=== PATIENT | female | born 1945 | race Caucasian/White ===

== ENCOUNTER 2021-04-18 13:49 | Outpatient (REF) | payer MEDICARE, SELFPAY ==
--- NOTE | ~2021-04-18 | MM_ITS ---
EXAMINATION: MM SCREENING DIGITAL BREAST TOMOSYNTHESIS, BILATERAL CLINICAL INFORMATION: Left breast cancer 2004. Due for yearly. COMPARISON: Mammography: 02/29/2020, 12/28/2018, 11/22/2017 TECHNIQUE: Digital breast tomosynthesis is performed in both the craniocaudal and mediolateral oblique views along with computer-aided detection (CAD). Synthesized 2D images are generated from the tomosynthesis. Additional views are provided: Exaggerated right CC, left CC, left MLO x2. FINDINGS: There are scattered areas of fibroglandular density (ACR BI-RADS breast composition Category b). Parenchymal pattern is similar to previous exams. The left breast again shows chronic post therapy changes with reduced breast size and stable scarring posterior upper breast. There are scattered benign relatively coarse calcifications left breast. Pacemaker generator overlies the left axilla on MLO views. The right breast has biopsy clip marker mid 12:00 position. There is no interval mass or architectural abnormality. There are scattered benign calcifications again seen including benign grouped coarse calcifications mid 6:30 o'clock position. No significant changes. MM/MM tomosynthesis screening BI IMPRESSION: No mammographic evidence of malignancy. Post therapy changes left breast. ASSESSMENT: BI-RADS 2: Benign RECOMMENDATION: Routine annual mammography screening. This patient's information was entered into a reminder system with a target due date for their next mammogram.
--- NOTE | ~2021-04-18 | MM_ITS ---
EXAMINATION: BONE DENSITOMETRY CLINICAL INDICATION: Postmenopausal. COMPARISON: None (current study represents initial baseline exam). TECHNIQUE: Using a [employer] DXA System (software version: 13.1) manufactured by [employer], dual-energy x-ray absorptiometry was performed of the lumbar spine and left hip. The images are of good technical quality. Summary results are attached. FINDINGS: AP SPINE L1-L4: BMD 1.084 g/cm2, Z-score 0.9, T-score -0.8, normal. LEFT FEMUR, NECK: BMD 0.767 g/cm2, Z-score 0.1, T-score -2.0, osteopenia. LEFT FEMUR, TOTAL: BMD 0.888 g/cm2, Z-score 0.9, T-score -1.0, normal. IDENTIFIED RISK FACTORS: Early menopause, secondary osteoporosis, anticonvulsants, hysterectomy, bilateral oophorectomy. HISTORY OF FRACTURE: None listed. MEDICATIONS: Vitamin D. MM/XR DEXA axial skeleton IMPRESSION: 1. DIAGNOSIS: Osteopenia based on the lowest T-score value of -2.0 in the femoral neck applying World Health Organization criteria. 2. 10-YEAR FRACTURE RISK PREDICTION, FRAX: Major osteoporotic fracture (clinical spine, forearm, hip or shoulder) 14.9%. Hip fracture 4.1%. 3. Treatment Recommendations: NOF guidelines recommend consideration for treatment in postmenopausal women and men age 50 and older presenting with the following: -A hip or vertebral (clinical or morphometric) fracture. -T-score less than or equal to -2.5 at the femoral neck or spine after appropriate evaluation to exclude secondary causes. -Low bone mass at the hip or spine and a 10-year fracture probability by FRAX of greater than or equal to 3% for hip fracture or greater than or equal to 20% for major osteoporotic fracture based on the [place] adapted WHO algorithm. 4. Other Recommendations: All treatment decisions require clinical judgment and consideration of individual patient factors, including patient preferences, comorbidities, previous drug use, risk factors not captured in the FRAX model (e.g. frailty, falls, vitamin D deficiency, increased bone turnover, interval significant decline in bone density) and possible under or overestimation of fracture risk by FRAX. Additional medical evaluation for secondary cause of low bone mineral density may be appropriate. FUTURE SCAN RECOMMENDATION: People with diagnosed cases of osteoporosis or at high risk for fracture should have regular bone mineral density tests. For patients eligible for Medicare, routine testing is allowed once every 2 years. The testing frequency can be increased to one year for patients who have rapidly progressing disease, those who are receiving or discontinuing medical therapy to restore bone mass, or have additional risk factors.
== END 2021-04-18 13:50 | disposition home or self-care (01) ==
LOC: HO.MAMMO 13:49
PROVIDERS: Visit Provider Internal Medicine
DX: Z12.31 Encounter for screening mammogram for malignant neoplasm of breast (principal); Z13.820 Encounter for screening for osteoporosis; M85.80 Other specified disorders of bone density and structure, unspecified site; N95.9 Unspecified menopausal and perimenopausal disorder; Z78.0 Asymptomatic menopausal state; Z79.899 Other long term (current) drug therapy; Z90.722 Acquired absence of ovaries, bilateral; Z98.890 Other specified postprocedural states
CPT/HCPCS: 77063; 77067; 77080

== ENCOUNTER → 2021-07-07 09:37 | Outpatient (BNVA) | payer MEDICARE, SELFPAY | PROVIDERS: PCP Internal Medicine; Visit Provider Anesthesiology | DX: G62.9 Polyneuropathy, unspecified (principal); G89.4 Chronic pain syndrome | CPT/HCPCS: 99202 ==

== ENCOUNTER → 2021-07-18 08:25 | Outpatient (BNVA) | payer MEDICARE, SELFPAY | PROVIDERS: PCP Internal Medicine; Visit Provider Internal Medicine | DX: G89.4 Chronic pain syndrome (principal) | CPT/HCPCS: 99212 ==

== ENCOUNTER → 2021-08-19 10:17 | Outpatient (BNVA) | payer MEDICARE, SELFPAY | PROVIDERS: PCP Internal Medicine; Visit Provider Nurse Practitioner Family | DX: Z51.81 Encounter for therapeutic drug level monitoring (principal); F11.20 Opioid dependence, uncomplicated; G62.9 Polyneuropathy, unspecified; G89.4 Chronic pain syndrome | CPT/HCPCS: 99212 ==

== ENCOUNTER → 2021-09-12 09:59 | Outpatient (BNVA) | payer MEDICARE, SELFPAY | PROVIDERS: PCP Internal Medicine; Visit Provider Nurse Practitioner Family | DX: G89.4 Chronic pain syndrome (principal); G62.9 Polyneuropathy, unspecified; Z79.891 Long term (current) use of opiate analgesic | CPT/HCPCS: 99212 ==

== ENCOUNTER → 2021-10-14 09:41 | Outpatient (BNVA) | payer MEDICARE, SELFPAY | PROVIDERS: PCP Internal Medicine; Visit Provider Nurse Practitioner Family | DX: G89.4 Chronic pain syndrome (principal); G62.9 Polyneuropathy, unspecified; Z79.891 Long term (current) use of opiate analgesic | CPT/HCPCS: 99212 ==

== ENCOUNTER → 2021-11-14 09:52 | Outpatient (BNVA) | payer MEDICARE, SELFPAY | PROVIDERS: PCP Internal Medicine; Visit Provider Internal Medicine | DX: Z51.81 Encounter for therapeutic drug level monitoring (principal); Z79.899 Other long term (current) drug therapy | CPT/HCPCS: 99211 ==

== ENCOUNTER → 2021-12-12 10:49 | Outpatient (BNVA) | payer MEDICARE, SELFPAY | PROVIDERS: PCP Internal Medicine; Visit Provider Nurse Practitioner Family | DX: G89.4 Chronic pain syndrome (principal); G62.9 Polyneuropathy, unspecified; Z79.891 Long term (current) use of opiate analgesic | CPT/HCPCS: 99212 ==

== ENCOUNTER → 2022-01-09 10:16 | Outpatient (BNVA) | payer MEDICARE, SELFPAY | PROVIDERS: PCP Internal Medicine; Visit Provider Nurse Practitioner Family | DX: Z51.81 Encounter for therapeutic drug level monitoring (principal); F11.20 Opioid dependence, uncomplicated | CPT/HCPCS: 99211 ==

== ENCOUNTER → 2022-02-10 10:13 | Outpatient (BNVA) | payer MEDICARE, SELFPAY | PROVIDERS: PCP Internal Medicine; Visit Provider Nurse Practitioner Family | DX: G89.4 Chronic pain syndrome (principal); G62.9 Polyneuropathy, unspecified; Z79.891 Long term (current) use of opiate analgesic | CPT/HCPCS: 99212 ==

== ENCOUNTER → 2022-03-10 10:09 | Outpatient (BNVA) | payer MEDICARE, SELFPAY | PROVIDERS: PCP Internal Medicine; Visit Provider Nurse Practitioner Family | DX: Z51.81 Encounter for therapeutic drug level monitoring (principal); F11.20 Opioid dependence, uncomplicated; G62.9 Polyneuropathy, unspecified; G89.4 Chronic pain syndrome; M25.561 Pain in right knee; M25.562 Pain in left knee | CPT/HCPCS: 99212 ==

== ENCOUNTER → 2022-04-07 10:14 | Outpatient (BNVA) | payer MEDICARE, SELFPAY | PROVIDERS: PCP Internal Medicine; Visit Provider Nurse Practitioner Family | DX: F11.90 Opioid use, unspecified, uncomplicated (principal); G62.9 Polyneuropathy, unspecified; G89.4 Chronic pain syndrome; M25.561 Pain in right knee; M25.562 Pain in left knee | CPT/HCPCS: 99212 ==

== ENCOUNTER → 2022-04-09 10:17 | Outpatient (BNVA) | payer MEDICARE, SELFPAY | PROVIDERS: PCP Internal Medicine; Visit Provider Surgery Vascular Surgery | DX: I83.12 Varicose veins of left lower extremity with inflammation (principal); Z92.21 Personal history of antineoplastic chemotherapy | CPT/HCPCS: 99202 ==

== ENCOUNTER 2022-04-21 11:05 | Outpatient (REF) | payer MEDICARE, SELFPAY ==
--- NOTE | ~2022-04-21 | MM_ITS ---
EXAMINATION: MM SCREENING DIGITAL BREAST TOMOSYNTHESIS, BILATERAL CLINICAL INFORMATION: Screening. Asymptomatic. History left breast cancer, 2004. COMPARISON: Mammography: 04/18/2021, 02/29/2020, 12/28/2018 TECHNIQUE: Digital breast tomosynthesis is performed in both the craniocaudal and mediolateral oblique views along with computer-aided detection (CAD). Synthesized 2D images are generated from the tomosynthesis. Additional left MLO view is provided. FINDINGS: There are scattered areas of fibroglandular density (ACR BI-RADS breast composition Category b). There are stable post therapy changes on the left with mild reduced breast size and scarring. There is a pacemaker generator overlying and partly obscuring upper left axilla on the MLO view. Neither breast shows interval mass or architectural abnormality or abnormal calcifications. There is biopsy clip marker again noted central 12:00 right breast. Scattered bilateral predominantly coarse calcifications again seen. No significant changes. MM/MM tomosynthesis screening BI IMPRESSION: No mammographic evidence of malignancy. No significant changes from prior exams. ASSESSMENT: BI-RADS 2: Benign RECOMMENDATION: Routine annual mammography screening. This patient's information was entered into a reminder system with a target due date for their next mammogram.
== END 2022-04-21 11:06 | disposition home or self-care (01) ==
LOC: HO.MAMMO 11:05
PROVIDERS: Visit Provider Internal Medicine
DX: Z12.31 Encounter for screening mammogram for malignant neoplasm of breast (principal)
CPT/HCPCS: 77063; 77067

== ENCOUNTER → 2022-04-30 10:38 | Outpatient (BNVA) | payer MEDICARE, SELFPAY | PROVIDERS: PCP Internal Medicine; Visit Provider Anesthesiology | DX: Z51.81 Encounter for therapeutic drug level monitoring (principal); F11.20 Opioid dependence, uncomplicated; M25.561 Pain in right knee; M25.562 Pain in left knee; G62.9 Polyneuropathy, unspecified; G89.4 Chronic pain syndrome | CPT/HCPCS: 99212 ==

== ENCOUNTER 2022-06-24 12:43 | Outpatient (REF) | payer MEDICARE, SELFPAY ==
--- NOTE | ~2022-06-24 | US_ITS ---
EXAMINATION: US VENOUS BILATERAL LOWER EXTREMITIES (REFLUX EXAM) CLINICAL INDICATION: Leg pain and varicose veins. COMPARISON: None TECHNIQUE: Color flow triplex imaging and compression Doppler was performed to evaluate both the deep and the superficial systems bilaterally. To evaluate the superficial system, the examination was performed in the upright position. Color-flow Doppler ultrasound and compression ultrasound were utilized. In addition, maneuvers were utilized to demonstrate reflux. FINDINGS: 1. DEEP VENOUS ULTRASOUND OF THE RIGHT LOWER EXTREMITY: Respiratory variation, normal compression and augmented flow are noted in the right common femoral vein as well as the right popliteal vein and there is no evidence of deep venous thrombosis at these locations. There is no evidence of reflux in the deep system in either the common femoral vein or the popliteal vein. There is a small right-sided Lopez's cyst. 2. SUPERFICIAL ULTRASOUND WITH DOPPLER OF RIGHT LOWER EXTREMITY: The right great saphenous vein at the saphenofemoral junction measures 5.5 mm, at the proximal thigh 4.6 mm, at the mid thigh 2.4 mm, above the knee 2.5 mm, at the knee 2.2 mm, [id number] 2.2 mm, midcalf 2.4 mm and at the ankle measures 2.0 mm. There is segmental reflux in the mid calf of 2.5 seconds. Duplicated Right Great Saphenous Vein: There is a medial accessory saphenous measuring 2.2 mm that does not reflux. The right small saphenous vein measures 2.7 mm and shows no reflux. Accessory Vein of Giacomini: None Incompetent Perforators: None Varices Present: Varices are present as large as 7 mm in the calf without reflux. 3. DEEP VENOUS ULTRASOUND OF THE LEFT LOWER EXTREMITY: Respiratory variation, normal compression and augmented flow are noted in the left common femoral vein as well as the left popliteal vein and there is no evidence of deep venous thrombosis at these locations. There is no evidence of reflux in the deep system in either the common femoral vein or the popliteal vein. There is no evidence of a Lopez's cyst. 4. SUPERFICIAL ULTRASOUND WITH DOPPLER OF LEFT LOWER EXTREMITY: Left great saphenous vein at the saphenofemoral junction measures 7.6 mm, at the proximal thigh 4.5 mm, at the mid thigh 4.2 mm, above the knee 3.4 mm, at the knee 4.3 mm, pqmkr-[id number] 3.8 mm, midcalf 2.5 mm and at the ankle measures 2.3 mm. Reflux is present throughout the left great saphenous vein from just below the junction down to the level of the ankle with reflux times as high as 3.4 seconds. Duplicated Left Great Saphenous Vein: There is a 5 mm medial accessory saphenous that does not reflux. The left small saphenous vein measures 2.4 mm and shows no reflux. Accessory Vein of Giacomini: None Incompetent Perforators: None Varices Present: 3.3 mm thigh varix with 0.9 seconds of reflux. US/US venous duplex LE BI IMPRESSION: 1. No evidence of reflux or thrombus in the common femoral veins or popliteal veins bilaterally. 2. Left great saphenous is grossly incompetent. Other findings as described above.
== END 2022-06-24 12:44 | disposition home or self-care (01) ==
LOC: HO.US 12:43
PROVIDERS: Visit Provider Surgery Vascular Surgery
DX: I83.12 Varicose veins of left lower extremity with inflammation (principal)
CPT/HCPCS: 93970

== ENCOUNTER → 2022-06-26 14:55 | Outpatient (BNVA) | payer MEDICARE, SELFPAY | PROVIDERS: PCP Internal Medicine; Visit Provider Nurse Practitioner Family | DX: Z51.81 Encounter for therapeutic drug level monitoring (principal); F11.20 Opioid dependence, uncomplicated; M25.561 Pain in right knee; M25.562 Pain in left knee; G62.0 Drug-induced polyneuropathy; T45.1X5A Adverse effect of antineoplastic and immunosuppressive drugs, initial encounter; G89.4 Chronic pain syndrome | CPT/HCPCS: 99212 ==

== ENCOUNTER → 2022-08-18 10:01 | Outpatient (BNVA) | payer MEDICARE, SELFPAY | PROVIDERS: PCP Internal Medicine; Visit Provider Anesthesiology | DX: Z13.89 Encounter for screening for other disorder (principal) ==

== ENCOUNTER → 2022-09-01 09:38 | Outpatient (BNVA) | payer MEDICARE, SELFPAY | PROVIDERS: PCP Internal Medicine; Visit Provider Surgery Vascular Surgery | DX: I83.12 Varicose veins of left lower extremity with inflammation (principal) | CPT/HCPCS: 99212 ==

== ENCOUNTER → 2022-09-11 12:22 | Outpatient (BNVA) | payer MEDICARE, SELFPAY | PROVIDERS: PCP Internal Medicine; Visit Provider Surgery Vascular Surgery | DX: I83.12 Varicose veins of left lower extremity with inflammation (principal) | CPT/HCPCS: 36482; 99212 ==

== ENCOUNTER 2022-09-14 12:41 | Outpatient (REF) | payer MEDICARE, SELFPAY ==
--- NOTE | ~2022-09-14 | US_ITS ---
EXAMINATION: TRIPLEX SCANNING OF LEFT LOWER EXTREMITY; SUPERFICIAL ULTRASOUND WITH DOPPLER OF LEFT LOWER EXTREMITY CLINICAL INFORMATION: Status post VenaSeal. VenaSeal ablation, the left great saphenous vein. COMPARISON: 06/24/2022 Preprocedure studies. TECHNIQUE: Color flow triplex imaging and compression Doppler were performed as well as superficial ultrasound with Doppler. FINDINGS: TRIPLEX SCANNING OF LEFT LOWER EXTREMITY: Respiratory variation, normal compression and augmented flow are noted throughout the lower extremity. The visualized common femoral vein, femoral vein, profunda femoral vein, popliteal vein and the calf veins show no evidence of deep venous thrombosis. There is no evidence of Lopez's cyst. SUPERFICIAL ULTRASOUND WITH DOPPLER OF LEFT LOWER EXTREMITY: The left great saphenous vein is occluded to 2.2 cm before the saphenofemoral junction. There is no extension of thrombus into the deep system. US/US venous duplex LE IMPRESSION: 1. Normal triplex scan of the left without evidence of deep venous thrombosis. 2. Excellent appearance status post VenaSeal ablation of the left great saphenous vein.
== END 2022-09-14 12:42 | disposition home or self-care (01) ==
LOC: HO.HMGCX 12:41
PROVIDERS: Visit Provider Surgery Vascular Surgery
DX: M79.605 Pain in left leg (principal)
CPT/HCPCS: 93971

== ENCOUNTER → 2022-09-18 09:51 | Outpatient (BNVA) | payer MEDICARE, SELFPAY | PROVIDERS: PCP Internal Medicine; Visit Provider Nurse Practitioner Family | DX: G62.0 Drug-induced polyneuropathy (principal); T45.1X5A Adverse effect of antineoplastic and immunosuppressive drugs, initial encounter; G89.4 Chronic pain syndrome; M25.561 Pain in right knee; M25.562 Pain in left knee; Z79.891 Long term (current) use of opiate analgesic | CPT/HCPCS: 99212 ==

== ENCOUNTER → 2022-09-24 13:04 | Outpatient (BNVA) | payer MEDICARE, SELFPAY | PROVIDERS: PCP Internal Medicine; Visit Provider Surgery Vascular Surgery | DX: I83.12 Varicose veins of left lower extremity with inflammation (principal) | CPT/HCPCS: 99212 ==

== ENCOUNTER → 2022-10-16 13:10 | Outpatient (BNVA) | payer MEDICARE, SELFPAY | PROVIDERS: PCP Internal Medicine; Visit Provider Nurse Practitioner Family | DX: G62.0 Drug-induced polyneuropathy (principal); T45.1X5A Adverse effect of antineoplastic and immunosuppressive drugs, initial encounter; G89.4 Chronic pain syndrome; M25.562 Pain in left knee; M25.561 Pain in right knee; Z85.3 Personal history of malignant neoplasm of breast; Z79.891 Long term (current) use of opiate analgesic | CPT/HCPCS: 99212 ==

== ENCOUNTER → 2022-11-19 10:24 | Outpatient (BNVA) | payer MEDICARE, SELFPAY | PROVIDERS: PCP Internal Medicine; Visit Provider Nurse Practitioner Family | DX: Z51.81 Encounter for therapeutic drug level monitoring (principal); F11.20 Opioid dependence, uncomplicated; M25.561 Pain in right knee; M25.562 Pain in left knee; G62.9 Polyneuropathy, unspecified; T45.1X5A Adverse effect of antineoplastic and immunosuppressive drugs, initial encounter; G89.4 Chronic pain syndrome | CPT/HCPCS: 99212 ==

== ENCOUNTER → 2022-12-21 09:47 | Outpatient (BNVA) | payer MEDICARE, SELFPAY | PROVIDERS: PCP Internal Medicine; Visit Provider Nurse Practitioner Family | DX: G89.4 Chronic pain syndrome (principal); Z79.891 Long term (current) use of opiate analgesic; Z79.899 Other long term (current) drug therapy | CPT/HCPCS: 99211 ==

== ENCOUNTER → 2023-01-07 08:04 | Outpatient (BNVA) | payer MEDICARE, SELFPAY | PROVIDERS: PCP Internal Medicine; Visit Provider Dietitian, Registered | DX: K58.9 Irritable bowel syndrome, unspecified (principal) | CPT/HCPCS: 97802 ==

== ENCOUNTER → 2023-01-18 09:56 | Outpatient (BNVA) | payer MEDICARE, SELFPAY | PROVIDERS: PCP Internal Medicine; Visit Provider Nurse Practitioner Family | DX: Z51.81 Encounter for therapeutic drug level monitoring (principal); F11.20 Opioid dependence, uncomplicated; G62.0 Drug-induced polyneuropathy; T45.1X5D Adverse effect of antineoplastic and immunosuppressive drugs, subsequent encounter; M25.561 Pain in right knee; M25.562 Pain in left knee; G89.4 Chronic pain syndrome | CPT/HCPCS: 99212 ==

== ENCOUNTER 2023-02-23 10:08 | Outpatient (AMB) | payer MEDICARE, SELFPAY ==
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
[2023-02-23 10:29] VITALS: BP 113/59; PULSE 77; O2SAT 98; BMI 26.1
== END 2023-02-23 10:49 | disposition home or self-care (01) ==
PROVIDERS: PCP Internal Medicine; Visit Provider Nurse Practitioner Family
DX: G89.4 Chronic pain syndrome (principal); G62.0 Drug-induced polyneuropathy; G62.9 Polyneuropathy, unspecified; Z79.891 Long term (current) use of opiate analgesic; M25.561 Pain in right knee; T45.1X5A Adverse effect of antineoplastic and immunosuppressive drugs, initial encounter; M25.562 Pain in left knee
CPT/HCPCS: 99214

== ENCOUNTER → 2023-02-23 10:08 | Outpatient (BNVA) | payer MEDICARE, SELFPAY | PROVIDERS: PCP Internal Medicine; Visit Provider Nurse Practitioner Family | DX: G89.4 Chronic pain syndrome (principal); G62.0 Drug-induced polyneuropathy; T45.1X5A Adverse effect of antineoplastic and immunosuppressive drugs, initial encounter; G62.9 Polyneuropathy, unspecified; M25.561 Pain in right knee; M25.562 Pain in left knee; Z79.891 Long term (current) use of opiate analgesic | CPT/HCPCS: 99212 ==

== ENCOUNTER → 2023-03-26 09:42 | Outpatient (BNVA) | payer MEDICARE, SELFPAY | PROVIDERS: PCP Internal Medicine; Visit Provider Nurse Practitioner Family | DX: Z79.891 Long term (current) use of opiate analgesic (principal) | CPT/HCPCS: 99211 ==

== ENCOUNTER 2023-03-29 09:46 | Outpatient (AMB) | payer MEDICARE, SELFPAY ==
[2023-03-29 10:08] VITALS: BMI 26.2
--- NOTE | 2023-03-29 10:08 | MHC.AMNUTRGE ---
Intake VS Expanded 03/29/23 10:08 Height 5 ft 3 in Weight 147 lb 14.883 oz BMI 26.2 Intake Visit Reasons: Irritable bowel syndrome Allergies No Known Allergies Allergy (Verified 03/26/23 09:55) HPI Nutrition Presentation Details Pt presents for MNT f/u for IBS. Pt reports continuing to live in the hotel, home is still undergoing renovations. Pt reports having breakfast options a the hotel and makes own meals for lunch or dinner. Pt reports doing better, reports taking cholestyramine with each meal Meals consists of B: oatmeal with low fat milk or almond milk adn strawberries and bananas or cheerios with low fat or almond milk and fruits added L: sandwich on rye or wheat bread with turkey or tuna ro chicken , water or low fat milk d: mashed potato, chicken baked , cabbage or broccoli or none Someties smoothies reports walking 2 miles a day Most Recent Diabetes Results: No Data to Display [facility] Medical History Chronic pain syndrome Peripheral polyneuropathy Surgical History Status post ablation of incompetent vein using laser (09/11/22) Assessment & Plan Assessment & Plan (1) IBS (irritable bowel syndrome): Code(s): K58.9 - Irritable bowel syndrome without diarrhea Plan: Est kcal needs as per 25 kcal/kg bw: 1700 (40% carb, 30% protein/fat) Est fluid needs as per 25 ml/d: 1700 Est prot per day as per 1 g/kg bw: 68 kg Recommend REDUCING fiber intake : less than 28 g /day Recommend sodium intake per day : less than 2000 mg Educated patient on: ( R = reviewed V = verbalizes understanding N/R = needs review N/A = not applicable Food sources of fiber and fiber supplements and its role in increased bowel movements: R importance of variety of foods : R, V Patient Instructions: Continue following healthy plate method at dinner Alternate high fiber/low fiber foods (cheerios, oatmeal and alternate with rice cereal, cornflakes) Continue choosing low fat food options (reduce on butter, oils, sauces, creams , pastries) Coding Level of Care Code Nutr Indiv Subseq (17218) Diagnoses IBS (irritable bowel syndrome) K58.9 Time Spent (min) 30
== END 2023-03-29 13:38 | disposition home or self-care (01) ==
PROVIDERS: PCP Internal Medicine; Visit Provider Dietitian, Registered
DX: K58.9 Irritable bowel syndrome, unspecified (principal)

== ENCOUNTER → 2023-03-29 09:46 | Outpatient (BNVA) | payer MEDICARE, SELFPAY | PROVIDERS: Visit Provider Dietitian, Registered | DX: K58.9 Irritable bowel syndrome, unspecified (principal) | CPT/HCPCS: 97803 ==

== ENCOUNTER 2023-04-20 11:07 | Outpatient (AMB) | payer MEDICARE, SELFPAY ==
--- NOTE | 2023-04-20 11:14 | MHC.OFFVIS ---
Intake Vital Signs 04/20/23 11:25 Height 5 ft 3 in Weight 147 lb BMI 26.0 BP 120/57 L Blood Pressure Location Rt brachial Position Sitting Pulse 77 Pulse Source Pulse Oximeter Pulse Oximetry (%) 98 Oxygen Delivery Method Room Air Intake Visit Reasons: Pill count Intake Note: Darlene comes in today for a pill count to morphine, patient should have 26 tablets and presents with 22 at first count when told she was short and asked if she had anymore on her, she pulled 2 tabs from her wallet for a total of 24 tablets. Pain today 0/10 Patient states that she had taken 2 tablets at one time once when her pain was really bad . I let patient know that she does need to take the medication only as prescribed and that she also needs to have all medication in the medication bottle at the time of the count. Patient is aware. 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 She is supposed to have #26 pills in her possession and has #24. This demonstrates a responsible attitude in regards to the opioid regimen. She reports she is less symptomatic and more functional on current opioid regime with no noted side effects. She continues to stay active and work at [employer] at [employer] [place]. Patient reports she recently saw her GI provider and will not undergo cholecystectomy at this time. Reports intermittent IBS symptoms which have been under better control for past month. Patient reports she also recently went to [facility] for posterior knee pain and was told she has lumbar spondylosis. Patient reports her pain has been under control today with current opioid regime. Denies any fever, chills, shortness of breaths, visual changes, abdominal pain, loss of appetite, sedation, nausea, dizziness or urinary retention or other significant changes in medical history since last office visit. She continues to take Miralax for constipation with good results. PRIOR: Darlene is a pleasant 76 year old female who has previously been evaluated in this office by Dr. Monroy for bilateral leg pain which she attributes to her chemotherapy s/p breast cancer years ago. She was previously under the care of [facility], who was managing her with medication and she reports overall improvements with morphine 15 mg BID. She was evaluated by Dr. Monroy, who agreed to continue her regimen through this office. She is accompanied by her daughter. Today she is here for a pill count, which was concordant. This demonstrates a responsible attitude in regards to the opioid regimen. She reports improved function and decrease in pain, with no noted side effects. Denies any sedation, nausea or urinary retention. She was recently discharged with a small bowel obstruction which was thought to be related to adhesions from a hysterectomy >25 years ago. She has previously been instructed to use a daily stool softener as well as miralax and she has not been adhering to this regimen. She states some weeks she will have a bowel movement every 5 days and other weeks she will have one every other day without the need for medication. She has a follow up with her PCP next week as well as cardiology this week to review her new blood pressure medications. She did note dizziness upon standing and has been taking her blood pressure at home. She was instructed to contact her PCP regarding her low bp today. She also has CHF and although she states she has good fluid intake, she was instructed to decrease by cardiology. Of note, patient recently had a Medtronic pacer placed 01/2021. PRIOR: Darlene is very pleasant 76 years old female who presents in my office with complains on pain in bilateral lower extremities below the level of the knees. She reports this pain is spreading all the way down to her toes. History of present illness she was subject of treatment of peripheral polyneuropathy of bilateral lower extremities after 18 years ago she was treated for breast cancer with physical therapy. She was under care of [facility] and spine. She reports that she can not sleep normally do activities of daily living she can take care of herself and she can not function normally. She is retired individual. In terms of tissue damage the she reports her pain as pulsing, throbbing, pounding, dull, serve, hurting, aching, heavy, hot burning, skull doing, fearful. She reports multiple evaluation of her pain with [facility] and [facility]. Her past medical history significant for atrial fibrillation and pacemaker. She denies smoking cigarettes drinking alcohol using recreational drugs. She has a pacemaker. COUNT INCLUDES THE [facility] Medical History Chronic pain syndrome Peripheral polyneuropathy Surgical History Status post ablation of incompetent vein using laser (09/11/22) Review of Systems Const All systems reviewed & are unremarkable except as noted in HPI and below Physical Exam Vital Signs: Last Vital Signs Pulse 77 04/20/23 11:25 BP 120/57 L 04/20/23 11:25 Pulse Ox 98 04/20/23 11:25 Oxygen Delivery Method Room Air 04/20/23 11:25 BMI result Body Mass Index 26.0 General: Appears afebrile. Alert and oriented. Mood and affect appropriate. Follows and participates in conversation appropriately. Respiratory effort is unlabored. No cough. Able to transition from sit to stand unassisted. Ambulates with bilaterally normal heel strike and toe off. Psych Appearance: grossly normal and well kempt Mental Status: mental status grossly normal Speech and movement: Normal speech and movement present and Clear speech present Affect: normal affect Attitude: cooperative Thought process: Normal thought process present Thought content: Normal thought content present, suicidality (none), no hallucinations and No Depressive thoughts present Insight: Good insight present (Psych) Judgement: Good judgement present (Psych) Assessment & Plan Assessment & Plan (1) Chronic pain syndrome: Code(s): G89.4 - Chronic pain syndrome (2) Chemotherapy-induced peripheral neuropathy: Code(s): G62.0 - Drug-induced polyneuropathy; T45.1X5A - Adverse effect of antineoplastic and immunosuppressive drugs, initial encounter (3) Peripheral polyneuropathy: Code(s): G62.9 - Polyneuropathy, unspecified (4) Bilateral knee pain: Code(s): M25.561 - Pain in right knee; M25.562 - Pain in left knee (5) Chronic, continuous use of opioids: Code(s): F11.90 - Opioid use, unspecified, uncomplicated Plan Patient has shown accountability for her medication regimen. There is no evidence of misuse, abuse or diversion at this time. [employer] reviewed. Script sent for Morphine 15 mg BID with an advanced date of 05/03/23. Continue topical Lidocaine and compound cream for neuropathy pain as needed. All questions were answered and patient is in agreement of plan. Follow up in one month for a pill count or sooner if needed. Medications: Refilled morphine ER Partial Fill upon patient request. 15 mg PO BID 30 days PRN 60 tabs 0RF severe pain (scale score 7-10) F11.90 - Opioid use, unspecified, uncomplicated, G62.0 - Drug-induced polyneuropathy, G89.4 - Chronic pain syndrome, T45.1X5A - Adverse effect of antineoplastic and immunosuppressive drugs, initial encounter Coding Level of Care Code Est Pt Level 4 (15675) Diagnoses Chronic pain syndrome G89.4 Chemotherapy-induced peripheral neuropathy G62.0; T45.1X5A Peripheral polyneuropathy G62.9 Bilateral knee pain M25.561; M25.562 Chronic, continuous use of opioids F11.90
[2023-04-20 11:25] VITALS: BP 120/57; PULSE 77; O2SAT 98; BMI 26.0
== END 2023-04-20 11:38 | disposition home or self-care (01) ==
PROVIDERS: PCP Internal Medicine; Visit Provider Nurse Practitioner Family
DX: G89.4 Chronic pain syndrome (principal); G62.0 Drug-induced polyneuropathy; T45.1X5A Adverse effect of antineoplastic and immunosuppressive drugs, initial encounter; G62.9 Polyneuropathy, unspecified; M25.561 Pain in right knee; M25.562 Pain in left knee; Z79.891 Long term (current) use of opiate analgesic
CPT/HCPCS: 99214

== ENCOUNTER → 2023-04-20 11:07 | Outpatient (BNVA) | payer MEDICARE, SELFPAY | PROVIDERS: PCP Internal Medicine; Visit Provider Nurse Practitioner Family | DX: G89.4 Chronic pain syndrome (principal); G62.0 Drug-induced polyneuropathy; T45.1X5A Adverse effect of antineoplastic and immunosuppressive drugs, initial encounter; G62.9 Polyneuropathy, unspecified; M25.561 Pain in right knee; M25.562 Pain in left knee; Z79.891 Long term (current) use of opiate analgesic | CPT/HCPCS: 99212 ==

== ENCOUNTER 2023-04-23 10:01 | Outpatient (REF) | payer MEDICARE, SELFPAY ==
--- NOTE | ~2023-04-23 | MM_ITS ---
EXAMINATION: MM SCREENING DIGITAL BREAST TOMOSYNTHESIS, BILATERAL CLINICAL INFORMATION: Screening. Asymptomatic. The patient was conservatively treated for left breast cancer 2003. COMPARISON: Mammography: This study is compared with prior exams dating back to 2018. TECHNIQUE: Digital breast tomosynthesis is performed in both the craniocaudal and mediolateral oblique views along with computer-aided detection (CAD). Synthesized 2D images are generated from the tomosynthesis. FINDINGS: There are scattered areas of fibroglandular density (ACR BI-RADS breast composition Category b). There are no significant masses, abnormal calcifications, or other abnormalities. There are architectural changes in the upper outer quadrant of the left breast. There is unchanged skin thickening. Both of these findings treatment related. Bilateral, benign calcifications are present. There is a tissue marker in the upper outer quadrant of the right breast from prior benign percutaneous biopsy. MM/MM tomosynthesis screening BI IMPRESSION: No mammographic evidence of malignancy. ASSESSMENT: BI-RADS BI-RADS 2 - Benign Findings RECOMMENDATION: Routine annual mammography screening. 1 year F/U This examination should not preclude the clinical evaluation of a suspicious palpable abnormality. This patient's information was entered into a reminder system with a target due date for their next mammogram.
== END 2023-04-23 10:02 | disposition home or self-care (01) ==
LOC: HO.MAMMO 10:01
PROVIDERS: PCP Internal Medicine; Visit Provider Internal Medicine
DX: Z12.31 Encounter for screening mammogram for malignant neoplasm of breast (principal)
CPT/HCPCS: 77063; 77067

== ENCOUNTER → 2023-04-23 10:30 | Outpatient (BNV) | payer MEDICARE, SELFPAY | PROVIDERS: PCP Internal Medicine; Visit Provider Radiology Diagnostic Radiology | DX: Z12.31 Encounter for screening mammogram for malignant neoplasm of breast (principal) | CPT/HCPCS: 77063; 77067 ==

== ENCOUNTER 2023-05-18 10:12 | Outpatient (AMB) | payer MEDICARE, SELFPAY ==
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
[2023-05-18 10:46] VITALS: BP 99/54; PULSE 77; O2SAT 96; BMI 26.3
== END 2023-05-18 10:55 | disposition home or self-care (01) ==
PROVIDERS: PCP Internal Medicine; Visit Provider Nurse Practitioner Family
DX: G89.4 Chronic pain syndrome (principal); G62.0 Drug-induced polyneuropathy; G62.9 Polyneuropathy, unspecified; Z79.891 Long term (current) use of opiate analgesic; M25.561 Pain in right knee; M25.562 Pain in left knee; T45.1X5A Adverse effect of antineoplastic and immunosuppressive drugs, initial encounter
CPT/HCPCS: 99214

== ENCOUNTER → 2023-05-18 10:12 | Outpatient (BNVA) | payer MEDICARE, SELFPAY | PROVIDERS: PCP Internal Medicine; Visit Provider Nurse Practitioner Family | DX: G89.4 Chronic pain syndrome (principal); G62.0 Drug-induced polyneuropathy; T45.1X5A Adverse effect of antineoplastic and immunosuppressive drugs, initial encounter; M25.561 Pain in right knee; M25.562 Pain in left knee; Z79.891 Long term (current) use of opiate analgesic | CPT/HCPCS: 99212 ==

== ENCOUNTER 2023-06-21 09:34 | Outpatient (AMB) | payer MEDICARE, SELFPAY ==
--- NOTE | 2023-06-21 09:44 | A.OFFVIS_ITS ---
Intake Vital Signs 06/21/23 09:57 Height 5 ft 3 in Weight 148 lb BMI 26.2 BP 119/57 L Blood Pressure Location Rt brachial Position Sitting Pulse 80 Pulse Source Pulse Oximeter Pulse Oximetry (%) 98 Oxygen Delivery Method Room Air Intake Visit Reasons: pill count/LMOVM Intake Note: Darlene comes in today for a pill count to morphine, patient should have 22 tablets and presents with 27 tablets which she last took today 06/21/23 at 8:30am. Pain today 09/25. Airline Pilot Required: No Accompanied by: Self / Same As Patient Allergies No Known Allergies Allergy (Verified 06/21/23 09:55) HPI HPI Comments History of Present Illness Details Patient presents today a pill count. She is supposed to have #22 pills in her possession and has #27. This demonstrates a responsible attitude in regards to the opioid regimen. Reports adequate analgesia on current regime without any side effects, except occasional constipation relieved by dulcolax. She requests a decreased dose on stool softener as at times her stools become loose and she has to take immodium. Patient also has irritable bowel syndrome. Denies any fever, chills, shortness of breaths, visual changes, abdominal pain, loss of appetite, sedation, nausea, dizziness or urinary retention or other significant changes in medical history since last office visit. Patient reports she is less symptomatic and more functional on current opioid regime with no noted side effects. PRIOR: Darlene is a pleasant 76 year old female who has previously been evaluated in this office by Dr. Monroy for bilateral leg pain which she attributes to her chemotherapy s/p breast cancer years ago. She was previously under the care of [facility], who was managing her with medication and she reports overall improvements with morphine 15 mg BID. She was evaluated by Dr. Monroy, who agreed to continue her regimen through this office. She is accompanied by her daughter. Today she is here for a pill count, which was concordant. This demonstrates a responsible attitude in regards to the opioid regimen. She reports improved function and decrease in pain, with no noted side effects. Denies any sedation, nausea or urinary retention. She was recently discharged with a small bowel obstruction which was thought to be related to adhesions from a hysterectomy >25 years ago. She has previously been instructed to use a daily stool softener as well as miralax and she has not been adhering to this regimen. She states some weeks she will have a bowel movement every 5 days and other weeks she will have one every other day without the need for medication. She has a follow up with her PCP next week as well as cardiology this week to review her new blood pressure medications. She did note dizziness upon standing and has been taking her blood pressure at home. She was instructed to contact her PCP regarding her low bp today. She also has CHF and although she states she has good fluid intake, she was instructed to decrease by cardiology. Of note, patient recently had a Medtronic pacer placed 01/2021. PRIOR: Darlene is very pleasant 76 years old female who presents in my office with complains on pain in bilateral lower extremities below the level of the knees. She reports this pain is spreading all the way down to her toes. History of present illness she was subject of treatment of peripheral polyneuropathy of bilateral lower extremities after 18 years ago she was treated for breast cancer with physical therapy. She was under care of [facility]. She reports that she can not sleep normally do activities of daily living she can take care of herself and she can not function normally. She is retired individual. In terms of tissue damage the she reports her pain as pulsing, throbbing, pounding, dull, serve, hurting, aching, heavy, hot burning, skull doing, fearful. She reports multiple evaluation of her pain with [facility] and [facility]. Her past medical history significant for atrial fibrillation and pacemaker. She denies smoking cigarettes drinking alcohol using recreational drugs. She has a pacemaker. [facility] Medical History Chronic pain syndrome Peripheral polyneuropathy Surgical History Status post ablation of incompetent vein using laser (09/11/22) Review of Systems Const All systems reviewed & are unremarkable except as noted in HPI and below Physical Exam General: Appears afebrile. Alert and oriented. Mood and affect appropriate. Follows and participates in conversation appropriately. Respiratory effort is unlabored. No cough. Able to transition from sit to stand unassisted. Ambulates with bilaterally normal heel strike and toe off. Psych Appearance: grossly normal and well kempt Mental Status: mental status grossly normal Speech and movement: Normal speech and movement present and Clear speech present Affect: normal affect Attitude: cooperative Thought process: Normal thought process present Thought content: Normal thought content present, suicidality (none), no hallucinations and No Depressive thoughts present Insight: Good insight present (Psych) Judgement: Good judgement present (Psych) Assessment & Plan Assessment & Plan (1) Chronic pain syndrome: Code(s): G89.4 - Chronic pain syndrome (2) Chemotherapy-induced peripheral neuropathy: Code(s): G62.0 - Drug-induced polyneuropathy; T45.1X5A - Adverse effect of antineoplastic and immunosuppressive drugs, initial encounter (3) Peripheral polyneuropathy: Code(s): G62.9 - Polyneuropathy, unspecified (4) Bilateral knee pain: Code(s): M25.561 - Pain in right knee; M25.562 - Pain in left knee (5) Chronic, continuous use of opioids: Code(s): F11.90 - Opioid use, unspecified, uncomplicated Plan Patient has shown accountability for her medication regimen. There is no evidence of misuse, abuse or diversion at this time. [employer] reviewed. Script sent for Morphine 15 mg BID with an advanced date of 05/31/23 which is few days earlier to allow patient to fill prescription before she lives to [place] to spend her gi holidays with her family. Continue topical Lidocaine and compound cream for neuropathy pain as needed. All questions were answered and patient is in agreement of plan. Follow up in one month for a pill count or sooner if needed. Medications: Changed From docusate sodium 100 mg PO DAILY 30 days PRN 30 caps 3RF constipation F11.90 - Opioid use, unspecified, uncomplicated To docusate sodium 50 mg PO DAILY 90 days PRN 90 caps 1RF constipation F11.90 - Opioid use, unspecified, uncomplicated Refilled morphine ER Partial Fill upon patient request. 15 mg PO BID 30 days PRN 60 tabs 0RF severe pain (scale score 7-10) F11.90 - Opioid use, unspecified, uncomplicated, G62.0 - Drug-induced polyneuropathy, G89.4 - Chronic pain syndrome, T45.1X5A - Adverse effect of antineoplastic and immunosuppressive drugs, initial encounter Coding Level of Care Code Est Pt Level 4 (40777) Diagnoses Chronic pain syndrome G89.4 Chemotherapy-induced peripheral neuropathy G62.0; T45.1X5A Peripheral polyneuropathy G62.9 Bilateral knee pain M25.561; M25.562 Chronic, continuous use of opioids F11.90
[2023-06-21 09:57] VITALS: BP 119/57; PULSE 80; O2SAT 98; BMI 26.2
== END 2023-06-21 10:03 | disposition home or self-care (01) ==
PROVIDERS: PCP Internal Medicine; Visit Provider Nurse Practitioner Family
DX: G89.4 Chronic pain syndrome (principal); G62.0 Drug-induced polyneuropathy; T45.1X5A Adverse effect of antineoplastic and immunosuppressive drugs, initial encounter; Z79.891 Long term (current) use of opiate analgesic; G62.9 Polyneuropathy, unspecified; M25.561 Pain in right knee; M25.562 Pain in left knee
CPT/HCPCS: 99214

== ENCOUNTER → 2023-06-21 09:34 | Outpatient (BNVA) | payer MEDICARE, SELFPAY | PROVIDERS: PCP Internal Medicine; Visit Provider Nurse Practitioner Family | DX: G89.4 Chronic pain syndrome (principal); G62.0 Drug-induced polyneuropathy; T45.1X5A Adverse effect of antineoplastic and immunosuppressive drugs, initial encounter; G62.9 Polyneuropathy, unspecified; M25.561 Pain in right knee; M25.562 Pain in left knee; Z79.891 Long term (current) use of opiate analgesic | CPT/HCPCS: 99212 ==

== ENCOUNTER 2023-07-20 09:36 | Outpatient (REF) | payer MEDICARE, SELFPAY | END 2023-07-20 09:37 | disposition home or self-care (01) | LOC: HO.LAB 09:36 | PROVIDERS: PCP Internal Medicine; Visit Provider Nurse Practitioner Family | DX: G89.4 Chronic pain syndrome (principal); M25.561 Pain in right knee; M25.562 Pain in left knee; T45.1X5A Adverse effect of antineoplastic and immunosuppressive drugs, initial encounter; G62.0 Drug-induced polyneuropathy; G62.9 Polyneuropathy, unspecified; F11.90 Opioid use, unspecified, uncomplicated; K58.1 Irritable bowel syndrome with constipation | CPT/HCPCS: 99212 ==

== ENCOUNTER 2023-07-20 09:36 | Outpatient (AMB) | payer MEDICARE, SELFPAY ==
[2023-07-20 09:44] VITALS: BP 119/63; PULSE 86; RESP 14; O2SAT 97; BMI 25.2
--- NOTE | 2023-07-20 09:44 | A.OFFVIS_ITS ---
Intake Vital Signs 07/20/23 09:44 Height 5 ft 3 in Weight 142 lb 6 oz BMI 25.2 BP 119/63 Blood Pressure Location Lt brachial Position Sitting Respiration 14 Pulse 86 Pulse Source Pulse Oximeter Pulse Oximetry (%) 97 Oxygen Delivery Method Room Air Intake Visit Reasons: Medication Count/Random UDS/confirmed Allergies No Known Allergies Allergy (Verified 07/20/23 09:45) HPI HPI Comments History of Present Illness Details Patient presents today a pill count. She is supposed to have #24 pills in her possession and has #32. This demonstrates a responsible attitude in regards to the opioid regimen. Reports adequate analgesia on current regime without any side effects, except occasional constipation. Patient reports she did not receive docusate sodium syrup. Patient also has irritable bowel syndrome. Denies any fever, chills, shortness of breaths, visual changes, abdominal pain, loss of appetite, sedation, nausea, dizziness or urinary retention or other significant changes in medical history since last office visit. Patient reports she is less symptomatic and more functional on current opioid regime with no noted side effects. She is leaving to [place] to spend Holidays with her family on 07/29/23 and requests if her next refill that is due on 07/31/23 can be sent for 07/29/23. Denies any recent cough, cold, infection, fever or other significant changes in medical history since last office visit. PRIOR: Darlene is a pleasant 76 year old female who has previously been evaluated in this office by Dr. Monroy for bilateral leg pain which she attributes to her chemotherapy s/p breast cancer years ago. She was previously under the care of [facility], who was managing her with medication and she reports overall improvements with morphine 15 mg BID. She was evaluated by Dr. Monroy, who agreed to continue her regimen through this office. She is accompanied by her daughter. Today she is here for a pill count, which was concordant. This demonstrates a responsible attitude in regards to the opioid regimen. She reports improved function and decrease in pain, with no noted side effects. Denies any sedation, nausea or urinary retention. She was recently discharged with a small bowel obstruction which was thought to be related to adhesions from a hysterectomy >25 years ago. She has previously been instructed to use a daily stool softener as well as miralax and she has not been adhering to this regimen. She states some weeks she will have a bowel movement every 5 days and other weeks she will have one every other day without the need for medication. She has a follow up with her PCP next week as well as cardiology this week to review her new blood pressure medications. She did note dizziness upon standing and has been taking her blood pressure at home. She was instructed to contact her PCP regarding her low bp today. She also has CHF and although she states she has good fluid intake, she was instructed to decrease by cardiology. Of note, patient recently had a Medtronic pacer placed 01/2021. PRIOR: Darlene is very pleasant 76 years old female who presents in my office with complains on pain in bilateral lower extremities below the level of the knees. She reports this pain is spreading all the way down to her toes. History of present illness she was subject of treatment of peripheral polyneuropathy of bilateral lower extremities after 18 years ago she was treated for breast cancer with physical therapy. She was under care of [facility]. She reports that she can not sleep normally do activities of daily living she can take care of herself and she can not function normally. She is retired individual. In terms of tissue damage the she reports her pain as pulsing, throbbing, pounding, dull, serve, hurting, aching, heavy, hot burning, skull doing, fearful. She reports multiple evaluation of her pain with [facility] and [facility]. Her past medical history significant for atrial fibrillation and pacemaker. She denies smoking cigarettes drinking alcohol using recreational drugs. She has a pacemaker. [facility] Medical History Chronic pain syndrome Peripheral polyneuropathy Surgical History Status post ablation of incompetent vein using laser (09/11/22) Review of Systems Const All systems reviewed & are unremarkable except as noted in HPI and below Physical Exam Vital Signs: Last Vital Signs Pulse 86 07/20/23 09:44 Resp 14 07/20/23 09:44 BP 119/63 07/20/23 09:44 Pulse Ox 97 07/20/23 09:44 Oxygen Delivery Method Room Air 07/20/23 09:44 BMI result Body Mass Index 25.2 General: Appears afebrile. Alert and oriented. Mood and affect appropriate. Follows and participates in conversation appropriately. Respiratory effort is unlabored. No cough. Able to transition from sit to stand unassisted. Ambulates with bilaterally normal heel strike and toe off. Psych Appearance: grossly normal and well kempt Mental Status: mental status grossly normal Speech and movement: Normal speech and movement present and Clear speech present Affect: normal affect Attitude: cooperative Thought process: Normal thought process present Thought content: Normal thought content present, suicidality (none), no hallucinations and No Depressive thoughts present Insight: Good insight present (Psych) Judgement: Good judgement present (Psych) Assessment & Plan Assessment & Plan (1) Chronic pain syndrome: Code(s): G89.4 - Chronic pain syndrome (2) Chemotherapy-induced peripheral neuropathy: Code(s): G62.0 - Drug-induced polyneuropathy; T45.1X5A - Adverse effect of antineoplastic and immunosuppressive drugs, initial encounter (3) Peripheral polyneuropathy: Code(s): G62.9 - Polyneuropathy, unspecified (4) Bilateral knee pain: Code(s): M25.561 - Pain in right knee; M25.562 - Pain in left knee (5) Chronic, continuous use of opioids: Code(s): F11.90 - Opioid use, unspecified, uncomplicated Plan Patient has shown accountability for her medication regimen. There is no evidence of misuse, abuse or diversion at this time. MassPAT reviewed. Script sent for Morphine 15 mg BID with an advanced date of 07/29/23 which is few days earlier to allow patient to fill prescription before she lives to [place] to spend her gi holidays with her family. She reports she will return home on 08/12/23. Continue topical Lidocaine and compound cream for neuropathy pain as needed. All questions were answered and patient is in agreement of plan. Follow up in 4-5 weeks for a pill count or sooner if needed. Medications: Refilled morphine ER Partial Fill upon patient request. 15 mg PO BID 30 days PRN 60 tabs 0RF severe pain (scale score 7-10) F11.90 - Opioid use, unspecified, uncomplicated, G62.0 - Drug-induced polyneuropathy, G89.4 - Chronic pain syndrome, T45.1X5A - Adverse effect of antineoplastic and immunosuppressive drugs, initial encounter docusate sodium 50 mg (5 mL) PO BID PRN 200 mL 3RF constipation F11.90 - Opioid use, unspecified, uncomplicated, K59.00 - Constipation, unspecified Coding Level of Care Code Est Pt Level 4 (07957) Diagnoses Chronic pain syndrome G89.4 Chemotherapy-induced peripheral neuropathy G62.0; T45.1X5A Peripheral polyneuropathy G62.9 Bilateral knee pain M25.561; M25.562 Chronic, continuous use of opioids F11.90
== END 2023-07-20 10:09 | disposition home or self-care (01) ==
PROVIDERS: PCP Internal Medicine; Visit Provider Nurse Practitioner Family
DX: G89.4 Chronic pain syndrome (principal); G62.0 Drug-induced polyneuropathy; G62.9 Polyneuropathy, unspecified; Z79.891 Long term (current) use of opiate analgesic; M25.561 Pain in right knee; M25.562 Pain in left knee; T45.1X5A Adverse effect of antineoplastic and immunosuppressive drugs, initial encounter
CPT/HCPCS: 99214

== ENCOUNTER 2023-09-02 14:35 | Outpatient (AMB) | payer MEDICARE, SELFPAY ==
--- NOTE | 2023-09-02 14:40 | MHC.OFFVIS ---
Intake Vital Signs 09/02/23 14:50 Height 5 ft 3 in Weight 140 lb 8 oz BMI 24.9 BP 131/64 Blood Pressure Location Rt brachial Position Sitting Pulse 80 Pulse Source Pulse Oximeter Pulse Oximetry (%) 97 Oxygen Delivery Method Room Air Intake Visit Reasons: Medication count/lvm Intake Note: Darlene comes in today for a pill count to morphine, patient should have 0 tablets and presents with 17 tablets which she last took today 09/02/23 at 12pm. Pain today 09/25. Patient signed updated opioid contract in office today, signed copy was provided to patient. Licensed Certified Orthotist Required: No Accompanied by: Self / Same As Patient Allergies No Known Allergies Allergy (Verified 09/02/23 14:50) HPI HPI Comments History of Present Illness Details Patient presents today a pill count. She is supposed to have #0 pills in her possession and has #17. This demonstrates a responsible attitude in regards to the opioid regimen. Reports adequate analgesia on current regime without any side effects. Patient reports she is less symptomatic and more functional on current opioid regime with no noted side effects. Patient reports recent laparoscopic cholecystectomy in [place] while visiting her family for holidays last month. Her abdominal incisions are well healing and she reports doing well. Denies any recent cough, cold, infection, fever or other significant changes in medical history since last office visit. PRIOR: Darlene is a pleasant 76 year old female who has previously been evaluated in this office by Dr. Monroy for bilateral leg pain which she attributes to her chemotherapy s/p breast cancer years ago. She was previously under the care of [facility], who was managing her with medication and she reports overall improvements with morphine 15 mg BID. She was evaluated by Dr. Monroy, who agreed to continue her regimen through this office. She is accompanied by her daughter. Today she is here for a pill count, which was concordant. This demonstrates a responsible attitude in regards to the opioid regimen. She reports improved function and decrease in pain, with no noted side effects. Denies any sedation, nausea or urinary retention. She was recently discharged with a small bowel obstruction which was thought to be related to adhesions from a hysterectomy >25 years ago. She has previously been instructed to use a daily stool softener as well as miralax and she has not been adhering to this regimen. She states some weeks she will have a bowel movement every 5 days and other weeks she will have one every other day without the need for medication. She has a follow up with her PCP next week as well as cardiology this week to review her new blood pressure medications. She did note dizziness upon standing and has been taking her blood pressure at home. She was instructed to contact her PCP regarding her low bp today. She also has CHF and although she states she has good fluid intake, she was instructed to decrease by cardiology. Of note, patient recently had a Medtronic pacer placed 01/2021. PRIOR: Darlene is very pleasant 76 years old female who presents in my office with complains on pain in bilateral lower extremities below the level of the knees. She reports this pain is spreading all the way down to her toes. History of present illness she was subject of treatment of peripheral polyneuropathy of bilateral lower extremities after 18 years ago she was treated for breast cancer with physical therapy. She was under care of [facility] and spine. She reports that she can not sleep normally do activities of daily living she can take care of herself and she can not function normally. She is retired individual. In terms of tissue damage the she reports her pain as pulsing, throbbing, pounding, dull, serve, hurting, aching, heavy, hot burning, skull doing, fearful. She reports multiple evaluation of her pain with [facility] and [facility] and spine. Her past medical history significant for atrial fibrillation and pacemaker. She denies smoking cigarettes drinking alcohol using recreational drugs. She has a pacemaker. [facility] Medical History Chronic pain syndrome Peripheral polyneuropathy Surgical History Status post ablation of incompetent vein using laser (09/11/22) Review of Systems Const All systems reviewed & are unremarkable except as noted in HPI and below Physical Exam Vital Signs: Last Vital Signs Pulse 80 09/02/23 14:50 BP 131/64 09/02/23 14:50 Pulse Ox 97 09/02/23 14:50 Oxygen Delivery Method Room Air 09/02/23 14:50 BMI result Body Mass Index 24.9 General: Appears afebrile. Alert and oriented. Mood and affect appropriate. Follows and participates in conversation appropriately. Respiratory effort is unlabored. No cough. Able to transition from sit to stand unassisted. Ambulates with bilaterally normal heel strike and toe off. GI Inspection: Yes normal to inspection, No distended and Yes scar (well healing small incisions x4) Palpation (GI): Soft to palpation and nontender Psych Appearance: grossly normal and well kempt Mental Status: mental status grossly normal Speech and movement: Normal speech and movement present and Clear speech present Affect: normal affect Attitude: cooperative Thought process: Normal thought process present Thought content: Normal thought content present, suicidality (none), no hallucinations and No Depressive thoughts present Insight: Good insight present (Psych) Judgement: Good judgement present (Psych) Assessment & Plan Assessment & Plan (1) Chronic pain syndrome: Code(s): G89.4 - Chronic pain syndrome (2) Chemotherapy-induced peripheral neuropathy: Code(s): G62.0 - Drug-induced polyneuropathy; T45.1X5A - Adverse effect of antineoplastic and immunosuppressive drugs, initial encounter (3) Peripheral polyneuropathy: Code(s): G62.9 - Polyneuropathy, unspecified (4) Bilateral knee pain: Code(s): M25.561 - Pain in right knee; M25.562 - Pain in left knee (5) Chronic, continuous use of opioids: Code(s): F11.90 - Opioid use, unspecified, uncomplicated (6) Status post laparoscopic cholecystectomy: Code(s): Z90.49 - Acquired absence of other specified parts of digestive tract Plan Patient has shown accountability for her medication regimen. There is no evidence of misuse, abuse or diversion at this time. [employer] reviewed. Script sent for Morphine 15 mg BID with an advanced date of 09/09/23. Continue topical Lidocaine and compound cream for neuropathy pain as needed. Patient is status post recent lap. cholecystectomy on 08/16/23 in [place] while she attended her family for holidays and had ER visit for significant abdominal pain. Her incisions are healing well. All questions were answered and patient is in agreement of plan. Follow up in 4 weeks for a pill count or sooner if needed. Medications: Refilled morphine ER Partial Fill upon patient request. 15 mg PO BID PRN 60 tabs 0RF severe pain (scale score 7-10) 30 days F11.90 - Opioid use, unspecified, uncomplicated, G62.0 - Drug-induced polyneuropathy, G89.4 - Chronic pain syndrome, T45.1X5A - Adverse effect of antineoplastic and immunosuppressive drugs, initial encounter Coding Level of Care Code Est Pt Level 4 (10618) Diagnoses Chronic pain syndrome G89.4 Chemotherapy-induced peripheral neuropathy G62.0; T45.1X5A Peripheral polyneuropathy G62.9 Bilateral knee pain M25.561; M25.562 Chronic, continuous use of opioids F11.90 Status post laparoscopic cholecystectomy Z90.49
[2023-09-02 14:50] VITALS: BP 131/64; PULSE 80; O2SAT 97; BMI 24.9
== END 2023-09-02 15:18 | disposition home or self-care (01) ==
PROVIDERS: PCP Internal Medicine; Visit Provider Nurse Practitioner Family
DX: G89.4 Chronic pain syndrome (principal); G62.0 Drug-induced polyneuropathy; T45.1X5A Adverse effect of antineoplastic and immunosuppressive drugs, initial encounter; Z79.891 Long term (current) use of opiate analgesic; M25.561 Pain in right knee; M25.562 Pain in left knee; Z90.49 Acquired absence of other specified parts of digestive tract
CPT/HCPCS: 99214

== ENCOUNTER → 2023-09-02 14:35 | Outpatient (BNVA) | payer MEDICARE, SELFPAY | PROVIDERS: PCP Internal Medicine; Visit Provider Nurse Practitioner Family | DX: Z51.81 Encounter for therapeutic drug level monitoring (principal); F11.20 Opioid dependence, uncomplicated; G62.0 Drug-induced polyneuropathy; T45.1X5D Adverse effect of antineoplastic and immunosuppressive drugs, subsequent encounter; M25.561 Pain in right knee; M25.562 Pain in left knee; Z90.49 Acquired absence of other specified parts of digestive tract; G89.4 Chronic pain syndrome | CPT/HCPCS: 99212 ==

== ENCOUNTER 2023-10-01 11:07 | Outpatient (REF) | payer MEDICARE, SELFPAY ==
--- NOTE | ~2023-10-01 | XR_ITS ---
EXAMINATION: XR KNEE, RIGHT XR KNEE, LEFT CLINICAL INFORMATION: Pain in right knee, pain behind the knee. COMPARISON: None available. TECHNIQUE: AP, lateral and sunrise views of each knee. FINDINGS: LEFT KNEE: Trace joint effusion. Calcifications in the posterior soft tissues are likely vascular. Bones are diffusely demineralized. Mild medial joint space narrowing. RIGHT KNEE: Spurring along the anterior superior aspect of the patella. Trace joint effusion. Calcifications in the posterior soft tissues are likely vascular. Bones are diffusely demineralized. Mild medial joint space narrowing. XR/XR knee RT 3V IMPRESSION: Mild degenerative changes in the bilateral knees.
--- NOTE | ~2023-10-01 | XR_ITS ---
EXAMINATION: XR KNEE, RIGHT XR KNEE, LEFT CLINICAL INFORMATION: Pain in right knee, pain behind the knee. COMPARISON: None available. TECHNIQUE: AP, lateral and sunrise views of each knee. FINDINGS: LEFT KNEE: Trace joint effusion. Calcifications in the posterior soft tissues are likely vascular. Bones are diffusely demineralized. Mild medial joint space narrowing. RIGHT KNEE: Spurring along the anterior superior aspect of the patella. Trace joint effusion. Calcifications in the posterior soft tissues are likely vascular. Bones are diffusely demineralized. Mild medial joint space narrowing. 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
== END 2023-10-01 11:08 | disposition home or self-care (01) ==
LOC: HO.XRAY 11:07
PROVIDERS: PCP Internal Medicine; Visit Provider Nurse Practitioner Family
DX: M25.561 Pain in right knee (principal); M25.562 Pain in left knee; K59.03 Drug induced constipation; G89.4 Chronic pain syndrome; G62.0 Drug-induced polyneuropathy; T45.1X5A Adverse effect of antineoplastic and immunosuppressive drugs, initial encounter; F11.90 Opioid use, unspecified, uncomplicated; Z51.81 Encounter for therapeutic drug level monitoring; Z79.899 Other long term (current) drug therapy
CPT/HCPCS: 73562; 99212

== ENCOUNTER 2023-10-01 11:07 | Outpatient (AMB) | payer MEDICARE, SELFPAY ==
--- NOTE | 2023-10-01 11:18 | A.OFFVIS_ITS ---
Intake Vital Signs 10/01/23 11:29 Height 5 ft 3 in Weight 139 lb BMI 24.6 BP 119/70 Blood Pressure Location Rt brachial Position Sitting Pulse 82 Pulse Source Pulse Oximeter Pulse Oximetry (%) 98 Oxygen Delivery Method Room Air Intake Visit Reasons: PILL COUNT - Confirmed Intake Note: Darlene comes in today for a pill count to morphine, patient should have 18 tabs and presents with 30 tablets which she last took today 10/01/23 at 10:30am. Pain today 11/23. [employer] Consultant Required: No Accompanied by: Self / Same As Patient Allergies No Known Allergies Allergy (Verified 10/01/23 11:30) HPI HPI Comments History of Present Illness Details Patient presents today a pill count. She is supposed to have #0 pills in her possession and has #17. This demonstrates a responsible attitude in regards to the opioid regimen. Reports adequate analgesia on current regime without any side effects except constipation for which she takes suppository with good results. Patient reports she is less symptomatic and more functional on current opioid regime with no noted side effects. Patient reports she has not been sleeping well lately due to bilateral knee pain, worse on left side and more posterior than anterior aspects of both knees. She reports pain with with walking, climbing stairs and at night which this is also exacerbated by restless leg symptoms. Patient also underwent venous treatments with Dr. Bonilla early 2022 for varicose veins and was recommended to continue use of compression stockings and leg elevation. Patient reports gabapentin has been helpful for cramping and neuropathic pain. Denies any recent cough, cold, infection, fever or other significant changes in medical history since last office visit. PRIOR: Darlene is a pleasant 76 year old female who has previously been evaluated in this office by Dr. Monroy for bilateral leg pain which she attributes to her chemotherapy s/p breast cancer years ago. She was previously under the care of [facility], who was managing her with medication and she reports overall improvements with morphine 15 mg BID. She was evaluated by Dr. Monroy, who agreed to continue her regimen through this office. She is accompanied by her daughter. Today she is here for a pill count, which was concordant. This demonstrates a responsible attitude in regards to the opioid regimen. She reports improved function and decrease in pain, with no noted side effects. Denies any sedation, nausea or urinary retention. She was recently discharged with a small bowel obstruction which was thought to be related to adhesions from a hysterectomy >25 years ago. She has previously been instructed to use a daily stool softener as well as miralax and she has not been adhering to this regimen. She states some weeks she will have a bowel movement every 5 days and other weeks she will have one every other day without the need for medication. She has a follow up with her PCP next week as well as cardiology this week to review her new blood pressure medications. She did note dizziness upon standing and has been taking her blood pressure at home. She was instructed to contact her PCP regarding her low bp today. She also has CHF and although she states she has good fluid intake, she was instructed to decrease by cardiology. Of note, patient recently had a Medtronic pacer placed 01/2021. PRIOR: Darlene is very pleasant 76 years old female who presents in my office with complains on pain in bilateral lower extremities below the level of the knees. She reports this pain is spreading all the way down to her toes. History of present illness she was subject of treatment of peripheral polyneuropathy of bilateral lower extremities after 18 years ago she was treated for breast cancer with physical therapy. She was under care of [facility] and spine. She reports that she can not sleep normally do activities of daily living she can take care of herself and she can not function normally. She is retired individual. In terms of tissue damage the she reports her pain as pulsing, throbbing, pounding, dull, serve, hurting, aching, heavy, hot burning, skull doing, fearful. She reports multiple evaluation of her pain with [facility] and [facility] and spine. Her past medical history significant for atrial fibrillation and pacemaker. She denies smoking cigarettes drinking alcohol using recreational drugs. She has a pacemaker. [facility] Medical History Chronic pain syndrome Peripheral polyneuropathy Surgical History Status post ablation of incompetent vein using laser (09/11/22) Review of Systems Const All systems reviewed & are unremarkable except as noted in HPI and below Physical Exam General: Appears afebrile. Alert and oriented. Mood and affect appropriate. Follows and participates in conversation appropriately. Respiratory effort is unlabored. No cough. Able to transition from sit to stand unassisted. Ambulates with bilaterally normal heel strike and toe off. Extrem General: Yes capillary refill normal, Yes no clubbing, cyanosis or edema and Yes no calf tenderness Right lower extremity: knee Details: normal to inspection, tenderness Location: of the popliteal fossa and of the medial joint line and crepitus; no swelling, no ecchymosis and no unusual warmth Left lower extremity: knee Details: normal to inspection, tenderness Location: of the popliteal fossa, of the medial joint line and of the lateral joint line, swelling Location: of the popliteal fossa (mild) and crepitus; no ecchymosis and no unusual warmth Psych Appearance: grossly normal and well kempt Mental Status: mental status grossly normal Speech and movement: Normal speech and movement present and Clear speech present Affect: normal affect Attitude: cooperative Thought process: Normal thought process present Thought content: Normal thought content present, suicidality (none), no hallucinations and No Depressive thoughts present Insight: Good insight present (Psych) Judgement: Good judgement present (Psych) Results Reviewed Results Reviewed: No imaging is available for review. Assessment & Plan Assessment & Plan (1) Bilateral knee pain: Code(s): M25.561 - Pain in right knee; M25.562 - Pain in left knee (2) Posterior left knee pain: Code(s): M25.562 - Pain in left knee (3) Chronic pain syndrome: Code(s): G89.4 - Chronic pain syndrome (4) Chemotherapy-induced peripheral neuropathy: Code(s): G62.0 - Drug-induced polyneuropathy; T45.1X5A - Adverse effect of antineoplastic and immunosuppressive drugs, initial encounter (5) Peripheral polyneuropathy: Code(s): G62.9 - Polyneuropathy, unspecified (6) Chronic, continuous use of opioids: Code(s): F11.90 - Opioid use, unspecified, uncomplicated Plan Patient has shown accountability for her medication regimen. There is no evidence of misuse, abuse or diversion at this time. MassPAT reviewed. Script sent for Morphine 15 mg BID with an advanced date of 10/15/23. Continue topical Lidocaine and compound cream for neuropathy pain as needed. Will proceed with bilateral knee xray to rule out Lopez cyst, left knee pain worse than right knee pain. Consider follow up with Vascular provider if normal x-rays. All questions were answered and patient is in agreement of plan. Follow up in 4 weeks for a pill count or sooner if needed. Orders: Orders XR knee LT 3V Today M25.561 - Pain in right knee, M25.562 - Pain in left knee XR knee RT 3V Today M25.561 - Pain in right knee, M25.562 - Pain in left knee Medications: Refilled morphine ER Partial Fill upon patient request. 15 mg PO BID PRN 60 tabs 0RF severe pain (scale score 7-10) 30 days F11.90 - Opioid use, unspecified, uncomplicated, G62.0 - Drug-induced polyneuropathy, G89.4 - Chronic pain syndrome, T45.1X5A - Adverse effect of antineoplastic and immunosuppressive drugs, initial encounter Coding Level of Care Code Est Pt Level 4 (17310) Diagnoses Bilateral knee pain M25.561; M25.562 Posterior left knee pain M25.562 Chronic pain syndrome G89.4 Chemotherapy-induced peripheral neuropathy G62.0; T45.1X5A Peripheral polyneuropathy G62.9 Chronic, continuous use of opioids F11.90
[2023-10-01 11:29] VITALS: BP 119/70; PULSE 82; O2SAT 98; BMI 24.6
== END 2023-10-01 11:48 | disposition home or self-care (01) ==
PROVIDERS: PCP Internal Medicine; Visit Provider Nurse Practitioner Family
DX: M25.561 Pain in right knee (principal); M25.562 Pain in left knee; G89.4 Chronic pain syndrome; Z79.891 Long term (current) use of opiate analgesic; G62.0 Drug-induced polyneuropathy
CPT/HCPCS: 99214

== ENCOUNTER 2023-10-26 10:15 | Outpatient (AMB) | payer MEDICARE, SELFPAY ==
--- NOTE | 2023-10-26 10:17 | A.OFFVIS_ITS ---
Intake Vital Signs 10/26/23 10:28 Height 5 ft 3 in Weight 142 lb BMI 25.2 BP 113/62 Blood Pressure Location Lt brachial Position Sitting Pulse 81 Pulse Source Pulse Oximeter Pulse Oximetry (%) 97 Oxygen Delivery Method Room Air Intake Visit Reasons: Medication Count/ Xray results Intake Note: Darlene comes in today for a pill count to morphine, patient should have 38 tablets and presents with 42 tablets which she last took today 10/26/23 at 9:30am. Pain today 02/22. Rehabilitation Aide Required: No Accompanied by: Self / Same As Patient Allergies No Known Allergies Allergy (Verified 10/01/23 11:30) HPI HPI Comments History of Present Illness Details Patient presents today a pill count. She is supposed to have #38 pills in her possession and has #42. Reports mild to moderate analgesia on current regime without any side effects except constipation for which she takes suppository with good results. Patient continues to endorse bilateral posterior knee pain, worse on left side. She reports pain with with walking, climbing stairs and at night which this is also exacerbated by restless leg symptoms. Patient also underwent venous treatments with Dr. Bonilla early 2022 for varicose veins and was recommended to continue use of compression stockings and leg elevation. She is considering to follow up with Dr. Bonilla again for ongoing posterior knee/leg symptoms. Patient reports gabapentin has been helpful for cramping and neuropathic pain. Bilateral knee xray reviewed with patient today and showed mild degenerative changes in the bilateral knees and calcifications in the posterior soft tissues are likely vascular. Patient also reports she was working with wood last week and injured her right arm and presents with significant bruising of right lower arm bruising and swelling with tenderness in her right upper arm. Patient reports she was evaluated by her PCP for this and pain, swelling and tenderness has been decre asing. Denies any recent cough, cold, infection, fever or other significant changes in medical history since last office visit. PRIOR: Darlene is a pleasant 76 year old female who has previously been evaluated in this office by Dr. Monroy for bilateral leg pain which she attributes to her chemotherapy s/p breast cancer years ago. She was previously under the care of [facility], who was managing her with medication and she reports overall improvements with morphine 15 mg BID. She was evaluated by Dr. Monroy, who agreed to continue her regimen through this office. She is accompanied by her daughter. Today she is here for a pill count, which was concordant. This demonstrates a responsible attitude in regards to the opioid regimen. She reports improved function and decrease in pain, with no noted side effects. Denies any sedation, nausea or urinary retention. She was recently discharged with a small bowel obstruction which was thought to be related to adhesions from a hysterectomy >25 years ago. She has previously been instructed to use a daily stool softener as well as miralax and she has not been adhering to this regimen. She states some weeks she will have a bowel movement every 5 days and other weeks she will have one every other day without the need for medication. She has a follow up with her PCP next week as well as cardiology this week to review her new blood pressure medications. She did note dizziness upon standing and has been taking her blood pressure at home. She was instructed to contact her PCP regarding her low bp today. She also has CHF and a lthough she states she has good fluid intake, she was instructed to decrease by cardiology. Of note, patient recently had a Medtronic pacer placed 01/2021. PRIOR: Darlene is very pleasant 76 years old female who presents in my office with complains on pain in bilateral lower extremities below the level of the knees. She reports this pain is spreading all the way down to her toes. History of present illness she was subject of treatment of peripheral polyneuropathy of bilateral lower extremities after 18 years ago she was treated for breast cancer with physical therapy. She was under care of [facility] and spine. She reports that she can not sleep normally do activities of daily living she can take care of herself and she can not function normally. She is retired individual. In terms of tissue damage the she reports her pain as pulsing, throbbing, pounding, dull, serve, hurting, aching, heavy, hot burning, skull doing, fearful. She reports multiple evaluation of her pain with [facility] and [facility]. Her past medical history significant for atrial fibrillation and pacemaker. She denies smoking cigarettes drinking alcohol using recreational drugs. She has a pacemaker. [facility] Medical History Chronic pain syndrome Peripheral polyneuropathy Surgical History Status post ablation of incompetent vein using laser (09/11/22) Review of Systems Const All systems reviewed & are unremarkable except as noted in HPI and below Physical Exam Vital Signs: Last Vital Signs Pulse 81 10/26/23 10:28 BP 113/62 10/26/23 10:28 Pulse Ox 97 10/26/23 10:28 Oxygen Delivery Method Room Air 10/26/23 10:28 BMI result Body Mass Index 25.2 General: Appears afebrile. Alert and oriented. Mood and affect appropriate. Follows and participates in conversation appropriately. Respiratory effort is unlabored. No cough. Able to transition from sit to stand unassisted. Ambulates with bilaterally normal heel strike and toe off. Skin General skin exam: ecchymosis (right lower arm) and spider nevi (multiple varicosities and spider veins BLE) Extrem General: Yes capillary refill normal, Yes no clubbing, cyanosis or edema and Yes no calf tenderness Right lower extremity: knee Details: normal to inspection, tenderness Location: of the popliteal fossa and of the medial joint line and crepitus; no swelling, no ecchymosis and no unusual warmth Left lower extremity: knee Details: normal to inspection, tenderness Location: of the popliteal fossa, of the medial joint line and of the lateral joint line, swelling Location: of the popliteal fossa (mild) and crepitus; no ecchymosis and no unusual warmth Psych Appearance: grossly normal and well kempt Mental Status: mental status grossly normal Speech and movement: Normal speech and movement present and Clear speech present Affect: normal affect Attitude: cooperative Thought process: Normal thought process present Thought content: Normal thought content present, suicidality (none), no hallucinations and No Depressive thoughts present Insight: Good insight present (Psych) Judgement: Good judgement present (Psych) Results Reviewed Results Reviewed: XR KNEE, RIGHT XR KNEE, LEFT 10/01/23 CLINICAL INFORMATION: Pain in right knee, pain behind the knee. FINDINGS: LEFT KNEE: Trace joint effusion. Calcifications in the posterior soft tissues are likely vascular. Bones are diffusely demineralized. Mild medial joint space narrowing. RIGHT KNEE: Spurring along the anterior superior aspect of the patella. Trace joint effusion. Calcifications in the posterior soft tissues are likely vascular. Bones are diffusely demineralized. Mild medial joint space narrowing. IMPRESSION: Mild degenerative changes in the bilateral knees. Assessment & Plan Assessment & Plan (1) Bilateral knee pain: Code(s): M25.561 - Pain in right knee; M25.562 - Pain in left knee (2) Posterior left knee pain: Code(s): M25.562 - Pain in left knee (3) Chronic pain syndrome: Code(s): G89.4 - Chronic pain syndrome (4) Chemotherapy-induced peripheral neuropathy: Code(s): G62.0 - Drug-induced polyneuropathy; T45.1X5A - Adverse effect of antineoplastic and immunosuppressive drugs, initial encounter (5) Peripheral polyneuropathy: Code(s): G62.9 - Polyneuropathy, unspecified (6) Chronic, continuous use of opioids: Code(s): F11.90 - Opioid use, unspecified, uncomplicated (7) PVD (peripheral vascular disease): Code(s): I73.9 - Peripheral vascular disease, unspecified Plan Patient has shown accountability for her medication regimen. There is no evidence of misuse, abuse or diversion at this time. [employer] reviewed. Script sent for Morphine 15 mg BID with an advanced date of 11/15/23. Continue topical Lidocaine and compound cream for neuropathy pain as needed. Bilateral knee xray results with patient today. Patient will follow up with Dr. Bonilla for continued symptoms. All questions were answered and patient is in agreement of plan. Follow up in 4 weeks for a pill count or sooner if needed. Medications: Refilled morphine ER Partial Fill upon patient request. 15 mg PO BID PRN 60 tabs 0RF severe pain (scale score 7-10) 30 days F11.90 - Opioid use, unspecified, uncomplicated, G62.0 - Drug-induced polyneuropathy, G89.4 - Chronic pain syndrome, T45.1X5A - Adverse effect of antineoplastic and immunosuppressive drugs, initial encounter Coding Level of Care Code Est Pt Level 4 (88403) Diagnoses Bilateral knee pain M25.561; M25.562 Posterior left knee pain M25.562 Chronic pain syndrome G89.4 Chemotherapy-induced peripheral neuropathy G62.0; T45.1X5A Peripheral polyneuropathy G62.9 Chronic, continuous use of opioids F11.90 PVD (peripheral vascular disease) I73.9
[2023-10-26 10:28] VITALS: BP 113/62; PULSE 81; O2SAT 97; BMI 25.2
== END 2023-10-26 11:02 | disposition home or self-care (01) ==
PROVIDERS: PCP Internal Medicine; Visit Provider Nurse Practitioner Family
DX: G89.4 Chronic pain syndrome (principal); M25.561 Pain in right knee; M25.562 Pain in left knee; Z79.891 Long term (current) use of opiate analgesic; G62.0 Drug-induced polyneuropathy; T45.1X5A Adverse effect of antineoplastic and immunosuppressive drugs, initial encounter; G62.9 Polyneuropathy, unspecified; I73.9 Peripheral vascular disease, unspecified
CPT/HCPCS: 99214

== ENCOUNTER → 2023-10-26 10:15 | Outpatient (BNVA) | payer MEDICARE, SELFPAY | PROVIDERS: PCP Internal Medicine; Visit Provider Nurse Practitioner Family | DX: Z51.81 Encounter for therapeutic drug level monitoring (principal); F11.20 Opioid dependence, uncomplicated; M25.561 Pain in right knee; M25.562 Pain in left knee; G89.4 Chronic pain syndrome; G62.0 Drug-induced polyneuropathy; T45.1X5A Adverse effect of antineoplastic and immunosuppressive drugs, initial encounter; I73.9 Peripheral vascular disease, unspecified | CPT/HCPCS: 99212 ==

== ENCOUNTER 2023-11-23 10:26 | Outpatient (AMB) | payer MEDICARE, SELFPAY ==
--- NOTE | 2023-11-23 10:30 | MHC.OFFVIS ---
Intake Vital Signs 11/23/23 10:39 Height 5 ft 3 in Weight 144 lb 2 oz BMI 25.5 BP 108/58 L Blood Pressure Location Rt brachial Position Sitting Pulse 81 Pulse Source Pulse Oximeter Pulse Oximetry (%) 97 Oxygen Delivery Method Room Air Intake Visit Reasons: PILL COUNT Intake Note: Darlene comes in today for a pill count to morphine, patient should have 48 tablets and presents with 57 tablets which she last took yesterday 11/22/23 at 12pm. Pain today 02/22. Breaster Required: No Accompanied by: Self / Same As Patient Allergies No Known Allergies Allergy (Verified 11/23/23 10:40) HPI HPI Comments History of Present Illness Details Patient presents today a pill count. She is supposed to have #48 pills in her possession and has #57. Reports adequate analgesia on current regime without any side effects except constipation for which she takes suppository with good results. She enjoys working in the garden and her backyard. She continues to experience bilateral knee pain in posterior aspects. Patient has follow up visit with Vascular Provider Dr. Bonilla today. Bilateral knee xray reviewed with patient today and showed mild degenerative changes in the bilateral knees and calcifications in the posterior soft tissues are likely vascular. Denies any recent cough, cold, infection, fever or other significant changes in medical history since last office visit. PRIOR: Darlene is a pleasant 76 year old female who has previously been evaluated in this office by Dr. Monroy for bilateral leg pain which she attributes to her chemotherapy s/p breast cancer years ago. She was previously under the care of [facility], who was managing her with medication and she reports overall improvements with morphine 15 mg BID. She was evaluated by Dr. Monroy, who agreed to continue her regimen through this office. She is accompanied by her daughter. Today she is here for a pill count, which was concordant. This demonstrates a responsible attitude in regards to the opioid regimen. She reports improved function and decrease in pain, with no noted side effects. Denies any sedation, nausea or urinary retention. She was recently discharged with a small bowel obstruction which was thought to be related to adhesions from a hysterectomy >25 years ago. She has previously been instructed to use a daily stool softener as well as miralax and she has not been adhering to this regimen. She states some weeks she will have a bowel movement every 5 days and other weeks she will have one every other day without the need for medication. She has a follow up with her PCP next week as well as cardiology this week to review her new blood pressure medications. She did note dizziness upon standing and has been taking her blood pressure at home. She was instructed to contact her PCP regarding her low bp today. She also has CHF and although she states she has good fluid intake, she was instructed to decrease by cardiology. Of note, patient recently had a Medtronic pacer placed 01/2021. PRIOR: Darlene is very pleasant 76 years old female who presents in my office with complains on pain in bilateral lower extremities below the level of the knees. She reports this pain is spreading all the way down to her toes. History of present illness she was subject of treatment of peripheral polyneuropathy of bilateral lower extremities after 18 years ago she was treated for breast cancer with physical therapy. She was under care of [facility] and spine. She reports that she can not sleep normally do activities of daily living she can take care of herself and she can not function normally. She is retired individual. In terms of tissue damage the she reports her pain as pulsing, throbbing, pounding, dull, serve, hurting, aching, heavy, hot burning, skull doing, fearful. She reports multiple evaluation of her pain with [facility] and [facility] spine. Her past medical history significant for atrial fibrillation and pacemaker. She denies smoking cigarettes drinking alcohol using recreational drugs. She has a pacemaker. [facility] Medical History Chronic pain syndrome Peripheral polyneuropathy Surgical History Status post ablation of incompetent vein using laser (09/11/22) Review of Systems Const All systems reviewed & are unremarkable except as noted in HPI and below Physical Exam General: Appears afebrile. Alert and oriented. Mood and affect appropriate. Follows and participates in conversation appropriately. Respiratory effort is unlabored. No cough. Able to transition from sit to stand unassisted. Ambulates with bilaterally normal heel strike and toe off. Skin General skin exam: ecchymosis (right lower arm) and spider nevi (multiple varicosities and spider veins BLE) Extrem General: Yes capillary refill normal, Yes no clubbing, cyanosis or edema and Yes no calf tenderness Right lower extremity: knee (small mobile lump noted along medial tibial border. Non-tender, no redness ) Details: normal to inspection, tenderness Location: of the popliteal fossa and of the medial joint line, normal ROM and crepitus; no swelling, no ecchymosis and no unusual warmth Left lower extremity: knee Details: normal to inspection, tenderness Location: of the popliteal fossa, of the medial joint line and of the lateral joint line, swelling Location: of the popliteal fossa (mild) and crepitus; no ecchymosis and no unusual warmth Psych Appearance: grossly normal and well kempt Mental Status: mental status grossly normal Speech and movement: Normal speech and movement present and Clear speech present Affect: normal affect Attitude: cooperative Thought process: Normal thought process present Thought content: Normal thought content present, suicidality (none), no hallucinations and No Depressive thoughts present Insight: Good insight present (Psych) Judgement: Good judgement present (Psych) Results Reviewed Results Reviewed: XR KNEE, RIGHT XR KNEE, LEFT 10/01/23 CLINICAL INFORMATION: Pain in right knee, pain behind the knee. FINDINGS: LEFT KNEE: Trace joint effusion. Calcifications in the posterior soft tissues are likely vascular. Bones are diffusely demineralized. Mild medial joint space narrowing. RIGHT KNEE: Spurring along the anterior superior aspect of the patella. Trace joint effusion. Calcifications in the posterior soft tissues are likely vascular. Bones are diffusely demineralized. Mild medial joint space narrowing. IMPRESSION: Mild degenerative changes in the bilateral knees. Assessment & Plan Assessment & Plan (1) Bilateral knee pain: Code(s): M25.561 - Pain in right knee; M25.562 - Pain in left knee (2) Posterior left knee pain: Code(s): M25.562 - Pain in left knee (3) Chronic pain syndrome: Code(s): G89.4 - Chronic pain syndrome (4) Chemotherapy-induced peripheral neuropathy: Code(s): G62.0 - Drug-induced polyneuropathy; T45.1X5A - Adverse effect of antineoplastic and immunosuppressive drugs, initial encounter (5) Peripheral polyneuropathy: Code(s): G62.9 - Polyneuropathy, unspecified (6) Chronic, continuous use of opioids: Code(s): F11.90 - Opioid use, unspecified, uncomplicated (7) PVD (peripheral vascular disease): Code(s): I73.9 - Peripheral vascular disease, unspecified Plan Patient has shown accountability for her medication regimen. There is no evidence of misuse, abuse or diversion at this time. [employer] reviewed. Script sent for Morphine 15 mg BID with an advanced date of 12/20/23. Continue topical Lidocaine, gabapentin and compound cream for neuropathy pain as needed. Bilateral knee xray results reviewed with patient today. Patient will follow up with Dr. Bonilla today for posterior knee symptoms. All questions were answered and patient is in agreement of plan. Follow up in one month for a pill count or sooner if needed. Medications: Refilled morphine ER Partial Fill upon patient request. 15 mg PO BID 30 days PRN 60 tabs 0RF severe pain (scale score 7-10) F1.90 - Opioid use, unspecified, uncomplicated, G62.0 - Drug-induced polyneuropathy, G89.4 - Chronic pain syndrome, T45.1X5A - Adverse effect of antineoplastic and immunosuppressive drugs, initial encounter Coding Level of Care Code Est Pt Level 4 (84797) Diagnoses Bilateral knee pain M25.561; M25.562 Posterior left knee pain M25.562 Chronic pain syndrome G89.4 Chemotherapy-induced peripheral neuropathy G62.0; T45.1X5A Peripheral polyneuropathy G62.9 Chronic, continuous use of opioids F1. PVD (peripheral vascular disease) I73.9
[2023-11-23 10:39] VITALS: BP 108/58; PULSE 81; O2SAT 97; BMI 25.5
== END 2023-11-23 10:49 | disposition home or self-care (01) ==
PROVIDERS: PCP Internal Medicine; Visit Provider Nurse Practitioner Family
DX: G89.4 Chronic pain syndrome (principal); M25.561 Pain in right knee; M25.562 Pain in left knee; Z79.891 Long term (current) use of opiate analgesic; G62.0 Drug-induced polyneuropathy; T45.1X5A Adverse effect of antineoplastic and immunosuppressive drugs, initial encounter; G62.9 Polyneuropathy, unspecified; I73.9 Peripheral vascular disease, unspecified
CPT/HCPCS: 99214

== ENCOUNTER → 2023-11-23 10:26 | Outpatient (BNVA) | payer MEDICARE, SELFPAY | PROVIDERS: PCP Internal Medicine; Visit Provider Nurse Practitioner Family | DX: I83.12 Varicose veins of left lower extremity with inflammation (principal); M25.561 Pain in right knee; M25.562 Pain in left knee; G62.0 Drug-induced polyneuropathy; T45.1X5A Adverse effect of antineoplastic and immunosuppressive drugs, initial encounter; F11.20 Opioid dependence, uncomplicated; I73.9 Peripheral vascular disease, unspecified | CPT/HCPCS: 99212 ==

== ENCOUNTER 2023-11-23 13:26 | Outpatient (AMB) | payer MEDICARE, SELFPAY ==
--- NOTE | 2023-11-23 13:44 | A.OFFVIS_ITS ---
Intake Intake Visit Reasons: follow up VV pain,Pain Steve re-refer Hx ablation Intake Note: Re-Referral for Left LE pain w/ Hx of Left GSV Venaseal 09/11/2022. Pt still has pain and restless leg syndrome. Accompanied by: Self / Same As Patient Allergies No Known Allergies Allergy (Verified 11/23/23 13:49) HPI follow up VV pain,Pain Steve re-refer Hx ablation HPI Details Very frail 78-year-old female presents for follow-up regarding lower extremity pain and discomfort. She has actually been seen by pain management and had been seen by us back in 2021. She now presents to us for re-evaluation regarding lower extremity pain. Upon discussion with her she is able to ambulate but does describe some posterior knee pain. She does have occasional swelling. She now presents to us for follow-up. Of note she has been using morphine which does appear to help with her current conditions. [facility] Medical History Chronic pain syndrome Peripheral polyneuropathy Surgical History Status post ablation of incompetent vein using laser (09/11/22) Review of Systems Const All systems reviewed & are unremarkable except as noted in HPI and below Reports no additional complaints ENT Reports Normal hearing present Card Denies chest pain, Denies chest pain at rest, Denies chest pain with activity and Denies pedal edema Resp Denies cough GI Denies abdominal pain Musc Denies abnormal gait, Denies muscle cramps and Denies radiating pain into limb Skin/Breast Denies skin ulcer and Denies wounds Neuro Reports Normal hearing present and Denies abnormal gait Psych Reports no additional complaints Physical Exam Const General: cooperative, healthy appearing and comfortable Orientation/consciousness: oriented to person, oriented to place and oriented to time HEENT Head: Yes normal to inspection Neck Neck: Yes normal visual inspection Carotids: no bruits Chest Chest palpation & inspection: normal inspection of the chest Resp Effort & Inspection: normal respiratory effort and able to speak in complete sentences Auscultation: clear to auscultation bilaterally, no crackles, no rales, no rhonchi and no wheezes Cardio Rate: regular rate Rhythm: regular rhythm Heart sounds: S1 normal heart sound present and S2 normal heart sound present Bruits: no carotid bruits Peripheral pulses: Peripheral pulses 2+ throughout GI Inspection: Yes normal to inspection Skin Wounds: no wounds Hair: normal Neuro General: oriented to person, oriented to place and oriented to time Cranial nerves: Yes CN's II-XII intact bilaterally and Yes Normal hearing present Cognition (Neuro): normal cognition Motor exam (neuro): 5/5 motor strength present throughout Extrem Other: venous exam: +1 edema General: No clubbing, No cyanosis and Yes edema Psych Appearance: grossly normal Mental Status: mental status grossly normal Speech and movement: Normal speech and movement present Assessment & Plan Assessment & Plan (1) Varicose veins of left lower extremity with inflammation: Comment: 09/11/2022 - left great saphenous vein Cyanoacralate ablation Code(s): I83.12 - Varicose veins of left lower extremity with inflammation Plan: In short patient has recurrent lower extremity discomfort. I have taken the liberty of ordering repeat venous insufficiency testing to rule that out. She is currently following pain management. Of note she does have palpable pulses bilaterally and it does not appear to be arterial in nature. We will obtain the venous insufficiency testing and she will follow up with us. Thank you for allowing us to assist in her care. If there are any questions or concerns please do not hesitate to contact us Orders: Orders US venous duplex LE BI 1 Week I83.12 - Varicose veins of left lower extremity with inflammation Coding Level of Care Code Est Pt Level 4 (84078) Diagnoses Varicose veins of left lower extremity with inflammation I83.12
== END 2023-11-23 14:17 | disposition home or self-care (01) ==
PROVIDERS: PCP Internal Medicine; Visit Provider Surgery Vascular Surgery
DX: I83.12 Varicose veins of left lower extremity with inflammation (principal)
CPT/HCPCS: 99213

== ENCOUNTER 2023-12-02 08:16 | Outpatient (REF) | payer MEDICARE, SELFPAY ==
--- NOTE | ~2023-12-02 | US_ITS ---
EXAMINATION: US LOWER EXTREMITY VENOUS (REFLUX EXAM), BILATERAL CLINICAL INFORMATION: Varicose veins of the left lower extremity. Status post venaseal 09/11/2022 COMPARISON: Venous reflux study 06/24/2022 TECHNIQUE: Color flow triplex imaging and compression Doppler was performed to evaluate both the deep and the superficial systems bilaterally. To evaluate the superficial system, the examination was performed in the upright position. Color-flow Doppler ultrasound and compression ultrasound were utilized. In addition, maneuvers were utilized to demonstrate reflux. FINDINGS: 1. DEEP VENOUS ULTRASOUND OF THE RIGHT LOWER EXTREMITY: Common Femoral Vein: Compressible, normal respiratory variation and augmented flow. Femoral Vein: Compressible, normal color flow and augmentation. Popliteal Vein: Compressible, normal augmentation. Deep Reflux: There is no evidence of reflux in the deep system in either the common femoral vein or the popliteal vein. There is no evidence of a Lopez's cyst. 2. SUPERFICIAL ULTRASOUND WITH DOPPLER OF RIGHT LOWER EXTREMITY: GREAT SAPHENOUS VEIN: Saphenofemoral Junction: 0.4 cm; Reflux: 0 ms Proximal Thigh: 0.2 cm; Reflux: 0 ms Mid Thigh: 0.2 cm; Reflux: 0 ms Above Knee: 0.2 cm; Reflux: 0 ms At Knee: 0.2 cm; Reflux: 0 ms Below Knee: 0.2 cm; Reflux: 1472 ms Mid Calf: 0.2 cm; Reflux: 528 ms Ankle: 0.1 cm; Reflux: 0 ms DUPLICATED MEDIAL GREAT SAPHENOUS VEIN: Diameter: None Imaged Reflux: NA DUPLICATED LATERAL GREAT SAPHENOUS VEIN: Diameter: None Imaged Reflux: NA SMALL SAPHENOUS VEIN: Proximal: 0.3 cm; Reflux: 0 ms Mid: 0.3 cm; Reflux: 1600 ms Distal: 0.2 cm; Reflux: 0 ms VEIN OF GIACOMINI: None Imaged. PERFORATORS: Location: SSV mid Size: 0.2 cm Reflux: 0 ms Location: Mid calf Size: 0.1 cm Reflux: 0 ms Location: Distal calf Size: 0.3 cm Reflux: 0 ms VARICOSITIES: Location: None Imaged Size: NA Reflux: NA 3. DEEP VENOUS ULTRASOUND OF THE LEFT LOWER EXTREMITY: Common Femoral Vein: Compressible, normal respiratory variation and augmented flow. Femoral Vein: Compressible, normal color flow and augmentation. Popliteal Vein: Compressible, normal augmentation. Deep Reflux: There is no evidence of reflux in the deep system in either the common femoral vein or the popliteal vein. There is no evidence of a Lopez's cyst. 4. SUPERFICIAL ULTRASOUND WITH DOPPLER OF LEFT LOWER EXTREMITY: GREAT SAPHENOUS VEIN: Saphenofemoral Junction: 0.6 cm; Reflux: 0 ms Proximal Thigh: 0.4 cm; Reflux: 0 ms Mid Thigh: 0.3 cm; Reflux: 0 ms Above Knee: 0.1 cm; Reflux: 0 ms At Knee: 0.1 cm; Reflux: 0 ms Below Knee: 0.2 cm; Reflux: 0 ms Mid Calf: 0.2 cm; Reflux: 0 ms Ankle: 0.2 cm; Reflux: 0 ms DUPLICATED MEDIAL GREAT SAPHENOUS VEIN: Diameter: None Imaged Reflux: NA DUPLICATED LATERAL GREAT SAPHENOUS VEIN: Diameter: 0.2 cm Reflux: 0 ms SMALL SAPHENOUS VEIN: Proximal: 0.1 cm; Reflux: 0 ms Mid: 0.2 cm; Reflux 0 ms Distal: 0.1 cm; Reflux: 0 ms VEIN OF GIACOMINI: None Imaged. PERFORATORS: Location: Proximal calf Size: 0.2 cm Reflux: 0 ms PERFORATORS: Location: Distal calf Size: 0.2 cm Reflux: 0 ms VARICOSITIES: Location: None Imaged Size: NA Reflux: NA US/US venous duplex LE BI IMPRESSION: Right: 1. Reflux in the below knee right great saphenous vein of 1472 ms. 2. The small saphenous vein in the mid calf measures 0.3 cm with 1600 ms of reflux. 3. Multiple nonrefluxing perforators noted in the right. Left: 1. The left great saphenous vein is occluded from the proximal thigh through the thigh. 2. Great saphenous vein appears patent in the distal thigh. 3. Multiple nonrefluxing perforators noted in the calf.
== END 2023-12-02 08:17 | disposition home or self-care (01) ==
LOC: HO.US 08:16
PROVIDERS: PCP Internal Medicine; Visit Provider Surgery Vascular Surgery
DX: I83.12 Varicose veins of left lower extremity with inflammation (principal)
CPT/HCPCS: 93970

== ENCOUNTER 2023-12-21 10:17 | Outpatient (AMB) | payer MEDICARE, SELFPAY ==
--- NOTE | 2023-12-21 10:19 | MHC.OFFVIS ---
Vital Signs 12/21/23 10:25 Height 5 ft 3 in Weight 142 lb 8 oz BMI 25.2 BP 130/62 Blood Pressure Location Lt brachial Position Sitting Respiration 14 Pulse 80 Pulse Source Pulse Oximeter Pulse Oximetry (%) 97 Oxygen Delivery Method Room Air Intake Visit Reasons: PILL COUNT Allergies No Known Allergies Allergy (Verified 12/21/23 10:25) HPI Comments Details: Patient presents today a pill count. She is supposed to have #0 pills in her possession and has #4 pills. Reports adequate analgesia on current regime without any side effects except constipation for which she takes suppository with good results. She continues to experience bilateral knee pain in anterior and posterior aspects. Patient had follow up visit with Vascular Provider Dr. Bonilla recently and has pending follow up to go over results of venous insufficiency testing. Denies any recent cough, cold, infection, fever or other significant changes in medical history since last office visit. PRIOR: Darlene is a pleasant 76 year old female who has previously been evaluated in this office by Dr. Monroy for bilateral leg pain which she attributes to her chemotherapy s/p breast cancer years ago. She was previously under the care of [facility], who was managing her with medication and she reports overall improvements with morphine 15 mg BID. She was evaluated by Dr. Monroy, who agreed to continue her regimen through this office. She is accompanied by her daughter. Today she is here for a pill count, which was concordant. This demonstrates a responsible attitude in regards to the opioid regimen. She reports improved function and decrease in pain, with no noted side effects. Denies any sedation, nausea or urinary retention. She was recently discharged with a small bowel obstruction which was thought to be related to adhesions from a hysterectomy >25 years ago. She has previously been instructed to use a daily stool softener as well as miralax and she has not been adhering to this regimen. She states some weeks she will have a bowel movement every 5 days and other weeks she will have one every other day without the need for medication. She has a follow up with her PCP next week as well as cardiology this week to review her new blood pressure medications. She did note dizziness upon standing and has been taking her blood pressure at home. She was instructed to contact her PCP regarding her low bp today. She also has CHF and although she states she has good fluid intake, she was instructed to decrease by cardiology. Of note, patient recently had a [employer] pacer placed 01/2021. PRIOR: Darlene is very pleasant 76 years old female who presents in my office with complains on pain in bilateral lower extremities below the level of the knees. She reports this pain is spreading all the way down to her toes. History of present illness she was subject of treatment of peripheral polyneuropathy of bilateral lower extremities after 18 years ago she was treated for breast cancer with physical therapy. She was under care of [facility] and spine. She reports that she can not sleep normally do activities of daily living she can take care of herself and she can not function normally. She is retired individual. In terms of tissue damage the she reports her pain as pulsing, throbbing, pounding, dull, serve, hurting, aching, heavy, hot burning, skull doing, fearful. She reports multiple evaluation of her pain with [facility] and [facility] and spine. Her past medical history significant for atrial fibrillation and pacemaker. She denies smoking cigarettes drinking alcohol using recreational drugs. She has a pacemaker. [facility] Medical History Chronic pain syndrome Peripheral polyneuropathy Surgical History Status post ablation of incompetent vein using laser (09/11/22) Review of Systems Const All systems reviewed & are unremarkable except as noted in HPI and below Physical Exam Vital Signs: Last Vital Signs Pulse 80 12/21/23 10:25 Resp 14 12/21/23 10:25 BP 130/62 12/21/23 10:25 Pulse Ox 97 12/21/23 10:25 Oxygen Delivery Method Room Air 12/21/23 10:25 BMI result Body Mass Index 25.2 General: Appears afebrile. Alert and oriented. Mood and affect appropriate. Follows and participates in conversation appropriately. Respiratory effort is unlabored. No cough. Able to transition from sit to stand unassisted. Ambulates with bilaterally normal heel strike and toe off. Cardio Peripheral pulses: Peripheral pulses 2+ throughout Extrem General: Yes capillary refill normal, Yes no clubbing, cyanosis or edema and Yes no calf tenderness Psych Appearance: grossly normal and well kempt Mental Status: mental status grossly normal Speech and movement: Normal speech and movement present and Clear speech present Affect: normal affect Attitude: cooperative Thought process: Normal thought process present Thought content: Normal thought content present, suicidality (none), no hallucinations and No Depressive thoughts present Insight: Good insight present (Psych) Judgement: Good judgement present (Psych) Results Reviewed Results Reviewed: XR KNEE, RIGHT XR KNEE, LEFT 10/01/23 CLINICAL INFORMATION: Pain in right knee, pain behind the knee. FINDINGS: LEFT KNEE: Trace joint effusion. Calcifications in the posterior soft tissues are likely vascular. Bones are diffusely demineralized. Mild medial joint space narrowing. RIGHT KNEE: Spurring along the anterior superior aspect of the patella. Trace joint effusion. Calcifications in the posterior soft tissues are likely vascular. Bones are diffusely demineralized. Mild medial joint space narrowing. IMPRESSION: Mild degenerative changes in the bilateral knees. US venous duplex LE 12/02/23 IMPRESSION: Right: 1. Reflux in the below knee right great saphenous vein of 1472 ms. 2. The small saphenous vein in the mid calf measures 0.3 cm with 1600 ms of reflux. 3. Multiple nonrefluxing perforators noted in the right. Left: 1. The left great saphenous vein is occluded from the proximal thigh through the thigh. 2. Great saphenous vein appears patent in the distal thigh. 3. Multiple nonrefluxing perforators noted in the calf. Assessment & Plan Assessment & Plan (1) Bilateral knee pain: Code(s): M25.561 - Pain in right knee; M25.562 - Pain in left knee Category: Medical (2) Chronic pain syndrome: Code(s): G89.4 - Chronic pain syndrome Category: Medical (3) Chemotherapy-induced peripheral neuropathy: Code(s): G62.0 - Drug-induced polyneuropathy; T45.1X5A - Adverse effect of antineoplastic and immunosuppressive drugs, initial encounter Category: Medical (4) Peripheral polyneuropathy: Code(s): G62.9 - Polyneuropathy, unspecified Category: Medical (5) Chronic, continuous use of opioids: Code(s): F11.90 - Opioid use, unspecified, uncomplicated Category: Medical (6) PVD (peripheral vascular disease): Code(s): I73.9 - Peripheral vascular disease, unspecified Category: Medical Plan Patient has shown accountability for her medication regimen. There is no evidence of misuse, abuse or diversion at this time. [facility] reviewed. Patient has pending script for Morphine 15 mg BID with refill date of 12/20/23. Continue topical Lidocaine, gabapentin and compound cream for neuropathy pain as needed. Follow up with Dr. Bonilla for results of venous insufficiency testing and further treatments. All questions were answered and patient is in agreement of plan. Follow up in one month for a pill count or sooner if needed. Coding Level of Care Code Est Pt Level 4 (97029) Diagnoses Bilateral knee pain M25.561; M25.562 Chronic pain syndrome G89.4 Chemotherapy-induced peripheral neuropathy G62.0; T45.1X5A Peripheral polyneuropathy G62.9 Chronic, continuous use of opioids F11.90 PVD (peripheral vascular disease) I73.9
[2023-12-21 10:25] VITALS: BP 130/62; PULSE 80; RESP 14; O2SAT 97; BMI 25.2
== END 2023-12-21 10:52 | disposition home or self-care (01) ==
PROVIDERS: PCP Internal Medicine; Visit Provider Nurse Practitioner Family
DX: G89.4 Chronic pain syndrome (principal); M25.561 Pain in right knee; M25.562 Pain in left knee; Z79.891 Long term (current) use of opiate analgesic; G62.0 Drug-induced polyneuropathy; T45.1X5A Adverse effect of antineoplastic and immunosuppressive drugs, initial encounter; G62.9 Polyneuropathy, unspecified; I73.9 Peripheral vascular disease, unspecified
CPT/HCPCS: 99214

== ENCOUNTER → 2023-12-21 10:17 | Outpatient (BNVA) | payer MEDICARE, SELFPAY | PROVIDERS: PCP Internal Medicine; Visit Provider Nurse Practitioner Family | DX: G89.4 Chronic pain syndrome (principal); M25.561 Pain in right knee; M25.562 Pain in left knee; G62.0 Drug-induced polyneuropathy; T45.1X5A Adverse effect of antineoplastic and immunosuppressive drugs, initial encounter; I73.9 Peripheral vascular disease, unspecified; Z79.891 Long term (current) use of opiate analgesic | CPT/HCPCS: 99212 ==

== ENCOUNTER 2024-01-20 10:16 | Outpatient (AMB) | payer MEDICARE, SELFPAY ==
--- NOTE | 2024-01-20 10:18 | MHC.OFFVIS ---
Intake Visit Reasons: PILL COUNT Intake Note: Darlene comes in today for a pill count to morphine, patient should have 0 tablets and presents with 12 tablets which she last took today 01/20/24 at 10am. 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 She is supposed to have #0 pills in her possession and has #12 pills. This demonstrates a responsible attitude in regards to the medication regimen. Patient reports mild to moderate analgesia on current regime without any side effects except constipation for which she takes suppository with good results. She continues to experience bilateral knee pain in anterior and posterior aspects. This affects her mobility and sleep. Gabapentin for pain and sleep provides her mild relief. Patient has follow up visit with Vascular Provider Dr. Bonilla next Wednesday to go over results of venous insufficiency testing. We will also refer her to Orthopedic providers to further evaluate bilateral knee pain. Denies any recent trauma, falls, injury or hamstring or calf strain. Denies any recent cough, cold, infection, fever or other significant changes in medical history since last office visit. PRIOR: Darlene is a pleasant 76 year old female who has previously been evaluated in this office by Dr. Monroy for bilateral leg pain which she attributes to her chemotherapy s/p breast cancer years ago. She was previously under the care of [facility], who was managing her with medication and she reports overall improvements with morphine 15 mg BID. She was evaluated by Dr. Monroy, who agreed to continue her regimen through this office. She is accompanied by her daughter. Today she is here for a pill count, which was concordant. This demonstrates a responsible attitude in regards to the opioid regimen. She reports improved function and decrease in pain, with no noted side effects. Denies any sedation, nausea or urinary retention. She was recently discharged with a small bowel obstruction which was thought to be related to adhesions from a hysterectomy >25 years ago. She has previously been instructed to use a daily stool softener as well as miralax and she has not been adhering to this regimen. She states some weeks she will have a bowel movement every 5 days and other weeks she will have one every other day without the need for medication. She has a follow up with her PCP next week as well as cardiology this week to review her new blood pressure medications. She did note dizziness upon standing and has been taking her blood pressure at home. She was instructed to contact her PCP regarding her low bp today. She also has CHF and although she states she has good fluid intake, she was instructed to decrease by cardiology. Of note, patient recently had a [employer] pacer placed 01/2021. PRIOR: Darlene is very pleasant 76 years old female who presents in my office with complains on pain in bilateral lower extremities below the level of the knees. She reports this pain is spreading all the way down to her toes. History of present illness she was subject of treatment of peripheral polyneuropathy of bilateral lower extremities after 18 years ago she was treated for breast cancer with physical therapy. She was under care of [facility] and spine. She reports that she can not sleep normally do activities of daily living she can take care of herself and she can not function normally. She is retired individual. In terms of tissue damage the she reports her pain as pulsing, throbbing, pounding, dull, serve, hurting, aching, heavy, hot burning, skull doing, fearful. She reports multiple evaluation of her pain with [facility] and [facility] and spine. Her past medical history significant for atrial fibrillation and pacemaker. She denies smoking cigarettes drinking alcohol using recreational drugs. She has a pacemaker. [facility] Medical History Chronic pain syndrome Peripheral polyneuropathy Surgical History Status post ablation of incompetent vein using laser (09/11/22) Review of Systems Const All systems reviewed & are unremarkable except as noted in HPI and below Physical Exam General: Appears afebrile. Alert and oriented. Mood and affect appropriate. Follows and participates in conversation appropriately. Respiratory effort is unlabored. No cough. Able to transition from sit to stand unassisted. Ambulates with bilaterally normal heel strike and toe off. Cardio Peripheral pulses: Peripheral pulses 2+ throughout Extrem General: Yes capillary refill normal, Yes no clubbing, cyanosis or edema and Yes no calf tenderness Psych Appearance: grossly normal and well kempt Mental Status: mental status grossly normal Speech and movement: Normal speech and movement present and Clear speech present Affect: normal affect Attitude: cooperative Thought process: Normal thought process present Thought content: Normal thought content present, suicidality (none), no hallucinations and No Depressive thoughts present Insight: Good insight present (Psych) Judgement: Good judgement present (Psych) Results Reviewed Results Reviewed: XR KNEE, RIGHT XR KNEE, LEFT 10/01/23 CLINICAL INFORMATION: Pain in right knee, pain behind the knee. FINDINGS: LEFT KNEE: Trace joint effusion. Calcifications in the posterior soft tissues are likely vascular. Bones are diffusely demineralized. Mild medial joint space narrowing. RIGHT KNEE: Spurring along the anterior superior aspect of the patella. Trace joint effusion. Calcifications in the posterior soft tissues are likely vascular. Bones are diffusely demineralized. Mild medial joint space narrowing. IMPRESSION: Mild degenerative changes in the bilateral knees. US venous duplex LE 12/02/23 IMPRESSION: Right: 1. Reflux in the below knee right great saphenous vein of 1472 ms. 2. The small saphenous vein in the mid calf measures 0.3 cm with 1600 ms of reflux. 3. Multiple nonrefluxing perforators noted in the right. Left: 1. The left great saphenous vein is occluded from the proximal thigh through the thigh. 2. Great saphenous vein appears patent in the distal thigh. 3. Multiple nonrefluxing perforators noted in the calf. Assessment & Plan Assessment & Plan (1) Bilateral knee pain: Code(s): M25.561 - Pain in right knee; M25.562 - Pain in left knee Category: Medical (2) Chronic pain syndrome: Code(s): G89.4 - Chronic pain syndrome Category: Medical (3) Chemotherapy-induced peripheral neuropathy: Code(s): G62.0 - Drug-induced polyneuropathy; T45.1X5A - Adverse effect of antineoplastic and immunosuppressive drugs, initial encounter Category: Medical (4) Peripheral polyneuropathy: Code(s): G62.9 - Polyneuropathy, unspecified Category: Medical (5) Chronic, continuous use of opioids: Code(s): F11.90 - Opioid use, unspecified, uncomplicated Category: Medical (6) Bilateral primary osteoarthritis of knee: Code(s): M17.0 - Bilateral primary osteoarthritis of knee Category: Medical Plan Patient has shown accountability for her medication regimen. There is no evidence of misuse, abuse or diversion at this time. [facility]PAT reviewed. Script for Morphine 15 mg BID prn with refill date of 01/25/24. Patient has Narcan at home. Continue to monitor for any adverse effects. Refill provided for gabapentin. Continue topical Lidocaine, gabapentin and compound cream for neuropathy pain as needed. Follow up with Vascular provider as planned on 01/25/24. Will also refer to Orthopedics for bilateral knee pain. All questions were answered and patient is in agreement of plan. Follow up in one month for a pill count or sooner if needed. Orders: Referrals Orthopedics Referral M17.0 - Bilateral primary osteoarthritis of knee, M25.561 - Pain in right knee, M25.562 - Pain in left knee Medications: Changed From gabapentin 300 mg PO BID 30 days 60 caps 1RF G62.0 - Drug-induced polyneuropathy, G62.9 - Polyneuropathy, unspecified, G89.4 - Chronic pain syndrome, T45.1X5A - Adverse effect of antineoplastic and immunosuppressive drugs, initial encounter To gabapentin 300 mg PO TID 30 days 90 caps 1RF G62.0 - Drug-induced polyneuropathy, G62.9 - Polyneuropathy, unspecified, G89.4 - Chronic pain syndrome, T45.1X5A - Adverse effect of antineoplastic and immunosuppressive drugs, initial encounter Refilled morphine ER Partial Fill upon patient request. 15 mg PO BID 30 days PRN 60 tabs 0RF severe pain (scale score 7-10) F11.90 - Opioid use, unspecified, uncomplicated, G62.0 - Drug-induced polyneuropathy, G89.4 - Chronic pain syndrome, M17.0 - Bilateral primary osteoarthritis of knee, T45.1X5A - Adverse effect of antineoplastic and immunosuppressive drugs, initial encounter Coding Level of Care Code Est Pt Level 4 (59973) Diagnoses Bilateral knee pain M25.561; M25.562 Chronic pain syndrome G89.4 Chemotherapy-induced peripheral neuropathy G62.0; T45.1X5A Peripheral polyneuropathy G62.9 Chronic, continuous use of opioids F11.90 Bilateral primary osteoarthritis of knee M17.0
== END 2024-01-20 10:41 | disposition home or self-care (01) ==
PROVIDERS: PCP Internal Medicine; Visit Provider Nurse Practitioner Family
DX: M25.561 Pain in right knee (principal); M25.562 Pain in left knee; G89.4 Chronic pain syndrome; G62.0 Drug-induced polyneuropathy; T45.1X5A Adverse effect of antineoplastic and immunosuppressive drugs, initial encounter; G62.9 Polyneuropathy, unspecified; Z79.891 Long term (current) use of opiate analgesic; M17.0 Bilateral primary osteoarthritis of knee
CPT/HCPCS: 99214

== ENCOUNTER → 2024-01-20 10:16 | Outpatient (BNVA) | payer MEDICARE, SELFPAY | PROVIDERS: PCP Internal Medicine; Visit Provider Nurse Practitioner Family | DX: Z51.81 Encounter for therapeutic drug level monitoring (principal); F11.20 Opioid dependence, uncomplicated; M25.561 Pain in right knee; M25.562 Pain in left knee; M17.0 Bilateral primary osteoarthritis of knee; G62.9 Polyneuropathy, unspecified; G62.0 Drug-induced polyneuropathy; G89.4 Chronic pain syndrome; T45.1X5A Adverse effect of antineoplastic and immunosuppressive drugs, initial encounter | CPT/HCPCS: 99212 ==

== ENCOUNTER 2024-01-25 14:44 | Outpatient (AMB) | payer MEDICARE, SELFPAY ==
--- NOTE | 2024-01-25 14:52 | MHC.OFFVIS ---
Intake Visit Reasons: follow up US Intake Note: Patient presents for US follow up. Patient has bilateral leg pain , mostly behind the knees. Patient has been to pain management. Uses a heating pad in the evening. Also uses an ice pack for bedtime on her legs. Patient has been on oxycontin and is currently on morphine. PCP has added gabapentin to help her sleep . Spends a lot of time in her garden bending over and weeding so she believes it might be from that. Accompanied by: Self / Same As Patient Allergies No Known Allergies Allergy (Verified 01/25/24 14:58) [facility] HPI follow up US: Details: Pleasant 78-year-old female presents for follow-up regarding venous insufficiency testing. Upon discussion with her she reports that she has pain behind the knees and has been using ice packs to get relief in his been able to sleep with that. In addition she has what she describes as an element of restless leg syndrome as well. She has been on a trial of what I believe to be prednisone and gabapentin. This did provide her some relief. She reports that she is doing somewhat better. She now presents for follow-up with repeat venous insufficiency testing. [facility] Medical History Chronic pain syndrome Peripheral polyneuropathy Surgical History Status post ablation of incompetent vein using laser (09/11/22) Review of Systems Const Reports as per HPI ENT Reports no additional complaints Card Denies chest pain, Denies chest pain at rest and Denies chest pain with activity Resp Denies chest congestion and Denies cough GI Reports no additional complaints Musc Details: pain over varicosities, aching of lower extremities, swelling, cramping, heaviness and tiredness, itching Denies abnormal gait Skin/Breast Reports pruritus and Denies wounds Neuro Reports no additional complaints and Denies abnormal gait Psych Denies no additional complaints Physical Exam Const General: cooperative, healthy appearing and comfortable Orientation/consciousness: oriented to person, oriented to place and oriented to time Neck Carotids: no bruits Chest Chest palpation & inspection: normal inspection of the chest and normal palpation of entire chest wall Resp Effort & Inspection: normal respiratory effort and able to speak in complete sentences Cardio Rate: regular rate Heart sounds: S1 normal heart sound present and S2 normal heart sound present Peripheral pulses: Peripheral pulses 2+ throughout GI Inspection: Yes normal to inspection Skin Other: +2 edema, spider telangiectasias CEAP Classification C4 - skin color changes Ep - Etiology Primary As - superficial veins P - reflux General skin exam: dry skin Neuro General: oriented to person, oriented to place and oriented to time Extrem Right lower extremity: full ROM, normal capillary refill and edema Left lower extremity: full ROM, normal capillary refill and edema Psych Mental Status: mental status grossly normal Assessment & Plan Assessment & Plan (1) Varicose veins of left lower extremity with inflammation: Comment: 09/11/2022 - left great saphenous vein Cyanoacralate ablation Code(s): I83.12 - Varicose veins of left lower extremity with inflammation Category: Medical Plan: In short her lower extremity issues does not appear to be vascular in nature. She does have palpable arterial pulses which we did recheck on this visit. In addition her venous insufficiency testing appears to be negative. I do believe that this may be more neurogenic in nature. She is getting some relief with the gabapentin. Should symptoms persist may benefit from a neurologic evaluation. She will follow up with us on an as-needed basis. Thank you for allowing us to assist in her care. If there are any questions or concerns please do not hesitate to contact us. Coding Level of Care Code Est Pt Level 4 (71622) Diagnoses Varicose veins of left lower extremity with inflammation I83.12
== END 2024-01-25 15:40 | disposition home or self-care (01) ==
PROVIDERS: PCP Internal Medicine; Visit Provider Surgery Vascular Surgery
DX: I83.12 Varicose veins of left lower extremity with inflammation (principal)
CPT/HCPCS: 99213

== ENCOUNTER → 2024-01-25 14:44 | Outpatient (BNVA) | payer MEDICARE, SELFPAY | PROVIDERS: PCP Internal Medicine; Visit Provider Surgery Vascular Surgery | DX: I83.12 Varicose veins of left lower extremity with inflammation (principal) | CPT/HCPCS: 99212 ==

== ENCOUNTER 2024-02-21 10:08 | Outpatient (AMB) | payer MEDICARE, SELFPAY ==
--- NOTE | 2024-02-21 10:11 | A.OFFVIS_ITS ---
Vital Signs 02/21/24 10:17 Height 5 ft 3 in Weight 145 lb 2 oz BMI 25.7 BP 111/62 Blood Pressure Location Lt brachial Position Sitting Pulse 78 Pulse Source Pulse Oximeter Pulse Oximetry (%) 97 Oxygen Delivery Method Room Air Intake Visit Reasons: PILL COUNT Intake Note: Darlene comes in today for a pill count to morphine, patient should have 8 tablets and presents with 12 tablets which she last took today 02/21/24 at 3:30am. Pain today 10/23 Improvement Advisor Required: No Accompanied by: Self / Same As Patient Allergies No Known Allergies Allergy (Verified 02/21/24 10:21) HPI Comments Details: Patient presents today a pill count. She is supposed to have #8 pills in her possession and has #12 pills. This demonstrates a responsible attitude in regards to the medication regimen. Patient reports adequate analgesia on current regime without any side effects except occasional constipation for which she takes docusate sodium with good results. She continues to experience bilateral knee pain in anterior and posterior aspects. Patient has upcoming Orthopedic evaluation on 03/16/24. She continues to take Gabapentin for pain and sleep provides her mild relief. Patient reports trial of cannabis edible from dispensary store bought by her family. She reports it helps her partially with pain and sleep. Denies any recent cough, cold, infection, fever or other significant changes in medical history since last office visit. PRIOR: Darlene is a pleasant 76 year old female who has previously been evaluated in this office by Dr. Monroy for bilateral leg pain which she attributes to her chemotherapy s/p breast cancer years ago. She was previously under the care of [facility], who was managing her with medication and she reports overall improvements with morphine 15 mg BID. She was evaluated by Dr. Monroy, who agreed to continue her regimen through this office. She is accompanied by her daughter. Today she is here for a pill count, which was concordant. This demonstrates a responsible attitude in regards to the opioid regimen. She reports improved function and decrease in pain, with no noted side effects. Denies any sedation, nausea or urinary retention. She was recently discharged with a small bowel obstruction which was thought to be related to adhesions from a hysterectomy >25 years ago. She has previously been instructed to use a daily stool softener as well as miralax and she has not been adhering to this regimen. She states some weeks she will have a bowel movement every 5 days and other weeks she will have one every other day without the need for medication. She has a follow up with her PCP next week as well as cardiology this week to review her new blood pressure medications. She did note dizziness upon standing and has been taking her blood pressure at home. She was instructed to contact her PCP regarding her low bp today. She also has CHF and although she states she has good fluid intake, she was instructed to decrease by cardiology. Of note, patient recently had a [employer] pacer placed 01/2021. PRIOR: Darlene is very pleasant 76 years old female who presents in my office with complains on pain in bilateral lower extremities below the level of the knees. She reports this pain is spreading all the way down to her toes. History of present illness she was subject of treatment of peripheral polyneuropathy of bilateral lower extremities after 18 years ago she was treated for breast cancer with physical therapy. She was under care of [facility]. She reports that she can not sleep normally do activities of daily living she can take care of herself and she can not function normally. She is retired individual. In terms of tissue damage the she reports her pain as pulsing, throbbing, pounding, dull, serve, hurting, aching, heavy, hot burning, skull doing, fearful. She reports multiple evaluation of her pain with [facility] and [facility]. Her past medical history significant for atrial fibrillation and pacemaker. She denies smoking cigarettes drinking alcohol using recreational drugs. She has a pacemaker. [facility] Medical History Chronic pain syndrome Peripheral polyneuropathy Surgical History Status post ablation of incompetent vein using laser (09/11/22) Review of Systems Const All systems reviewed & are unremarkable except as noted in HPI and below Physical Exam General: Appears afebrile. Alert and oriented. Mood and affect appropriate. Follows and participates in conversation appropriately. Respiratory effort is unlabored. No cough. Able to transition from sit to stand unassisted. Ambulates with bilaterally normal heel strike and toe off. Cardio Peripheral pulses: Peripheral pulses 2+ throughout Extrem General: Yes capillary refill normal, Yes no clubbing, cyanosis or edema and Yes no calf tenderness Right lower extremity: knee Details: normal to inspection, tenderness Location: of the medial joint line and of the lateral joint line, normal ROM and crepitus; no swelling, no ecchymosis and no unusual warmth Left lower extremity: knee (Limited ROM due to pain.) Details: normal to inspection, tenderness Location: of the medial joint line and of the lateral joint line and crepitus; no swelling, no ecchymosis and no unusual warmth Psych Appearance: grossly normal and well kempt Mental Status: mental status grossly normal Speech and movement: Normal speech and movement present and Clear speech present Affect: normal affect Attitude: cooperative Thought process: Normal thought process present Thought content: Normal thought content present, suicidality (none), no hallucinations and No Depressive thoughts present Insight: Good insight present (Psych) Judgement: Good judgement present (Psych) Results Reviewed Results Reviewed: XR KNEE, RIGHT XR KNEE, LEFT 10/01/23 CLINICAL INFORMATION: Pain in right knee, pain behind the knee. FINDINGS: LEFT KNEE: Trace joint effusion. Calcifications in the posterior soft tissues are likely vascular. Bones are diffusely demineralized. Mild medial joint space narrowing. RIGHT KNEE: Spurring along the anterior superior aspect of the patella. Trace joint effusion. Calcifications in the posterior soft tissues are likely vascular. Bones are diffusely demineralized. Mild medial joint space narrowing. IMPRESSION: Mild degenerative changes in the bilateral knees. US venous duplex [facility] 12/02/23 IMPRESSION: Right: 1. Reflux in the below knee right great saphenous vein of 1472 ms. 2. The small saphenous vein in the mid calf measures 0.3 cm with 1600 ms of reflux. 3. Multiple nonrefluxing perforators noted in the right. Left: 1. The left great saphenous vein is occluded from the proximal thigh through the thigh. 2. Great saphenous vein appears patent in the distal thigh. 3. Multiple nonrefluxing perforators noted in the calf. Assessment & Plan Assessment & Plan (1) Bilateral knee pain: Code(s): M25.561 - Pain in right knee; M25.562 - Pain in left knee Category: Medical (2) Chronic pain syndrome: Code(s): G89.4 - Chronic pain syndrome Category: Medical (3) Chemotherapy-induced peripheral neuropathy: Code(s): G62.0 - Drug-induced polyneuropathy; T45.1X5A - Adverse effect of antineoplastic and immunosuppressive drugs, initial encounter Category: Medical (4) Peripheral polyneuropathy: Code(s): G62.9 - Polyneuropathy, unspecified Category: Medical (5) Chronic, continuous use of opioids: Code(s): F11.90 - Opioid use, unspecified, uncomplicated Category: Medical (6) Bilateral primary osteoarthritis of knee: Code(s): M17.0 - Bilateral primary osteoarthritis of knee Category: Medical Plan Patient has shown accountability for her medication regimen. There is no evidence of misuse, abuse or diversion at this time. [place] reviewed. Script for Morphine 15 mg BID prn with refill date of 02/25/24. Patient has Narcan at home. Continue to monitor for any adverse effects. Refill provided for gabapentin. Continue topical Lidocaine, gabapentin and compound cream for neuropathy pain as needed. Follow up with Orthopedics for bilateral knee pain as scheduled. All questions were answered and patient is in agreement of plan. Follow up in one month for a pill count or sooner if needed. Medications: Refilled morphine ER Partial Fill upon patient request. 15 mg PO BID 30 days PRN 60 tabs 0RF severe pain (scale score 7-10) F11.90 - Opioid use, unspecified, uncomplicated, G62.0 - Drug-induced polyneuropathy, G89.4 - Chronic pain syndrome, M17.0 - Bilateral primary osteoarthritis of knee, T45.1X5A - Adverse effect of antineoplastic and immunosuppressive drugs, initial encounter gabapentin 300 mg PO TID 30 days 90 caps 1RF G62.0 - Drug-induced polyneuropathy, G62.9 - Polyneuropathy, unspecified, G89.4 - Chronic pain syndrome, T45.1X5A - Adverse effect of antineoplastic and immunosuppressive drugs, initial encounter Coding Level of Care Code Est Pt Level 4 (77251) Diagnoses Bilateral knee pain M25.561; M25.562 Chronic pain syndrome G89.4 Chemotherapy-induced peripheral neuropathy G62.0; T45.1X5A Peripheral polyneuropathy G62.9 Chronic, continuous use of opioids F11.90 Bilateral primary osteoarthritis of knee M17.0
[2024-02-21 10:17] VITALS: BP 111/62; PULSE 78; O2SAT 97; BMI 25.7
== END 2024-02-21 10:30 | disposition home or self-care (01) ==
PROVIDERS: PCP Internal Medicine; Visit Provider Nurse Practitioner Family
DX: M25.561 Pain in right knee (principal); M25.562 Pain in left knee; G89.4 Chronic pain syndrome; Z79.891 Long term (current) use of opiate analgesic; G62.0 Drug-induced polyneuropathy; T45.1X5A Adverse effect of antineoplastic and immunosuppressive drugs, initial encounter; G62.9 Polyneuropathy, unspecified; M17.0 Bilateral primary osteoarthritis of knee
CPT/HCPCS: 99214

== ENCOUNTER → 2024-02-21 10:08 | Outpatient (BNVA) | payer MEDICARE, SELFPAY | PROVIDERS: PCP Internal Medicine; Visit Provider Nurse Practitioner Family | DX: G89.4 Chronic pain syndrome (principal); M25.561 Pain in right knee; M25.562 Pain in left knee; G62.0 Drug-induced polyneuropathy; T45.1X5A Adverse effect of antineoplastic and immunosuppressive drugs, initial encounter; M17.0 Bilateral primary osteoarthritis of knee; Z79.891 Long term (current) use of opiate analgesic | CPT/HCPCS: 99212 ==

== ENCOUNTER 2024-03-16 08:30 | Outpatient (REF) | payer MEDICARE, SELFPAY ==
--- NOTE | ~2024-03-16 | XR_ITS ---
EXAMINATION: XR KNEE AP STANDING CLINICAL INFORMATION: Pain in right knee. COMPARISON: 10/01/2023. TECHNIQUE: AP bilateral standing view of the knees was obtained. FINDINGS: Bones are diffusely demineralized. Mild narrowing of the medial and lateral compartments. XR/XR knee standing BI IMPRESSION: Mild narrowing of the medial and lateral compartments.
== END 2024-03-16 08:31 | disposition home or self-care (01) ==
LOC: HO.HOSX 08:30
PROVIDERS: Visit Provider Physician Assistant
DX: M17.0 Bilateral primary osteoarthritis of knee (principal)
CPT/HCPCS: 73565; 99202

== ENCOUNTER 2024-03-16 08:38 | Outpatient (AMB) | payer MEDICARE, SELFPAY ==
[2024-03-16 08:49] VITALS: BMI 25.7
--- NOTE | 2024-03-16 08:49 | A.OFFVIS_ITS ---
Vital Signs 03/16/24 08:49 Height 5 ft 3 in Weight 145 lb BMI 25.7 Intake Visit Reasons: N/P B/L knee O.A pain Intake Note: Darlene an 78 year old female who presents today for a new patient evaluation of bilateral knee pain. Patient reports her knee pain has been present for over 20 years after she underwent breast cancer treatment. Her pain is located at the anterior aspect of knee and the past 2 years her pain radiates into the posterior aspect. Denies numbness or tingling. She is prescribed morphine 15 mg every 12-15 hours by pain management that provides her relief. She also finds relief with hemp gummies, OTC arthritis cream, heat and ice. Allergies No Known Allergies Allergy (Verified 03/16/24 09:05) Medication List - Last Reconciled 03/16/24 by Rola Wright PA-C amiodarone 200 mg PO DAILY amitriptyline 10 mg PO BEDTIME PRN apixaban (Eliquis) 5 mg PO BID carvedilol 3.125 mg PO BID cholestyramine (with sugar) 4 gram 1 ea PO TID dapagliflozin propanediol (Farxiga) 10 mg PO DAILY diclofenac sodium 3% 1 appl topical TID-QID 30 days diclofenac sodium 1% (Voltaren Arthritis Pain) 4 grams topical TID-QID docusate sodium 100 mg PO DAILY PRN gabapentin 10% 1 appl topical TID-QID PRN 30 days gabapentin 300 mg PO TID 30 days levothyroxine 75 mcg PO DAILY levothyroxine 100 mcg PO QAM morphine ER 15 mg PO BID PRN 30 days naloxone 4 mg/actuation (Narcan) 4 mg intranasal Q3M PRN rosuvastatin 5 mg PO DAILY spironolactone 12.5 mg PO BID HPI HPI N/P B/L knee O.A pain : Details: Darlene is an 78-year-old female who presents today as a new patient for an eval uation of bilateral knee pain. She reports that after receiving treatment for breast cancer, she claims that she has had knee pain for more than 20 years. Her pain is located at the anterior aspect of knee and it radiates into the posterior aspect for the last 2 years. She denies numbness or tingling. She was prescribed morphine 15 mg every 12-15 hours by pain management that gave her significant relief. She also uses heat, ice, [id number] arthritis cream, and Hemp gummies for relief. Today, she reports that she has been experiencing pain behind her knees and she states that she met with an accident two weeks ago. She denies feeling any pain while standing or climbing stairs. She denies attending any PT sessions in the past. [facility] Medical History (Updated 03/16/24 @ 15:09 by Rola Wright PA-C) Thyroid cancer Chronic pain syndrome Peripheral polyneuropathy Surgical History Status post ablation of incompetent vein using laser (09/11/22) Social History (Updated 03/16/24 @ 08:59 by JESSICA Acuña) Patient Tobacco Use Status: Never used Tobacco Current occupational status: retired Review of Systems Const All systems reviewed & are unremarkable except as noted in HPI and below Physical Exam Vital Signs: BMI result Body Mass Index 25.7 Const General: cooperative, healthy appearing, comfortable and no acute distress Orientation/consciousness: patient oriented x3 Neck Neck: Yes normal visual inspection and Yes no JVD Chest Chest palpation & inspection: normal inspection of the chest Resp Effort & Inspection: normal respiratory effort Auscultation: clear to auscultation bilaterally, crackles (no), rales (no), rhonchi (no) and wheezes (no) Cardio Jugular venous distension: no JVD Rate: regular rate Rhythm: regular rhythm Heart sounds: S1 normal heart sound present, S2 normal heart sound present, Murmur heart sound present (no) and Rub heart sound present (no) Neuro General: patient oriented x3 Extrem Other: Bilat knee: Skin intact, no erythema or joint effusion. Tenderness along the posterior aspect of the knee. Full ROM with crepitus. Negative Micaela?s. No ligamentous laxity. NVI. General: Yes normal to inspection, Yes no pedal edema and Yes no calf tenderness Results Reviewed Results Reviewed: Xrays were obtained in the office today and personally reviewed by me of bilat knee show mild oa Assessment & Plan Assessment & Plan (1) Bilateral primary osteoarthritis of knee: Code(s): M17.0 - Bilateral primary osteoarthritis of knee Category: Medical Plan We discussed options which include PT, NSAIDs and injections. The patient will defer on the injection today and proceed with PT and NSAIDs. If symptoms p ersist, she will contact me for an injection, otherwise, PRN. Orders: Orders PT Evaluation and Treatment Today M17.0 - Bilateral primary osteoarthritis of knee XR knee standing BI Today M25.561 - Pain in right knee, M25.562 - Pain in left knee Patient Instructions: Scribed for Rola Wright PA-C, by Desmond Bhardwaj medical social consultant, on 03/16/2024 at 9:00 AM EST. I, Rola Wright PA-C, have personally reviewed and agree with the information entered by the scribe. Coding Level of Care Code New Pt Level 3 (39429) Diagnoses Bilateral primary osteoarthritis of knee M17.0
== END 2024-03-16 10:29 | disposition home or self-care (01) ==
PROVIDERS: PCP Internal Medicine; Visit Provider Physician Assistant
DX: M17.0 Bilateral primary osteoarthritis of knee (principal)
CPT/HCPCS: 99203

== ENCOUNTER 2024-03-23 10:09 | Outpatient (AMB) | payer MEDICARE, SELFPAY ==
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
[2024-03-23 10:23] VITALS: BP 117/61; PULSE 77; O2SAT 97; BMI 25.7
== END 2024-03-23 10:34 | disposition home or self-care (01) ==
PROVIDERS: PCP Internal Medicine; Visit Provider Nurse Practitioner Family
DX: G89.4 Chronic pain syndrome (principal); M25.561 Pain in right knee; M25.562 Pain in left knee; Z79.891 Long term (current) use of opiate analgesic; G62.0 Drug-induced polyneuropathy; T45.1X5A Adverse effect of antineoplastic and immunosuppressive drugs, initial encounter; G62.9 Polyneuropathy, unspecified; M17.0 Bilateral primary osteoarthritis of knee
CPT/HCPCS: 99214

== ENCOUNTER → 2024-03-23 10:09 | Outpatient (BNVA) | payer MEDICARE, SELFPAY | PROVIDERS: PCP Internal Medicine; Visit Provider Nurse Practitioner Family | DX: Z51.81 Encounter for therapeutic drug level monitoring (principal); F11.20 Opioid dependence, uncomplicated; M25.561 Pain in right knee; M25.562 Pain in left knee; M17.0 Bilateral primary osteoarthritis of knee; G62.0 Drug-induced polyneuropathy; T45.1X5A Adverse effect of antineoplastic and immunosuppressive drugs, initial encounter; G62.9 Polyneuropathy, unspecified; G89.4 Chronic pain syndrome | CPT/HCPCS: 99212 ==

== ENCOUNTER 2024-04-27 10:15 | Outpatient (AMB) | payer MEDICARE, SELFPAY ==
--- NOTE | 2024-04-27 10:23 | MHC.OFFVIS ---
Vital Signs 04/27/24 10:37 Height 5 ft 3 in Weight 144 lb 2 oz BMI 25.5 BP 120/60 Blood Pressure Location Lt brachial Position Sitting Pulse 79 Pulse Source Pulse Oximeter Pulse Oximetry (%) 97 Oxygen Delivery Method Room Air Intake Visit Reasons: PILL COUNT Intake Note: Darlene comes in today for a pill count to morphine, patient should have 14 tablets and presents with 25 tablets which she last took last night 04/26/24 at 11pm. Pain today 2 Advertising Writer Required: No Accompanied by: Self / Same As Patient Allergies No Known Allergies Allergy (Verified 04/27/24 10:39) HPI Comments Details: Patient presents today a pill count. She is supposed to have #14 pills in her possession and has #25 pills. This demonstrates a responsible attitude in regards to the medication regiment. Patient reports adequate analgesia on current regime without any side effects except occasional constipation for which she takes docusate sodium with good results. Patient reports 210 pain. She also has medical marijuana card and has been taking cannabis edibles (#20 pieces per recent month) with significant reduction in her pain and decrease intake of opioid medication. Patient reports recent COVID 2 weeks ago and has recovered well since then. She denies any cough, cold, infection, fever or any other significant changes in medical history since last office visit. PRIOR: Darlene is a pleasant 76 year old female who has previously been evaluated in this office by Dr. Monroy for bilateral leg pain which she attributes to her chemotherapy s/p breast cancer years ago. She was previously under the care of [facility], who was managing her with medication and she reports overall improvements with morphine 15 mg BID. She was evaluated by Dr. Monroy, who agreed to continue her regimen through this office. She is accompanied by her daughter. Today she is here for a pill count, which was concordant. This demonstrates a responsible attitude in regards to the opioid regimen. She reports improved function and decrease in pain, with no noted side effects. Denies any sedation, nausea or urinary retention. She was recently discharged with a small bowel obstruction which was thought to be related to adhesions from a hysterectomy >25 years ago. She has previously been instructed to use a daily stool softener as well as miralax and she has not been adhering to this regimen. She states some weeks she will have a bowel movement every 5 days and other weeks she will have one every other day without the need for medication. She has a follow up with her PCP next week as well as cardiology this week to review her new blood pressure medications. She did note dizziness upon standing and has been taking her blood pressure at home. She was instructed to contact her PCP regarding her low bp today. She also has CHF and although she states she has good fluid intake, she was instructed to decrease by cardiology. Of note, patient recently had a Medtronic pacer placed 01/2021. PRIOR: Darlene is very pleasant 76 years old female who presents in my office with complains on pain in bilateral lower extremities below the level of the knees. She reports this pain is spreading all the way down to her toes. History of present illness she was subject of treatment of peripheral polyneuropathy of bilateral lower extremities after 18 years ago she was treated for breast cancer with physical therapy. She was under care of [facility]. She reports that she can not sleep normally do activities of daily living she can take care of herself and she can not function normally. She is retired individual. In terms of tissue damage the she reports her pain as pulsing, throbbing, pounding, dull, serve, hurting, aching, heavy, hot burning, skull doing, fearful. She reports multiple evaluation of her pain with [facility] and [facility]. Her past medical history significant for atrial fibrillation and pacemaker. She denies smoking cigarettes drinking alcohol using recreational drugs. She has a pacemaker. [facility] Medical History Thyroid cancer Chronic pain syndrome Peripheral polyneuropathy Surgical History Status post ablation of incompetent vein using laser (09/11/22) Social History Patient Tobacco Use Status: Never used Tobacco Current occupational status: retired Review of Systems Const All systems reviewed & are unremarkable except as noted in HPI and below Physical Exam Vital Signs: Last Vital Signs Pulse 79 04/27/24 10:37 BP 120/60 04/27/24 10:37 Pulse Ox 97 04/27/24 10:37 Oxygen Delivery Method Room Air 04/27/24 10:37 BMI result Body Mass Index 25.5 General: Appears afebrile. Alert and oriented. Mood and affect appropriate. Follows and participates in conversation appropriately. Respiratory effort is unlabored. No cough. Able to transition from sit to stand unassisted. Ambulates with bilaterally normal heel strike and toe off. Extrem General: Yes capillary refill normal, Yes no clubbing, cyanosis or edema and Yes no calf tenderness Psych Appearance: grossly normal and well kempt Mental Status: mental status grossly normal Speech and movement: Normal speech and movement present and Clear speech present Affect: normal affect Attitude: cooperative Thought process: Normal thought process present Thought content: Normal thought content present, suicidality (none), no hallucinations and No Depressive thoughts present Insight: Good insight present (Psych) Judgement: Good judgement present (Psych) Results Reviewed Results Reviewed: XR KNEE, RIGHT XR KNEE, LEFT 10/01/23 CLINICAL INFORMATION: Pain in right knee, pain behind the knee. FINDINGS: LEFT KNEE: Trace joint effusion. Calcifications in the posterior soft tissues are likely vascular. Bones are diffusely demineralized. Mild medial joint space narrowing. RIGHT KNEE: Spurring along the anterior superior aspect of the patella. Trace joint effusion. Calcifications in the posterior soft tissues are likely vascular. Bones are diffusely demineralized. Mild medial joint space narrowing. IMPRESSION: Mild degenerative changes in the bilateral knees. US venous duplex [facility] 12/02/23 IMPRESSION: Right: 1. Reflux in the below knee right great saphenous vein of 1472 ms. 2. The small saphenous vein in the mid calf measures 0.3 cm with 1600 ms of reflux. 3. Multiple nonrefluxing perforators noted in the right. Left: 1. The left great saphenous vein is occluded from the proximal thigh through the thigh. 2. Great saphenous vein appears patent in the distal thigh. 3. Multiple nonrefluxing perforators noted in the calf. Assessment & Plan Assessment & Plan (1) Chronic pain syndrome: Code(s): G89.4 - Chronic pain syndrome Category: Medical (2) Chemotherapy-induced peripheral neuropathy: Code(s): G62.0 - Drug-induced polyneuropathy; T45.1X5A - Adverse effect of antineoplastic and immunosuppressive drugs, initial encounter Category: Medical (3) Peripheral polyneuropathy: Code(s): G62.9 - Polyneuropathy, unspecified Category: Medical (4) Chronic, continuous use of opioids: Code(s): F11.90 - Opioid use, unspecified, uncomplicated Category: Medical (5) Bilateral primary osteoarthritis of knee: Code(s): M17.0 - Bilateral primary osteoarthritis of knee Category: Medical Plan Patient has shown accountability for her medication regimen. There is no evidence of misuse, abuse or diversion at this time. [employer] reviewed. Script for Morphine 15 mg BID prn with refill date of 05/06/24. Patient has Narcan at home. Continue to monitor for any adverse effects. Continue topical Lidocaine, gabapentin and compound cream for neuropathy pain as needed. Patient provided us copy of receipt for cannabis edible she obtains in local dispensary. All questions were answered and patient is in agreement of plan. Follow up in 4-5 weeks for a pill count or sooner if needed. Medications: Refilled morphine ER Partial Fill upon patient request. 15 mg PO BID 30 days PRN 60 tabs 0RF severe pain (scale score 7-10) F11.90 - Opioid use, unspecified, uncomplicated, G62.0 - Drug-induced polyneuropathy, M17.0 - Bilateral primary osteoarthritis of knee, T45.1X5A - Adverse effect of antineoplastic and immunosuppressive drugs, initial encounter Coding Level of Care Code Est Pt Level 4 (65350) Complex EM visit Add On G2211 Diagnoses Chronic pain syndrome G89.4 Chemotherapy-induced peripheral neuropathy G62.0; T45.1X5A Peripheral polyneuropathy G62.9 Chronic, continuous use of opioids F11.90 Bilateral primary osteoarthritis of knee M17.0
[2024-04-27 10:37] VITALS: BP 120/60; PULSE 79; O2SAT 97; BMI 25.5
== END 2024-04-27 10:47 | disposition home or self-care (01) ==
PROVIDERS: PCP Internal Medicine; Visit Provider Nurse Practitioner Family
DX: G89.4 Chronic pain syndrome (principal); G62.0 Drug-induced polyneuropathy; T45.1X5A Adverse effect of antineoplastic and immunosuppressive drugs, initial encounter; G62.9 Polyneuropathy, unspecified; Z79.891 Long term (current) use of opiate analgesic; M17.0 Bilateral primary osteoarthritis of knee
CPT/HCPCS: 99214; G2211

== ENCOUNTER → 2024-04-27 10:15 | Outpatient (BNVA) | payer MEDICARE, SELFPAY | PROVIDERS: PCP Internal Medicine; Visit Provider Nurse Practitioner Family | DX: G89.4 Chronic pain syndrome (principal); G62.0 Drug-induced polyneuropathy; T45.1X5A Adverse effect of antineoplastic and immunosuppressive drugs, initial encounter; M17.0 Bilateral primary osteoarthritis of knee; Z79.891 Long term (current) use of opiate analgesic; Z51.81 Encounter for therapeutic drug level monitoring | CPT/HCPCS: 99212 ==

== ENCOUNTER 2024-04-27 11:00 | Outpatient (REF) | payer MEDICARE, SELFPAY ==
--- NOTE | ~2024-04-27 | MM_ITS ---
EXAMINATION: MM SCREENING DIGITAL BREAST TOMOSYNTHESIS, BILATERAL CLINICAL INFORMATION: Screening. Asymptomatic. COMPARISON: Mammography: This study is compared with prior exams dating back to 2020. TECHNIQUE: Digital breast tomosynthesis is performed in both the craniocaudal and mediolateral oblique views along with computer-aided detection (CAD). Synthesized 2D images are generated from the tomosynthesis. FINDINGS: There are scattered areas of fibroglandular density (ACR BI-RADS breast composition Category b). There are no significant masses, abnormal calcifications, or other abnormalities. Postsurgical changes are present in the upper-outer quadrant of the left breast from prior cancer treatment. There is a bilobed soft tissue mass in the right breast. Bilateral benign calcifications are present in each breast. MM/MM tomosynthesis screening BI IMPRESSION: No mammographic evidence of malignancy. ASSESSMENT: BI-RADS BI-RADS 2 - Benign Findings RECOMMENDATION: Routine annual mammography screening. 1 year F/U This examination should not preclude the clinical evaluation of a suspicious palpable abnormality. This patient's information was entered into a reminder system with a target due date for their next mammogram. Electronically signed by: Sheyla Tarango MD 05/03/2024 02:20 PM EDT
== END 2024-04-27 11:01 | disposition home or self-care (01) ==
LOC: HO.MAMMO 11:00
PROVIDERS: PCP Internal Medicine; Visit Provider Internal Medicine
DX: Z12.31 Encounter for screening mammogram for malignant neoplasm of breast (principal)
CPT/HCPCS: 77063; 77067

== ENCOUNTER → 2024-04-27 11:30 | Outpatient (BNV) | payer MEDICARE, SELFPAY | PROVIDERS: PCP Internal Medicine; Visit Provider Radiology Diagnostic Radiology | DX: Z12.31 Encounter for screening mammogram for malignant neoplasm of breast (principal) | CPT/HCPCS: 77063; 77067 ==

== ENCOUNTER 2024-06-01 10:11 | Outpatient (AMB) | payer MEDICARE, SELFPAY ==
--- NOTE | 2024-06-01 10:19 | A.OFFVIS_ITS ---
Intake Visit Reasons: Pill Count Intake Note: Darlene comes in today for a pill count to morphine, patient should have 14 tablets and presents with 31 tablets which she last took last night 05/31/24 at 9:30pm. Pain today 11/23 Scale Manager Required: No Accompanied by: Self / Same As Patient Allergies No Known Allergies Allergy (Verified 06/01/24 10:39) HPI Comments Details: Patient presents today a pill count. She is supposed to have #14 pills in her possession and has #31 pills. This demonstrates a responsible attitude in regards to the medication regiment. Patient reports adequate analgesia on current regime without any side effects except occasional constipation treated with good results. Patient reports 11/23 pain today. She also has medical marijuana card and has been taking cannabis edibles and Tylenol as needed with significant reduction in her pain and decrease intake of opioid medication. Patient denies any cough, cold, infection, fever or any other significant changes in medical history since last office visit. PRIOR: Darlene is a pleasant 76 year old female who has previously been evaluated in this office by Dr. Monroy for bilateral leg pain which she attributes to her chemotherapy s/p breast cancer years ago. She was previously under the care of [facility], who was managing her with medication and she reports o verall improvements with morphine 15 mg BID. She was evaluated by Dr. Monroy, who agreed to continue her regimen through this office. She is accompanied by her daughter. Today she is here for a pill count, which was concordant. This demonstrates a responsible attitude in regards to the opioid regimen. She reports improved function and decrease in pain, with no noted side effects. Denies any sedation, nausea or urinary retention. She was recently discharged with a small bowel obstruction which was thought to be related to adhesions from a hysterectomy >25 years ago. She has previously been instructed to use a daily stool softener as well as miralax and she has not been adhering to this regimen. She states some weeks she will have a bowel movement every 5 days and other weeks she will have one every other day without the need for medication. She has a follow up with her PCP next week as well as cardiology this week to review her new blood pressure medications. She did note dizziness upon standing and has been taking her blood pressure at home. She was instructed to contact her PCP regarding her low bp today. She also has CHF and although she states she has good fluid intake, she was instructed to decrease by cardiology. Of note, patient recently had a Medtronic pacer placed 01/2021. PRIOR: Darlene is very pleasant 76 years old female who presents in my office with complains on pain in bilateral lower extremities below the level of the knees. She reports this pain is spreading all the way down to her toes. History of present illness she was subject of treatment of peripheral polyneuropathy of bilateral lower extremities after 18 years ago she was treated for breast cancer with physical therapy. She was under care of [facility]. She reports that she can not sleep normally do activities of daily living she can take care of herself and she can not function normally. She is retired individual. In terms of tissue damage the she reports her pain as pulsing, throbbing, pounding, dull, serve, hurting, aching, heavy, hot burning, skull doing, fearful. She reports multiple evaluation of her pain with [facility] and [facility]. Her past medical history significant for atrial fibrillation and pacemaker. She denies smoking cigarettes drinking alcohol using recreational drugs. She has a pacemaker. [facility] Medical History Thyroid cancer Chronic pain syndrome Peripheral polyneuropathy Surgical History Status post ablation of incompetent vein using laser (09/11/22) Social History Patient Tobacco Use Status: Never used Tobacco Current occupational status: retired Review of Systems Const All systems reviewed & are unremarkable except as noted in HPI and below Physical Exam General: Appears afebrile. Alert and oriented. Mood and affect appropriate. Follows and participates in conversation appropriately. Respiratory effort is unlabored. No cough. Able to transition from sit to stand unassisted. Ambulates with bilaterally normal heel strike and toe off. Eyes General: appearance normal, both eyes and all related structures Conjunctivae: conjunctivae normal Pupils: Equal, round and reactive pupils present Neuro Cranial nerves: Yes Equal, round and reactive pupils present Extrem General: Yes capillary refill normal, Yes no clubbing, cyanosis or edema and Yes no calf tenderness Psych Appearance: grossly normal and well kempt Mental Status: mental status grossly normal Speech and movement: Normal speech and movement present and Clear speech present Affect: normal affect Attitude: cooperative Thought process: Normal thought process present Thought content: Normal thought content present, suicidality (none), no hallucinations and No Depressive thoughts present Insight: Good insight present (Psych) Judgement: Good judgement present (Psych) Results Reviewed Results Reviewed: XR KNEE, RIGHT XR KNEE, LEFT 10/01/23 CLINICAL INFORMATION: Pain in right knee, pain behind the knee. FINDINGS: LEFT KNEE: Trace joint effusion. Calcifications in the posterior soft tissues are likely vascular. Bones are diffusely demineralized. Mild medial joint space narrowing. RIGHT KNEE: Spurring along the anterior superior aspect of the patella. Trace joint effusion. Calcifications in the posterior soft tissues are likely vascular. Bones are diffusely demineralized. Mild medial joint space narrowing. IMPRESSION: Mild degenerative changes in the bilateral knees. US venous duplex [facility] 12/02/23 IMPRESSION: Right: 1. Reflux in the below knee right great saphenous vein of 1472 ms. 2. The small saphenous vein in the mid calf measures 0.3 cm with 1600 ms of reflux. 3. Multiple nonrefluxing perforators noted in the right. Left: 1. The left great saphenous vein is occluded from the proximal thigh through the thigh. 2. Great saphenous vein appears patent in the distal thigh. 3. Multiple nonrefluxing perforators noted in the calf. Assessment & Plan Assessment & Plan (1) Chronic pain syndrome: Code(s): G89.4 - Chronic pain syndrome Category: Medical (2) Chemotherapy-induced peripheral neuropathy: Code(s): G62.0 - Drug-induced polyneuropathy; T45.1X5A - Adverse effect of antineoplastic and immunosuppressive drugs, initial encounter Category: Medical (3) Peripheral polyneuropathy: Code(s): G62.9 - Polyneuropathy, unspecified Category: Medical (4) Chronic, continuous use of opioids: Code(s): F11.90 - Opioid use, unspecified, uncomplicated Category: Medical (5) Bilateral primary osteoarthritis of knee: Code(s): M17.0 - Bilateral primary osteoarthritis of knee Category: Medical Plan Patient has shown accountability for her medication regimen. There is no evidence of misuse, abuse or diversion at this time. [employer] reviewed. Script for Morphine 15 mg BID prn with refill date of 06/14/24. Patient has Narcan at home. Continue to monitor for any adverse effects. Patient takes Colace prn for occasional constipation. Continue topical Lidocaine, gabapentin, Tylenol and compound cream for neuropathy pain as needed. Patient provided us copy of receipt for cannabis edible she obtains in local dispensary. All questions were answered and patient is in agreement of plan. Follow up in 4- 5 weeks for a pill count or sooner if needed. Medications: Refilled morphine ER Partial Fill upon patient request. 15 mg PO BID 30 days PRN 60 tabs 0RF severe pain (scale score 7-10) F11.90 - Opioid use, unspecified, uncomplicated, G62.0 - Drug-induced polyneuropathy, M17.0 - Bilateral primary osteoarthritis of knee, T45.1X5A - Adverse effect of antineoplastic and immunosuppressive drugs, initial encounter Coding Level of Care Code Est Pt Level 4 (87571) Complex EM visit Add On G2211 Diagnoses Chronic pain syndrome G89.4 Chemotherapy-induced peripheral neuropathy G62.0; T45.1X5A Peripheral polyneuropathy G62.9 Chronic, continuous use of opioids F11.90 Bilateral primary osteoarthritis of knee M17.0
== END 2024-06-01 10:46 | disposition home or self-care (01) ==
PROVIDERS: PCP Internal Medicine; Visit Provider Nurse Practitioner Family
DX: G89.4 Chronic pain syndrome (principal); G62.0 Drug-induced polyneuropathy; G62.9 Polyneuropathy, unspecified; Z79.891 Long term (current) use of opiate analgesic; T45.1X5A Adverse effect of antineoplastic and immunosuppressive drugs, initial encounter; M17.0 Bilateral primary osteoarthritis of knee
CPT/HCPCS: 99214; G2211

== ENCOUNTER → 2024-06-01 10:11 | Outpatient (BNVA) | payer MEDICARE, SELFPAY | PROVIDERS: PCP Internal Medicine; Visit Provider Nurse Practitioner Family | DX: G89.4 Chronic pain syndrome (principal); G62.0 Drug-induced polyneuropathy; T45.1X5A Adverse effect of antineoplastic and immunosuppressive drugs, initial encounter; M17.0 Bilateral primary osteoarthritis of knee; F11.90 Opioid use, unspecified, uncomplicated; Z51.81 Encounter for therapeutic drug level monitoring | CPT/HCPCS: 99212 ==

== ENCOUNTER 2024-07-06 09:59 | Outpatient (AMB) | payer MEDICARE, SELFPAY ==
--- NOTE | 2024-07-06 10:08 | MHC.OFFVIS ---
Vital Signs 07/06/24 10:30 Height 5 ft 3 in Weight 138 lb 8 oz BMI 24.5 BP 113/57 L Blood Pressure Location Rt brachial Position Sitting Pulse 72 Pulse Source Pulse Oximeter Pulse Oximetry (%) 97 Oxygen Delivery Method Room Air Intake Visit Reasons: PILL COUNT Intake Note: Darlene comes in today for a pill count to morphine, patient should have 22 tablets and presents with 27 tablets which she last took today 07/06/24 at 8:30am. Pain today 08/25. Darlene would like to also state that she will be leaving to go to [place] Wednesday for 12 days for thanksgiving. 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 She is supposed to have #22 pills in her possession and has #27 pills. This demonstrates a responsible attitude in regards to the medication regiment. Patient reports adequate analgesia on current regime without any side effects except constipation. Patient reports 08/25 pain today. She also has medical marijuana card and has been taking cannabis edibles and Tylenol as needed. Patient reports worsening constipation with mild relief with Colace once daily, dietary fiber and adequate hydration. She plans to follow up with her GI provider for this. Reports most recent BM yesterday with assistance of suppositories. Patient denies any cough, cold, infection, fever or any other significant changes in medical history since last office visit. PRIOR: Darlene is a pleasant 76 year old female who has previously been evaluated in this office by Dr. Monroy for bilateral leg pain which she attributes to her chemotherapy s/p breast cancer years ago. She was previously under the care of [facility], who was managing her with medication and she reports overall improvements with morphine 15 mg BID. She was evaluated by Dr. Monroy, who agreed to continue her regimen through this office. She is accompanied by her daughter. Today she is here for a pill count, which was concordant. This demonstrates a responsible attitude in regards to the opioid regimen. She reports improved function and decrease in pain, with no noted side effects. Denies any sedation, nausea or urinary retention. She was recently discharged with a small bowel obstruction which was thought to be related to adhesions from a hysterectomy >25 years ago. She has previously been instructed to use a daily stool softener as well as miralax and she has not been adhering to this regimen. She states some weeks she will have a bowel movement every 5 days and other weeks she will have one every other day without the need for medication. She has a follow up with her PCP next week as well as cardiology this week to review her new blood pressure medications. She did note dizziness upon standing and has been taking her blood pressure at home. She was instructed to contact her PCP regarding her low bp today. She also has CHF and although she states she has good fluid intake, she was instructed to decrease by cardiology. Of note, patient recently had a Medtronic pacer placed 01/2021. PRIOR: Darlene is very pleasant 76 years old female who presents in my office with complains on pain in bilateral lower extremities below the level of the knees. She reports this pain is spreading all the way down to her toes. History of present illness she was subject of treatment of peripheral polyneuropathy of bilateral lower extremities after 18 years ago she was treated for breast cancer with physical therapy. She was under care of [facility]. She reports that she can not sleep normally do activities of daily living she can take care of herself and she can not function normally. She is retired individual. In terms of tissue damage the she reports her pain as pulsing, throbbing, pounding, dull, serve, hurting, aching, heavy, hot burning, skull doing, fearful. She reports multiple evaluation of her pain with [facility] and [facility]. Her past medical history significant for atrial fibrillation and pacemaker. She denies smoking cigarettes drinking alcohol using recreational drugs. She has a pacemaker. [facility] Medical History Thyroid cancer Chronic pain syndrome Peripheral polyneuropathy Surgical History Status post ablation of incompetent vein using laser (09/11/22) Social History Patient Tobacco Use Status: Never used Tobacco Current occupational status: retired Review of Systems Const All systems reviewed & are unremarkable except as noted in HPI and below Reports as per HPI, Denies body aches, Denies chills, Denies difficulty sleeping, Denies fever(s), Denies frequent falls, Denies night sweats, Denies poor appetite and Denies weakness GI Reports as per HPI, Denies melena, Denies hematochezia, Reports constipation, Denies fecal incontinence, Denies diarrhea, Denies nausea and Denies vomiting Neuro Denies frequent falls and Denies weakness Physical Exam Vital Signs: Last Vital Signs Pulse 72 07/06/24 10:30 BP 113/57 L 07/06/24 10:30 Pulse Ox 97 07/06/24 10:30 Oxygen Delivery Method Room Air 07/06/24 10:30 BMI result Body Mass Index 24.5 General: Appears afebrile. Alert and oriented. Mood and affect appropriate. Follows and participates in conversation appropriately. Respiratory effort is unlabored. No cough. Able to transition from sit to stand unassisted. Ambulates with bilaterally normal heel strike and toe off. Eyes General: appearance normal, both eyes and all related structures Conjunctivae: conjunctivae normal Pupils: Equal, round and reactive pupils present GI Inspection: Yes normal to inspection and Yes obesity Palpation (GI): Soft to palpation and nontender Neuro Cranial nerves: Yes Equal, round and reactive pupils present Extrem General: Yes capillary refill normal, Yes no clubbing, cyanosis or edema and Yes no calf tenderness Psych Appearance: grossly normal and well kempt Mental Status: mental status grossly normal Speech and movement: Normal speech and movement present and Clear speech present Affect: normal affect Attitude: cooperative Thought process: Normal thought process present Thought content: Normal thought content present, suicidality (none), no hallucinations and No Depressive thoughts present Insight: Good insight present (Psych) Judgement: Good judgement present (Psych) Results Reviewed Results Reviewed: No imaging results are availble for review. Assessment & Plan Assessment & Plan (1) Chronic, continuous use of opioids: Code(s): F11.90 - Opioid use, unspecified, uncomplicated Category: Medical (2) Constipation: Code(s): K59.00 - Constipation, unspecified Category: Medical (3) Chronic pain syndrome: Code(s): G89.4 - Chronic pain syndrome Category: Medical (4) Chemotherapy-induced peripheral neuropathy: Code(s): G62.0 - Drug-induced polyneuropathy; T45.1X5A - Adverse effect of antineoplastic and immunosuppressive drugs, initial encounter Category: Medical (5) Peripheral polyneuropathy: Code(s): G62.9 - Polyneuropathy, unspecified Category: Medical (6) Bilateral primary osteoarthritis of knee: Code(s): M17.0 - Bilateral primary osteoarthritis of knee Category: Medical Plan Patient has shown accountability for her medication regimen. There is no evidence of misuse, abuse or diversion at this time. [employer] reviewed. Script for Morphine 15 mg BID prn with refill date of 07/16/24. Patient has Narcan at home. Continue to monitor for any adverse effects. Patient takes Colace prn for constipation with mild relief. Will add Miralax, encouraged dietary fiber and adequate hydration. Patient will follow up with GI provider at [facility]. Denies any exacerbation of IBS symptoms. All questions were answered and patient is in agreement of plan. Follow up in 4-5 weeks for a pill count or sooner if needed. Medications: New polyethylene glycol 3350 17 grams PO DAILY 30 days 30 ea 1RF constipation F11.90 - Opioid use, unspecified, uncomplicated, K59.00 - Constipation, unspecified Changed From docusate sodium 100 mg PO DAILY PRN 90 caps 1RF for constipation F11.90 - Opioid use, unspecified, uncomplicated, K59.00 - Constipation, unspecified To docusate sodium 100 mg PO BID 30 days PRN 60 caps 3RF for constipation F11.90 - Opioid use, unspecified, uncomplicated, K59.00 - Constipation, unspecified Refilled morphine ER Partial Fill upon patient request. 15 mg PO BID 30 days PRN 60 tabs 0RF severe pain (scale score 7-10) F11.90 - Opioid use, unspecified, uncomplicated, G62.0 - Drug-induced polyneuropathy, M17.0 - Bilateral primary osteoarthritis of knee, T45.1X5A - Adverse effect of antineoplastic and immunosuppressive drugs, initial encounter Coding Level of Care Code Est Pt Level 4 (55406) Complex EM visit Add On G2211 Diagnoses Chronic, continuous use of opioids F11.90 Constipation K59.00 Chronic pain syndrome G89.4 Chemotherapy-induced peripheral neuropathy G62.0; T45.1X5A Peripheral polyneuropathy G62.9 Bilateral primary osteoarthritis of knee M17.0
[2024-07-06 10:30] VITALS: BP 113/57; PULSE 72; O2SAT 97; BMI 24.5
== END 2024-07-06 10:52 | disposition home or self-care (01) ==
PROVIDERS: PCP Internal Medicine; Visit Provider Nurse Practitioner Family
DX: G89.4 Chronic pain syndrome (principal); K59.00 Constipation, unspecified; G62.0 Drug-induced polyneuropathy; Z79.891 Long term (current) use of opiate analgesic; T45.1X5A Adverse effect of antineoplastic and immunosuppressive drugs, initial encounter; G62.9 Polyneuropathy, unspecified; M17.0 Bilateral primary osteoarthritis of knee
CPT/HCPCS: 99214; G2211

== ENCOUNTER → 2024-07-06 09:59 | Outpatient (BNVA) | payer MEDICARE, SELFPAY | PROVIDERS: PCP Internal Medicine; Visit Provider Nurse Practitioner Family | DX: G89.4 Chronic pain syndrome (principal); G62.0 Drug-induced polyneuropathy; K59.00 Constipation, unspecified; M17.0 Bilateral primary osteoarthritis of knee; F11.90 Opioid use, unspecified, uncomplicated; T45.1X5A Adverse effect of antineoplastic and immunosuppressive drugs, initial encounter; Z51.81 Encounter for therapeutic drug level monitoring | CPT/HCPCS: 99212 ==

== ENCOUNTER 2024-08-04 10:01 | Outpatient (AMB) | payer MEDICARE, SELFPAY ==
--- NOTE | 2024-08-04 10:07 | MHC.OFFVIS ---
Vital Signs 08/04/24 10:18 Height 5 ft 3 in Weight 139 lb 4 oz BMI 24.7 BP 124/62 Blood Pressure Location Rt brachial Position Sitting Pulse 87 Pulse Source Pulse Oximeter Intake Visit Reasons: Medication Count Intake Note: Darlene comes in today for a pill count to morphine, patient should have 28 tablets and presents with 36 tablets which she last took today 08/04/24 at 8:30am. Pain today 2 Midwife Practitioner Required: No Accompanied by: Self / Same As Patient Allergies No Known Allergies Allergy (Verified 08/04/24 10:18) HPI Comments Details: Patient presents today a pill count. She is supposed to have #28 pills in her possession and has #36 pills. This demonstrates a responsible attitude in regards to the medication regiment. Patient reports adequate analgesia on current regime without any side effects except constipation for which she utilizes Colace or Miralax. Patient reports 2 pain today. She also has medical marijuana card and has been taking cannabis edibles and Tylenol as needed. Patient reports she has flare up in her chronic axial low back pain and bilateral lower extremity pain. She has been taking gabapentin every other day and noted increased pain. Patient reports going back on daily gabapentin has helped her legs but continues to experience significant low back pain with walking, ROM or ADLs. She was seen for this by her PCP and has completed lumbar spine xray at [facility] in [place]. This report is not available today. We will consider diagnostic lumbar medial branch blocks for potential RFA in the near future. Patient denies any cough, cold, infection, fever or any other significant changes in medical history since last office visit. PRIOR: Darlene is a pleasant 76 year old female who has previously been evaluated in this office by Dr. Monroy for bilateral leg pain which she attributes to her chemotherapy s/p breast cancer years ago. She was previously under the care of [facility], who was managing her with medication and she reports overall improvements with morphine 15 mg BID. She was evaluated by Dr. Monroy, who agreed to continue her regimen through this office. She is accompanied by her daughter. Today she is here for a pill count, which was concordant. This demonstrates a responsible attitude in regards to the opioid regimen. She reports improved function and decrease in pain, with no noted side effects. Denies any sedation, nausea or urinary retention. She was recently discharged with a small bowel obstruction which was thought to be related to adhesions from a hysterectomy >25 years ago. She has previously been instructed to use a daily stool softener as well as miralax and she has not been adhering to this regimen. She states some weeks she will have a bowel movement every 5 days and other weeks she will have one every other day without the need for medication. She has a follow up with her PCP next week as well as cardiology this week to review her new blood pressure medications. She did note dizziness upon standing and has been taking her blood pressure at home. She was instructed to contact her PCP regarding her low bp today. She also has CHF and although she states she has good fluid intake, she was instructed to decrease by cardiology. Of note, patient recently had a Medtronic pacer placed 01/2021. PRIOR: Darlene is very pleasant 76 years old female who presents in my office with complains on pain in bilateral lower extremities below the level of the knees. She reports this pain is spreading all the way down to her toes. History of present illness she was subject of treatment of peripheral polyneuropathy of bilateral lower extremities after 18 years ago she was treated for breast cancer with physical therapy. She was under care of [facility] and spine. She reports that she can not sleep normally do activities of daily living she can take care of herself and she can not function normally. She is retired individual. In terms of tissue damage the she reports her pain as pulsing, throbbing, pounding, dull, serve, hurting, aching, heavy, hot burning, skull doing, fearful. She reports multiple evaluation of her pain with [facility] and [facility]. Her past medical history significant for atrial fibrillation and pacemaker. She denies smoking cigarettes drinking alcohol using recreational drugs. She has a pacemaker. [facility] Medical History Thyroid cancer Chronic pain syndrome Peripheral polyneuropathy Surgical History Status post ablation of incompetent vein using laser (09/11/22) Social History Patient Tobacco Use Status: Never used Tobacco Current occupational status: retired Review of Systems Const All systems reviewed & are unremarkable except as noted in HPI and below Physical Exam General: Appears afebrile. Alert and oriented. Mood and affect appropriate. Follows and participates in conversation appropriately. Respiratory effort is unlabored. No cough. Able to transition from sit to stand unassisted. Ambulates with bilaterally normal heel strike and toe off. Eyes General: appearance normal, both eyes and all related structures Conjunctivae: conjunctivae normal Pupils: Equal, round and reactive pupils present GI Inspection: Yes normal to inspection and Yes obesity Palpation (GI): Soft to palpation and nontender Back/Spine/Pelvis Other: Limited lumbar ROM due to pain. Lumbar extension and axial rotations reproduce moderate pain. Flexion is intact and causes mild pain. Painful facet loading bilaterally. Cervical Spine: cervical ROM normal and No Cervical spine tenderness Thoracic/Lumbar Spine: thoracic and lumbar spine normal to inspection, Lasegue's sign negative, straight leg raise negative bilaterally, pain with thoraco-lumbar ROM, thoraco-lumbar ROM limited, No thoracic spinal tenderness and lumbar spinal tenderness (L4-S1) Sacroiliac joints: bilaterally nontender Neuro Cranial nerves: Yes Equal, round and reactive pupils present Extrem General: Yes capillary refill normal, Yes no clubbing, cyanosis or edema and Yes no calf tenderness Psych Appearance: grossly normal and well kempt Mental Status: mental status grossly normal Speech and movement: Normal speech and movement present and Clear speech present Affect: normal affect Attitude: cooperative Thought process: Normal thought process present Thought content: Normal thought content present, suicidality (none), no hallucinations and No Depressive thoughts present Insight: Good insight present (Psych) Judgement: Good judgement present (Psych) Results Reviewed Results Reviewed: No imaging results are availble for review. Assessment & Plan Assessment & Plan (1) Chronic, continuous use of opioids: Code(s): F11.90 - Opioid use, unspecified, uncomplicated Category: Medical (2) Constipation: Code(s): K59.00 - Constipation, unspecified Category: Medical (3) Chronic pain syndrome: Code(s): G89.4 - Chronic pain syndrome Category: Medical (4) Chemotherapy-induced peripheral neuropathy: Code(s): G62.0 - Drug-induced polyneuropathy; T45.1X5A - Adverse effect of antineoplastic and immunosuppressive drugs, initial encounter Category: Medical (5) Peripheral polyneuropathy: Code(s): G62.9 - Polyneuropathy, unspecified Category: Medical (6) Bilateral primary osteoarthritis of knee: Code(s): M17.0 - Bilateral primary osteoarthritis of knee Category: Medical (7) Lumbosacral spondylosis: Code(s): M47.817 - Spondylosis without myelopathy or radiculopathy, lumbosacral region Category: Medical Plan Patient has shown accountability for her medication regimen. There is no evidence of misuse, abuse or diversion at this time. [employer] reviewed. Script for Morphine 15 mg BID prn with refill date of 08/21/24. Patient has Narcan at home. Continue to monitor for any adverse effects. Patient takes Colace and Miralax prn for constipation with mild relief. Discussed interventional treatments for axial low back pain and will consider diagnostic lumbar medial branch blocks for potential RFA procedure. We previously reviewed [employer] [facility] trial. Informative pamphlets were provided to patient today. All questions were answered and patient is in agreement of plan. Follow up in 4-5 weeks for a pill count or sooner if needed. Medications: Refilled morphine ER Partial Fill upon patient request. 15 mg PO BID 30 days PRN 60 tabs 0RF severe pain (scale score 7-10) F11.90 - Opioid use, unspecified, uncomplicated, G62.0 - Drug-induced polyneuropathy, M17.0 - Bilateral primary osteoarthritis of knee, T45.1X5A - Adverse effect of antineoplastic and immunosuppressive drugs, initial encounter Coding Level of Care Code Est Pt Level 4 (30381) Complex EM visit Add On G2211 Diagnoses Chronic, continuous use of opioids F11.90 Constipation K59.00 Chronic pain syndrome G89.4 Chemotherapy-induced peripheral neuropathy G62.0; T45.1X5A Peripheral polyneuropathy G62.9 Bilateral primary osteoarthritis of knee M17.0 Lumbosacral spondylosis M47.817
[2024-08-04 10:18] VITALS: BP 124/62; PULSE 87; BMI 24.7
== END 2024-08-04 10:33 | disposition home or self-care (01) ==
PROVIDERS: PCP Internal Medicine; Visit Provider Nurse Practitioner Family
DX: K59.00 Constipation, unspecified (principal); G89.4 Chronic pain syndrome; G62.0 Drug-induced polyneuropathy; Z79.891 Long term (current) use of opiate analgesic; T45.1X5A Adverse effect of antineoplastic and immunosuppressive drugs, initial encounter; G62.9 Polyneuropathy, unspecified; M17.0 Bilateral primary osteoarthritis of knee; M47.817 Spondylosis without myelopathy or radiculopathy, lumbosacral region
CPT/HCPCS: 99214; G2211

== ENCOUNTER → 2024-08-04 10:01 | Outpatient (BNVA) | payer MEDICARE, SELFPAY | PROVIDERS: PCP Internal Medicine; Visit Provider Nurse Practitioner Family | DX: M47.817 Spondylosis without myelopathy or radiculopathy, lumbosacral region (principal); M17.0 Bilateral primary osteoarthritis of knee; G89.4 Chronic pain syndrome; G62.0 Drug-induced polyneuropathy; K59.00 Constipation, unspecified; T45.1X5A Adverse effect of antineoplastic and immunosuppressive drugs, initial encounter; F11.90 Opioid use, unspecified, uncomplicated; G62.9 Polyneuropathy, unspecified; Z51.81 Encounter for therapeutic drug level monitoring | CPT/HCPCS: 99212 ==

== ENCOUNTER 2024-09-11 10:10 | Outpatient (AMB) | payer MEDICARE, SELFPAY ==
--- NOTE | 2024-09-11 10:11 | MHC.OFFVIS ---
Vital Signs 09/11/24 10:21 Height 5 ft 3 in Weight 141 lb BMI 25.0 BP 128/64 Blood Pressure Location Rt brachial Position Sitting Pulse 62 Pulse Source Pulse Oximeter Intake Visit Reasons: Pill Count/ Random UDS Intake Note: Darlene comes in today for a pill count to Morphine, patient should have 22 tablets and presents with 36 tablets which she last took today 09/11/24 at 9am. Pain today 2/10. Patient resigned opioid contract in office today, signed copy of contract was provided to her. Patient will also go for a random UDS today, aware that she will need to go to the lab on the first floor of this building today 09/11/24 before 12pm. Allergies No Known Allergies Allergy (Verified 08/04/24 10:18) HPI Comments Details: Patient presents today a pill count. She is supposed to have #22 pills in her possession and has #36 pills. This demonstrates a responsible attitude in regards to the medication regiment. Patient reports adequate analgesia on current regime without any side effects except constipation for which she utilizes Colace or Miralax. Patient reports 2/10 pain today. She also has medical marijuana card and has been taking cannabis edibles and Tylenol as needed. Reports bilateral knee pain and has recently started physical therapy at [facility] per [facility]. Patient denies any cough, cold, infection, fever or any other significant changes in medical history since last office visit. PRIOR: Darlene is a pleasant 76 year old female who has previously been evaluated in this office by Dr. Monroy for bilateral leg pain which she attributes to her chemotherapy s/p breast cancer years ago. She was previously under the care of [facility], who was managing her with medication and she reports overall improvements with morphine 15 mg BID. She was evaluated by Dr. Monroy, who agreed to continue her regimen through this office. She is accompanied by her daughter. Today she is here for a pill count, which was concordant. This demonstrates a responsible attitude in regards to the opioid regimen. She reports improved function and decrease in pain, with no noted side effects. Denies any sedation, nausea or urinary retention. She was recently discharged with a small bowel obstruction which was thought to be related to adhesions from a hysterectomy >25 years ago. She has previously been instructed to use a daily stool softener as well as miralax and she has not been adhering to this regimen. She states some weeks she will have a bowel movement every 5 days and other weeks she will have one every other day without the need for medication. She has a follow up with her PCP next week as well as cardiology this week to review her new blood pressure medications. She did note dizziness upon standing and has been taking her blood pressure at home. She was instructed to contact her PCP regarding her low bp today. She also has CHF and although she states she has good fluid intake, she was instructed to decrease by cardiology. Of note, patient recently had a Medtronic pacer placed 01/2021. PRIOR: Darlene is very pleasant 76 years old female who presents in my office with complains on pain in bilateral lower extremities below the level of the knees. She reports this pain is spreading all the way down to her toes. History of present illness she was subject of treatment of peripheral polyneuropathy of bilateral lower extremities after 18 years ago she was treated for breast cancer with physical therapy. She was under care of [facility] and spine. She reports that she can not sleep normally do activities of daily living she can take care of herself and she can not function normally. She is retired individual. In terms of tissue damage the she reports her pain as pulsing, throbbing, pounding, dull, serve, hurting, aching, heavy, hot burning, skull doing, fearful. She reports multiple evaluation of her pain with [facility] and [facility] spine. Her past medical history significant for atrial fibrillation and pacemaker. She denies smoking cigarettes drinking alcohol using recreational drugs. She has a pacemaker. [facility] Medical History Thyroid cancer Chronic pain syndrome Peripheral polyneuropathy Surgical History Status post ablation of incompetent vein using laser (09/11/22) Social History Patient Tobacco Use Status: Never used Tobacco Current occupational status: retired Review of Systems Const All systems reviewed & are unremarkable except as noted in HPI and below Physical Exam Vital Signs: Last Vital Signs Pulse 62 09/11/24 10:21 BP 128/64 09/11/24 10:21 BMI result Body Mass Index 25.0 General: Appears afebrile. Alert and oriented. Mood and affect appropriate. Follows and participates in conversation appropriately. Respiratory effort is unlabored. No cough. Able to transition from sit to stand unassisted. Ambulates with bilaterally normal heel strike and toe off. Resp Effort & Inspection: normal respiratory effort, able to speak in complete sentences, no cough and symmetric chest movement Extrem General: Yes capillary refill normal, Yes no clubbing, cyanosis or edema and Yes no calf tenderness Psych Appearance: grossly normal and well kempt Mental Status: mental status grossly normal Speech and movement: Normal speech and movement present and Clear speech present Affect: normal affect Attitude: cooperative Thought process: Normal thought process present Thought content: Normal thought content present, suicidality (none), no hallucinations and No Depressive thoughts present Insight: Good insight present (Psych) Judgement: Good judgement present (Psych) Results Reviewed Results Reviewed: No imaging results are availble for review. Assessment & Plan Assessment & Plan (1) Chronic, continuous use of opioids: Code(s): F11.90 - Opioid use, unspecified, uncomplicated Category: Medical (2) Chronic pain syndrome: Code(s): G89.4 - Chronic pain syndrome Category: Medical (3) Chemotherapy-induced peripheral neuropathy: Code(s): G62.0 - Drug-induced polyneuropathy; T45.1X5A - Adverse effect of antineoplastic and immunosuppressive drugs, initial encounter Category: Medical (4) Peripheral polyneuropathy: Code(s): G62.9 - Polyneuropathy, unspecified Category: Medical (5) Bilateral primary osteoarthritis of knee: Code(s): M17.0 - Bilateral primary osteoarthritis of knee Category: Medical (6) Lumbosacral spondylosis: Code(s): M47.817 - Spondylosis without myelopathy or radiculopathy, lumbosacral region Category: Medical Plan Patient has shown accountability for her medication regimen. There is no evidence of misuse, abuse or diversion at this time. [employer] reviewed. Will obtain UDS today. Script for Morphine 15 mg BID prn with refill date of 09/27/24. Patient has Narcan at home. Continue to monitor for any adverse effects. Patient takes Colace and Miralax prn for constipation with mild relief. All questions were answered and patient is in agreement of plan. Follow up in 4-5 weeks for a pill count or sooner if needed. Medications: Refilled morphine ER Partial Fill upon patient request. 15 mg PO BID 30 days PRN 60 tabs 0RF severe pain (scale score 7-10) F11.90 - Opioid use, unspecified, uncomplicated, G62.0 - Drug-induced polyneuropathy, M17.0 - Bilateral primary osteoarthritis of knee, T45.1X5A - Adverse effect of antineoplastic and immunosuppressive drugs, initial encounter Coding Level of Care Code Est Pt Level 4 (66658) Complex EM visit Add On G2211 Diagnoses Chronic, continuous use of opioids F11.90 Chronic pain syndrome G89.4 Chemotherapy-induced peripheral neuropathy G62.0; T45.1X5A Peripheral polyneuropathy G62.9 Bilateral primary osteoarthritis of knee M17.0 Lumbosacral spondylosis M47.817
[2024-09-11 10:21] VITALS: BP 128/64; PULSE 62; BMI 25.0
--- OUTSIDE RECORDS SUMMARY | 2024-09-11 14:44 | XMS_ITS | Encounter Summary ---
Author Organization [facility] Address [address] [place] [address] Care Team Providers Care Fire Protection Inspector Name Role Phone Isabella Miller Primary Care Provider + Reason for Referral * Imaging (Routine) - Pending Review Specialty Diagnoses / Procedures Referred By Contac t Referred To Contact Diagnoses Chronic HFrEF (heart failure with reduced ejection fraction) (CMS/HCC) Cardiomyopathy, unspecified type (CMS/HCC) Procedures MR Cardiac Morphology and Function wo and w Contrast Lottie Brunson NP [address] [place] [address] [place] [address] External Performed Referral ID Status Reason Start Date Expiration Date V isits Requested Visits Authorized [id number] Pending Review 08/23/2024 08/23/2025 1 1 Reason for Visit * Reason Comments Follow-up * Cardiac Stress Testing (Routine) - Authorized Specialty Diagnoses / Procedures Referred By Contac t Referred To Contact Cardiology Diagnoses Chronic HFrEF (heart failure with reduced ejection fraction) (CMS/HCC) Procedures Nuclear cardiac PYP amyloid study (CV Performed) OR MYOCARDIAL PERFUSION IMAGING TOMOGRAPHIC MULTI STUDIES AT REST OR STRESS OR MYOCARDIAL PERFUSION IMAGING TOMOGRAPHIC SINGLE STUDY AT REST OR STRESS Isabella Miller PA [address] [place] [address] [facility] [address] [place] [address] Referral ID Status Reason Start Date Expiration Date V isits Requested Visits Authorized [id number] Authorized 10/27/2023 10/26/2024 4 4 Encounter Details Date Type Department Care Team (Late st Contact Info) Description 08/23/2024 11:10 AM EST Office Visit [facility] [place] [address] [place] [id number] Claudia Rose NP [address] [place], [place] [id number] Chronic HFrEF (heart failure with reduced ejection fraction) (CMS/HCC) (Primary Dx); Atrial fibrillation, unspecified type (CMS/HCC); Cardiomyopathy, unspecified type (CMS/HCC); Hyperlipidemia, unspecified hyperlipidemia type; 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; Chronic systolic (congestive) heart failure (CMS/HCC) Social History Tobacco Use Types Packs/Day Years Used Date Smoking Tobacco: Never Smokeless Tobacco: Never Alcohol Use Standard Drinks/Week Comments No 0 (1 standard drink = 0.6 oz pur e alcohol) Sex and Gender Information Value Date Recorded Sex Assigned at Not on file Gender Identity Not on file Sexual Orientation Not on file Job Start Date Occupation Industry Not on file Not on file Not on file documented as of this encounter Last Filed Vital Signs Vital Sign Reading Time Taken Comments Blood Pressure 102/60 08/23/2024 10:59 AM EST Pulse 77 08/23/2024 10:59 AM EST Temperature - - Respiratory Rate - - Oxygen Saturation 97% 08/23/2024 10:59 AM EST Inhaled Oxygen Concentration - - Weight 63 kg (139 lb) 08/23/2024 10:59 AM EST Height 157.5 cm (5' 2 ) 08/23/2024 10:59 AM EST Body Mass Index 25.42 08/23/2024 10:59 AM EST documented in this encounter Ordered Prescriptions Prescription Sig Dispensed Refills Start Date End Da te spironolactone (ALDACTONE) 25 mg tabletIndications:Chronic systolic (congestive) heart failure (CMS/HCC) Take 0.5 tablets (12.5 mg total) by mouth every other day. 90 tablet 2 08/24/2024 apixaban (Eliquis) 2.5 mg tabletIndications:Atrial fibrillation, unspecified type (CMS/HCC) Take 1 tablet (2.5 mg total) by mouth 2 (two) times a day. 90 tablet 2 08/23/2024 documented in this encounter Progress Notes * Lottie Brunson NP - 08/23/2024 11:10 AM ESTAssociated Problem(s): Atrial fibrillation (CMS/HCC) Patient has history of paroxysmal atrial fibrillation, [id number] score of 5. She continues on rhythm control with amiodarone and carvedilol. Her last creatinine was noted to be 1.58 and she is over the age of 78, hence her Eliquis dose was decreased to 2.5 mg twice daily. She has been toleratinganticoagulation well with no abnormal bleeding noted. She is aware if she were to sustain a fall and strike her head she would need to seek emergent medical attention. Orders: apixaban (Eliquis) 2.5 mg tablet; Take 1 tablet (2.5 mg total) by mouth 2 (two) times a day. * Lottie Brunson NP - 08/23/2024 11:10 AM ESTAssociated Problem(s): Chronic HFrEF (heart failure with reduced ejection fraction) (CMS/HCC) HFrEF-EF 30-35% Last echocardiogram 06/2024. Last ischemic evaluation heart catheterization 2020. GDMT Betablocker: Carvedilol 3.125 mg twice daily. Expect expect WALDO Inhibitor-BELLA/ARB/ARNI: Patient unable to tolerate low-dose Entresto in the past, today's bloodpressure 102/60, unable to retrial. Diuretic: None added at this time. Aldosterone antagonist: Spironolactone 12.5 mg every other day. SGLT2 inhibitors: Dapagliflozin 10 mg daily. ICD: CONCRETE INSPECTOR-P in place, with reassessment of EF and upcoming cardiac MRI may consider upgrading deviceto add a defibrillator, will refer to EP if indicated. The patient is euvolemic on exam today, weight is stable. She is being more mindful of her diet at this time. She denies any shortness of breath. Will continue to monitor through device and her reported symptoms. I've asked the patient to call if they develop worsening symptoms of heart failure such as increased shortness of breath, new or worsening cough, increased swelling in the legs or ankles, or weight gain of more than 2 pounds in one day or 4 pounds in one week. Orders: MR Cardiac Morphology and Function wo and w Contrast; Future * Lottie Brunson NP - 08/23/2024 11:10 AM ESTAssociated Problem(s): Cardiomyopathy (CMS/HCC) Patient has history of HFrEF due to nonischemic cardiomyopathy. She has had 2 equivocal cardiac PYPscans. It was stated in the past that she did not undergo the previously ordered cardiac MRI due toclaustrophobia, yet as I speak with the patient today she is willing to undergo this testing for further evaluation of a infiltrative cardiomyopathy. Orders: MR Cardiac Morphology and Function wo and w Contrast; Future * Lottie Brunson NP - 08/23/2024 11:10 AM ESTAssociated Problem(s): Hyperlipidemia Continue on rosuvastatin 5 mg daily, lipid panel from August 2023 showing an LDL cholesterol levelof 42. I have reviewed with the patient the importance of a heart healthy lifestyle which includes eating a low-fat low-salt diet, getting regular exercise, maintaining a healthy weight, not smoking, and following up with routine medical care. 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 We discussed the risks including risk for pulmonarytoxicity, hepatotoxicity, risk for worsening arrhythmias and risk for thyroid impairment. We will monitor the patient for these conditions throughout treatment. Patient was also warned about the riskfor photosensitivity and solar dermatitis. Patient was advised to wear sunscreen and wear protective clothing including a hat when in direct sunlight. Chest CT completed February 2024, CMP completed Jul 2024 Will update TSH Orders: Thyroid stimulating hormone; Future * Lottie Brunson NP - 08/23/2024 11:10 AM ESTAddended by: LOTTIE BRUNSON on: 08/24/2024 12:32 PM Modules accepted: Orders * Lottie Brunson NP - 08/23/2024 11:10 AM EST Images from the original note were not included. [facility] PRIMARY AMBULATORY SERVICE REPRESENTATIVE: Javier Shelton MD PCP: ASTER Matias HPI: Darlene Alexander is a 79 y.o. 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 Carr) and hypothyroidism. Patient presents today for cardiac follow-up. She reports overall she has been feeling well. Over the holidays she was having many dietary indiscretions and noted a weight gain over approximately 2 weeks. She also notes that she was drinking water and adding sea salt, vinegar and lemon to it, she is no longer doing this. She has been improving her diet and her weight has stabilized to her normal.She has no lower extremity swelling, shortness of breath or cough. She denies chest pain, shortnessof breath, peripheral edema, palpitations, dizziness, lightheadedness, syncope, orthopnea or PND. She continues on Eliquis, dose was adjusted at this visit, she denies abnormal bleeding. She has a follow- up with multi site leasing consultant Dr. Carr upcoming. Ancillary testin. Left heart catheterization (06/19/2021): Normal left main. Normal LAD. Normal circumflex. 50% stenosis in the mid RCA. 2. Echocardiogram (04/15/2021): LVEF 25 to 30%, severely abnormal left ventricular diastolic function, normal RV size and function, mild MR, mild TR 3. Echocardiogram (November 2021): Severely reduced left ventricular systolic function with a left ventricular ejection fraction of 25 to 30%. Severely abnormal LV diastolic function. Normal RV size with reduced function. Mild MR. No significant change in the LVEF when compared to the prior echo done in March 2021. 4. Echocardiogram (02/22/2023): Moderately reduced left ventricular systolic function with a left ventricular ejection fraction of 30 to 35% by visual estimation and 35% using the modified Lin equation. Grade 2 LV diastolic dysfunction. Biatrial enlargement. Device wire seen in the right atrium/v entricle. No significant valvular disease. When compared to the echocardiogram done in November 2021: There has been a slight increase in the LVEF. 5. Pulmonary function test (September 2022): Normal pulmonary function test. No evidence of obstructive or restrictive lung disease. 6. Chest x-ray (July 2022): No acute pulmonary disease. Borderline cardiomegaly. 7. Cardiac PYP scan (March 2023): Findings are equivocal for TTR amyloidosis. 8. Laboratory testing (March 2023): Normal kappa lambda ratio at 1.4. Normal serum immunofixation study. Normal urine immunofixation study. 9. Cardiac PYP scan (Jun 2024): Findings are equivocal for TTR amyloidosis. 10. Echocardiogram (06/21/24): Left ventricle moderately dilated, LVEF 30 to 35%, LV global kinesis is present, left ventricle wall thickness is normal. RV size and function is normal. Mild mitral regurgitation, mild tricuspid regurgitation. ACTIVE MEDICATIONS: Outpatient Medications Marked as Taking for the 08/23/24 encounter (Office Visit) with Claudia Rose NP Medication Sig Dispense Refill amiodarone (PACERONE) 200 mg tablet TAKE 1 TABLET BY MOUTH EVERY DAY amitriptyline HCl (AMITRIPTYLINE ORAL) Take 20 mg by mouth at bedtime. apixaban (Eliquis) 5 mg tablet Take 1 Tablet by mouth 2 Times Daily. bisacodyL (DULCOLAX) 5 mg EC tablet Take 2 tablets (10 mg total) by mouth 1 (one) time each day if needed. carvediloL (COREG) 3.125 mg tablet TAKE 1 TABLET BY MOUTH TWICE A DAY WITH MEALS cholecalciferol (VITAMIN D-3) 50 mcg (2,000 unit) capsule Take 1 capsule by mouth daily. cyanocobalamin (VITAMIN B-12) 1,000 mcg tablet Take 1 tablet by mouth daily. dapagliflozin propanediol (Farxiga) 10 mg tablet TAKE 1 TABLET BY MOUTH EVERY DAY gabapentin (NEURONTIN) 300 mg capsule Take 1 cap in the morning and 2 caps every evening 90 capsule3 L.acid/L.casei/B.bif/B.brendan/FOS (PROBIOTIC BLEND ORAL) Take by mouth. levothyroxine (SYNTHROID, LEVOTHROID) 100 mcg tablet Take 1 tablet (100 mcg total) by mouth 1 (one)time each day before breakfast. 90 tablet 3 lidocaine 5 % cream Apply 1 g topically daily. morphine (MS CONTIN) 15 mg 12 hr tablet TAKE 1 TABLET BY MOUTH TWICE DAILY NEEDED FOR SEVERE PAIN (SCALE SCORE 7-10) FOR 30 DAYS. omega-3 acid ethyl esters (LOVAZA) 1 gram capsule 1,000 mg daily. rosuvastatin (CRESTOR) 5 mg tablet TAKE 1 TABLET BY MOUTH EVERY DAY spironolactone (ALDACTONE) 25 mg tablet Take 0.5 tablets (12.5 mg total) by mouth 1 (one) time eachday. 90 tablet 1 vitamin B complex (VITAMINS B COMPLEX ORAL) 1 (one) time each day. PAST MEDICAL HISTORY: Patient Active Problem List Diagnosis Atrial fibrillation (CMS/HCC) CAD (coronary artery disease) Cardiomyopathy (CMS/HCC) Cholelithiasis Chronic constipation Chronic HFrEF (heart failure with reduced ejection fraction) (CMS/HCC) Diverticulosis of colon Kallie's thyroiditis Hyperlipidemia Hypothyroidism Irritable bowel syndrome Microscopic hematuria Peripheral neuropathy Vitamin B12 deficiency Vitamin D deficiency ALLERGIES: No Known Allergies SOCIAL HISTORY: Social History Tobacco Use Smoking status: Never Smokeless tobacco: Never Substance Use Topics Alcohol use: No PHYSICAL EXAM: Vitals: 08/23/24 1059 BP: 102/60 BP Location: Left arm Patient Position: Sitting BP Cuff Size: Adult Pulse: 77 SpO2: 97% Weight: 63 kg (139 lb) Height: 1.575 m (62 ) Physical Exam Constitutional: General: She is not in acute distress. Appearance: She is well-developed. She is not diaphoretic. HENT: Head: Normocephalic. Eyes: Pupils: Pupils are equal, round, and reactive to light. Neck: Vascular: No carotid bruit, hepatojugular reflux or JVD. Cardiovascular: Rate and Rhythm: Normal rate and regular rhythm. Pulses: Normal pulses and intact distal pulses. Heart sounds: Normal heart sounds, S1 normal and S2 normal. No murmur heard. Pulmonary: Effort: Pulmonary effort is normal. Breath sounds: Normal breath sounds. No wheezing, rhonchi or rales. Chest: Chest wall: No tenderness. Abdominal: General: Bowel sounds are normal. There is no distension. Palpations: Abdomen is soft. Tenderness: There is no abdominal tenderness. Musculoskeletal: General: No deformity. Right lower leg: No edema. Left lower leg: No edema. Skin: General: Skin is warm and dry. Neurological: Mental Status: She is alert and oriented to person, place, and time. Psychiatric: Attention and Perception: Attention normal. Mood and Affect: Mood normal. Speech: Speech normal. EKG: None completed today. ASSESSMENT/PLAN: Assessment & Plan Chronic HFrEF (heart failure with reduced ejection fraction) ([facility]) HFrEF-EF 30-35% Last echocardiogram 06/2024. Last ischemic evaluation heart catheterization 2020. GDMT Betablocker: Carvedilol 3.125 mg twice daily. Expect expect WALDO Inhibitor-BELLA/ARB/ARNI: Patient unable to tolerate low-dose Entresto in the past, today's bloodpressure 102/60, unable to retrial. Diuretic: None added at this time. Aldosterone antagonist: Spironolactone 12.5 mg every other day. SGLT2 inhibitors: Dapagliflozin 10 mg daily. ICD: CONCRETE INSPECTOR-P in place, with reassessment of EF and upcoming cardiac MRI may consider upgrading deviceto add a defibrillator, will refer to EP if indicated. The patient is euvolemic on exam today, weight is stable. She is being more mindful of her diet at this time. She denies any shortness of breath. Will continue to monitor through device and her reported symptoms. I've asked the patient to call if they develop worsening symptoms of heart failure such as increased shortness of breath, new or worsening cough, increased swelling in the legs or ankles, or weight gain of more than 2 pounds in one day or 4 pounds in one week. Orders: MR Cardiac Morphology and Function wo and w Contrast; Future Atrial fibrillation, unspecified type (CMS/HCC) Patient has history of paroxysmal atrial fibrillation, [id number] score of 5. She continues on rhythm control with amiodarone and carvedilol. Her last creatinine was noted to be 1.58 and she is over the age of 78, hence her Eliquis dose was decreased to 2.5 mg twice daily. She has been toleratinganticoagulation well with no abnormal bleeding noted. She is aware if she were to sustain a fall and strike her head she would need to seek emergent medical attention. Orders: apixaban (Eliquis) 2.5 mg tablet; Take 1 tablet (2.5 mg total) by mouth 2 (two) times a day. Cardiomyopathy, unspecified type (CMS/HCC) Patient has history of HFrEF due to nonischemic cardiomyopathy. She has had 2 equivocal cardiac PYPscans. It was stated in the past that she did not undergo the previously ordered cardiac MRI due toclaustrophobia, yet as I speak with the patient today she is willing to undergo this testing for further evaluation of a infiltrative cardiomyopathy. Orders: MR Cardiac Morphology and Function wo and w Contrast; Future Hyperlipidemia, unspecified hyperlipidemia type Continue on rosuvastatin 5 mg daily, lipid panel from August 2023 showing an LDL cholesterol levelof 42. I have reviewed with the patient the importance of a heart healthy lifestyle which includes eating a low-fat low-salt diet, getting regular exercise, maintaining a healthy weight, not smoking, and following up with routine medical care. 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 We discussed the risks including risk for pulmonarytoxicity, hepatotoxicity, risk for worsening arrhythmias and risk for thyroid impairment. We will monitor the patient for these conditions throughout treatment. Patient was also warned about the riskfor photosensitivity and solar dermatitis. Patient was advised to wear sunscreen and wear protective clothing including a hat when in direct sunlight. Chest CT completed February 2024, CMP completed Jul 2024 Will update TSH Orders: Thyroid stimulating hormone; Future Thank you for allowing us to participate in the care of this patient. The patient will follow up in4 mo, sooner PRN. As per AHA guidelines and previously established plan of care by Dr. Javier Shelton MD, we discussed the following today: A fib, HFrEF [facility] documented in this encounter Plan of Treatment Upcoming Encounters Date Type Department Care Team (Late st Contact Info) Description 10/18/2024 2:00 PM EST Office Visit Nephrology [address] [phone] Jake Carr MD [address] [facility] [address] [place] [address] 10/31/2024 11:00 AM EDT Ancillary Procedure [facility] [address] [facility] [address] [place] [address] 01/10/2025 10:50 AM EDT Office Visit [facility] [address] [place] [address] [address] [place] [address] Javier Shelton MD [address] [place] [address] [address] [place] [address] 02/23/2025 11:15 AM EDT Office Visit Internal Medicine - [place] [address] [facility] [address] [place] [phone] Isabella Miller PA [address] [facility] [address] [place] [address] Scheduled Orders Name Type Priority Associated Diagnoses Orde r Schedule MR Cardiac Morphology and Function wo and w Contrast Cardiac CT/MRI Routine Chronic HFrEF (heart failure with reduced ejection fraction) (CMS/HCC) Cardiomyopathy, unspecified type (CMS/HCC) Expected: 08/23/2024, Expires: 08/23/2025 documented as of this encounter Results * (ABNORMAL) Thyroid stimulating hormone (08/24/2024 11:36 AM EST) TSH 0.07(L) 0.40 - 4.00 mcIU/mL LAB CHEMISTRY METHOD 08/24/2024 3:27 PM EST [facility] Blood Venous blood specimen / Unknown Venipuncture / Unknown 08/24/2024 11:36 AM EST 08/24/2024 11:36 AM EST Lottie Brunson NP LAB BLOOD ORDERABLES [facility] [address] [place] [address], documented in this encounter Visit Diagnoses Diagnosis Chronic HFrEF (heart failure with reduced ejection fraction) (CMS/HCC)- Primary Atrial fibrillation, unspecified type (CMS/HCC) Cardiomyopathy, unspecified type (CMS/HCC) Hyperlipidemia, unspecified hyperlipidemia type 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 08/17/2023 08/23/2024 docusate sodium (COLACE) 100 mg capsule Take 1 Tablet by mouth daily. Therapy completed 07/20/2023 08/24/2024 spironolactone (ALDACTONE) 25 mg tabletIndications:Chroni c systolic (congestive) heart failure (CMS/HCC) Take 0.5 tablets (12.5 mg total) by mouth 1 (one) time each day. 07/21/2024 08/24/2024 documented as of this encounter Care Teams Fire Protection Inspector Relationship Specialty Start Date End Date Isabella Miller PA [address] [address] PCP - General Primary Care 06/21/24 documented as of this encounter
--- OUTSIDE RECORDS SUMMARY | 2024-09-11 14:44 | XMS_ITS | Data Portability ---
Author Organization [place] - .[facility] Address [address] [place] [address] Care Team Providers Care Recep Name Role Phone ESHA HUBBARD Primary Care Provider Assessment Encounter Date Assessment Date Assessment LastModified by Organization Details LastModified Time 08/26/2023 08/26/2023 Excellent recove ry following laparoscopic cholecystectomy for acute cholecystitis due to cholelithiasis performed on 08/16/2023. Pathology was reviewed with her in the office today confirming acute and chronic cholecystitis with cholelithiasis without evidence of malignancy. I shared the good news with her. I told her no additional lifting over 15 lb for an additional 1 month. There are no dietary restrictions moving forward. I will see her as needed. Of note, she has a history of dilated CBD and intrahepatic ducts which was worked up a year prior in [place] where she lives with MRCP as well as ERCP both of which were negative. She knows how to reach me at any time. All questions answered. [email or web address] Not available 08/26/2023 08:02:21 Plan of Treatment Reminders Order Date Submit Date Provider Last Modified By Organization Details Last Modified Time Details Appointments None record ed. Lab None record ed. Referral None record ed. Procedures None record ed. Surgeries None record ed. Imaging None record ed. Medication Orders None record ed. Patient TargetsNo targets recorded. Patient InstructionsNo instructions recorded. Reason for Referral None Reported. Results Created Date Observation Date Name Description Value Unit Range Abnormal Flag Note LastModifiedBy Organization Detail LastModifiedTime 08/16/19 24 08/19/2023 S LAB - SURGI MARIBELL PATHO LOGY surgical pathology CASE: [id number] PATIE NT: ELAIN E JESSICA DIAGN OSIS: Gallb ladde r, kelsi cyste ctomy : - Acute and chron ic kelsi cysti tis. - Kelsi lithi asis. [id number] GROSS DESCR IPTIO N: The speci men is recei ainsley in forma alonso, label ed gall bladd er and consi sts of an intac t, 7.4 x 3.9 x 1.7 purpl e-hummel , tony h, and dull cm gallb ladde r. The seros a is purpl e-gra y, tony h, and dull. Secti oning of the gallb ladde r neck revea ls a 1.7 cm in lengt h by 0.[address] remna nt of cysti c duct, which is shave d and entir fernando submi tted. Openi ng the gallb ladde r revea ls a moder ate amoun t of green -brow n visco us bile, and multi ple (more than 20) dark brown -vivian k, fragm ented galls tones each measu ring less than 0.1 cm. The mucos a is brown -gree n, diffu sely velve ty, and remar kable for a focal 0.9 x 0.7 cm denud ed area locat ed at the fundu s. The gallb ladde r wall measu res 0.3 cm in thick ness. Repre senta tive secti ons are submi tted in one casse tte label ed 1A. DML 08/17 Final Diagn osis perfo rmed by Sonam Hopkins MD. Elect beau zamora lia d 024 15:26 Atlan tic Conso lidat ed Labor atortennille , [place] s [facility], [place] Not Available [facility] (Lab Depart-Adult) [address], [place], [address], 08/19/2023 15:56:47 08/14/20 23 08/13/2023 ahs diagn ostic - US abdom en EXAMIN ATION: US ABDOME N INDICA TION: abdomi nal pain;. TECHNI QUE: Ultras ound of the abdome n was perfor med utiliz ing real-t arden graysc troey and color flow Dopple r imagin g. Digita l images were saved in the [facility] ent record . COMPAR MARELY: CT abdome n pelvis 2022 FINDIN GS: Subopt imal exam due to excess josefa overly ing bowel gas. LIVER: Unrema rkable . BILIAR Y: A small amount of layeri ng bile within the gallbl adder. Gallbl adder wall thicke meliza measur ing 5 mm. The common bile duct measur es 0.9 cm. PANCRE : Pancre as is not adequa tely assess ed, as it is partia lly obscur ed by overly ing bowel gas. KIDNEY S: Survey views of the kidney s demons trates no visual ized hydron ephros is or shadow ing renal calcul i. The right kidney measur es 7.4 cm. The left kidney lower pole is not well visual ized due to overly ing bowel gas. SPLEEN : The spleen measur es 8.2 cm and grossl y unrema rkable . RETROP ERITON EUM: The visual ized portio ns of the aorta, aortic bifurc ation, and inferi or vena cava are unrema rkable . IMPRES BLAISE: Small amount of layeri ng bile within the gallbl adder with irregu lar gallbl adder wall thicke meliza. Malign gael cannot be exclud ed. Contra st-enh anced MRI/MR CP recomm ended. No cholel ithias is visual ized. Common bile duct is dilate d up to 0.9 cm, etiolo gies such as choled ocholi thiasi s or an distal obstru cting mass/p ancrea tic lesion cannot be exclud ed. Small amount of layeri ng bile within the gallbl adder with gallbl adder wall thicke meliza. No cholel ithias is visual ized. Common bile duct is dilate d up to 0.9 cm, etiolo gies such as choled ocholi thiasi s or an obstru cting mass cannot be exclud ed. Recomm end correl ation with labora tory values . A noneme rgent MRCP is recomm ended for furthe r evalua tion. Please note this is a prelim inary reside nt report . Please follow up with the final report for comple tamela araujo gs. Electr onical ly signed by VINICIUS Olivarez on 2022 Kellylinda andria Name: JESSICA GOLDBERG MRN: [id number] Date of : Gender : F [address], [address] 08/27/2023 12:11:25 Result Notes None recorded. Procedures Surgical History Date Name Laterality Status Provider Name and Address Organization Details Recorded Time 08/16/19 24 Gall Bladder Surgery completed Brianna Greene [place] - .[facility] 08/26/2023 14:11:53 08/16/19 23 Colonoscopy completed Brianna Jc [place] - .[facility] 08/26/2023 14:11:53 08/16/19 23 Echocardiogram completed Brianna Greene [place] - .[facility] 08/26/2023 14:11:53 08/16/19 22 ERCP completed Brianna Jc [place] - .[facility] 08/26/2023 14:11:53 08/16/19 22 Pacemaker implant completed Brianna Jc [place] - [facility] 08/26/2023 14:11:53 08/16/19 01 Breast Surgery completed Brianna Jc [place] - [facility] 08/26/2023 14:11:53 08/16/18 88 Hysterectomy completed Brianna Greene [place] - [facility] 08/26/2023 14:11:53 08/16/18 67 Section completed Brianna Jc [place] - [facility] 08/26/2023 14:11:53 Imaging Results Imaging Date Name Status LastModified by Organiz ation Details LastModified Time 08/13/2023 [facility] diagnostic - US abdomen completed [address], [address] 08/27/2023 12:11:25 Procedure Notes None recorded. Medical Equipment None Reported. Allergies No known drug allergies Medications Name Sig Start Date Stop Date Status Note LastModified by Organization Details LastModified Time cap-2 k-5 pain formulation versatile Apply 1-3 grams to the affected area 3-4 times daily (KNEES) active Not Available Not Available No t Available diclofenac 3% / baclofen 2% / gabapentin 6% / bupivacaine hcl 1% Apply 1-3 grams to the affected area 3-4 times daily (KNEES) active Not Available Not Available No t Available lidocaine 5 % topical cream PLEASE SEE ATTACHED FOR DETAILED DIRECTIONS active Not Available Not Available N ot Available amiodarone 200 mg tablet TAKE 1 TABLET BY MOUTH EVERY DAY active Not Available Not Available No t Available tramadol 50 mg tablet active Not Available Not Available No t Available spironolacto ne 25 mg tablet TAKE 1 TABLET BY MOUTH EVERY DAY active Not Available Not Available No t Available carvedilol 3.125 mg tablet TAKE 1 TABLET BY MOUTH TWICE A DAY WITH MEALS active Not Available Not Available No t Available levothyroxin e 75 mcg tablet TAKE 1 TABLET BY MOUTH EVERY DAY active Not Available Not Available No t Available amitriptylin e 10 mg tablet TAKE 1 TABLET BY MOUTH EVERY DAY AT BEDTIME NEEDED FOR PAIN active Not Available Not Available No t Available metronidazol e 0.75 % topical cream APPLY ONE TO TWO TIMES DAILY TO FACIAL SKIN NEEDED active Not Available Not Available No t Available docusate sodium 100 mg capsule TAKE 1 CAPSULE BY MOUTH DAILY NEEDED FOR CONSTIPATIO N FOR 90 DAYS active Not Available Not Available No t Available gabapentin 300 mg capsule TAKE 1 CAPSULE BY MOUTH TWICE A DAY FOR 30 DAYS active Not Available Not Available No t Available morphine ER 15 mg tablet,exten ded release TAKE 1 TABLET BY MOUTH 2 TIMES A DAY NEEDED FOR SEVERE PAIN (SCALE SCORE 7-10) FOR 30 DAYS active Not Available Not Available Not Available dicyclomine 10 mg capsule TAKE 1 CAPSULE BY MOUTH 3 TIMES DAILY FOR 180 DAYS. active Not Available Not Available No t Available Laxative (bisacodyl) 5 mg tablet,delay ed release TAKE 2 TABLETS BY MOUTH RIGHT BEFORE YOUR FIRST DOSE OF LIQUID PREP. active Not Available Not Available No t Available cholestyrami ne (with sugar) 4 gram powder for susp in a packet TAKE 1 PACKET BY MOUTH 3 TIMES DAILY (WITH MEALS). active Not Available Not Available No t Available rosuvastatin 5 mg tablet TAKE 1 TABLET BY MOUTH EVERY DAY active Not Available Not Available No t Available GaviLyte-G 236 gram-22.74 gram-6.74 gram-5.86 gram oral solution PLEASE SEE ATTACHED FOR DETAILED DIRECTIONS active Not Available Not Available N ot Available Eliquis 5 mg tablet TAKE 1 TABLET BY MOUTH TWICE A DAY active Not Available Not Available No t Available Farxiga 10 mg tablet TAKE 1 TABLET BY MOUTH EVERY DAY active Not Available Not Available No t Available Vitals Date Recorded Body height Body mass index (BMI) Body weight Systolic blood pressure Diastolic blood pressure Provider Name and Address Organization Details Last Updated DateTime 08/26/2023 157.48 cm 25.6 kg/m2 32524.93 g 92 mm[Hg] 58 mm[Hg] Lea CROWE - .[facility] 14:22:15 Social History Question Answer Notes LastModified by [employer] ion Details LastModified Time Tobacco Smoking Status Never Smoker SEBASTIEN Olivier - .[facility] 08/26/2023 14:11:53 What Is Your Level Of Alcohol Consumption? None Information not available 08/26/2023 What Is Your Level Of Caffeine Consumption? None Information not available 08/26/2023 Do You Or Have You Ever Used E-cigarettes Or Vape? Never Used Electronic Cigarettes [facility] Information not available 08/26/2023 What Was The Date Of Your Most Recent Tobacco Screening? 08/26/2023 Information not available 08/26/2023 Do You Or Have You Ever Used Smokeless Tobacco? Never Used Smokeless Tobacco [email or web address] Information not available 08/26/2023 Do You Use Any Illicit Or Recreational Drugs? No Information not available 08/26/2023 How Many Years Have You Smoked Tobacco? 0 [facility] Information not available 08/26/2023 Do You Or Have You Ever Used Any Other Forms Of Tobacco Or Nicotine? No [facility] Information not available 08/26/2023 Sex: Unknown Functional Status None recorded. Mental Status None recorded. Family History Nothing Reported. Medical History No medical history recorded. Gynecological HistoryNo gynecological history recorded. Obstetrics History GPAL:G 0 P 0 0 0 0 Past Encounters Encounter ID Performer Location Encounter Start Date Encounter Closed Date Diagnosis/Indication Diagnosis SNOMED-CT Code Diagnosis ICD10 Code Diagnosis Note [id number] [facility] [address] [place] [phone] 08/26/2023 14:09:56 08/31/2023 08:44:46 Acute cholecystitis 31834264 K81.0 Health Concerns Section Related Observation LastModified by Organization Detai ls LastModified Time None Recorded Concern Status LastModified by Organization Details LastModified Time None Recorded Advance Directives Directive None Recorded Payers Encounter Date Sequence Insurance Name Policy Number Policy Almanzar Covered Member ID Almanzar Member ID Guarantor Name 08/26/2023 1 [facility] - MEDICARE PREFERRED (MEDICARE REPLACEMENT HMO) [facility] Darlene Alexander [id number] Darlene Alexander Notes Date Note Type Note Provider Name and Address Organization Details Recorded Time 08/26/2023 text/html Darlene comes in for a postoperative visit. She is 11 days out following laparoscopic cholecystectomy for acute cholecystitis due to cholelithiasis. She is doing quite well. She has no diarrhea, fevers or chills, nausea or vomiting. She is eating without restriction. She has minimal abdominal pain. Mansoor Talley MD [address] [place], [address], [facility] - .[facility] 08/26/2023 14:34:26 OBGyn Episode No OBEpisode recorded.
--- OUTSIDE RECORDS SUMMARY | 2024-09-11 14:44 | XMS_ITS | Encounter Summary ---
Author Organization [facility] Address [address] [place] [address] Care Team Providers Care Manager Eligibility Name Role Phone Isabella Miller Primary Care Provider + Reason for Referral * Consultation (Routine) - Pending Review Specialty Diagnoses / Procedures Referred By Carrie ayers Referred To Contact Dermatology Diagnoses Skin cancer screening Isabella Miller PA [address] [address] Referral ID Status Reason Start Date Expiration Date Visits Requested Visits Authorized [id number] Pending Review Specialty Services Required 09/01/2024 09/01/2025 1 1 Scheduling Instructions [address] [place] [address] Reason for Visit * Reason Onset Date Comments Referral 08/31/2024 New [facility] derm Encounter Details Date Type Department Care Team ([facility] st Contact Info) Description 08/31/2024 Telephone Internal Medicine - [place] [address] [address] Isabella Miller PA 175 [facility] [address] [place] [address] Referral (New roman derm) Social History Tobacco Use Types Packs/Day Years [...] on file documented as of this encounter Progress Notes * ASTER Matias - 09/01/2024 8:45 AM EST Derm referral placed. Thank you. * Hilton Pagan MA - 08/31/2024 3:09 PM EST Pt requesting referral for dermatology for yearly skin check please advise. * Lauren Meier - 08/31/2024 2:38 PM EST Referral Request: What insurance does the patient have today? [facility] [id number] Referrals cannot be processed if the insurance is not accurate. If the insurance listed above in red is NO BILLING INFORMATION FOUND FOR THIS ENCOUTNER The patients correct insurance must be obtained and registered in [facility] or their referral can not be processed. Is this a retro request? no. If yes for what date of service do you need the retro referral? 09-06-2024 Who is calling to request this referral? patient If the caller is not the patient, what is their name? N/a Ask the patient WHO referred them to this specialty: Patient was seen by external specialist Isabella miller who has now referred them to this specialty FIRST and LAST NAME of SPECIALIST PATIENT is seeing: Devika Mcduffie MD What specialty is this? dermatology DIAGNOSIS Patient is being seen for (Not a body part or a procedure): yearly check Have you seen this SPECIALIST for this PROBLEM/DX before? If YES, when? Yes. 2023 Have you checked REVIEW or the APPT DESK to see if this referral has already been done or has visits left? yes Is this visit: Follow Up Address of Specialist: [address] [place] [address] Phone # of Specialist: [phone] Fax #: (if applicable): [phone] Does patient have an appointment scheduled?: yes Date of appointment- (including a retro-request): 09-06-2024 Is this appointment related to: follow up yearly documented in this encounter Plan of Treatment Upcoming Encounters Date Type Department Care Team (Late st Contact Info) Description 10/18/2024 2:00 PM EST Office Visit Nephrology - [place] [address] [place] [address] Jake [facility] [address] [place] [address] 10/31/2024 11:00 AM EDT Ancillary Procedure [facility] [address] [facility] [address] [place] [address] 01/10/2025 10:50 AM EDT Office Visit [facility] Cardiology [facility] - [facility] [address] [place] [address] Javier Shelton MD [address] [place] [address] [address] [place] [address] 02/23/2025 11:15 AM EDT Office Visit Internal Medicine - [place] 175 [facility] [address] [place] [phone] Isabella Miller PA 175 [facility] [address] [place] [address] Scheduled Referrals Name Type Priority Associated Diagnoses Order Schedule Ambulatory referral to Dermatology Outpatient Referral Routine Skin cancer screening 1 Occurrences starting 09/01/2024 until 09/01/2025 documented as of this encounter Visit Diagnoses Diagnosis Skin cancer screening- Primary Screening for malignant neoplasm of the skin Encounter for adjustment or management of cardiac device documented in this encounter Care Teams Manager Eligibility Relationship Specialty Start Date End Date Isabella Miller PA [address] [place] [address] PCP - General Primary Care 06/21/24 documented as of this encounter
--- OUTSIDE RECORDS SUMMARY | 2024-09-11 14:44 | XMS_ITS | Encounter Summary ---
Author Organization [facility] Address [address] [place] [address] Care Team Providers Care Diversified Crops Supervisor Name Role Phone Isabella Miller Primary Care Provider + Reason for Visit * Reason Comments Hypertension Atrial Fibrillation Congestive Heart Failure Hypothyroidism Peripheral Neuropathy Encounter Details Date Type Department Care Team (Late st Contact Info) Description 08/24/2024 10:30 AM EST Office Visit Internal Medicine - [place] [address] [facility] [address] [place] [id number] Isabella Miller PA [address] [place] [address] Primary hypertension (Primary Dx); Paroxysmal atrial fibrillation (CMS/HCC); Chronic HFrEF (heart failure with reduced ejection fraction) (CMS/HCC); 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; 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); Acute URI Social History Tobacco Use Types Packs/Day Years [...] Sign Reading Time Taken Comments Blood Pressure 107/60 08/24/2024 10:25 AM EST Pulse 72 08/24/2024 10:18 AM EST Temperature 36.6 ??C (97.9 ??F) 08/24/2024 10:[address] Respiratory Rate - - Oxygen Saturation 92% 08/24/2024 10:18 AM EST Inhaled Oxygen Concentration - - Weight 62.6 kg (138 lb) 08/24/2024 10:18 AM EST Height 157.5 cm (5' 2 ) 08/24/2024 10:18 AM EST Body Mass Index 25.24 08/24/2024 10:18 AM EST documented in this encounter Ordered Prescriptions Prescription Sig Dispensed Refills Start Date End Da te benzonatate (TESSALON) 200 mg capsuleIndications:Acute URI Take 1 capsule (200 mg total) by mouth 3 (three) times a day if needed for cough. Do not crush or chew. 42 capsule 08/24/2024 documented in this encounter Progress Notes * ASTER Matias - 08/24/2024 10:30 AM EST CHIEF COMPLAINT: Hypertension, Atrial Fibrillation, Congestive Heart Failure, Hypothyroidism, and Peripheral Neuropathy IDENTIFIER: Darlene Alexander is a 79 y.o. old female. HPI: Follow-up hypertension, atrial fibrillation, CHF, hypothyroidism and neuropathy. She was last seen by me for back pain 08/01/2024. Sent for thoracic x-rays done that same day and did not reveal any compression fractures. 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 She is treated with morphine ER 50 mg twice daily, gabapentin 300 mg 1 in the morning and 1-2 at bedtime plus amitriptyline 20 mg nightly. Additionally she was having restless legs at her last visit so I had her check some labs (CBC with differential, CMP, magnesium, vitamin B12, vitamin D, folate, ferritin, iron) which were stable and in accept able range for her. She did have BMP 08/21/2024 and has an order to get her TSH checked. States she is compliant with her medications and denies any side effects. Hypertension/A-fib/CHF are stable on spironolactone 12.5 mg every other day, carvedilol 3.125 mg twice daily, amiodarone 200 mg daily, Farxiga 10 mg daily and anticoagulated on Eliquis 2.5 mg twice daily for which she is followed via cardiology. She also has a pacemaker. Hypothyroidism is treated with levothyroxine 100 mcg daily and has TSH order in her chart from card she will do today. States she started with cold symptoms a few weeks ago on 08/07/2024 and continues to have cough with chest congestion. Has been using cough drops, tea with lemon and says is improving, but would likesomething for cough. Other providers: Pain management at [facility] - neuropathy legs secondary to chemo Oncologist previously Dr. Hollingsworth - history of left breast cancer GI Dr. 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 Carr - CKD stage III Vascular Dr. 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) 01/30/2021 Atrial fibrillation (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 Schwarz HYSTERECTOMY PROCEDURE: HISTORICAL HYSTERECTOMY OTHER SURGICAL HISTORY PROCEDURE: HISTORY OTHER; COMMENT: cardiac ablation and cardioversion PACEMAKER IMPLANT 01/31/2021 PROCEDURE: HISTORICAL PACEMAKER; COMMENT: Dr. Caban due to SOCIAL HISTORY: Social History Tobacco Use Smoking status: Never Smokeless tobacco: Never Substance Use Topics Alcohol use: No FAMILY HISTORY: Family History Problem Relation Name Age of Onset Blindness Neg Hx Cataracts Neg Hx Glaucoma Neg Hx Macular degeneration Neg Hx Strabismus Neg Hx MEDICATIONS DISCONTINUED/REORDERED: Medications Discontinued During This Encounter Medication Reason docusate sodium (COLACE) 100 mg capsule Therapy completed ACTIVE MEDICATIONS: Outpatient Medications Marked as Taking for the 08/24/24 encounter (Office Visit) with ASTER Matias Medication Sig Dispense Refill amiodarone (PACERONE) 200 mg tablet TAKE 1 TABLET BY MOUTH EVERY DAY amitriptyline HCl (AMITRIPTYLINE ORAL) Take 20 mg by mouth at bedtime. apixaban (Eliquis) 2.5 mg tablet Take 1 tablet (2.5 mg total) by mouth 2 (two) times a day. 90 tablet 2 bisacodyL (DULCOLAX) 5 mg EC tablet Take [...] TAKE 1 TABLET BY MOUTH EVERY DAY vitamin B complex (VITAMINS B COMPLEX ORAL) 1 (one) time each day. [DISCONTINUED] spironolactone (ALDACTONE) 25 mg tablet Take 0.5 tablets (12.5 mg total) by mouth 1 (one) time each day. (Patient taking differently: Take 0.5 tablets (12.5 mg total) by mouth every other day.) 90 tablet 1 ALLERGIES: No Known Allergies PHYSICAL EXAM: Visit Vitals BP 107/60 Pulse 72 Temp 36.6 ??C (97.9 ??F) (Temporal) Ht 1.575 m (62 ) Wt 62.6 kg (138 lb) SpO2 92% BMI 25.24 kg/m?? Smoking Status Never BSA 1.63 m?? APPEARANCE: Alert and in no acute distress EYES: Conjunctiva and sclera normal. HEART: RRR LUNG: clear to auscultation bilaterally EXTREMITIES: No edema NEURO: Awake, alert and oriented x 3 SKIN: Skin color normal. Warm and dry. LABS: Appointment on 08/21/2024 Component Date Value Ref Range Status Sodium 08/21/2024 138 133 - 145 mmol/L Final Potassium 08/21/2024 4.1 3.5 - 5.5 mmol/L Final Chloride 08/21/2024 107 96 - 110 mmol/L Final CO2 08/21/2024 26 21 - 32 mmol/L Final Anion Gap 08/21/2024 5 3 - 11 Final Glucose 08/21/2024 81 70 - 100 mg/dL Final BUN 08/21/2024 24 5 - 25 mg/dL Final Creatinine 08/21/2024 1.58 (H) 0.50 - 1.10 mg/dL Final eGFR 08/21/2024 33 (L) >=60 mL/min/1.73m2 Final Calculation based on the Chronic Kidney Disease Epidemiology Collaboration (CKD- EPI) equation refitwithout adjustment for race. BUN/Creatinine Ratio 08/21/2024 15.2 Final Calcium 08/21/2024 8.5 8.5 - 10.5 mg/dL Final Ancillary Procedure on 08/18/2024 Component Date Value Ref Range Status Date Time Interrogation Session 08/18/2024 [id number] Final Type Interrogation Session 08/18/2024 Remote Final Implantable Pulse Generator Manufa* 08/18/2024 MDT Final Implantable Pulse Generator Type 08/18/2024 SENIOR MANUFACTURING TECHNICIAN-P Final Implantable Pulse Generator Model 08/18/2024 Layaa Quad SENIOR MANUFACTURING TECHNICIAN-P [id number] Final Implantable Pulse Generator Serial* 08/18/2024 [id number] Final Implantable Pulse Generator Implan* 08/18/202429429266 Final Battery Remaining Longevity 08/18/2024 58.0 Final Battery Voltage 08/18/2024 2.960 Final Battery HUMAN RESOURCES COORDINATOR Trigger 08/18/2024 2.595 Final Battery Status 08/18/2024 Middle of Service Final Chinmay Statistic RA Percent Paced 08/18/2024 99.98 Final Chinmay Statistic RV Percent Paced 08/18/2024 99.80 Final SENIOR MANUFACTURING TECHNICIAN Statistic LV Percent Paced 08/18/2024 99.78 Final SENIOR MANUFACTURING TECHNICIAN Statistic SENIOR MANUFACTURING TECHNICIAN Percent Paced 08/18/2024 99.77 Final Atrial Tachy Statistic AT/AF Burde* 08/18/2024 0.00 Final Lead Channel Sensing Intrinsic Amp* 08/18/2024 1.250 Final Lead Channel Setting Sensing Sensi* 08/18/2024 0.30 Final Lead Channel Impedance Value 08/18/2024 399 Final Lead Channel Pacing Threshold Ampl* 08/18/2024 1.375 Final Lead Channel Pacing Threshold Puls* 08/18/2024 0.4 Final Lead Channel RA Pacing Threshold D* 08/18/2024 2023-02-03 Final Lead Channel Setting Pacing Amplit* 08/18/2024 2.750 Final Lead Channel Setting Pacing Pulse * 08/18/2024 0.4 Final Lead Channel Sensing Intrinsic Amp* 08/18/2024 16.000 Final Lead Channel Setting Sensing Sensi* 08/18/2024 0.90 Final Lead Channel Impedance Value 08/18/2024 570 Final Lead Channel Pacing Threshold Ampl* 08/18/2024 0.625 Final Lead Channel Pacing Threshold Puls* 08/18/2024 0.4 Final Lead Channel RV Pacing Threshold D* 08/18/202420242024-08-17 Final Lead Channel Setting Pacing Amplit* 08/18/2024 2.000 Final Lead Channel Setting Pacing Pulse * 08/18/2024 0.4 Final Lead Channel Impedance Value 08/18/2024 893 Final Lead Channel Pacing Threshold Ampl* 08/18/2024 1.000 Final Lead Channel Pacing Threshold Puls* 08/18/2024 0.4 Final Lead Channel Pacing Threshold Date 08/18/202420242024-08-17 Final Lead Channel Setting Pacing Amplit* 08/18/2024 1.500 Final Lead Channel Setting Pacing Pulse * 08/18/2024 0.4 Final Chinmay Setting Mode (NBG Code) 08/18/2024 DDDR Final Ventricular chambers paced during * 08/18/2024 BiV Final Chinmay Setting Lower Rate Limit 08/18/2024 75 Final Chinmay Setting AT Mode Switch Rate 08/18/2024 171 Final Chinmay Setting Maximum Tracking Rate 08/18/2024 110 Final Chinmay Setting Maximum Sensor Rate 08/18/2024 120 Final Chinmay Setting PAV Delay 08/18/2024 150 Final Chinmay Setting EDITH Delay 08/18/2024 130 Final SENIOR MANUFACTURING TECHNICIAN LV-RV Delay 08/18/2024 30 Final Zone Setting Type Category 08/18/2024 AT/AF Final Rate 08/18/2024 171 Final Therapies 08/18/2024 Some Rx Off Final Zone Setting Status 08/18/2024 Monitor Final Zone ID 08/18/2024 2 Final Zone Setting Type Category 08/18/2024 VT Final Rate 08/18/2024 150 Final Zone Setting Status 08/18/2024 ENABLED Final Zone ID 08/18/2024 6 Final Date of Service 08/18/202420242024-08-22 Final Lab on 08/01/2024 Component Date Value Ref Range Status Sodium 08/01/2024 139 133 - 145 mmol/L Final Potassium 08/01/2024 5.0 3.5 - 5.5 mmol/L Final Chloride 08/01/2024 107 96 - 110 mmol/L Final CO2 08/01/2024 25 21 - 32 mmol/L Final Anion Gap 08/01/2024 7 3 - 11 Final Glucose 08/01/2024 95 70 - 100 mg/dL Final BUN 08/01/2024 25 5 - 25 mg/dL Final Creatinine 08/01/2024 1.50 (H) 0.50 - 1.10 mg/dL Final eGFR 08/01/2024 35 (L) >=60 mL/min/1.73m2 Final Calculation based on the Chronic Kidney Disease Epidemiology Collaboration (CKD- EPI) equation refitwithout adjustment for race. BUN/Creatinine Ratio 08/01/2024 16.7 Final Calcium 08/01/2024 8.8 8.5 - 10.5 mg/dL Final AST (SGOT) 08/01/2024 19 10 - 42 unit/L Final ALT (SGPT) 08/01/2024 24 10 - 60 unit/L Final Alkaline Phosphatase 08/01/2024 82 42 - 121 unit/L Final Total Protein 08/01/2024 7.4 6.0 - 8.0 g/dL Final Albumin 08/01/2024 3.9 3.2 - 5.0 g/dL Final Total Bilirubin 08/01/2024 0.5 0.0 - 1.4 mg/dL Final Magnesium 08/01/2024 2.6 1.9 - 2.6 mg/dL Final Vitamin B-12 08/01/2024 1,199 (H) 250 - 900 pcg/mL Final Vit D, 25-Hydroxy 08/01/2024 41.7 30.0 - 80.0 ng/mL Final Folate 08/01/2024 >20.0 (H) 2.8 - 17.0 ng/ml Final Ferritin 08/01/2024 16 8 - 252 ng/mL Final Iron 08/01/2024 93 40 - 150 mcg/dL Final WBC 08/01/2024 6.6 4.8 - 10.8 K/mcL Final RBC 08/01/2024 4.40 3.80 - 4.80 M/mcL Final Hemoglobin 08/01/2024 13.8 11.5 - 16.0 g/dL Final Hematocrit 08/01/2024 45.6 35.0 - 47.0 % Final MCV 08/01/2024 102.7 (H) 79.0 - 98.0 FL Final MCH 08/01/2024 31.1 27.0 - 32.0 pcg Final MCHC 08/01/2024 30.3 (L) 32.0 - 37.0 g/dL Final RDW 08/01/2024 14.6 11.0 - 15.0 % Final Platelets 08/01/2024 221 130 - 400 K/mcL Final MPV 08/01/2024 11.1 (H) 7.0 - 11.0 FL Final NRBC 08/01/2024 0.0 <1.0 % Final NRBC Absolute 08/01/2024 0.00 <0.10 K/mcL Final Neutrophils Relative 08/01/2024 60.6 % Final Lymphocytes Relative 08/01/2024 27.1 % Final Monocytes Relative 08/01/2024 8.0 % Final Eosinophils Relative 08/01/2024 3.2 % Final Basophils Relative 08/01/2024 0.8 % Final Immature Granulocytes Relative 08/01/2024 0.3 % Final Neutrophils Absolute 08/01/2024 4.02 1.50 - 7.00 K/mcL Final Lymphocytes Absolute 08/01/2024 1.80 1.00 - 5.00 K/mcL Final Monocytes Absolute 08/01/2024 0.53 0.20 - 1.00 K/mcL Final Eosinophils Absolute 08/01/2024 0.21 0.00 - 0.50 K/mcL Final Basophils Absolute 08/01/2024 0.05 0.00 - 0.20 K/mcL Final Immature Granulocytes Absolute 08/01/2024 0.02 0.00 - 0.03 K/mcL Final Ancillary Procedure on 07/21/2024 Component Date Value Ref Range Status Date Time Interrogation Session 07/21/2024 [id number] Final Type Interrogation Session 07/21/2024 Remote Final Implantable Pulse Generator Manufa* 07/21/2024 MDT Final Implantable Pulse Generator Type 07/21/2024 SENIOR MANUFACTURING TECHNICIAN-P Final Implantable Pulse Generator Model 07/21/2024 Percepta Quad SENIOR MANUFACTURING TECHNICIAN-P [id number] Final Implantable Pulse Generator Serial* 07/21/2024 [id number] Final Implantable Pulse Generator Implan* 07/21/202499772117 Final Battery Remaining Longevity 07/21/2024 58.0 Final Battery Voltage 07/21/2024 2.960 Final Battery HUMAN RESOURCES COORDINATOR Trigger 07/21/2024 2.595 Final Battery Status 07/21/2024 Middle of Service Final Chinmay Statistic RA Percent Paced 07/21/2024 99.99 Final Chinmay Statistic RV Percent Paced 07/21/2024 99.75 Final SENIOR MANUFACTURING TECHNICIAN Statistic LV Percent Paced 07/21/2024 99.73 Final SENIOR MANUFACTURING TECHNICIAN Statistic SENIOR MANUFACTURING TECHNICIAN Percent Paced 07/21/2024 99.73 Final Atrial Tachy Statistic AT/AF Burde* 07/21/2024 0.00 Final Lead Channel Sensing Intrinsic Amp* 07/21/2024 1.000 Final Lead Channel Setting Sensing Sensi* 07/21/2024 0.30 Final Lead Channel Impedance Value 07/21/2024 380 Final Lead Channel Pacing Threshold Ampl* 07/21/2024 1.375 Final Lead Channel Pacing Threshold Puls* 07/21/2024 0.4 Final Lead Channel RA Pacing Threshold D* 07/21/2024 2023-02-03 Final Lead Channel Setting Pacing Amplit* 07/21/2024 2.750 Final Lead Channel Setting Pacing Pulse * 07/21/2024 0.4 Final Lead Channel Sensing Intrinsic Amp* 07/21/2024 11.375 Final Lead Channel Setting Sensing Sensi* 07/21/2024 0.90 Final Lead Channel Impedance Value 07/21/2024 532 Final Lead Channel Pacing Threshold Ampl* 07/21/2024 0.625 Final Lead Channel Pacing Threshold Puls* 07/21/2024 0.4 Final Lead Channel RV Pacing Threshold D* 07/21/2024 2024-07-18 Final Lead Channel Setting Pacing Amplit* 07/21/2024 2.000 Final Lead Channel Setting Pacing Pulse * 07/21/2024 0.4 Final Lead Channel Impedance Value 07/21/2024 798 Final Lead Channel Pacing Threshold Ampl* 07/21/2024 1.000 Final Lead Channel Pacing Threshold Puls* 07/21/2024 0.4 Final Lead Channel Pacing Threshold Date 07/21/2024 2024-07-18 Final Lead Channel Setting Pacing Amplit* 07/21/2024 1.500 Final Lead Channel Setting Pacing Pulse * 07/21/2024 0.4 Final Chinmay Setting Mode (NBG Code) 07/21/2024 DDDR Final Ventricular chambers paced during * 07/21/2024 BiV Final Chinmay Setting Lower Rate Limit 07/21/2024 75 Final Chinmay Setting AT Mode Switch Rate 07/21/2024 171 Final Chinmay Setting Maximum Tracking Rate 07/21/2024 110 Final Chinmay Setting Maximum Sensor Rate 07/21/2024 120 Final Chinmay Setting PAV Delay 07/21/2024 150 Final Chinmay Setting EDITH Delay 07/21/2024 130 Final SENIOR MANUFACTURING TECHNICIAN LV-RV Delay 07/21/2024 30 Final Zone Setting Type Category 07/21/2024 AT/AF Final Rate 07/21/2024 171 Final Therapies 07/21/2024 Some Rx Off Final Zone Setting Status 07/21/2024 Monitor Final Zone ID 07/21/2024 2 Final Zone Setting Type Category 07/21/2024 VT Final Rate 07/21/2024 150 Final Zone Setting Status 07/21/2024 ENABLED Final Zone ID 07/21/2024 6 Final Date of Service 07/21/2024 2024-08-22 Final Appointment on 07/20/2024 Component Date Value Ref Range Status Sodium 07/20/2024 140 133 - 145 mmol/L Final Potassium 07/20/2024 4.3 3.5 - 5.5 mmol/L Final Chloride 07/20/2024 107 96 - 110 mmol/L Final CO2 07/20/2024 28 21 - 32 mmol/L Final Anion Gap 07/20/2024 5 3 - 11 Final Glucose 07/20/2024 66 (L) 70 - 100 mg/dL Final BUN 07/20/2024 24 5 - 25 mg/dL Final Creatinine 07/20/2024 1.33 (H) 0.50 - 1.10 mg/dL Final eGFR 07/20/2024 40 (L) >=60 mL/min/1.73m2 Final Calculation based on the Chronic Kidney Disease Epidemiology Collaboration (CKD- EPI) equation refitwithout adjustment for race. BUN/Creatinine Ratio 07/20/2024 18.0 Final Calcium 07/20/2024 8.9 8.5 - 10.5 mg/dL Final Appointment on 07/03/2024 Component Date Value Ref Range Status Sodium 07/03/2024 139 133 - 145 mmol/L Final Potassium 07/03/2024 4.8 3.5 - 5.5 mmol/L Final Chloride 07/03/2024 108 96 - 110 mmol/L Final CO2 07/03/2024 25 21 - 32 mmol/L Final Anion Gap 07/03/2024 6 3 - 11 Final Glucose 07/03/2024 74 70 - 100 mg/dL Final BUN 07/03/2024 21 5 - 25 mg/dL Final Creatinine 07/03/2024 1.48 (H) 0.50 - 1.10 mg/dL Final eGFR 07/03/2024 35 (L) >=60 mL/min/1.73m2 Final Calculation based on the Chronic Kidney Disease Epidemiology Collaboration (CKD- EPI) equation refitwithout adjustment for race. BUN/Creatinine Ratio 07/03/2024 14.2 Final Calcium 07/03/2024 9.0 8.5 - 10.5 mg/dL Final Ancillary Procedure on 07/03/2024 Component Date Value Ref Range Status BSA 07/03/2024 1.69 m2 Final Target HR 07/03/2024 118 bpm Final Ancillary Procedure on 06/21/2024 Component Date Value Ref Range Status Left Atrium Minor [place] 06/21/2024 5.6 cm Final Left Atrium Major [place] 06/21/2024 5.8 cm Final LA Area Sys (A2C) 06/21/2024 23 cm2 Final LA Area Sys (A4C) 06/21/2024 20 cm2 Final LA Volume (BP) 06/21/2024 65 mL Final RA Area 06/21/2024 16.7 cm2 Final RA 2D Volume 06/21/2024 46 mL Final AV Mean Gradient 06/21/2024 3 mmHg Final Ao VTI 06/21/2024 22.8 cm Final AV Peak Rajinder 06/21/2024 1.1 m/s Final AV Peak Gradient 06/21/2024 5 mmHg Final AV Area Continuity Equation 06/21/2024 1.8 cm2 Final AV Area Peak Velocity 06/21/2024 1.6 cm2 Final Aortic Sinus Valsalva 06/21/2024 3.4 cm Final Ascending Aorta 06/21/2024 3.1 cm Final IVSD 06/21/2024 0.7 0.6 - 0.9 cm Final LVIDD 06/21/2024 5.8 (A) 3.8 - 5.2 cm Final LVIDS 06/21/2024 4.0 (A) 2.2 - 3.5 cm Final LVOT Diameter 06/21/2024 2.0 cm Final LVOT Mean Rajinder 06/21/2024 0.4 m/s Final LVOT Mean Grad 06/21/2024 1 mmHg Final LVOT Peak VTI 06/21/2024 13.2 cm Final LVOT Peak Rajinder 06/21/2024 0.5 m/s Final LVOT Peak Gradient 06/21/2024 1 mmHg Final LVPWD 06/21/2024 0.7 0.6 - 0.9 cm Final MV E' Tissue Velocity Lateral 06/21/2024 6 cm/s Final MV E' Tissue Velocity Septal 06/21/2024 4 cm/s Final LVOT Area 06/21/2024 3.1 cm2 Final LVOT Stroke Volume 06/21/2024 41 mL Final E Wave Deceleration Time 06/21/2024 214 119 - 242 ms Final MV Peak E Rajinder 06/21/2024 0.75 m/s Final RV Diastolic Basal Dimension 06/21/2024 3.3 2.5 - 4.1 cm Final RV S' 06/21/2024 10 cm/s Final TAPSE 06/21/2024 20 mm Final TR Peak Velocity 06/21/2024 2.42 m/s Final TR Peak Gradient 06/21/2024 23 mmHg Final E/E' Ratio Septal 06/21/2024 19 Final E/E' Ratio Averaged 06/21/2024 16 Final LVOT Stroke Index 06/21/2024 24 mL/m2 Final Relative Wall Thickness ratio 06/21/2024 0.24 Final LVOT:AV VTI Index 06/21/2024 0.58 Final FS 06/21/2024 31 % Final LV Mass 2D 06/21/2024 149 g Final Ascending Aorta Index 06/21/2024 1.85 cm/m2 Final LVOT flow 06/21/2024 126 mL/s Final RA 2D Volume Index 06/21/2024 27 mL/m2 Final CAROL ANN Index (VTI) 06/21/2024 1.08 cm2/m2 Final CAROL ANN Index (Pk Rajinder) 06/21/2024 0.95 cm2/m2 Final LVIDD Index 06/21/2024 3.45 cm/m2 Final LVIDS Index 06/21/2024 2.38 cm/m2 Final AV Velocity Ratio 06/21/2024 0.45 Final E/E' Ratio Lateral 06/21/2024 13 Final LA Volume Index (BP) 06/21/2024 39 mL/m2 Final LV Mass Index 2D 06/21/2024 89 g/m2 Final BSA 06/21/2024 1.7 m2 Final Right Ventricular Peak Systolic Pr* 06/21/2024 26 mmHg Final Est. RA Pressure 06/21/2024 3 mmHg Final Ancillary Procedure on 06/19/2024 Component Date Value Ref Range Status Date Time Interrogation Session 06/19/2024 [id number] Final Type Interrogation Session 06/19/2024 Remote Final Implantable Pulse Generator Manufa* 06/19/2024 MDT Final Implantable Pulse Generator Type 06/19/2024 SENIOR MANUFACTURING TECHNICIAN-P Final Implantable Pulse Generator Model 06/19/2024 Percepta Quad SENIOR MANUFACTURING TECHNICIAN-P [id number] Final Implantable Pulse Generator Serial* 06/19/2024 [id number] Final Implantable Pulse Generator Implan* 06/19/202485131479 Final Battery Remaining Longevity 06/19/2024 62.0 Final Battery Voltage 06/19/2024 2.960 Final Battery HUMAN RESOURCES COORDINATOR Trigger 06/19/2024 2.595 Final Battery Status 06/19/2024 Middle of Service Final Chinmay Statistic RA Percent Paced 06/19/2024 99.99 Final Chinmay Statistic RV Percent Paced 06/19/2024 99.54 Final SENIOR MANUFACTURING TECHNICIAN Statistic LV Percent Paced 06/19/2024 99.52 Final SENIOR MANUFACTURING TECHNICIAN Statistic SENIOR MANUFACTURING TECHNICIAN Percent Paced 06/19/2024 99.51 Final Atrial Tachy Statistic AT/AF Burde* 06/19/2024 0.00 Final Lead Channel Sensing Intrinsic Amp* 06/19/2024 1.375 Final Lead Channel Setting Sensing Sensi* 06/19/2024 0.30 Final Lead Channel Impedance Value 06/19/2024 418 Final Lead Channel Pacing Threshold Ampl* 06/19/2024 1.375 Final Lead Channel Pacing Threshold Puls* 06/19/2024 0.4 Final Lead Channel RA Pacing Threshold D* 06/19/2024 2023-02-03 Final Lead Channel Setting Pacing Amplit* 06/19/2024 2.750 Final Lead Channel Setting Pacing Pulse * 06/19/2024 0.4 Final Lead Channel Sensing Intrinsic Amp* 06/19/2024 16.500 Final Lead Channel Setting Sensing Sensi* 06/19/2024 0.90 Final Lead Channel Impedance Value 06/19/2024 608 Final Lead Channel Pacing Threshold Ampl* 06/19/2024 0.625 Final Lead Channel Pacing Threshold Puls* 06/19/2024 0.4 Final Lead Channel RV Pacing Threshold D* 06/19/20242024-06-14 Final Lead Channel Setting Pacing Amplit* 06/19/2024 2.000 Final Lead Channel Setting Pacing Pulse * 06/19/2024 0.4 Final Lead Channel Impedance Value 06/19/2024 912 Final Lead Channel Pacing Threshold Ampl* 06/19/2024 1.125 Final Lead Channel Pacing Threshold Puls* 06/19/2024 0.4 Final Lead Channel Pacing Threshold Date 06/19/2024 2024-06-14 Final Lead Channel Setting Pacing Amplit* 06/19/2024 1.750 Final Lead Channel Setting Pacing Pulse * 06/19/2024 0.4 Final Chinmay Setting Mode (NBG Code) 06/19/2024 DDDR Final Ventricular chambers paced during * 06/19/2024 BiV Final Chinmay Setting Lower Rate Limit 06/19/2024 75 Final Chinmay Setting AT Mode Switch Rate 06/19/2024 171 Final Chinmay Setting Maximum Tracking Rate 06/19/2024 110 Final Chinmay Setting Maximum Sensor Rate 06/19/2024 120 Final Chinmay Setting PAV Delay 06/19/2024 150 Final Chinmay Setting EDITH Delay 06/19/2024 130 Final SENIOR MANUFACTURING TECHNICIAN LV-RV Delay 06/19/2024 30 Final Zone Setting Type Category 06/19/2024 AT/AF Final Rate 06/19/2024 171 Final Therapies 06/19/2024 Some Rx Off Final Zone Setting Status 06/19/2024 Monitor Final Zone ID 06/19/2024 2 Final Zone Setting Type Category 06/19/2024 VT Final Rate 06/19/2024 150 Final Zone Setting Status 06/19/2024 ENABLED Final Zone ID 06/19/2024 6 Final Date of Service 06/19/2024 2024-08-22 Final Abstract on 05/15/2024 Component Date Value Ref Range Status Hepatitis C Screening 12/02/2021 abstracted Final Annual BMP Blood Test 02/22/2024 abstracted Final Urine Albumin Creatinine Ratio 02/22/2024 abstracted Final LDL/HDL Ratio 09/09/2023 2 0 - 4 Final Triglycerides 09/09/2023 115 0 - 150 mg/dL Final Cholesterol 09/09/2023 127 0 - 200 mg/dL Final HDL 09/09/2023 62 40 mg/dL Final LDL Cholesterol 09/09/2023 42 0 - 100 mg/dL Final There may be more visits with results that are not included. Medication and lab orders: No orders of the defined types were placed in this encounter. Other orders: None IMAGING: IMPRESSION: 1. Primary hypertension 2. Paroxysmal atrial fibrillation (CMS/HCC) 3. Chronic HFrEF (heart failure with reduced ejection fraction) (CMS/HCC) 4. 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 Acute URI PLAN: 1. Hypertension/atrial fibrillation/CHF. Stable. Continue current medication regimen (see HPI) and follow-up cardiology as scheduled. 2. Hypothyroidism due to Kallie's. Recheck TSH today and continue levothyroxine as prescribed, will be called if needs dose adjustment. 3. 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 Continue current medication regimen (see HPI) and follow-up with pain management scheduled. 4. Acute URI. Rest, increase water, throat/cough drops, honey, added Tessalon Perles 200 mg 3 timesdaily as needed. Call if worsening or no improvement. Follow-up 6 months. Call sooner if needed. ASTER Matias on 08/24/2024 at 12:38 PM EST documented in this encounter Plan of Treatment Upcoming Encounters Date Type Department Care Team (Late st Contact Info) Description 10/18/2024 2:00 PM EST Office Visit Nephrology [address] [address] Jake Carr MD [address] [facility] 200 [place] [address] 10/31/2024 11:00 AM EDT Ancillary Procedure [facility] Cardiology [facility] [address] 300 [facility] 154 [place] [address] 01/10/2025 10:50 AM EDT Office Visit [facility] - [facility] [address] [place] [phone] Javier Shelton MD [address] [place] [address] Dr Berger [address] [place] [address] 02/23/2025 11:15 AM EDT Office Visit Internal Medicine - [place] [address] [address] Isabella Miller PA 175 [facility] 200 [place] [address] documented as of this encounter Visit Diagnoses Diagnosis Primary hypertension- Primary Unspecified essential hypertension Paroxysmal atrial fibrillation ([facility]/HCC) Atrial fibrillation Chronic HFrEF (heart failure with reduced ejection fraction) (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) Polyneuropathy due to other toxic agents Acute URI Acute upper respiratory infections of unspecified site Encounter for adjustment or management of cardiac device documented in this encounter Discontinued Medications Medication Sig Discontinue Reason Start Date End Da te docusate sodium (COLACE) 100 mg capsule Take 1 Tablet by mouth daily. Therapy completed 07/20/2023 08/24/2024 documented as of this encounter Care Teams Diversified Crops Supervisor Relationship Specialty Start Date End Date Isabella Miller PA [address] [address] PCP - General Primary Care 06/21/24 documented as of this encounter
--- OUTSIDE RECORDS SUMMARY | 2024-09-11 14:44 | XMS_ITS | Clinical Summary ---
Author Organization [facility] Address [address] [place] [address] Care Team Providers Care Sack Keeper Name Role Phone Julio Brizuela MD Primary Care Provider Unavailab le Allergies Active Allergy Reactions Criticality Noted Date Comments Iodinated Contrast Media 01/24/2009 Oxycodone-Acetaminophen 11/09/2017 Medications Medication Sig Dispensed Refills Start Date End Date Status Alburtis-3 Fatty Acids (FISH OIL) 1000 MG CAPS Take 1,000 mg by mouth daily. 0 Active levothyroxine (SYNTHROID, LEVOXYL) tablet 50 mcg Take 50 mcg by mouth every morning on an empty stomach. 0 Active metroNIDAZOLE (METROCREAM) 0.75 % cream Apply topically 2 (two) times a day. 0 Active Probiotic Product (PROBIOTIC PO) Take by mouth. 0 Active VITAMIN B COMPLEX-C PO Take by mouth. 0 Active vitamin B-12 (CYANOCOBALAMIN) 100 MCG tablet Take 500 mcg by mouth 2 (two) times a day. 0 Active cholecalciferol (VITAMIN D3) 1000 units tablet Take 2,000 Units by mouth daily. 0 Active dicyclomine (BENTYL) 10 MG capsule Take 10 mg by mouth 4 (four) times a day before meals and at bedtime. 0 Active triamcinolone (KENALOG) 0.1 % cream APPLY 2 TIMES DAILY TO AFFECTED AREA(S). 2 11/15/2017 Active Morphine Sulfate ER (MS CONTIN) 30 MG TBCR Take 30 mg by mouth 2 (two) times a day. 0 05/24/2018 Active ergocalciferol (VITAMIN D2) capsule 76950 units TAKE ONE CAPSULE BY MOUTH ONE TIME PER WEEK 0 05/19/2018 Active gabapentin (NEURONTIN) 300 MG capsule Take 300 mg by mouth 2 (two) times a day. 0 01/03/2019 Active amitriptyline (ELAVIL) 10 MG tablet Take 10 mg by mouth 3 (three) times a day. 0 Active Active Problems Problem Noted Date Diagnosed Date Atrial fibrillation 05/19/2018 History of left breast cancer 05/19/2018 Overview: Overview: S/p lumpectomy Hypothyroidism 05/19/2018 Vitamin D deficiency 05/19/2018 Cataract 12/14/2017 Chronic constipation 04/15/2017 Hypertension 04/15/2017 Diverticulosis of colon 12/22/2016 Irritable bowel syndrome 12/22/2016 Aortic atherosclerosis 10/02/2015 Overview: Overview: Comments: CXR 11/29/14 Atherosclerotic aorta 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 Peripheral neuropathy 10/02/2015 Cardiomyopathy 09/06/2015 Vitamin B12 deficiency 09/06/2015 Mitral regurgitation 04/30/2015 Family History Medical History Relation Name Comments No Sig Med Hx Brother No Sig Med Hx Daughter Heart attack Father from heart attack Kidney failure Father was on dialys is Cancer Maternal Aunt bone cancer Cancer Maternal Uncle prostate canc er Cancer Mother bladder cancer Relation Name Status Comments Brother Alive Daughter Alive Father Maternal Aunt Maternal Grandfather Maternal Grandmother Maternal Uncle Mother Paternal Grandfather Paternal Grandmother Social History Tobacco Use Types Packs/Day Years [...] file Not on file Not on file Last Filed Vital Signs Vital Sign Reading Time Taken Comments Blood Pressure 152/94 07/27/2019 11:34 AM EST Pulse 87 07/27/2019 11:34 AM EST Temperature 36.7 ??C (98.1 ??F) 07/27/2019 11:[address] Respiratory Rate - - Oxygen Saturation - - Inhaled Oxygen Concentration - - Weight 66 kg (145 lb 6.4 oz) 07/27/2019 11:34 AM EST Height 157.5 cm (5' 2 ) 07/27/2019 11:34 AM EST Body Mass Index 26.59 07/27/2019 11:34 AM EST Plan of Treatment Health Maintenance Due Date Last Done Comments COVID-19 Vaccine (#1) 1943 Depression Screening 1955 Preventative Health Evaluation 1961 DTap / Tdap / Td (1 - Tdap) 1962 Shingrix-Zoster Vaccine (1 o f 2) 1993 Fall Risk Assessment 2008 Osteoporosis Screening (DEXA Scan) 2008 RSV Adult > 60+ Yrs or (1 - 1-dose 75+ series) 2018 Influenza Vaccine (#1) 2024 Pneumococcal Vaccine Completed 01/02/2015, 07/03/2011 Hepatitis B Vaccines Aged Out No long er eligible based on patient's age to complete this topic RSV Ped < 20 months Aged Out No longe r eligible based on patient's age to complete this topic Care Teams Sack Keeper Relationship Specialty Start Date End Date Julio Brizuela MD PCP - General Internal Medicine 01/18/19
--- OUTSIDE RECORDS SUMMARY | 2024-09-11 14:44 | XMS_ITS | Encounter Summary ---
Author Organization [facility] Address [address] [place] [address] Care Team Providers Care Case Technician Name Role Phone Isabella Miller Primary Care Provider + Reason for Visit * Reason Onset Date Comments medication question 08/23/2024 Encounter Details Date Type Department Care Team (Late st Contact Info) Description 08/23/2024 Telephone [facility] Dr Don[address]ue [address] [place] [phone] Claudia Rose NP [address] [place] [address] Dr Berger 410 [place], [place] [phone] medication question Social History Tobacco Use Types Packs/Day Years [...] as of this encounter Progress Notes * Emily Watson MA - 08/23/2024 3:17 PM EST I spoke to Darlene and advised as below * Claudia Rose NP - 08/23/2024 3:14 PM EST Would prefer she transitions to the 2.5 mg tablet which she was prescribed today instead of cuttingthe pills in half. * Kathy Velasquez - 08/23/2024 2:36 PM EST Patient is wondering if she is able to cut her eliquis 5 mg in half to take her reduced dose of 2.5mg? She has a pill cutter and still has some 5 mg left and would like to use them up. documented in this encounter Plan of Treatment Upcoming Encounters Date Type Department Care Team (Late st Contact Info) Description 10/18/2024 2:00 PM EST Office Visit Nephrology [address] [address] Jkae Carr MD [address] [facility] 200 [place] [address] 10/31/2024 11:00 AM EDT Ancillary Procedure [facility] Cardiology [facility] 154 300 [facility] 154 [place] [phone] 01/10/2025 10:50 AM EDT Office Visit [facility] [address] [place] [address] [address] [place] [phone] Javier Shelton MD [address] [place] [address] Dr Ab [address] [place] [address] 02/23/2025 11:15 AM EDT Office Visit Internal Medicine - [place] 175 [facility] 200 [place] [phone] Isabella Miller PA 175 [facility] 200 [place] [address] documented as of this encounter Visit Diagnoses Not on filedocumented in this encounter Care Teams Case Technician Relationship Specialty Start Date End Date Isabella Miller PA 175 [place] [address] PCP - General Primary Care 06/21/24 documented as of this encounter
--- OUTSIDE RECORDS SUMMARY | 2024-09-11 14:44 | XMS_ITS | Encounter Summary ---
Author Organization Address [address] [place] [address] Care Team Providers Care Railway Traction Line Worker Name Role Phone Isabella Miller Primary Care Provider + Reason for Visit * Reason Onset Date Comments Testing 08/31/2024 Auth Cardiac MRI Encounter Details Date Type Department Care Team (Late st Contact Info) Description 08/31/2024 Telephone [facility] Associates [facility] [address] [place] [address] [place] [phone] Elly Jaeger NP [address] [place] [address] Dr B[place] [id number] Testing (Auth Cardiac MRI) Social History Tobacco Use Types Packs/Day Years [...] as of this encounter Progress Notes * Claudia Doherty - 08/31/2024 1:32 PM EST Insurance referral request faxed to PCP for processing. Thanks, Karen García * Connie oS - 08/31/2024 1:11 PM EST Please get a [facility] Adv out of network auth/specialist referral for a Cardiac MRI ([id number]), Chronic HFrEF (I50.22), Cardiomyopathy (I42.9), [facility] documented in this encounter Plan of Treatment Upcoming Encounters Date Type Department Care Team (Late st Contact Info) Description 10/18/2024 2:00 PM EST Office Visit Nephrology [address] [address] Jake Carr MD [address] [facility] 200 [place] [address] 10/31/2024 11:00 AM EDT Ancillary Procedure [facility] Cardiology [facility] [address] [facility] 154 [place] [address] 01/10/2025 10:50 AM EDT Office Visit [facility] Cardiology [facility] - [address] [place] [address] KarolynJavier Alejandre MD [address] [place] [address] Dr [address] [place] [address] 02/23/2025 11:15 AM EDT Office Visit Internal Medicine - [place] 175 [facility] 200 [place] [address] Isabella Miller PA 175 [facility] 200 [place] [address] documented as of this encounter Visit Diagnoses Not on filedocumented in this encounter Care Teams Railway Traction Line Worker Relationship Specialty Start Date End Date Isabella Miller PA [address] [address] PCP - General Primary Care 06/21/24 documented as of this encounter
--- OUTSIDE RECORDS SUMMARY | 2024-09-11 14:45 | XMS_ITS | Encounter Summary ---
Author Organization [facility] Address [address] [place] [address] Care Team Providers Care Director Of Dietary Name Role Phone Isabella Miller Primary Care Provider + Reason for Visit * Reason Onset Date Comments Medication Problem 08/10/2024 Encounter Details Date Type Department Care Team (Late st Contact Info) Description 08/10/2024 Telephone [facility]iology Associates [facility] [address] [place] [phone] Javier Shelton MD [address] [place] [address] Dr Berger [address] [place] [address] Medication Problem Social History Tobacco Use Types Packs/Day Years [...] as of this encounter Progress Notes * Yesenia Dotson RN - 08/18/2024 2:16 PM EST I called Darlene and informed her of the below message. She is agreeable to obtain BMP, either tomorrow AM or Wednesday at the [facility] in [place], [place]. I scheduled pt to come in for a triage visit with Darling Rose on 08/23/24 @ 11:10 AM. * Claudia Rose NP - 08/18/2024 1:40 PM EST She is not currently on any diuretic therapy. She was last seen in February 2024. At this point, the patient needs a triage appointment for further evaluation of her symptoms and to assess for heart failure. Please have her go for blood work which was ordered to determine if we need to make any adjustments to her medications in the meantime. Any worsening symptoms, she should not hesitate to go to the ER. * Yesenia Dotson RN - 08/18/2024 11:00 AM EST I spoke to Darlene and informed her of the below message. She visited her daughter for 10 days and returned home last night. Pt stated whenever she visits her daughter over the holidays, she gains 2-3lbs. She checked her weight this morning and noted a 4 lb weight gain from 10 days ago. Pt endorsesshortness of breath while walking upstairs and up hill, resolves after a couple minutes of rest, which is not new or worsening. She reports feeling a little bloated and attributes this to the meals and desserts she ate over the holidays. Pt denies orthopnea, PND, BLE edema, and recent illness. Darlene reports compliance with her medications as prescribed, including Spironolactone 12.5 mg daily. She is due to have a BMP rechecked in a couple weeks. She noted she hasn't been sleeping well and willdiscuss further with her PCP on 08/24/24. * Sheeba Quiñones MA - 08/18/2024 10:35 AM EST Thoracic Impedance is suboptimals. Heart failure diagnostics available in this device are suggestive of volume overload. Please phonepatient to assess for symptoms of heart failure exacerbation: Weight gain, orthopnea, PND, increased exertional dyspnea, recent clinical events, dietary indiscretion. Please convey this information to the primary cardiology team or go to as appropriate. * Yesenia Dotson RN - 08/10/2024 4:47 PM EST Pt informed of the below and aware she will get a call from access to schedule OV with primary cardiology care team. * Elly Jaeger NP - 08/10/2024 4:12 PM EST Nope that is correct, she can continue on 12.5 mg dosing and recheck labs around 09/04. She should make follow up with her primary team AOP/SOTO Thanks * Yesenia Dotson RN - 08/10/2024 3:23 PM EST I spoke to Darlene. Please refer to lab result note from 08/01/24. Pt has been taking reduced dose of Spironolactone 12.5 mg daily. I asked her to read the letter she received on 07/21/24, please check in after 1 month after starting reduced Spironolactone. She is planning on going for repeat BMP next month, around 09/04/24. I just wanted to be sure there wasn't anything additional recommended? Access, pt is currently in [place] visiting family. She is returning home on 08/17/24 or 08/18/24. Dr. Parr would like pt to follow up with himself or Darling Rose next month- 08/2024. Please contact pt to arrange ([phone]) * Jim Gold - 08/10/2024 1:31 PM EST Patient is calling stating she received a letter in regards to spironolactone and to stop the medication within a certain timeframe? Patient is wanting more clarification. Please call. documented in this encounter Plan of Treatment Upcoming Encounters Date Type Department Care Team (Late st Contact Info) Description 10/18/2024 2:00 PM EST Office Visit Nephrology - [place] [address] [place] [address] Jake Carr MD [address] [facility] 200 [place] [address] 10/31/2024 11:00 AM EDT Ancillary Procedure [facility] Cardiology [facility] 154 300 [facility] 154 [place] [address] 01/10/2025 10:50 AM EDT Office Visit [facility] Cardiology [facility] - [facility] [address] [place] [address] [place] [address] KarolynJavier Alejandre MD [address] [place] [place] [address] Dr [address] [place] [address] 02/23/2025 11:15 AM EDT Office Visit Internal Medicine - [place] 175 [facility] 200 [place] [address] Isabella Miller PA 175 [facility] 200 [place] [address] documented as of this encounter Visit Diagnoses Not on filedocumented in this encounter Care Teams Director Of Dietary Relationship Specialty Start Date End Date Isabella Miller PA [address] [address] PCP - General Primary Care 06/21/24 documented as of this encounter
--- OUTSIDE RECORDS SUMMARY | 2024-09-11 14:45 | XMS_ITS ---
Author Organization [facility] Address Unknown Problems Problem Status Start Date End Date ATRIOVENTRICULAR BLOCK, COMP LETE (Primary) (I44.2 - ICD-10-CM) ACTIVE 02/05/2021 PAROXYSMAL ATRIAL FIBRILLATION (I48.0 - ICD-10-CM) ACT DURAN 02/05/2021 OTHER PRIMARY THROMBOPHILIA (D68.59 - ICD-10-CM) ACTIV E 02/05/2021 ACUTE KIDNEY FAILURE, UNSPECIFIED (N17.9 - ICD-10-CM) ACTIVE 02/05/2021 HYPERKALEMIA (E87.5 - ICD-10-CM) ACTIVE 02/06/20 21 UNSPECIFIED COMBINED SYSTOLI C (CONGESTIVE) AND DIASTOLIC (CONGESTIVE) HEART FAILURE (I50.40 - ICD-10-CM) ACTIVE 02/05/2021 PERSONAL HISTORY OF MALIGNAN T NEOPLASM OF BREAST (Z85.3 - ICD-10-CM) ACTIVE 02/05/2021 ACQUIRED ABSENCE OF UNSPECIF IED BREAST AND NIPPLE (Z90.10 - ICD-10-CM) ACTIVE 02/05/2021 PRIMARY PULMONARY HYPERTENSION (I27.0 - ICD-10-CM) ACT DURAN 02/05/2021 ESSENTIAL (PRIMARY) HYPERTENSION (I10 - ICD-10-CM) ACT DURAN 02/05/2021 HYPERLIPIDEMIA, UNSPECIFIED (E78.5 - ICD-10-CM) ACTIVE 02/05/2021 AUTOIMMUNE THYROIDITIS (E06.3 - ICD-10-CM) ACTIVE 02/05/2021 UNSTEADINESS ON FEET (R26.81 - ICD-10-CM) ACTIVE 02/05/2021 WEAKNESS (R53.1 - ICD-10-CM) ACTIVE 02/05/2021 OTHER ABNORMALITIES OF GAIT AND MOBILITY (R26.89 - ICD-10-CM) ACTIVE 02/05/2021 Encounters Encounter Performer Performer Role Encounter Diagnoses Location Date Discharge - Discharged to home or self care - Home (Agency Unknown) - Private home/apt. with home health services [facility] 02/05/2021 02:23 pm EDT - 02/06/2021 04:24 pm EDT Social History
--- OUTSIDE RECORDS SUMMARY | 2024-09-11 14:45 | XMS_ITS | Clinical Summary ---
Author Organization [address] [place] [address] [place] [id number] Phone Care Team Providers Care Pyrometer Operator Name Role Phone Isabella Miller Primary Care Provider + Allergies No known active allergies Medications Medication Sig Dispensed Refills Start Date End Date Status amitriptyline HCl (AMITRIPTYLINE ORAL) Take 20 mg by mouth at bedtime. Active vitamin B complex (VITAMINS B COMPLEX ORAL) 1 (one) time each day. Active bisacodyL (DULCOLAX) 5 mg EC tablet Take 2 tablets (10 mg total) by mouth 1 (one) time each day if needed. Active carvediloL (COREG) 3.125 mg tablet TAKE 1 TABLET BY MOUTH TWICE A DAY WITH MEALS 09/13/2023 Active cholecalciferol (VITAMIN D-3) 50 mcg (2,000 unit) capsule Take 1 capsule by mouth daily. 10/16/2020 Active cyanocobalamin (VITAMIN B-12) 1,000 mcg tablet Take 1 tablet by mouth daily. 09/23/2018 Active dapagliflozin propanediol (Farxiga) 10 mg tablet TAKE 1 TABLET BY MOUTH EVERY DAY 02/28/2024 Active lidocaine 5 % cream Apply 1 g topically daily. Active morphine (MS CONTIN) 15 mg 12 hr tablet TAKE 1 TABLET BY MOUTH TWICE DAILY NEEDED FOR SEVERE PAIN (SCALE SCORE 7-10) FOR 30 DAYS. 04/03/2023 Active omega-3 acid ethyl esters (LOVAZA) 1 gram capsule 1,000 mg daily. 09/13/2013 Active L.acid/L.casei/B .bif/B.brendan/FOS (PROBIOTIC BLEND ORAL) Take by mouth. Active rosuvastatin (CRESTOR) 5 mg tablet TAKE 1 TABLET BY MOUTH EVERY DAY 11/17/2023 Active gabapentin (NEURONTIN) 300 mg capsuleIndicatio ns:Acute bilateral thoracic back pain Take 1 cap in the morning and 2 caps every evening 90 capsule 3 08/01/2024 Active apixaban (Eliquis) 2.5 mg tabletIndication s:Atrial fibrillation, unspecified type (CMS/HCC) Take 1 tablet (2.5 mg total) by mouth 2 (two) times a day. 90 tablet 2 08/23/2024 Active benzonatate (TESSALON) 200 mg capsuleIndicatio ns:Acute URI Take 1 capsule (200 mg total) by mouth 3 (three) times a day if needed for cough. Do not crush or chew. 42 capsule 08/24/2024 Active spironolactone (ALDACTONE) 25 mg tabletIndication s:Chronic systolic (congestive) heart failure (CMS/HCC) Take 0.5 tablets (12.5 mg total) by mouth every other day. 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 08/17/2023 08/23/19 25 Discontinued docusate sodium (COLACE) 100 mg capsule Take 1 Tablet by mouth daily. 07/20/2023 08/24/19 25 Discontinued(The carmenza completed) spironolactone (ALDACTONE) 25 mg tabletIndication s:Chronic systolic (congestive) heart failure (CMS/HCC) Take 0.5 tablets (12.5 mg total) by mouth 1 (one) time each day. 90 tablet 1 07/21/2024 08/24/19 25 Discontinued levothyroxine (SYNTHROID, LEVOTHROID) 100 mcg tablet Take 1 tablet (100 mcg total) by mouth 1 (one) time each day before breakfast. 90 tablet 3 08/04/2024 08/25/19 25 Discontinued(Peter shepard) Active Problems Problem Noted Date Diagnosed Date jail current use of amiodarone 08/23/2024 Assessment & Plan (08/23/2024 4:16 PM EST): Amiodarone is intended for use only in patients with indicated life-threatening arrhythmias because its use is accompanied by substantial toxicity. We discussed the risks including risk for pulmonary toxicity, hepatotoxicity, risk for worsening arrhythmias and risk for thyroid impairment. We will monitor the patient for these conditions throughout treatment. Patient was also warned about the risk for photosensitivity and solar dermatitis. Patient was advised to wear sunscreen and wear protective clothing including a hat when in direct sunlight. Chest CT completed February 2024, CMP completed Jul 2024 Will update TSH Orders: Thyroid stimulating hormone; Future Hyperlipidemia 05/15/2024 Overview (05/15/2024): Last Assessment & Plan: The patient has a history of hyperlipidemia. She also has a history of mild CAD. She continues on rosuvastatin 5 mg orally daily. Last lipid panel showed an adequate cholesterol control. Will continue her current therapy. Assessment & Plan (08/23/2024 4:16 PM EST): Continue on rosuvastatin 5 mg daily, lipid panel from August 2023 showing an LDL cholesterol level of 42. I have reviewed with the patient the importance of a heart healthy lifestyle which includes eating a low-fat low-salt diet, getting regular exercise, maintaining a healthy weight, not smoking, and following up with routine medical care. Microscopic hematuria 05/15/2024 CAD (coronary artery disease) 06/25/2023 Overview (05/15/2024): Last Assessment & Plan: The patient has a history of coronary artery disease. Left heart catheterization from 2020 showed a 50% stenosis in the mid RCA. Currently, the patient denies any chest pain at rest or with exertion. The patient continues on secondary preventive therapy for CAD, including: aspirin, statin and beta jordan. Will continue current therapy. Cholelithiasis 02/12/2021 Chronic HFrEF (heart failure with reduced ejection fraction) 01/30/2021 Overview (05/15/2024): Last Assessment & Plan: The patient has heart failure with reduced ejection fraction. ?? 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 Last ischemic work-up: Left heart catheterization in June 2021 (nonobstructive coronary artery disease). ?? Nonischemic cardiomyopathy evaluation: 1. Laboratory testing (March 2023): Normal serum immunofixation study. Normal serum kappa lambda ratio. Normal urine immunofixation study. 2. Cardiac PYP test (March 2023): Equivocal study ?? Last documented LVEF: 30 to 35% by echocardiogram done in February 2023 ?? Current symptom classification: NYHA class 2 ?? Guideline directed medical therapy: 1. Beta-blockers: Carvedilol 3.125 mg orally twice a day 2. ARNI / BELLA inhibitor / ARB: The patient was able to tolerate low-dose Entresto in the past 3. MRA: Spironolactone 25 mg orally daily 4. SGL2 inhibitor: Dapagliflozin 10 mg orally daily ?? Candidate for ICD or DIRECTOR OF COUNTERINTELLIGENCE: DIRECTOR OF COUNTERINTELLIGENCE-P in place ?? Assessment and plan: The patient has a history of heart failure with reduced ejection fraction due to a nonischemic cardiomyopathy. Left heart catheterization in 2020 only showed mild stenosis of the mid RCA. Her cardiomyopathy has been thought to be secondary to a chemotherapy induced cardiomyopathy. However, given her reduced ejection fraction, we also proceeded with testing to rule out the presence of cardiac amyloidosis. Her laboratory testing done in March 2023 showed a normal serum kappa lambda level, normal serum immunofixation study, and normal urine immunofixation study. Therefore, the patient does not have any plasma cell disorder and AL amyloidosis is unlikely to be present. A cardiac PYP scan was also completed in March 2023 and the findings were equivocal for TTR amyloidosis. Because of this, the patient was referred for a cardiac MRI. However, the patient did not undergo the cardiac MRI. I spoke with the patient's daughter (please refer to the telephone encounter from August 2023) and the patient did not want to undergo the cardiac MRI due to history of claustrophobia with the MRI machine. As such, we agreed to consider a repeat cardiac PYP scan in the future. I discussed this with the patient today. She is agreeable to repeating her cardiac PYP scan. Will order cardiac PYP scan. In the meantime, we will continue her current medication regimen. Will also repeat her echocardiogram to reevaluate her cardiac function. Will also complete laboratory testing to evaluate her renal function and serum electrolytes given her continued use of spironolactone. Assessment & Plan (08/23/2024 4:16 PM EST): HFrEF-EF 30-35% Last echocardiogram 06/2024. Last ischemic evaluation heart catheterization 2020. GDMT Betablocker: Carvedilol 3.125 mg twice daily. Expect expect WALDO Inhibitor-BELLA/ARB/ARNI: Patient unable to tolerate low-dose Entresto in the past, today's blood pressure 102/60, unable to retrial. Diuretic: None added at this time. Aldosterone antagonist: Spironolactone 12.5 mg every other day. SGLT2 inhibitors: Dapagliflozin 10 mg daily. ICD: DIRECTOR OF COUNTERINTELLIGENCE-P in place, with reassessment of EF and upcoming cardiac MRI may consider upgrading device to add a defibrillator, will refer to EP [...] Function wo and w Contrast; Future Atrial fibrillation 05/19/2018 Overview (05/15/2024): Last Assessment & Plan: The patient has a history of paroxysmal atrial fibrillation. She is on rhythm control therapy with amiodarone and rate control therapy with Coreg. Also, the patient has a [id number] score of 5 (age, gender, heart failure, CAD). She continues on anticoagulation therapy with Eliquis 5 mg orally twice daily. She denies any abnormal bleeding. Will continue her current therapy. Assessment & Plan (08/23/2024 4:16 PM EST): Patient has history of paroxysmal atrial fibrillation, [id number] score of 5. She continues on rhythm control with amiodarone and carvedilol. Her last creatinine was noted to be 1.58 and she is over the age of 78, hence her Eliquis dose was decreased to 2.5 mg twice daily. She has been tolerating anticoagulation well with no abnormal bleeding noted. She is aware if she were to sustain a fall and strike her head she would need to seek emergent medical attention. Orders: apixaban (Eliquis) 2.5 mg tablet; Take 1 tablet (2.5 mg total) by mouth 2 (two) times a day. 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 Caban consulted on the patient due to her bradycardia which appeared multifactorial from electrolyte disturbances in the setting of renal dysfunction and due to amiodarone. She had a pacemaker with DIRECTOR OF COUNTERINTELLIGENCE implanted during the hospitalization. She does not have a defibrillator. We will repeat an echocardiogram in one month to monitor her heart function; if it is still severely reduced, there will need to be discussion regarding defibrillator. Also, in review of meds, I would like to medically optimize her. We are avoiding BELLA/ARN/ARNI/Aldactone given her renal function; will put her on Carvedilol 3.125 mg twice daily. Of note, her PCP is trending her renal function. Last renal function from 03/03 showed BUN/creatinine of 25/1.25 and she is repeating it soon per her PCP. Today, she is euvolemic without any signs or symptoms of volume overload. She will continue on Lasix 20 mg daily. She will be seen by Dr. Shelton in two months, sooner if needed. I've asked the patient to call if they develop worsening symptoms of heart failure such as increased shortness of breath, new or worsening cough, increased swelling in the legs or ankles, or weight gain of more than 2 pounds in one day or 4 pounds in one week. Assessment & Plan (08/23/2024 4:16 PM EST): Patient has history of HFrEF due to nonischemic cardiomyopathy. She has had 2 equivocal cardiac PYP scans. It was stated in the past that she did not undergo the previously ordered cardiac MRI due to claustrophobia, yet as I speak with the patient today she is willing to undergo this testing for further evaluation of a infiltrative cardiomyopathy. Orders: MR Cardiac Morphology and Function wo and w Contrast; Future Vitamin B12 deficiency 09/06/2015 Hypertension Overview (08/24/2024): DX:Hypertension Encounters Date Type Department Care Team Description 08/31/2024 Telephone Internal Medicine - [place] [address] [place] [address] Isabella Miller PA Referral (New roman derm) 08/31/2024 Telephone [facility] [address] [place] [address] Elly Jaeger NP Testing (Auth Cardiac MRI) 08/24/2024 10:30 AM EST Office Visit Internal Medicine - [place] [address] [place] [address] Isabella Miller PA Primary hypertension (Primary Dx); Paroxysmal atrial fibrillation (CMS/HCC); Chronic HFrEF (heart failure with reduced ejection fraction) (CMS/HCC); 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; 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); Acute URI 08/23/2024 11:10 AM EST Office Visit [facility] [address] [place] [phone] Claudia Rose NP Chronic HFrEF (heart failure with reduced ejection fraction) (CMS/HCC) (Primary Dx); Atrial fibrillation, unspecified type (CMS/HCC); Cardiomyopathy, unspecified type (CMS/HCC); Hyperlipidemia, unspecified hyperlipidemia type; 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 [address] [place] [phone] 08/10/2024 Telephone [facility] [address] [place] [phone] Javier Shelton MD Medication Problem 08/01/2024 2:30 PM EST - 08/01/2024 11:59 PM EST Hospital Encounter XRAY - [place] [address] [place] [address] Acute bilateral thoracic back pain Discharge Disposition: Home or Self Care 08/01/2024 2:10 PM EST Lab Draw Station - [address] [place] [phone] Hyperlipidemia (Primary Dx); Restless legs; Vitamin B12 deficiency; Vitamin D deficiency; Acute bilateral thoracic back pain; Stage 3b chronic kidney disease ([facility]/HCC) 08/01/2024 1:30 PM EST Office Visit Internal Medicine - [place] [address] [place] [phone] Isabella Miller PA Acute bilateral thoracic back pain (Primary Dx); Restless legs; Vitamin D deficiency; Vitamin B12 deficiency; Stage 3b chronic kidney disease (CMS/HCC) 07/28/2024 Telephone Internal Medicine - [place] [address] [place] [address] Isabella Miller PA TRIAGE-back pain 07/21/2024 3:40 PM EST Ancillary Procedure [facility] - [address] [place] [address] 07/21/[address] [place] [address] Claudia Rose NP letter 07/19/[address] [facility] [address] [place] [address] Keysha Rasheed GA 07/10/[address] [facility] [address] [place] [address] Javier Shelton MD 07/05/[address] [place] [address] Claudia Rose NP lab results 07/03/2024 10:30 AM EST Ancillary Procedure [facility] [address] [place] [address] Chronic HFrEF (heart failure with reduced ejection fraction) (CMS/HCC) 06/21/2024 3:30 PM EST Ancillary Procedure [facility] - [address] [place] [address] Chronic HFrEF (heart failure with reduced ejection fraction) (CMS/HCC); Other cardiomyopathy (CMS/HCC) 06/19/2024 5:55 PM EST Ancillary Procedure [facility] - [address] [place] [phone] 06/19/2024 Telephone [facility] - [facility] [address] [facility] [address] [place] [address] Javier Shelton MD from Last 3 Months Immunizations Name Administration Dates Next Due Pneumococcal conjugate 13 va lent (Prevnar 13, PCV13) 2mo and older 01/02/2015 Pneumococcal polysaccharide 23 valent (Pneumovax 23) 2yo and older 07/03/2011 Zoster Live 04/06/2012 Surgical History Surgery Date Site/Laterality Comments HYSTERECTOMY PROCEDURE: HISTORICAL HYSTERECTOMY SECTION PROCEDURE: HISTORICAL BREAST LUMPECTOMY -1999 Left PROCEDURE: HISTORICAL BREAST LUMPECTOMY; COMMENT: due breast cancer COLONOSCOPY PROCEDURE: HISTORICAL COLONOSCOPY OTHER SURGICAL HISTORY PROCEDURE: HISTORY OTHER; COMMENT: cardiac ablation and cardioversion EYE SURGERY Bilateral PROCEDURE: HISTORICAL EYE SURGERY; COMMENT: cataracts Dr. Schwarz PACEMAKER IMPLANT 01/31/2021 PROCEDURE: HISTORICAL PACEMAKER; COMMENT: Dr. 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 History of left breast cancer 05/19/2018 DX :History of left breast cancer; COMMENT: S/p lumpectomy Hypertension 04/15/2017 DX:Hypertension Hypothyroidism 05/19/2018 DX:Hypothyroidis m Irritable bowel syndrome 12/22/2016 DX:Irri table bowel syndrome Mitral regurgitation 04/30/2015 DX:Mitral r egurgitation Peripheral neuropathy 10/02/2015 DX:Periphe ral neuropathy Vitamin B12 deficiency 09/06/2015 DX:Vitami n B12 deficiency Vitamin D deficiency 05/19/2018 DX:Vitamin D deficiency Microscopic hematuria DX:Microsc opic hematuria Hyperlipidemia DX:Hyperlipidemi a Cholelithiasis DX:Cholelithiasi s Breast cancer (CMS/HCC) 2003 DX:Breas t cancer (HCC); COMMENT: Chemo &Rad Tx Family history of coronary a rtery disease DX:Family history of coronar y artery disease Family History Medical History Relation Name Comments Blindness Neg Hx Cataracts Neg Hx Glaucoma Neg Hx Macular degeneration Neg Hx Strabismus Neg Hx Relation Name Status Comments Father Mother Social History Tobacco Use Types Packs/Day Years [...] file Not on file Not on file Obstetrics History Last Filed Vital Signs Vital Sign Reading [...] Mass Index 25.24 08/24/2024 10:18 AM EST Plan of Treatment Upcoming Encounters Date Type Department Care Team (Late st Contact Info) Description 10/18/2024 2:00 PM EST Office Visit Nephrology [place] [id number] [place] [address] Jake Carr MD [address] [place] [address] 10/31/2024 11:00 AM EDT Ancillary Procedure [facility] - [facility] [address] [facility] [address] [place] [address] 01/10/2025 10:50 AM EDT Office Visit [facility] [address] [place] [address] Javier Shelton MD [address] [place] [address] [address] [place] [address] 02/23/2025 11:15 AM EDT Office Visit Internal Medicine - [place] [address] [place] [phone] Isabella Miller PA [address] [place] [address] Health Maintenance Due Date Last Done Comments RSV Immunization Patients 60+ Years Old (1 - 1-dose 75+ series) 2018 Depression Screening 07/25/2022 Falls Risk Assessment 07/25/2022 Medicare Annual Wellness Visit 07/25/2022 Osteoporosis Screening (Bone Density Screening) 07/25/2022 Social Influencers of Health Screening 07/25/2022 COVID-19 Vaccine ( season) 2024 06/12/2022, 06/23/2021, 10/15/2020, Additional history exists Hypertension/CHF/CAD Annual BMP Blood Test 08/21/2025 08/21/2024, 08/01/2024, 07/20/2024, Additional history exists Cholesterol Screening (Lipid Panel) 09/09/2028 09/09/2023 DTaP,Tdap,and Td Vaccines (2 - Td or Tdap) 06/09/2031 06/09/2021 Zoster Vaccines Completed 06/09/2021, 09/17, 04/06/2012 Pneumococcal Vaccine: 65+ Years Completed 06/01/2023, 01/02/2015, 07/03/2011 Influenza Vaccine Completed 03/28/2024, , 05/09/2022, Additional history exists HIB Vaccines Aged Out No longer eligi ble based on patient's age to complete this topic HPV Vaccines Aged Out No longer eligi ble based on patient's age to complete this topic Hepatitis A Vaccines Aged Out No long er eligible based on patient's age to complete this topic Hepatitis B Vaccines Aged Out No long er eligible based on patient's age to complete this topic IPV Vaccines Aged Out No longer eligi ble based on patient's age to complete this topic MMR Vaccines Aged Out No longer eligi ble based on patient's age to complete this topic Meningococcal ACWY Vaccine Aged Out N o longer eligible based on patient's age to complete this topic RSV Immunization Patients Under 20 months Aged Out No longer eligible based on patient's age to complete this topic Varicella Vaccines Aged Out No longer eligible based on patient's age to complete this topic Medical Devices Implanted Type Area Passenger Attendant Device Identifier Shelf Expiration Date Model / Serial / Lot Medt-Card Percepta Quad Eeg Technologist-P [id number] Implanted: (Quantity not on file) Cardiac DIRECTOR OF COUNTERINTELLIGENCE-P [employer] - CARDIAC RHYTH-CRDM PERCEPTA QUAD DIRECTOR OF COUNTERINTELLIGENCE-P [id number] / [id number] / Procedures Procedure Name Priority Date/Time Associated Diagnosis Comments THYROID STIMULATING HORMONE Routine 08/24/2024 11:36 AM EST 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 BASIC METABOLIC PANEL Routine 08/21/2024 11:18 AM EST Chronic HFrEF (heart failure with reduced ejection fraction) (CMS/HCC) CARDIAC DEVICE CHECK- REMOTE- MURJ Routine 08/18/2024 4:23 PM EST XR THORACIC SPINE 2 VIEWS Routine 08/01/2024 3:00 PM EST Acute bilateral thoracic back pain CBC WITH AUTO DIFFERENTIAL Routine 08/01/2024 2:10 PM EST Restless legs IRON Routine 08/01/2024 2:10 PM EST Acute bilateral thoracic back pain Restless legs Stage 3b chronic kidney disease (CMS/HCC) FERRITIN Routine 08/01/2024 2:10 PM EST Acute bilateral thoracic back pain Restless legs Stage 3b chronic kidney disease (CMS/HCC) FOLATE Routine 08/01/2024 2:10 PM EST Restless legs VITAMIN D 25 HYDROXY Routine 08/01/2024 2:10 PM EST Vitamin D deficiency VITAMIN B12 Routine 08/01/2024 2:10 PM EST Vitamin B12 deficiency MAGNESIUM Routine 08/01/2024 2:10 PM EST Restless legs COMPREHENSIVE METABOLIC PANEL Routine 08/01/2024 2:10 PM EST Restless legs CBC AND DIFFERENTIAL Routine 08/01/2024 2:10 PM EST Restless legs CARDIAC DEVICE CHECK- REMOTE- MURJ Routine 07/21/2024 3:39 PM EST BASIC METABOLIC PANEL Routine 07/20/2024 12:11 PM EST Atrial fibrillation, unspecified type (CMS/HCC) NM CARDIAC AMYLOID STUDY W/ CT Routine 07/03/2024 2:10 PM EST Chronic HFrEF (heart failure with reduced ejection fraction) (CMS/HCC) BASIC METABOLIC PANEL Routine 07/03/2024 11:19 AM EST Chronic systolic heart failure (CMS/HCC) TRANSTHORACIC ECHOCARDIOGRAM (TTE) COMPLETE W/ CONTRAST Routine 06/21/2024 4:20 PM EST Chronic HFrEF (heart failure with reduced ejection fraction) (CMS/HCC) Other cardiomyopathy (CMS/HCC) CARDIAC DEVICE CHECK- REMOTE- MURJ Routine 06/19/2024 5:53 PM EST LIPID PANEL Routine 09/09/2023 from Last 3 Months or Most Recently Relevant to Health Maintenance Results * (ABNORMAL) Thyroid stimulating hormone (08/24/2024 11:36 AM EST) TSH 0.07(L) 0.40 - 4.00 mcIU/mL LAB CHEMISTRY METHOD 08/24/2024 3:27 PM EST [facility] Blood Venous blood specimen / Unknown Venipuncture / Unknown 08/24/2024 11:36 AM EST 08/24/2024 11:36 AM EST Elly Jaeger NP LAB BLOOD ORDERABLES [facility] [address] [place] [address], * (ABNORMAL) Basic metabolic panel (08/21/2024 11:18 AM EST) Only the most recent of3 resultswithin the time period is included. Sodium 138 133 - 145 mmol/L LAB CHEMISTRY METHOD 08/21/2024 2:58 PM [facility] Potassium 4.1 3.5 - 5.5 mmol/L LAB CHEMISTRY METHOD 08/21/2024 2:58 PM [facility] Chloride 107 96 - 110 mmol/L LAB CHEMISTRY METHOD 08/21/2024 2:58 PM [facility] CO2 26 21 - 32 mmol/L LAB CHEMISTRY METHOD 08/21/2024 2:58 PM [facility] Anion Gap 5 3 - 11 LAB CHEMISTRY METHOD 08/21/2024 2:58 PM [facility] Glucose 81 70 - 100 mg/dL LAB CHEMISTRY METHOD 08/21/2024 2:58 PM [facility] BUN 24 5 - 25 mg/dL LAB CHEMISTRY METHOD 08/21/2024 2:58 PM [facility] Creatinine 1.58(H) 0.50 - 1.10 mg/dL LAB CHEMISTRY METHOD 08/21/2024 2:58 PM [facility] eGFR 33(L) >=60 mL/min/1. 73m2 LAB CHEMISTRY METHOD 08/21/2024 2:58 PM [facility] Comment:Calculation based on the??Chronic Kidney Disease Epidemiology Collaboration (CKD-EPI) equation refit??without adjustment for race. BUN/Creatinine Ratio 15.2 LAB CHEMISTRY METHOD 08/21/2024 2:58 PM EST [facility] Calcium 8.5 8.5 - 10.5 mg/dL LAB CHEMISTRY METHOD 08/21/2024 2:58 PM EST [facility] Blood Venous blood specimen / Unknown Venipuncture / Unknown 08/21/2024 11:18 AM EST 08/21/2024 11:18 AM EST Elly Jaeger NP LAB BLOOD ORDERABLES [facility]) [facility] [address] [place] [address], * Cardiac device check - Remote- MURJ (08/18/2024 4:23 PM EST) Only the most recent of3 resultswithin the time period is included. Date Time Interrogation Session [id number] CV DEVICE CHECK Type Interrogation Session Remote CV DEVICE CHECK Implantable Pulse Generator Passenger Attendant MDT CV DEVICE CHECK Implantable Pulse Generator Type DIRECTOR OF COUNTERINTELLIGENCE-P CV DEVICE CHECK Implantable Pulse Generator Model Percepta Quad DIRECTOR OF COUNTERINTELLIGENCE-P [id number] CV DEVICE CHECK Implantable Pulse Generator Serial Number [id number] CV DEVICE CHECK Implantable Pulse Generator Implant Date 20210131 CV DEVICE CHECK Battery Remaining Longevity 58.0 CV DEVICE CHECK Battery Voltage 2.960 CV D EVICE CHECK Battery VISUAL ARTIST Trigger 2.595 CV DEVICE CHECK Battery Status Middle of Service CV DEVICE CHECK Chinmay Statistic RA Percent Paced 99.98 CV DEVICE CHECK Chinmay Statistic RV Percent Paced 99.80 CV DEVICE CHECK DIRECTOR OF COUNTERINTELLIGENCE Statistic LV Percent Paced 99.78 CV DEVICE CHECK DIRECTOR OF COUNTERINTELLIGENCE Statistic DIRECTOR OF COUNTERINTELLIGENCE Percent Paced 99.77 CV DEVICE CHECK Atrial Tachy Statistic AT/AF [place] Percent 0.00 CV DEVICE CHECK Lead Channel Sensing Intrinsic Amplitude 1.250 CV DEVICE CHECK Lead Channel Setting Sensing Sensitivity 0.30 CV DEVICE CHECK Lead Channel Impedance Value 399 CV DEVICE CHECK Lead Channel Pacing Threshold Amplitude 1.375 CV DEVICE CHECK Lead Channel Pacing Threshold Pulse Width 0.4 CV DEVICE CHECK Lead Channel RA Pacing Threshold Date 2023-02-03 CV DEVICE CHECK Lead Channel Setting Pacing Amplitude 2.750 CV DEVICE CHECK Lead Channel Setting Pacing Pulse Width 0.4 CV DEVICE CHECK Lead Channel Sensing Intrinsic Amplitude 16.000 CV DEVICE CHECK Lead Channel Setting Sensing Sensitivity 0.90 CV DEVICE CHECK Lead Channel Impedance Value 570 CV DEVICE CHECK Lead Channel Pacing Threshold Amplitude 0.625 CV DEVICE CHECK Lead Channel Pacing Threshold Pulse Width 0.4 CV DEVICE CHECK Lead Channel RV Pacing Threshold Date 2024-08-17 CV DEVICE CHECK Lead Channel Setting Pacing Amplitude 2.000 CV DEVICE CHECK Lead Channel Setting Pacing Pulse Width 0.4 CV DEVICE CHECK Lead Channel Impedance Value 893 CV DEVICE CHECK Lead Channel Pacing Threshold Amplitude 1.000 CV DEVICE CHECK Lead Channel Pacing Threshold Pulse Width 0.4 CV DEVICE CHECK Lead Channel Pacing Threshold Date 2024-08-17 CV DEVICE CHECK Lead Channel Setting Pacing Amplitude 1.500 CV DEVICE CHECK Lead Channel Setting Pacing Pulse Width 0.4 CV DEVICE CHECK Chinmay Setting Mode (NBG Code) DDDR CV DEVICE CHECK Ventricular chambers paced during DIRECTOR OF COUNTERINTELLIGENCE pacing. BiV CV DEVICE CHECK Chinmay Setting Lower Rate Limit 75 CV DEVICE CHECK Chinmay Setting AT Mode Switch Rate 171 CV DEVICE CHECK Chinmay Setting Maximum Tracking Rate 110 CV DEVICE CHECK Chinmay Setting Maximum Sensor Rate 120 CV DEVICE CHECK Chinmay Setting PAV Delay 150 CV DEVICE CHECK Chinmay Setting EDITH Delay 130 CV DEVICE CHECK DIRECTOR OF COUNTERINTELLIGENCE LV-RV Delay 30 CV D EVICE CHECK Zone Setting Type Category AT/AF CV DEVICE CHECK Rate 171 CV DEVICE CHECK Therapies Some Rx Off CV DEVIC E CHECK Zone Setting Status Monitor CV DEVICE CHECK Zone ID 2 CV DEVICE CHECK Zone Setting Type Category VT CV DEVICE CHECK Rate 150 CV DEVICE CHECK Zone Setting Status ENABLED CV DEVICE CHECK Zone ID 6 CV DEVICE CHECK Date of Service 2024-08-22 CV DEVICE CHECK Anatomical Region Laterality Modality Device Interroga tion 08/17/2024 11:3 4 PM EST Impressions 08/18/2024 4:19 PM EST Heart Failure Diagnostic: Elevated Forwarded to triage to evaluate for HF * Heart failure diagnostics assessed through the device * Status: Elevated * ??Thoracic Impedance is trending down, Narrative Procedure Note Elida Claudio NP - 08/18/2024 IMPRESSION: Heart Failure Diagnostic: Elevated Forwarded to triage to evaluate for HF * Heart failure diagnostics assessed through the device * Status: Elevated * Thoracic Impedance is trending down, Elida Claudio NP CV IMPLANTABLE CARDI AC DEVICE PROCEDURES * XR Thoracic Spine 2 Views (08/01/2024 3:00 PM EST) Anatomical Region Laterality Modality Spine, T-spine Radiographic Karina ging 08/01/2024 4:04 PM EST Impressions 08/01/2024 4:06 PM EST No compression fractures. -------- FINAL REPORT -------- Dictated By: Misael Givens Dictated Date: 08/01/2024 16:04 ET Assigned Physician: Misael Givens Reviewed and Electronically Signed By: Misael Givens Signed Date: 08/01/2024 16:06 ET Workstation ID: [id number] Transcribed By: Self Edit Transcribed Date: 08/01/2024 16:04 ET Narrative 08/01/2024 4:06 PM EST XR THORACIC SPINE 2 VIEWS Reason: pain mid back pain r/o comp fx Comparison: None FINDINGS: Mildly exaggerated thoracic kyphosis. ??No subluxation. ??No compression fracture. ??Tiny marginal osteophytes at multiple levels. ??No obvious paraspinal masses. Procedure Note Misael Givens MD - 08/01/2024 XR THORACIC SPINE 2 VIEWS Reason: pain mid back pain r/o comp fx Comparison: None FINDINGS: Mildly exaggerated thoracic kyphosis. No subluxation. No compressionfracture. Tiny marginal osteophytes at multiple levels. No obviousparaspinal masses. IMPRESSION: No compression fractures. -------- FINAL REPORT -------- Dictated By: Misael Givens Dictated Date: 08/01/2024 16:04 ET Assigned Physician: Misael Givens Reviewed and Electronically Signed By: Misael Givens Signed Date: 08/01/2024 16:06 ET Workstation ID: [id number] Transcribed By: Self Edit Transcribed Date: 08/01/2024 16:04 ET Isabella RODARTE IMG XR PROCEDURE S * (ABNORMAL) CBC auto differential (08/01/2024 2:10 PM EST) [facility] WBC 6.6 4.8 - 10.8 K/mcL LAB HEMETOLOGY METHOD 08/01/2024 7:06 PM [facility] RBC 4.40 3.80 - 4.80 M/mcL LAB HEMETOLOGY METHOD 08/01/2024 7:06 PM [facility] Hemoglobin 13.8 11.5 - 16.0 g/dL LAB HEMETOLOGY METHOD 08/01/2024 7:06 PM [facility] Hematocrit 45.6 35.0 - 47.0 % LAB HEMETOLOGY METHOD 08/01/2024 7:06 PM [facility] MCV 102.7(H) 79.0 - 98.0 FL LAB HEMETOLOGY METHOD 08/01/2024 7:06 PM [facility] MCH 31.1 27.0 - 32.0 pcg LAB HEMETOLOGY METHOD 08/01/2024 7:06 PM [facility] MCHC 30.3(L) 32.0 - 37.0 g/dL LAB HEMETOLOGY METHOD 08/01/2024 7:06 PM [facility] RDW 14.6 11.0 - 15.0 % LAB HEMETOLOGY METHOD 08/01/2024 7:06 PM [facility] Platelets 221 130 - 400 K/mcL LAB HEMETOLOGY METHOD 08/01/2024 7:06 PM [facility] MPV 11.1(H) 7.0 - 11.0 FL LAB HEMETOLOGY METHOD 08/01/2024 7:06 PM [facility] NRBC 0.0 <1.0 % LAB HEMETOLOGY METHOD 08/01/2024 7:06 PM [facility] NRBC Absolute 0.00 <0.10 K/mcL LAB HEMETOLOGY METHOD 08/01/2024 7:06 PM [facility] Neutrophils Relative 60.6 % LAB HEMETOLOGY METHOD 08/01/2024 7:06 PM [facility] Lymphocytes Relative 27.1 % LAB HEMETOLOGY METHOD 08/01/2024 7:06 PM [facility] Monocytes Relative 8.0 % LAB HEMETOLOGY METHOD 08/01/2024 7:06 PM [facility] Eosinophils Relative 3.2 % LAB HEMETOLOGY METHOD 08/01/2024 7:06 PM [facility] Basophils Relative 0.8 % LAB HEMETOLOGY METHOD 08/01/2024 7:06 PM [facility] Immature Granulocytes Relative 0.3 % LAB HEMETOLOGY METHOD 08/01/2024 7:06 PM [facility] Neutrophils Absolute 4.02 1.50 - 7.00 K/mcL LAB HEMETOLOGY METHOD 08/01/2024 7:06 PM [facility] Lymphocytes Absolute 1.80 1.00 - 5.00 K/mcL LAB HEMETOLOGY METHOD 08/01/2024 7:06 PM [facility] Monocytes Absolute 0.53 0.20 - 1.00 K/mcL LAB HEMETOLOGY METHOD 08/01/2024 7:06 PM [facility] Eosinophils Absolute 0.21 0.00 - 0.50 K/mcL LAB HEMETOLOGY METHOD 08/01/2024 7:06 PM [facility] Basophils Absolute 0.05 0.00 - 0.20 K/mcL LAB HEMETOLOGY METHOD 08/01/2024 7:06 PM [facility] Immature Granulocytes Absolute 0.02 0.00 - 0.03 K/mcL LAB HEMETOLOGY METHOD 08/01/2024 7:06 PM [facility] Blood Venous blood specimen / Unknown Venipuncture / Unknown 08/01/2024 2:10 PM EST 08/01/2024 2:10 PM EST Isabella RODARTE LAB BLOOD ORDERA BLES Performing Organization Address [facility]/ZIP Co de Phone Number [facility] [address] [place] [address], [place] [phone] * Vitamin D 25 hydroxy (08/01/2024 2:10 PM EST) Vit D, 25-Hydroxy 41.7 30.0 - 80.0 ng/mL LAB CHEMISTRY METHOD 08/01/2024 6:56 PM EST [facility] Blood Venous blood specimen / Unknown Venipuncture / Unknown 08/01/2024 2:10 PM EST 08/01/2024 2:10 PM EST Isabella RODARTE LAB BLOOD ORDERA BLES Performing Organization Address [facility] Co de Phone Number [facility] [address] [place] [address], [place] [phone] * Magnesium (08/01/2024 2:10 PM EST) Pathologist [facility] Magnesium 2.6 1.9 - 2.6 mg/dL LAB CHEMISTRY METHOD 08/01/2024 6:43 PM EST [facility] Blood Venous blood specimen / Unknown Venipuncture / Unknown 08/01/2024 2:10 PM EST 08/01/2024 2:10 PM EST Isabella RODARTE LAB BLOOD ORDERA BLES Performing Organization Address City/[facility]/ZIP Co de Phone Number [facility] [address] [place] [address], [place] [phone] * Iron (08/01/2024 2:10 PM EST) Iron 93 40 - 150 mcg/dL LAB CHEMISTRY METHOD 08/01/2024 6:43 PM EST [facility] Blood Venous blood specimen / Unknown Venipuncture / Unknown 08/01/2024 2:10 PM EST 08/01/2024 2:10 PM EST Isabella RODARTE LAB BLOOD ORDERA BLES Performing Organization Address City/[facility]/ZIP Co de Phone Number [facility] [address] [place] [address], [place] [phone] * (ABNORMAL) Folate (08/01/2024 2:10 PM EST) Folate >20.0(H) 2.8 - 17.0 ng/ml LAB CHEMISTRY METHOD 08/01/2024 7:06 PM EST [facility] Blood Venous blood specimen / Unknown Venipuncture / Unknown 08/01/2024 2:10 PM EST 08/01/2024 2:10 PM EST Isabella RODARTE LAB BLOOD ORDERA BLES Performing Organization Address [facility]/ZIP Co de Phone Number [facility] [address] [place] [address], [place] [phone] * Ferritin (08/01/2024 2:10 PM EST) Pathologist [facility] Ferritin 16 8 - 252 ng/mL LAB CHEMISTRY METHOD 08/01/2024 7:06 PM EST [facility] Blood Venous blood specimen / Unknown Venipuncture / Unknown 08/01/2024 2:10 PM EST 08/01/2024 2:10 PM EST Isabella RODARTE LAB BLOOD ORDERA BLES [facility] [address] [place] [address], [place] [phone] * (ABNORMAL) Vitamin B12 (08/01/2024 2:10 PM EST) Pathologist [facility] Vitamin B-12 1,199(H) 250 - 900 pcg/mL LAB CHEMISTRY METHOD 08/01/2024 7:06 PM [facility] Blood Venous blood specimen / Unknown Venipuncture / Unknown 08/01/2024 2:10 PM EST 08/01/2024 2:10 PM EST Isabella RODARTE LAB BLOOD ORDERA BLES [facility] [address] [place] [address], * (ABNORMAL) Comprehensive metabolic panel (08/01/2024 2:10 PM EST) [facility] Sodium 139 133 - 145 mmol/L LAB CHEMISTRY METHOD 08/01/2024 7:06 PM [facility] Potassium 5.0 3.5 - 5.5 mmol/L LAB CHEMISTRY METHOD 08/01/2024 7:06 PM [facility] Chloride 107 96 - 110 mmol/L LAB CHEMISTRY METHOD 08/01/2024 7:06 PM [facility] CO2 25 21 - 32 mmol/L LAB CHEMISTRY METHOD 08/01/2024 7:06 PM [facility] Anion Gap 7 3 - 11 LAB CHEMISTRY METHOD 08/01/2024 7:06 PM [facility] Glucose 95 70 - 100 mg/dL LAB CHEMISTRY METHOD 08/01/2024 7:06 PM [facility] BUN 25 5 - 25 mg/dL LAB CHEMISTRY METHOD 08/01/2024 7:06 PM [facility] Creatinine 1.50(H) 0.50 - 1.10 mg/dL LAB CHEMISTRY METHOD 08/01/2024 7:06 PM [facility] eGFR 35(L) >=60 mL/min/1. 73m2 LAB CHEMISTRY METHOD 08/01/2024 7:06 PM [facility] Comment:Calculation based on the??Chronic Kidney Disease Epidemiology Collaboration (CKD-EPI) equation refit??without adjustment for race. BUN/Creatinine Ratio 16.7 LAB CHEMISTRY METHOD 08/01/2024 7:06 PM [facility] Calcium 8.8 8.5 - 10.5 mg/dL LAB CHEMISTRY METHOD 08/01/2024 7:06 PM [facility] AST (SGOT) 19 10 - 42 unit/L LAB CHEMISTRY METHOD 08/01/2024 7:06 PM [facility] ALT (SGPT) 24 10 - 60 unit/L LAB CHEMISTRY METHOD 08/01/2024 7:06 PM [facility] Alkaline Phosphatase 82 42 - 121 unit/L LAB CHEMISTRY METHOD 08/01/2024 7:06 PM [facility] Total Protein 7.4 6.0 - 8.0 g/dL LAB CHEMISTRY METHOD 08/01/2024 7:06 PM [facility] Albumin 3.9 3.2 - 5.0 g/dL LAB CHEMISTRY METHOD 08/01/2024 7:06 PM [facility] Total Bilirubin 0.5 0.0 - 1.4 mg/dL LAB CHEMISTRY METHOD 08/01/2024 7:06 PM [facility] Blood Venous blood specimen / Unknown Venipuncture / Unknown 08/01/2024 2:10 PM EST 08/01/2024 2:10 PM EST Isabella RODARTE LAB BLOOD ORDERA BLES [facility] [address] [place] [address], [place] [phone] * NM CARDIAC AMYLOID STUDY W/ CT (07/03/2024 2:10 PM EST) BSA 1.69 m2 CV PACS STRESS Target HR 118 bpm CV PACS STRESS Anatomical Region Laterality Modality Nuclear Medicine Narrative 07/06/2024 4:46 PM EST [facility] [address] [place] [address], [id number] [place] [id number] TEL: FAX: Name: Darlene Alexander ? Date of exam: 07/06/24 : 1945 ?Gender: female ? Ordering provider: Dr. Parr TEST TYPE: 99mTechnetium-Pyrophosphate Cardiac Amyloidosis Performed by: ??Sofiya Shin MD INDICATION: HFrEF, cardiomyopathy PRIOR CARDIACTESTING: Echocardiogram TECHNIQUE: The patient was given an IV injection of 19.7 mCi of 99mTc-PYP. Three hours after injection they under went planar and SPECT/CT imaging. Planar imaging was done in the anterior and lateral position and 750,000 counts were obtained. ?? FINDINGS: The overall image quality was good. Bone uptake was seen. ??The IV, which was placed in the left forearm seems to have infiltrated with a small collection of tracer uptake. ??We adjusted the scan and postprocessing to account for this. The H/CL ratio is 1.21-in the equivocal range. The visual scan of the images revealed focal uptake on SPECT/CT imaging. The semi-quantitative findings revealed Grade 1. CONCLUSIONS: The 99mTc-PYP revealed findings that are equivocal for TTR amyloidosis. There is patchy uptake or residual blood pool seen SPECT/CT, and the visual score is 1 . The H/CL ratio is less than 1.3. Evaluation by serum free light chains and serum/urine immunofixation should be done in all patients as any degree of uptake can be seen in AL amyloid No uptake or equivocal results could represent AL amyloid or early ATTR cardiac amyloid Results should be interpreted in the context of prior evaluation and referral to costume technician or amyloid expert is recommended if either: A: the echo and/or CMR is strongly suggestive of cardiac amyloidosis and PYP is not or is equivocal (biopsy may be indicated) B: and/or free light chains are abnormal or equivocal Nuclear Study Quality Risk factors include: age greater than 40. Time of first imaging occurred at 180 min. Overall image quality is fair. Imaging technique: planar and SPECT. Javier Shelton MD CV STRESS PROC EDURES * (ABNORMAL) TRANSTHORACIC ECHOCARDIOGRAM (TTE) COMPLETE W/ CONTRAST (06/21/2024 4:20 PM EST) Left Atrium Minor Daggett 5.6 cm CV PACS Left Atrium Major Daggett 5.8 cm CV PACS LA Area Sys (A2C) 23 cm2 CV PACS LA Area Sys (A4C) 20 cm2 CV PACS LA Volume (BP) 65 mL CV PACS RA Area 16.7 cm2 CV PACS RA 2D Volume 46 mL CV PACS AV Mean Gradient 3 mmHg CV PACS Ao VTI 22.8 cm CV PACS AV Peak Rajinder 1.1 m/s CV PACS AV Peak Gradient 5 mmHg CV PACS AV Area Continuity Equation 1.8 cm2 CV PACS AV Area Peak Velocity 1.6 cm2 CV PACS Aortic Sinus Valsalva 3.4 cm CV PACS Ascending Aorta 3.1 cm CV PACS IVSD 0.7 0.6 - 0.9 cm CV PACS LVIDD 5.8(A) 3.8 - 5.2 cm CV PACS LVIDS 4.0(A) 2.2 - 3.5 cm CV PACS LVOT Diameter 2.0 cm CV PACS LVOT Mean Rajinder 0.4 m/s CV PACS LVOT Mean Grad 1 mmHg CV PACS LVOT Peak VTI 13.2 cm CV PACS LVOT Peak Rajinder 0.5 m/s CV PACS LVOT Peak Gradient 1 mmHg CV PACS LVPWD 0.7 0.6 - 0.9 cm CV PACS MV E' Tissue Velocity Lateral 6 cm/s CV PACS MV E' Tissue Velocity Septal 4 cm/s CV PACS LVOT Area 3.1 cm2 CV PACS LVOT Stroke Volume 41 mL CV PACS E Wave Deceleration Time 214 119 - 242 ms CV PACS MV Peak E Rajinder 0.75 m/s CV PACS RV Diastolic Basal Dimension 3.3 2.5 - 4.1 cm CV PACS RV S' 10 cm/s CV PACS TAPSE 20 mm CV PACS TR Peak Velocity 2.42 m/s CV PACS TR Peak Gradient 23 mmHg CV PACS E/E' Ratio Septal 19 CV PACS E/E' Ratio Averaged 16 CV PACS LVOT Stroke Index 24 mL/m2 CV PACS Relative Wall Thickness ratio 0.24 CV PACS LVOT:AV VTI Index 0.58 CV PACS FS 31 % CV PACS LV Mass 2D 149 g CV PACS Ascending Aorta Index 1.85 cm/m2 CV PACS LVOT flow 126 mL/s CV PACS RA 2D Volume Index 27 mL/m2 CV PACS CAROL ANN Index (VTI) 1.08 cm2/m2 CV PACS CAROL ANN Index (Pk Rajinder) 0.95 cm2/m2 CV PACS LVIDD Index 3.45 cm/m2 CV PACS LVIDS Index 2.38 cm/m2 CV PACS AV Velocity Ratio 0.45 CV PACS E/E' Ratio Lateral 13 CV PACS LA Volume Index (BP) 39 mL/m2 CV PACS LV Mass Index 2D 89 g/m2 CV PACS BSA 1.7 m2 CV PACS Right Ventricular Peak Systolic Pressure 26 mmHg CV PACS Est. RA Pressure 3 mmHg CV PACS Anatomical Region Laterality Modality Ultrasound Narrative 07/10/2024 12:43 PM EST ?Left ventricle cavity is moderately dilated. Left ventricular systolic function is moderately decreased with an ejection fraction of 30-35%. ?LV global hypokinesis is present. ?Left ventricle wall thickness is normal. ?Right ventricle cavity is normal. Right ventricular systolic function is normal. ?Right??Ventricle: A pacer wire is present in the right ventricle. ?Mitral??Valve: There is mild regurgitation. ?Tricuspid??Valve: There is mild regurgitation. Left Ventricle Left ventricle cavity is moderately dilated. Wall thickness is normal. Systolic function is moderately decreased with an ejection fraction of 30-35%. Global LV hypokinesis is present. Unable to assess diastolic function. Right Ventricle Right ventricle cavity appears normal. Systolic function is normal. A pacer wire is present in the right ventricle. Left Atrium Left atrium cavity is mildly dilated. Right Atrium Right atrium cavity is at upper limits of normal. A pacer wire is present in the right atrium. IVC/SVC Inferior vena cava structure is normal. Mitral Valve The leaflets are mildly thickened. There is mild annular calcification. There is mild regurgitation. There is no evidence of mitral valve stenosis. Tricuspid Valve The leaflets exhibit normal excursion. There is mild regurgitation. There is no evidence of tricuspid valve stenosis. Aortic Valve The aortic valve is trileaflet. There is no regurgitation or stenosis. Pulmonic Valve Visualized portions of the pulmonic valve appear normal. There is trace pulmonic valve regurgitation. There is no evidence of pulmonic valve stenosis. Ascending Aorta The aorta appears normal in size. Pericardium Pericardium appears normal. Study Details Overall the study quality was technically difficult. Definity contrast was given to enhance imaging. Study was difficult due to: poor endocardial visualization. Javier Shelton MD CV ECHO PROCED URES * Lipid panel (09/09/2023) LDL/HDL Ratio 2 0 - 4 Triglycerides 115 0 - 150 mg/dL Cholesterol 127 0 - 200 mg/dL HDL 62 40 mg/dL LDL Cholesterol 42 0 - 100 mg/dL Blood Venous blood specimen / Unknown Historical Provider LAB BLOOD ORDERAB LES from Last 3 Months or Most Recently Relevant to Health Maintenance Advance Directives Documents on File Type Date Recorded Patient Shirt Operator Expl anation Health Care Decision (hx) 01/16/2021 AD MCLEOD DIRECTIVE Health Care Decision (hx) 01/16/2021 AD MCLEOD DIRECTIVE Health Care Decision (hx) 01/16/2021 AD MLCEOD DIRECTIVE Health Care Decision (hx) 01/16/2021 AD MCLEOD DIRECTIVE Health Care Decision (hx) 01/16/2021 AD MCLEOD DIRECTIVE Health Care Decision (hx) 01/16/2021 AD MCLEOD DIRECTIVE Health Care Decision (hx) 01/16/2021 AD MCLEOD DIRECTIVE Health Care Decision (hx) 01/16/2021 AD MCLEOD DIRECTIVE Health Care Decision (hx) 01/16/2021 AD MCLEOD DIRECTIVE Health Care Decision (hx) 01/16/2021 AD MCLEOD DIRECTIVE Health Care Decision (hx) 01/16/2021 AD MCLEOD DIRECTIVE Health Care Decision (hx) 01/16/2021 AD MCLEOD DIRECTIVE Health Care Decision (hx) 01/16/2021 AD MCLEOD DIRECTIVE Health Care Decision (hx) 01/16/2021 AD MCLEOD DIRECTIVE Care Teams Pyrometer Operator Relationship Specialty Start Date End Date Isabella Miller PA [address] [address] PCP - General Primary Care 06/21/24
--- OUTSIDE RECORDS SUMMARY | 2024-09-11 14:45 | XMS_ITS | Encounter Summary ---
Author Organization [facility] Address [address] [place] [address] Care Team Providers Care Facepiece Line Supervisor Name Role Phone Isabella Miller Primary Care Provider + Encounter Details Date Type Department Care Team (Late Contact Info) Description 08/18/2024 4:25 PM EST Ancillary Procedure [facility] Cardiology [facility] [address] [facility] 154 [place] [address] Social History Tobacco Use Types Packs/Day Years [...] on file documented as of this encounter Plan of Treatment Upcoming Encounters Date Type Department Care Team (Late Contact Info) Description 10/18/2024 2:00 PM EST Office Visit Nephrology - [address] [address] Jake Carr MD [address] [place] [address] 10/31/2024 11:00 AM EDT Ancillary Procedure [facility] Cardiology [facility] [address] [facility] 154 [place] [address] 01/10/2025 10:50 AM EDT Office Visit [facility] [address] [place] [address] Javier Shelton MD [address] [place] [address] [place] [address] 02/23/2025 11:15 AM EDT Office Visit Internal Medicine - [place] [address] [place] [address] Isabella Miller PA [address] [place] [address] documented as of this encounter Procedures Procedure Name Priority Date/Time Associated Diagnosis Comments CARDIAC DEVICE CHECK- REMOTE- MURJ Routine 08/18/2024 4:23 PM EST documented in this encounter Results * Cardiac device check - Remote- MURJ (08/18/2024 4:23 PM EST) Date Time Interrogation Session [id number] CV DEVICE CHECK Type Interrogation Session Remote CV DEVICE CHECK Implantable Pulse Generator Multimedia Journalist MDT CV DEVICE CHECK Implantable Pulse Generator Type SALES AGENT FINANCIAL REPORT SERVICE-P CV DEVICE CHECK Implantable Pulse Generator Model Percepta Quad SALES AGENT FINANCIAL REPORT SERVICE-P [id number] CV DEVICE CHECK Implantable Pulse Generator Serial Number [id number] CV DEVICE CHECK Implantable Pulse Generator Implant Date 20210131 CV DEVICE CHECK Battery Remaining Longevity 58.0 CV DEVICE CHECK Battery Voltage 2.960 CV D EVICE CHECK Battery SALES ENGINEER Trigger 2.595 CV DEVICE CHECK Battery Status Middle of Service CV DEVICE CHECK Chinmay Statistic RA Percent Paced 99.98 CV DEVICE CHECK Chinmay Statistic RV Percent Paced 99.80 CV DEVICE CHECK SALES AGENT FINANCIAL REPORT SERVICE Statistic LV Percent Paced 99.78 CV DEVICE CHECK SALES AGENT FINANCIAL REPORT SERVICE Statistic SALES AGENT FINANCIAL REPORT SERVICE Percent Paced 99.77 CV DEVICE CHECK Atrial Tachy Statistic AT/AF [place] Percent 0.00 CV DEVICE CHECK Lead Channel [...] CV DEVICE CHECK Ventricular chambers paced during SALES AGENT FINANCIAL REPORT SERVICE pacing. BiV CV DEVICE CHECK Chinmay Setting Lower Rate Limit 75 CV DEVICE CHECK Chinmay Setting AT Mode Switch Rate 171 CV DEVICE CHECK Chinmay Setting Maximum Tracking Rate 110 CV DEVICE CHECK Chinmay Setting Maximum Sensor Rate 120 CV DEVICE CHECK Chinmay Setting PAV Delay 150 CV DEVICE CHECK Chinmay Setting EDITH Delay 130 CV DEVICE CHECK SALES AGENT FINANCIAL REPORT SERVICE LV-RV Delay 30 CV D EVICE CHECK [...] NP CV IMPLANTABLE CARDI AC DEVICE PROCEDURES documented in this encounter Visit Diagnoses Not on filedocumented in this encounter Care Teams Facepiece Line Supervisor Relationship Specialty Start Date End Date Isabella Miller PA 175 [place] [address] PCP - General Primary Care 06/21/24 documented as of this encounter
== END 2024-09-11 10:46 | disposition home or self-care (01) ==
PROVIDERS: PCP Internal Medicine; Visit Provider Nurse Practitioner Family
DX: G89.4 Chronic pain syndrome (principal); G62.0 Drug-induced polyneuropathy; T45.1X5A Adverse effect of antineoplastic and immunosuppressive drugs, initial encounter; Z79.891 Long term (current) use of opiate analgesic; G62.9 Polyneuropathy, unspecified; M17.0 Bilateral primary osteoarthritis of knee; M47.817 Spondylosis without myelopathy or radiculopathy, lumbosacral region
CPT/HCPCS: 99214; G2211

== ENCOUNTER → 2024-09-11 10:10 | Outpatient (BNVA) | payer MEDICARE, SELFPAY | PROVIDERS: PCP Internal Medicine; Visit Provider Nurse Practitioner Family | DX: G89.4 Chronic pain syndrome (principal); G62.0 Drug-induced polyneuropathy; T45.1X5A Adverse effect of antineoplastic and immunosuppressive drugs, initial encounter; G62.9 Polyneuropathy, unspecified; M17.0 Bilateral primary osteoarthritis of knee; M47.817 Spondylosis without myelopathy or radiculopathy, lumbosacral region; F11.90 Opioid use, unspecified, uncomplicated; Z51.81 Encounter for therapeutic drug level monitoring | CPT/HCPCS: 99212 ==

== ENCOUNTER 2024-10-16 10:35 | Outpatient (AMB) | payer MEDICARE, SELFPAY ==
--- NOTE | 2024-10-16 10:36 | MHC.OFFVIS ---
Vital Signs 10/16/24 10:44 Height 5 ft 3 in Weight 144 lb BMI 25.5 BP 126/62 Blood Pressure Location Rt brachial Position Sitting Pulse 86 Pulse Source Pulse Oximeter Pulse Oximetry (%) 97 Oxygen Delivery Method Room Air Intake Visit Reasons: Pill Count Intake Note: Darlene comes in today for a pill count to morphine, patient should have 22 tablets and presents with 27 tablets which she last took last night 10/15/24 at 11:30pm. Pain today 2/10 Allergies No Known Allergies Allergy (Verified 10/16/24 10:44) HPI Comments Details: Patient presents today a pill count. She is supposed to have #22 pills in her possession and has #27 pills. This demonstrates a responsible attitude in regards to the medication regiment. Patient reports adequate analgesia on current regime without any side effects except constipation for which she utilizes Colace or Miralax. Patient reports 2/10 pain today. She also has medical marijuana card and has been taking cannabis edibles and Tylenol as needed. Patient reports started physical therapy at [facility] for bilateral knee pain related to OA. She reports difficulty participating in PT and HEP due to increased pain with exercises. She is interested in bilateral knee cortisone injections. Denies previous knee injections or surgery. Patient denies any cough, cold, infection, fever or any other significant changes in medical history since last office visit. PRIOR: Darlene is a pleasant 76 year old female who has previously been evaluated in this office by Dr. Monroy for bilateral leg pain which she attributes to her chemotherapy s/p breast cancer years ago. She was previously under the care of [facility], who was managing her with medication and she reports overall improvements with morphine 15 mg BID. She was evaluated by Dr. Monroy, who agreed to continue her regimen through this office. She is accompanied by her daughter. Today she is here for a pill count, which was concordant. This demonstrates a responsible attitude in regards to the opioid regimen. She reports improved function and decrease in pain, with no noted side effects. Denies any sedation, nausea or urinary retention. She was recently discharged with a small bowel obstruction which was thought to be related to adhesions from a hysterectomy >25 years ago. She has previously been instructed to use a daily stool softener as well as miralax and she has not been adhering to this regimen. She states some weeks she will have a bowel movement every 5 days and other weeks she will have one every other day without the need for medication. She has a follow up with her PCP next week as well as cardiology this week to review her new blood pressure medications. She did note dizziness upon standing and has been taking her blood pressure at home. She was instructed to contact her PCP regarding her low bp today. She also has CHF and although she states she has good fluid intake, she was instructed to decrease by cardiology. Of note, patient recently had a Medtronic pacer placed 01/2021. PRIOR: Darlene is very pleasant 76 years old female who presents in my office with complains on pain in bilateral lower extremities below the level of the knees. She reports this pain is spreading all the way down to her toes. History of present illness she was subject of treatment of peripheral polyneuropathy of bilateral lower extremities after 18 years ago she was treated for breast cancer with physical therapy. She was under care of [facility]. She reports that she can not sleep normally do activities of daily living she can take care of herself and she can not function normally. She is retired individual. In terms of tissue damage the she reports her pain as pulsing, throbbing, pounding, dull, serve, hurting, aching, heavy, hot burning, skull doing, fearful. She reports multiple evaluation of her pain with [facility] and [facility] spine. Her past medical history significant for atrial fibrillation and pacemaker. She denies smoking cigarettes drinking alcohol using recreational drugs. She has a pacemaker. [facility] Medical History Thyroid cancer Chronic pain syndrome Peripheral polyneuropathy Surgical History Status post ablation of incompetent vein using laser (09/11/22) Social History Patient Tobacco Use Status: Never used Tobacco Current occupational status: retired Review of Systems Const All systems reviewed & are unremarkable except as noted in HPI and below Physical Exam Vital Signs: Last Vital Signs Pulse 86 10/16/24 10:44 BP 126/62 10/16/24 10:44 Pulse Ox 97 10/16/24 10:44 Oxygen Delivery Method Room Air 03/03/25 10:44 BMI result Body Mass Index 25.5 General: Appears afebrile. Alert and oriented. Mood and affect appropriate. Follows and participates in conversation appropriately. Respiratory effort is unlabored. No cough. Able to transition from sit to stand unassisted. Ambulates with bilaterally normal heel strike and toe off. Extrem General: Yes capillary refill normal, Yes no clubbing, cyanosis or edema and Yes no calf tenderness Right lower extremity: knee (Limited ROM due to pain.) Details: normal to inspection, tenderness Location: of the patella, of the popliteal fossa, of the medial joint line and of the lateral joint line and crepitus; no swelling, no ecchymosis and no unusual warmth Left lower extremity: knee (Limited ROM due to pain.) Details: normal to inspection, tenderness Location: of the patella, of the popliteal fossa, of the medial joint line and of the lateral joint line and crepitus; no swelling, no ecchymosis and no unusual warmth Psych Appearance: grossly normal and well kempt Mental Status: mental status grossly normal Speech and movement: Normal speech and movement present and Clear speech present Affect: normal affect Attitude: cooperative Thought process: Normal thought process present Thought content: Normal thought content present, suicidality (none), no hallucinations and No Depressive thoughts present Insight: Good insight present (Psych) Judgement: Good judgement present (Psych) Results Reviewed Results Reviewed: XR KNEE AP STANDING 03/16/24 CLINICAL INFORMATION: Pain in right knee. COMPARISON: 10/01/2023. TECHNIQUE: AP bilateral standing view of the knees was obtained. FINDINGS: Bones are diffusely demineralized. Mild narrowing of the medial and lateral compartments. IMPRESSION: Mild narrowing of the medial and lateral compartments. Assessment & Plan Assessment & Plan (1) Chronic, continuous use of opioids: Code(s): F11.90 - Opioid use, unspecified, uncomplicated Category: Medical (2) Chronic pain syndrome: Code(s): G89.4 - Chronic pain syndrome Category: Medical (3) Chemotherapy-induced peripheral neuropathy: Code(s): G62.0 - Drug-induced polyneuropathy; T45.1X5A - Adverse effect of antineoplastic and immunosuppressive drugs, initial encounter Category: Medical (4) Peripheral polyneuropathy: Code(s): G62.9 - Polyneuropathy, unspecified Category: Medical (5) Bilateral primary osteoarthritis of knee: Code(s): M17.0 - Bilateral primary osteoarthritis of knee Category: Medical (6) Lumbosacral spondylosis: Code(s): M47.817 - Spondylosis without myelopathy or radiculopathy, lumbosacral region Category: Medical (7) Bilateral knee pain: Code(s): M25.561 - Pain in right knee; M25.562 - Pain in left knee Category: Medical Plan Patient has shown accountability for her medication regimen. There is no evidence of misuse, abuse or diversion at this time. MassPAT reviewed. Recent random UDS was concordant. Script for Morphine 15 mg BID prn with refill date of 10/24/24. Patient has Narcan at home. Continue to monitor for any adverse effects. Patient takes Colace and Miralax prn for constipation with mild relief. Schedule bilateral knee intra-articular steroid injections with local and fluoroscopy. Expectations, risks and benefits were reviewed. Patient is aware she will be contacted to schedule this procedure. Patient will stop Eliquis for 3 days prior to injections, will obtain clearance from prescribing physician Dr. Javier [facility] Cardiology. All questions were answered and patient is in agreement of plan. Follow up in 4-5 weeks for a pill count or sooner if needed. Medications: Refilled morphine ER Partial Fill upon patient request. 15 mg PO BID 30 days PRN 60 tabs 0RF severe pain (scale score 7-10) F11.90 - Opioid use, unspecified, uncomplicated, G62.0 - Drug-induced polyneuropathy, M17.0 - Bilateral primary osteoarthritis of knee, T45.1X5A - Adverse effect of antineoplastic and immunosuppressive drugs, initial encounter Coding Level of Care Code Est Pt Level 4 (19054) Complex EM visit Add On G2211 Diagnoses Chronic, continuous use of opioids F11.90 Chronic pain syndrome G89.4 Chemotherapy-induced peripheral neuropathy G62.0; T45.1X5A Peripheral polyneuropathy G62.9 Bilateral primary osteoarthritis of knee M17.0 Lumbosacral spondylosis M47.817 Bilateral knee pain M25.561; M25.562
[2024-10-16 10:44] VITALS: BP 126/62; PULSE 86; O2SAT 97; BMI 25.5
--- OUTSIDE RECORDS SUMMARY | 2024-10-16 12:21 | XMS_ITS | Encounter Summary ---
Author Organization [facility] Address [address] [place] [address] Care Team Providers Care Plant Tech Name Role Phone Isabella Miller Primary Care Provider + Encounter Details Date Type Department Care Team (Late Contact Info) Description 09/19/2024 11:40 AM EST Ancillary Procedure [facility] Cardiology [facility] [address] [facility] 154 [place] [address] Social History Tobacco Use Types Packs/Day Years Used Date Smoking Tobacco: Never Smokeless Tobacco: Never Alcohol Use Standard Drinks/Week Comments No 0 (1 standard drink = 0.6 oz pur e alcohol) Comments Unknown Sex and Gender Information Value Date Recorded Sex Assigned at Not on file Legal Sex Female 3:55 PM EST Gender Identity Not on file Sexual Orientation Not on file documented as of this encounter Plan of Treatment Upcoming Encounters Date Type Department Care Team (Late Contact Info) Description 10/18/2024 2:00 PM EST Office Visit Nephrology - [address] [address] Jake Carr MD [address] [facility] 200 [place] [address] 10/31/2024 11:00 AM EDT Ancillary Procedure [facility] Cardiology [facility] [address] [facility] 154 [place] [address] 01/10/2025 10:50 AM EDT Office Visit [facility] - [facility] [address] [place] [address] Javier Shelton MD [address] [place] [address] [address] [place] [address] 02/23/2025 11:15 AM EDT Office Visit Internal Medicine - [place] [address] [place] [address] Isabella Miller PA [address] [place] [address] documented as of this encounter Procedures Procedure Name Priority Date/Time Associated Diagnosis Comments CARDIAC DEVICE CHECK- REMOTE- MURJ Routine 09/19/2024 11:37 AM EST documented in this encounter Results * Cardiac device check - Remote- MURJ (09/19/2024 11:37 AM EST) Date Time Interrogation Session [id number] CV DEVICE CHECK Type Interrogation Session Remote CV DEVICE CHECK Implantable Pulse Generator Scuba Dive Training Instructor MDT CV DEVICE CHECK Implantable Pulse Generator Type CAMP COORDINATOR-P CV DEVICE CHECK Implantable Pulse Generator Model Percepta Quad CAMP COORDINATOR-P [id number] CV DEVICE CHECK Implantable Pulse Generator Serial Number [id number] CV DEVICE CHECK Implantable Pulse Generator Implant Date 20210131 CV DEVICE CHECK Battery Remaining Longevity 56.0 CV DEVICE CHECK Battery Voltage 2.950 CV D EVICE CHECK Battery PROCEDURE ANALYST Trigger 2.595 CV DEVICE CHECK Battery Status Middle of Service CV DEVICE CHECK Chinmay Statistic RA Percent Paced 99.89 CV DEVICE CHECK Chinmay Statistic RV Percent Paced 99.92 CV DEVICE CHECK CAMP COORDINATOR Statistic LV Percent Paced 99.90 CV DEVICE CHECK CAMP COORDINATOR Statistic CAMP COORDINATOR Percent Paced 99.90 CV DEVICE CHECK Atrial Tachy Statistic AT/AF [place] Percent 0.10 CV DEVICE CHECK Lead Channel Sensing Intrinsic Amplitude 0.875 CV DEVICE CHECK Lead Channel Setting Sensing [...] DEVICE CHECK Lead Channel Sensing Intrinsic Amplitude 14.000 CV DEVICE CHECK Lead Channel Setting Sensing Sensitivity 0.90 CV DEVICE CHECK Lead Channel Impedance Value 551 CV DEVICE CHECK Lead Channel Pacing Threshold Amplitude 0.625 CV DEVICE CHECK Lead Channel Pacing Threshold Pulse Width 0.4 CV DEVICE CHECK Lead Channel RV Pacing Threshold Date 2024-09-17 CV DEVICE CHECK Lead Channel Setting Pacing Amplitude 2.000 CV DEVICE CHECK Lead Channel Setting Pacing Pulse Width 0.4 CV DEVICE CHECK Lead Channel Impedance Value 874 CV DEVICE CHECK Lead Channel Pacing Threshold Amplitude 1.000 CV DEVICE CHECK Lead Channel Pacing Threshold Pulse Width 0.4 CV DEVICE CHECK Lead Channel Pacing Threshold Date 2024-09-17 CV DEVICE CHECK Lead Channel Setting Pacing Amplitude 1.500 CV DEVICE CHECK Lead Channel Setting Pacing Pulse Width 0.4 CV DEVICE CHECK Chinmay Setting Mode (NBG Code) DDDR CV DEVICE CHECK Ventricular chambers paced during CAMP COORDINATOR pacing. BiV CV DEVICE CHECK Chinmay Setting Lower Rate Limit 75 CV DEVICE CHECK Chinmay Setting AT Mode Switch Rate 171 CV DEVICE CHECK Chinmay Setting Maximum Tracking Rate 110 CV DEVICE CHECK Chinmay Setting Maximum Sensor Rate 120 CV DEVICE CHECK Chinmay Setting PAV Delay 150 CV DEVICE CHECK Chinmay Setting EDITH Delay 130 CV DEVICE CHECK CAMP COORDINATOR LV-RV Delay 30 CV D EVICE CHECK [...] 6 CV DEVICE CHECK Date of Service 2024-11-21 CV DEVICE CHECK Anatomical Region Laterality Modality Device Interroga tion 09/17/2024 7:34 PM EST Impressions 09/19/2024 11:33 AM EST Heart Failure Diagnostic: Elevated Sent to Triage * Heart failure diagnostics assessed through the device * Status: Elevated Narrative Procedure Note Angelica Rowe PA - 09/19/2024 IMPRESSION: Heart Failure Diagnostic: Elevated Sent to Triage * Heart failure diagnostics assessed through the device * Status: Elevated us Angelica RODARTE CV IMPLANTABLE CARDIAC DEVICE GA OCEDURES Final Result documented in this encounter Visit Diagnoses Not on filedocumented in this encounter Care Teams Plant Tech Relationship Specialty Start Date End Date Isabella Miller PA 175 [facility] 200 [place] [address] PCP - General Primary Care 06/21/24 documented as of this encounter
--- OUTSIDE RECORDS SUMMARY | 2024-10-16 12:22 | XMS_ITS | Encounter Summary ---
Author Organization [facility] Address [address] [place] [address] Care Team Providers Care Operations Director Name Role Phone Isabella Miller Primary Care Provider + Reason for Visit * Reason Onset Date Comments Testing 08/31/2024 Auth Cardiac MRI Encounter Details Date Type Department Care Team (Late st Contact Info) Description 08/31/2024 Telephone [facility] Cardiology Associates [facility] [address] [place] [address] [place] [phone] Elly Jaeger NP [address] [place] [address] [place] [id number] Testing (Auth Cardiac MRI) Social History Tobacco [...] encounter Progress Notes * Claudia Doherty - 10/06/2024 9:16 AM EST Called referrals department and spoke with Devorah, she states there is still no request for the scan from the PCP office. I then called [facility] and inquired about it. The senior gl accountant put in an urgent request to the [place] so this could be processed marie. Thanks, Karen García * Claudia Doherty - 09/18/2024 3:14 PM EST Request has been faxed 3 times and emailed to a industrial relations manager as well. Called PCP office and referrals department at [place] and the request has not been processed. Thanks, Karen García * Claudia Doherty - 08/31/2024 1:32 PM EST Insurance referral request faxed to PCP for processing. Thanks, Karen García * Connie So - 08/31/2024 1:11 PM EST Please get a [facility] out of network auth/specialist referral for a Cardiac MRI ([address]15), Chronic HFrEF (I50.22), Cardiomyopathy (I42.9), [facility] documented in this encounter Plan of Treatment Upcoming Encounters Date Type Department Care Team (Late st Contact Info) Description 10/18/2024 2:00 PM EST Office Visit Nephrology [id number] [place] [address] Jake Carr MD [address] [place] [address] 10/31/2024 11:00 AM EDT Ancillary Procedure [facility] Cardiology [facility] [address] [place] [phone] 01/10/2025 10:50 AM EDT Office Visit [facility] Cardiology [facility] [address] [place] [address] [place] [address] Javier Shelton MD [address] [place] [address] [address] [place] [address] 02/23/2025 11:15 AM EDT Office Visit Internal Medicine - [place] [address] [address] Isabella Miller PA [address] [address] documented as of this encounter Visit Diagnoses Not on filedocumented in this encounter Care Teams Operations Director Relationship Specialty Start Date End Date Isabella Miller PA [address] [address] PCP - General Primary Care 06/21/24 documented as of this encounter
--- OUTSIDE RECORDS SUMMARY | 2024-10-16 12:22 | XMS_ITS | Encounter Summary ---
Author Organization [facility] Address [address] [place] [address] Care Team Providers Care Canary Raiser Name Role Phone Isabella Miller Primary Care Provider + Reason for Visit * Reason Onset Date Comments faxed form 10/04/2024 [facility] Encounter Details Date Type Department Care Team (Late st Contact Info) Description 10/04/2024 Telephone Internal Medicine - [address] [place] [address] Jocelyne Doherty MA faxed form ([facility]) Social History Tobacco Use Types Packs/Day Years [...] as of this encounter Progress Notes * Jocelyne Doherty MA - 10/04/2024 1:56 PM EST [facility] physical therapy initial evaluation 09/06/2024 Placed in providers folder for signature. documented in this encounter Plan of Treatment Upcoming Encounters Date Type Department Care Team (Late st Contact Info) Description 10/18/2024 2:00 PM EST Office Visit Nephrology - [place] [address] [place] [address] Jake Carr MD [address] [facility] 200 [place] [address] 10/31/2024 11:00 AM EDT Ancillary Procedure [facility] Cardiology [facility] [address] [place] [address] 01/10/2025 10:50 AM EDT Office Visit [facility] Cardiology [facility] [address] [place] [address] [address] [place] [address] Javier Shelton MD [address] [place] [address] [address] [place] [address] 02/23/2025 11:15 AM EDT Office Visit Internal Medicine - [place] [address] [place] [address] Isabella Miller PA [address] [place] [address] documented as of this encounter Visit Diagnoses Not on filedocumented in this encounter Care Teams Canary Raiser Relationship Specialty Start Date End Date Isabella Miller PA 175 [facility] [address] [place] [address] PCP - General Primary Care 06/21/24 documented as of this encounter
--- OUTSIDE RECORDS SUMMARY | 2024-10-16 12:22 | XMS_ITS | Encounter Summary ---
Author Organization [facility] Address [address] [place] [address] Care Team Providers Care Caddy Name Role Phone Isabella Miller Primary Care Provider + Reason for Referral * Consultation (Routine) - Authorized Specialty Diagnoses / Procedures Referred By Carrie ayers Referred To Contact Dermatology Diagnoses Skin cancer screening Isabella Miller PA [address] [address] Phone: tel: fax: Devika Mcduffie MD [address] [place] [address] [facility] [place] [address] Phone: tel: fax: Referral ID Status Reason Start Date Expiration Date Visits Requested Visits Authorized [id number] Authorized Specialty Services Required 09/06/2024 09/06/2025 6 6 Scheduling Instructions [address] [place] [address] Reason for Visit * Reason Onset Date Comments Referral 08/31/2024 Ullin derm Encounter Details Date Type Department Care Team ([facility] st Contact Info) Description 08/31/2024 Telephone Internal Medicine - [place] [address] [address] Isabella Miller PA [address] [address] Referral (New roman derm) Social History Tobacco [...] What insurance does the patient have today? [facility] [id number] Referrals cannot be processed if the insurance is not accurate. If the insurance listed above in red is NO BILLING INFORMATION FOUND FOR THIS ENCOUTNER The patients correct insurance must be obtained and registered in [facility] or their referral can not be [...] this visit: Follow Up Address of Specialist: [address] [place] [address] Phone # of Specialist: [phone] Fax #: (if applicable): [phone] Does patient have an appointment scheduled?: yes Date of appointment- (including a retro-request): 09-06-2024 Is this appointment related to: follow up yearly documented in this encounter Plan of Treatment Upcoming Encounters Date Type Department Care Team (Late st Contact Info) Description 10/18/2024 2:00 PM EST Office Visit Nephrology [address] [address] Jake Carr MD [address] [address] 10/31/2024 11:00 AM EDT Ancillary Procedure [facility] [address] [facility] 154 [place] [address] 01/10/2025 10:50 AM EDT Office Visit [facility] Cardiology [facility] - Medical [facility] [address] [place] [address] Javier Shelton MD [address] [place] [address] [address] [place] [address] 02/23/2025 11:15 AM EDT Office Visit Internal Medicine - [place] 175 [facility] 200 [place] [phone] Isabella Miller PA 175 [facility] 200 [place] [address] Scheduled Referrals Name Type Priority Associated Diagnoses Order Schedule Ambulatory referral to Dermatology Outpatient Referral Routine Skin cancer screening 1 Occurrences starting 09/01/2024 until 09/01/2025 documented as of this encounter Visit Diagnoses Diagnosis Skin cancer screening- Primary Screening for malignant neoplasm of the skin Encounter for adjustment or management of cardiac device documented in this encounter Care Teams Caddy Relationship Specialty Start Date End Date Isabella Miller PA [address] [address] PCP - General Primary Care 06/21/24 documented as of this encounter
--- OUTSIDE RECORDS SUMMARY | 2024-10-16 12:22 | XMS_ITS | Encounter Summary ---
Author Organization [facility] Address [address] [place] [address] Care Team Providers Care Automotive Service Writer Name Role Phone Isabella Miller Primary Care Provider + Reason for Visit * Reason Onset Date Comments Referral 09/28/2024 Encounter Details Date Type Department Care Team ([facility] st Contact Info) Description 09/28/2024 Telephone Internal Medicine - [place] 175 [facility] [address] [place] [address] Isabella Miller PA 175 [facility] 200 [place] [address] Referral Social History Tobacco Use Types Packs/Day Years [...] as of this encounter Progress Notes * Delia Morillo - 10/03/2024 3:30 PM EST Faxed insurance auth to [facility] in [facility] at * Lauren Meier - 09/28/2024 3:22 PM EST Patient needs to start therapy Has had delay due to not receiving paperwork required to bill insurance States she call before REBEL vo - She was instructed by Isabella to come to The patient coordinator front desk and pick it She came into office last Wednesday- And was given a referral - and now patient States this is not what is required. Feels frustrated at our office since she came into office as requested and this is not what ABELRicha is looking for. documented in this encounter Plan of Treatment Upcoming Encounters Date Type Department Care Team (Late st Contact Info) Description 10/18/2024 2:00 PM EST Office Visit Nephrology [facility] [address] [place] [address] Jake Carr MD [address] [facility] 200 [place] [address] 10/31/2024 11:00 AM EDT Ancillary Procedure [facility] Cardiology [facility] [address] 300 [facility] 154 [place] [phone] 01/10/2025 10:50 AM EDT Office Visit [facility] Cardiology [facility] [place] [address] [place] [address] Javier Shelton MD [address] [place] [address] Dr [address] [place] [address] 02/23/2025 11:15 AM EDT Office Visit Internal Medicine - [place] 175 [facility] 200 [place] [phone] Isabella Miller PA 175 [facility] 200 [place] [address] documented as of this encounter Visit Diagnoses Not on filedocumented in this encounter Care Teams Automotive Service Writer Relationship Specialty Start Date End Date Isabella Miller PA [address] [address] PCP - General Primary Care 06/21/24 documented as of this encounter
--- OUTSIDE RECORDS SUMMARY | 2024-10-16 12:22 | XMS_ITS | Data Portability ---
Author Organization [place] - [facility], [facility] Address [address] [place] [address] Care Team Providers Care Nuclear Technologist Name Role Phone ESHA HUBBARD Primary Care [...] was worked up a year prior in [place] where she lives with MRCP as well [...] kelsi cysti tis. - Kelsi lithi asis. [address] GROSS DESCR IPTIO N: The speci men [...] lidat ed Labor atortennille , [place] [facility], [place] Not Available [facility] (Lab Depart-Adult) [address], [place], [address], 08/19/2023 15:56:47 08/14/20 23 08/13/2023 ahs diagn ostic - US abdom en EXAMIN ATION: US ABDOME N INDICA TION: abdomi nal pain;. TECHNI QUE: Ultras ound of the abdome n was perfor med utiliz ing real-t arden graysc torey and color flow Dopple r imagin g. Digita l images were saved in the [facility] ent record . COMPAR MARELY: CT abdome [...] 2022 Kellylinda andria Name: JESSICA GOLDBERG MRN: [id number] 1 Date of : Gender : F [address], [address] 08/27/2023 12:11:25 Result Notes None recorded. Procedures Surgical History Date Name Laterality Status Provider Name and Address Organization Details Recorded Time 08/16/19 24 Gall Bladder Surgery completed Brianna Greene [place] - .[facility] 08/26/2023 14:11:53 08/16/19 23 Colonoscopy completed Brianna Jc [place] - [facility] 08/26/2023 14:11:53 08/16/19 23 Echocardiogram completed Brianna Greene [place] - .[facility] 08/26/2023 14:11:53 08/16/19 22 ERCP completed Brianna Jc [place] - [facility] 08/26/2023 14:11:53 08/16/19 22 Pacemaker implant completed Brianna Jc [place] - [facility] 08/26/2023 14:11:53 08/16/19 01 Breast Surgery completed Brianna Jc [place] - [facility] 08/26/2023 14:11:53 08/16/18 88 Hysterectomy completed Brianna Greene [place] - [facility] 08/26/2023 14:11:53 08/16/18 67 Section completed Brianna Jc [place] - [facility] 08/26/2023 14:11:53 Imaging Results Imaging Date Name Status LastModified by Organiz ation Details LastModified Time 08/13/2023 [facility] diagnostic - US abdomen completed [address], [address] 08/27/2023 12:11:25 Procedure Notes None recorded. Medical [...] Updated DateTime 08/26/2023 157.48 cm 25.6 kg/m2 15289.93 g 92 mm[Hg] 58 mm[Hg] Lea CROWE - .[facility] 14:22:15 Social History Question Answer Notes LastModified by [employer] ion Details LastModified Time Tobacco Smoking Status Never Smoker SEBASTIEN Olivier - .[facility] 08/26/2023 14:11:53 What Is Your Level Of Alcohol Consumption? None Information not available 08/26/2023 What Is Your Level Of Caffeine Consumption? None Information not available 08/26/2023 Do You Or Have You Ever Used E-cigarettes Or Vape? Never Used Electronic Cigarettes [facility] Information not available 08/26/2023 What Was The Date Of Your Most Recent Tobacco Screening? 08/26/2023 Information not available 08/26/2023 Do You Or Have You Ever Used Smokeless Tobacco? Never Used Smokeless Tobacco [facility] Information not available 08/26/2023 Do You Use Any Illicit Or Recreational Drugs? No Information not available 08/26/2023 How Many Years Have You Smoked Tobacco? [address] [facility] Information not available 08/26/2023 Do You Or Have You Ever Used Any Other Forms Of Tobacco Or Nicotine? No [facility] Information not available 08/26/2023 Sex: Unknown Functional Status None recorded. Mental Status None recorded. Family History Nothing Reported. Medical History No medical history recorded. Gynecological HistoryNo gynecological history recorded. Obstetrics History GPAL:G 0 P 0 0 0 0 Past Encounters Encounter ID Performer Location Encounter Start Date Encounter Closed Date Diagnosis/Indication Diagnosis SNOMED-CT Code Diagnosis ICD10 Code Diagnosis Note [id number] [facility] [address] [place] [phone] 08/26/2023 14:09:56 08/31/2023 08:44:46 Acute cholecystitis 46497026 K81.0 Health Concerns Section Related Observation LastModified by Organization Detai ls LastModified Time None Recorded Concern Status LastModified by Organization Details LastModified Time None Recorded Advance Directives Directive None Recorded Payers Encounter Date Sequence Insurance Name Policy Number Policy Almanzar Covered Member ID Almanzar Member ID Guarantor Name 08/26/2023 1 [facility] - MEDICARE PREFERRED (MEDICARE REPLACEMENT HMO) [facility] Darlene Alexander [id number] Darlene Alexander Notes Date Note Type [...] minimal abdominal pain. Mansoor Talley MD [address] [place], [address], [facility] - [facility] 08/26/2023 14:34:26 OBGyn Episode No OBEpisode recorded.
--- OUTSIDE RECORDS SUMMARY | 2024-10-16 12:22 | XMS_ITS | Clinical Summary ---
Author Organization [facility] Address [address] [place] [address] Care Team Providers Care Heading Matcher And Assembler Name Role Phone Julio Brizuela MD Primary Care Provider Unavailab le Allergies Active Allergy Reactions Criticality Noted Date Comments Iodinated Contrast Media 01/24/2009 Oxycodone-Acetaminophen 11/09/2017 Medications Medication Sig Dispensed Refills Start Date End Date Status [place]-3 Fatty Acids (FISH OIL) 1000 MG CAPS [...] 0 05/24/2018 Active ergocalciferol (VITAMIN D2) capsule 92875 units TAKE ONE CAPSULE BY MOUTH ONE [...] age to complete this topic Care Teams Heading Matcher And Assembler Relationship Specialty Start Date End Date Julio Brizuela MD PCP - General Internal Medicine 01/18/19
--- OUTSIDE RECORDS SUMMARY | 2024-10-16 12:22 | XMS_ITS | Encounter Summary ---
Author Organization [facility] [place] [address] Care Team Providers Care Auto Design Checker Name Role Phone Isabella Miller Primary Care Provider + Encounter Details Date Type Department Care Team (Late st Contact Info) Description 09/18/2024 Telephone [facility] 154 300 [facility] 154 [place] [phone] Efren Caban MD 300 [facility] 154 [place], [place] [phone] Social History Tobacco Use Types Packs/Day Years [...] Progress Notes * Yesenia Dotson RN - 09/18/2024 4:51 PM EST I called Darlene and informed her of the below message. She voiced understanding and agreeable with the plan. * Javier Shelton MD - 09/18/2024 4:48 PM EST Given absence of symptoms or weight gain, we will continue to monitor for now. Please instruct the patient to continue her current medication regimen. Please instruct the patient to contact our office if she notices any weight gain, lower extremity edema, shortness of breath, etc. * Yesenia Dotson RN - 09/18/2024 2:23 PM EST I spoke to Darlene and informed her of the below device finding. She denies shortness of breath, orthopnea, PND, abdominal bloating, BLE edema, and recent illness. Pt checks her weight daily and denies rapid weight gain. She maintains a low sodium diet. We went over her cardiac medications and she reports compliance with them. Pt started physical therapy recently as she was referred there by Pain Management for neuropathic pain of bilateral knees. Her only report is feeling a little tired and lazy for the last couple of days. DALILA with Karen Rose 08/23/24. * Keysha Rasheed MA - 09/18/2024 10:47 AM EST Heart failure diagnostics available in this device are suggestive of volume overload. Please phone patient to assess for symptoms of heart failure exacerbation: Weight gain, orthopnea, PND, increasedexertional dyspnea, recent clinical events, dietary indiscretion. Please convey this information to the primary cardiology team or go to as appropriate. documented in this encounter Plan of Treatment Upcoming Encounters Date Type Department Care Team (Late st Contact Info) Description 10/18/2024 2:00 PM EST Office Visit Nephrology [address] [place] [address] Jake Carr MD [address] [facility] 200 [place] [address] 10/31/2024 11:00 AM EDT Ancillary Procedure [facility] Cardiology [facility] [address] [place] [address] 01/10/2025 10:50 AM EDT Office Visit [facility] Cardiology [facility] - [facility] [address] [place] [address] Javier Shelton MD [address] [place] [address] Dr [address] [place] [address] 02/23/2025 11:15 AM EDT Office Visit Internal Medicine - [place] [address] [place] [address] Isabella Miller PA [address] [place] [address] documented as of this encounter Visit Diagnoses Not on filedocumented in this encounter Care Teams Auto Design Checker Relationship Specialty Start Date End Date Isabella Miller PA [address] [place] [address] PCP - General Primary Care 06/21/24 documented as of this encounter
--- OUTSIDE RECORDS SUMMARY | 2024-10-16 12:22 | XMS_ITS | Clinical Summary ---
Author Organization [address] [place] [address] [place] [phone] Phone Care Team Providers Care Performance Improvement Coordinator Name Role Phone Isabella Miller Primary Care Provider + Allergies No known active allergies Medications amitriptyline HCl (AMITRIPTYLINE ORAL) Take 20 mg by mouth at bedtime. Active vitamin B complex (VITAMINS B COMPLEX ORAL) 1 (one) time each day. Active bisacodyL (DULCOLAX) 5 mg EC tablet Take 2 tablets (10 mg total) by mouth 1 (one) time each day if needed. Active cholecalciferol (VITAMIN D-3) 50 mcg (2,000 unit) capsule Take 1 capsule by mouth daily. 10/17/19 21 Active cyanocobalamin (VITAMIN B-12) 1,000 mcg tablet Take 1 tablet by mouth daily. 09/23/19 19 Active dapagliflozin propanediol (Farxiga) 10 mg tablet TAKE 1 TABLET BY MOUTH EVERY DAY 02/28/20 24 Active lidocaine 5 % cream Apply 1 g topically daily. Active morphine (MS CONTIN) 15 mg 12 hr tablet TAKE 1 TABLET BY MOUTH TWICE DAILY NEEDED FOR SEVERE PAIN (SCALE SCORE 7-10) FOR 30 DAYS. 04/03/20 23 Active omega-3 acid ethyl esters (LOVAZA) 1 gram capsule 1,000 mg daily. 09/13/19 14 Active L.acid/L.casei/ B.bif/B.brendan/FOS (PROBIOTIC BLEND ORAL) Take by mouth. Active rosuvastatin (CRESTOR) 5 mg tablet TAKE 1 TABLET BY MOUTH EVERY DAY 11/17/19 24 Active gabapentin (NEURONTIN) 300 mg capsuleIndicati ons:Acute bilateral thoracic back pain Take 1 cap in the morning and 2 caps every evening 90 capsule 3 08/01/20 24 Active apixaban (Eliquis) 2.5 mg tabletIndicatio ns:Atrial fibrillation, unspecified type (CMS/HCC) Take 1 tablet (2.5 mg total) by mouth 2 (two) times a day. 90 tablet 2 08/23/19 25 Active benzonatate (TESSALON) 200 mg capsuleIndicati ons:Acute URI Take 1 capsule (200 mg total) by mouth 3 (three) times a day if needed for cough. Do not crush or chew. 42 capsule 08/24/19 25 Active spironolactone (ALDACTONE) 25 mg tabletIndicatio ns:Chronic systolic (congestive) heart failure (CMS/HCC) Take 0.5 tablets (12.5 mg total) by mouth every other day. 90 tablet 2 08/24/19 25 Active levothyroxine (SYNTHROID, LEVOTHROID) 100 mcg tabletIndicatio ns: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 Take 1 tablet by mouth every morning 6 days/week and a half a tablet on the seventh day 08/25/19 25 Active amiodarone (PACERONE) 200 mg tablet TAKE 1 TABLET BY MOUTH EVERY DAY 90 tablet 1 08/29/19 25 Active carvediloL (COREG) 3.125 mg tablet TAKE 1 TABLET BY MOUTH TWICE DAILY WITH FOOD. 180 tablet 2 09/29/19 25 Active carvediloL (COREG) 3.125 mg tablet TAKE 1 TABLET BY MOUTH TWICE A DAY WITH MEALS 09/13/19 24 025 Discontinued Active Problems Problem Noted Date Diagnosed Date MCFP current use of amiodarone 08/23/2024 Assessment & [...] orally daily ?? Candidate for ICD or STEELER: STEELER-P in place ?? Assessment and plan: The [...] SGLT2 inhibitors: Dapagliflozin 10 mg daily. ICD: STEELER-P in place, with reassessment of EF and [...] with Coreg. Also, the patient has a [id number] score of 5 (age, gender, heart failure, CAD). She continues on anticoagulation therapy with Eliquis 5 mg orally twice daily. She denies any abnormal bleeding. Will continue her current therapy. Assessment & Plan (08/23/2024 4:16 PM EST): Patient has history of paroxysmal atrial fibrillation, [id number] score of 5. She continues on rhythm [...] chemotherapy and surgery), who was admitted to [facility] 01[facility]31-02[facility]05[facility]21 with weakness x [address] Caban consulted on the patient due to her bradycardia which appeared multifactorial from electrolyte disturbances in the setting of renal dysfunction and due to amiodarone. She had a pacemaker with STEELER implanted during the hospitalization. She does not [...] Encounters Date Type Department Care Team Description 10/06/2024 Telephone Internal Medicine [address] [phone] Isabella Miller PA Referral (CARDIAC MRI - [facility]) 10/04/2024 Telephone Internal Medicine [address] [address] Jocelyne Doherty MA faxed form (ATI) 09/28/2024 Telephone Internal Medicine [address] [address] Isabella Miller PA Referral 09/19/2024 11:40 AM EST Ancillary Procedure [facility] Cardiology [facility] [address] [place] [address] 09/18/2024 Telephone [facility] Cardiology [facility] [address] [place] [address] Efren Caban MD 09/14/2024 Telephone Internal Medicine [facility] [address] [address] Simona Yeboah MA Referral 08/31/2024 Telephone Internal Medicine [facility] 175 [facility] [address] [place] [address] Isabella Miller PA Referral ([facility]) 08/31/2024 Telephone [facility] Cardiology [facility] [address] [place] [address] Elly Jaeger NP Testing ([facility] Cardiac MRI) 08/24/2024 10:30 AM EST Office Visit Internal Medicine - [place] [address] [place] [phone] Isabella Miller PA Primary hypertension (Primary Dx); Paroxysmal atrial fibrillation (CMS/HCC); Chronic HFrEF (heart failure with reduced ejection fraction) (CMS/HCC); 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; 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); Acute URI 08/23/2024 11:10 AM EST Office Visit [facility] Cardiology [facility] [address] [place] [address] Claudia Rose NP Chronic HFrEF (heart failure with reduced ejection fraction) (CMS/HCC) (Primary Dx); Atrial fibrillation, unspecified type (CMS/HCC); Cardiomyopathy, unspecified type (CMS/HCC); Hyperlipidemia, unspecified hyperlipidemia type; MCFP current use of amiodarone; Chronic systolic (congestive) heart failure (CMS/HCC) 08/23/2024 Telephone [facility] Cardiology [facility] [address] [place] [address] Claudia Rose NP medication question 08/18/2024 4:25 PM EST Ancillary Procedure [facility] Cardiology [facility] [address] [place] [address] 08/10/2024 Telephone [facility] [address] [place] [address] Javier Shelton MD Medication Problem 08/01/2024 2:30 PM EST - 08/01/2024 11:59 PM EST Hospital Encounter [facility] - [place] [id number] [place] [address] Acute bilateral thoracic back pain Discharge Disposition: Home or Self Care 08/01/2024 2:10 PM EST Lab Draw Station - [address] [facility] [address] [place] [phone] Hyperlipidemia (Primary Dx); Restless legs; Vitamin B12 deficiency; Vitamin D deficiency; Acute bilateral thoracic back pain; Stage 3b chronic kidney disease (CMS/HCC) 08/01/2024 1:30 PM EST Office Visit Internal Medicine - [place] 175 [facility] [address] [place] [phone] Isabella Miller PA Acute bilateral thoracic back pain (Primary Dx); Restless legs; Vitamin D deficiency; Vitamin B12 deficiency; Stage 3b chronic kidney disease (CMS/HCC) 07/28/2024 Telephone Internal Medicine - [place] [address] [facility] [address] [place] [phone] Isabella Miller PA TRIAGE-back pain 07/21/2024 3:40 PM EST Ancillary Procedure [facility] Cardiology [facility] [address] [place] [phone] 07/21/2024 Telephone [facility] Cardiology [facility] - [address] [place] [address] Claudia Rose, SANDWICH BOARD CARRIER letter 07/19/2024 Telephone [facility]iology [facility] [address] [place] [phone] Keysha Rasheed MA from Last 3 Months Immunizations Name Administration [...] PROCEDURE: HISTORICAL EYE SURGERY; COMMENT: cataracts Dr. Valastruz PACEMAKER IMPLANT 01/31/2021 PROCEDURE: HISTORICAL PACEMAKER; COMMENT: Dr. Caban due to CHOLECYSTECTOMY PROCEDURE: LAPAROSCOPY, CHOLECYSTECTOMY; COMMENT: 07/2023 in [place] due to cholelithiasis Medical History Medical History Date Comments Aortic atherosclerosis (CMS/HCC) 10/02/2015 DX:Aortic atherosclerosis (HCC); COMMENT: Comments: CXR 11/29/14 Atherosclerotic aorta Atrial fibrillation (CMS/HCC) 05/19/2018 DX :Atrial fibrillation (HCC) Cardiomyopathy (CMS/HCC) 09/06/2015 DX:Card iomyopathy ([facility]) Chronic constipation 04/15/2017 DX:Chronic constipation Diverticulosis of [...] Breast cancer (CMS/HCC) 2003 DX:Breas t cancer ([facility]); COMMENT: Chemo &Rad Tx Family history of [...] on file Sexual Orientation Not on file Obstetrics History Last Filed [...] 10/18/2024 2:00 PM EST Office Visit Nephrology [facility] [address] [place] [address] Jake Carr MD [address] [facility] [address] [place] [address] 10/31/2024 11:00 AM EDT Ancillary Procedure [facility] [address] [facility] [address] [place] [address] 01/10/2025 10:50 AM EDT Office Visit [facility] Cardiology [facility] [address] [place] [address] [place] [address] Javier Shelton MD [address] [place] [address] [address] [place] [address] 02/23/2025 11:15 AM EDT Office Visit Internal Medicine - [place] [address] [facility] [address] [place] [address] Isabella Miller PA [address] [facility] [address] [place] [address] Health Maintenance Due Date Last Done Comments [...] Vaccines Completed 06/09/2021, 09/17, 04/06/2012 Pneumococcal Vaccine: 50+ Years Completed 06/01/2023, 01/02/2015, 07/03/2011 Influenza Vaccine [...] patient's age to complete this topic Meningococcal B Vacine Aged Out No lo nger eligible based on patient's age to complete this topic RSV Immunization Patients Under 20 months Aged Out No longer eligible based on patient's age to complete this topic Varicella Vaccines Aged Out No longer eligible based on patient's age to complete this topic Medical Devices Implanted Type Area Communications Electrician Supervisor Device Identifier Shelf Expiration Date Model / Serial / Lot Medt-Card Percepta Quad Correspondence Renew Clerk-P [id number] Implanted: (Quantity not on file) Cardiac STEELER-P [employer] - CARDIAC RHYTH-CRDM PERCEPTA QUAD STEELER-P [id number] / [id number] / Procedures Procedure Name Priority Date/Time Associated Diagnosis Comments CARDIAC DEVICE CHECK- REMOTE- MURJ Routine 09/19/2024 11:37 AM EST THYROID STIMULATING HORMONE Routine 08/24/2024 11:36 AM EST MCFP current use of amiodarone BASIC METABOLIC PANEL [...] PM EST Atrial fibrillation, unspecified type (CMS/HCC) LIPID PANEL Routine 09/09/2023 from Last 3 Months or Most Recently Relevant to Health Maintenance Results * Cardiac device check - Remote- MURJ (09/19/2024 11:37 AM EST) Only the most recent of3 resultswithin the time period is included. Date Time Interrogation Session [id number] CV DEVICE CHECK Type Interrogation Session Remote CV DEVICE CHECK Implantable Pulse Generator Communications Electrician Supervisor MDT CV DEVICE CHECK Implantable Pulse Generator Type STEELER-P CV DEVICE CHECK Implantable Pulse Generator Model Percepta Quad STEELER-P [id number] CV DEVICE CHECK Implantable Pulse Generator Serial Number [id number] CV DEVICE CHECK Implantable Pulse Generator Implant Date 20210131 CV DEVICE CHECK Battery Remaining Longevity 56.0 CV DEVICE CHECK Battery Voltage 2.950 CV D EVICE CHECK Battery CYTOGENETIC TECHNOLOGIST Trigger 2.595 CV DEVICE CHECK Battery Status Middle of Service CV DEVICE CHECK Chinmay Statistic RA Percent Paced 99.89 CV DEVICE CHECK Chinmay Statistic RV Percent Paced 99.92 CV DEVICE CHECK STEELER Statistic LV Percent Paced 99.90 CV DEVICE CHECK STEELER Statistic STEELER Percent Paced 99.90 CV DEVICE CHECK Atrial Tachy Statistic AT/AF [place] Percent 0.10 CV DEVICE CHECK Lead Channel [...] CV DEVICE CHECK Ventricular chambers paced during STEELER pacing. BiV CV DEVICE CHECK Chinmay Setting Lower Rate Limit 75 CV DEVICE CHECK Chinmay Setting AT Mode Switch Rate 171 CV DEVICE CHECK Chinmay Setting Maximum Tracking Rate 110 CV DEVICE CHECK Chinmay Setting Maximum Sensor Rate 120 CV DEVICE CHECK Chinmay Setting PAV Delay 150 CV DEVICE CHECK Chinmay Setting EDITH Delay 130 CV DEVICE CHECK STEELER LV-RV Delay 30 CV D EVICE CHECK [...] us Angelica RODARTE CV IMPLANTABLE CARDIAC DEVICE CO OCEDURES Final Result * (ABNORMAL) Thyroid stimulating hormone (08/24/2024 11:36 AM EST) TSH 0.07(L) 0.40 - 4.00 mcIU/mL LAB CHEMISTRY METHOD 08/24/2024 3:27 PM EST [facility] Blood Venous blood specimen / Unknown Venipuncture / Unknown 08/24/2024 11:36 AM EST 08/24/2024 11:36 AM EST us Elly Jaeger NP LAB BLOOD ORDERABLES Final Res ult [facility] [address] [place] [address], [place] [phone] * (ABNORMAL) Basic metabolic panel (08/21/2024 11:18 AM EST) Only the most recent of2 resultswithin the time period is included. Sodium 138 133 - 145 mmol/L LAB CHEMISTRY METHOD 08/21/2024 2:58 PM [facility] Potassium 4.1 3.5 - 5.5 mmol/L LAB CHEMISTRY METHOD 08/21/2024 2:58 PM [facility] Chloride 107 96 - 110 mmol/L LAB CHEMISTRY METHOD 08/21/2024 2:58 PM [facility] CO2 26 21 - 32 mmol/L LAB CHEMISTRY METHOD 08/21/2024 2:58 PM [facility] Anion Gap 5 3 - 11 LAB CHEMISTRY METHOD 08/21/2024 2:58 PM [facility] Glucose 81 70 - 100 mg/dL LAB CHEMISTRY METHOD 08/21/2024 2:58 PM [facility] BUN 24 5 - 25 mg/dL LAB CHEMISTRY METHOD 08/21/2024 2:58 PM [facility] Creatinine 1.58(H) 0.50 - 1.10 mg/dL LAB CHEMISTRY METHOD 08/21/2024 2:58 PM [facility] eGFR 33(L) >=60 mL/min/1. 73m2 LAB CHEMISTRY METHOD 08/21/2024 2:58 PM [facility] Comment:Calculation based on the??Chronic Kidney Disease Epidemiology Collaboration (CKD-EPI) equation refit??without adjustment for race. BUN/Creatinine Ratio 15.2 LAB CHEMISTRY METHOD 08/21/2024 2:58 PM EST [facility] Calcium 8.5 8.5 - 10.5 mg/dL LAB CHEMISTRY METHOD 08/21/2024 2:58 PM EST [facility] Blood Venous blood specimen / Unknown Venipuncture / Unknown 08/21/2024 11:18 AM EST 08/21/2024 11:18 AM EST us Elly Jaeger SANDWICH BOARD CARRIER LAB BLOOD ORDERABLES Final Res ult [facility]) [facility] [address] [place] [address], [place] [phone] * XR Thoracic Spine 2 Views (08/01/2024 3:00 PM EST) Anatomical Region Laterality Modality Spine, T-spine Radiographic Karina ging 08/01/2024 4:04 PM EST Impressions 08/01/2024 4:06 PM EST No compression fractures. -------- FINAL REPORT -------- Dictated By: Misael Givens Dictated Date: 08/01/2024 16:04 ET Assigned Physician: Misael Givens Reviewed and Electronically Signed By: Misael Givens Signed Date: 08/01/2024 16:06 ET Workstation ID: [id number] Transcribed By: Self Edit Transcribed Date: 08/01/2024 [...] Signed Date: 08/01/2024 16:06 ET Workstation ID: [id number] Transcribed By: Self Edit Transcribed Date: 08/01/2024 16:04 ET Isabella RODARTE IMG XR PROCEDURES Final Result * (ABNORMAL) CBC auto differential (08/01/2024 2:10 PM EST) WBC 6.6 4.8 - 10.8 K/mcL LAB HEMETOLOGY METHOD 08/01/2024 7:06 PM [facility] RBC 4.40 3.80 - 4.80 M/mcL LAB HEMETOLOGY METHOD 08/01/2024 7:06 PM [facility] Hemoglobin 13.8 11.5 - 16.0 g/dL LAB HEMETOLOGY METHOD 08/01/2024 7:06 PM [facility] Hematocrit 45.6 35.0 - 47.0 % LAB HEMETOLOGY METHOD 08/01/2024 7:06 PM [facility] MCV 102.7(H) 79.0 - 98.0 FL LAB HEMETOLOGY METHOD 08/01/2024 7:06 PM [facility] MCH 31.1 27.0 - 32.0 pcg LAB HEMETOLOGY METHOD 08/01/2024 7:06 PM [facility] MCHC 30.3(L) 32.0 - 37.0 g/dL LAB HEMETOLOGY METHOD 08/01/2024 7:06 PM [facility] RDW 14.6 11.0 - 15.0 % LAB HEMETOLOGY METHOD 08/01/2024 7:06 PM [facility] Platelets 221 130 - 400 K/mcL LAB HEMETOLOGY METHOD 08/01/2024 7:06 PM [facility] MPV 11.1(H) 7.0 - 11.0 FL LAB HEMETOLOGY METHOD 08/01/2024 7:06 PM [facility] NRBC 0.0 <1.0 % LAB HEMETOLOGY METHOD 08/01/2024 7:06 PM [facility] NRBC Absolute 0.00 <0.10 K/mcL LAB HEMETOLOGY METHOD 08/01/2024 7:06 PM [facility] Neutrophils Relative 60.6 % LAB HEMETOLOGY METHOD 08/01/2024 7:06 PM [facility] Lymphocytes Relative 27.1 % LAB HEMETOLOGY METHOD 08/01/2024 7:06 PM [facility] Monocytes Relative 8.0 % LAB HEMETOLOGY METHOD 08/01/2024 7:06 PM [facility] Eosinophils Relative 3.2 % LAB HEMETOLOGY METHOD 08/01/2024 7:06 PM [facility] Basophils Relative 0.8 % LAB HEMETOLOGY METHOD 08/01/2024 7:06 PM [facility] Immature Granulocytes Relative 0.3 % LAB HEMETOLOGY METHOD 08/01/2024 7:06 PM [facility] Neutrophils Absolute 4.02 1.50 - 7.00 K/mcL LAB HEMETOLOGY METHOD 08/01/2024 7:06 PM [facility] Lymphocytes Absolute 1.80 1.00 - 5.00 K/mcL LAB HEMETOLOGY METHOD 08/01/2024 7:06 PM [facility] Monocytes Absolute 0.53 0.20 - 1.00 K/mcL LAB HEMETOLOGY METHOD 08/01/2024 7:06 PM [facility] Eosinophils Absolute 0.21 0.00 - 0.50 K/[facility] LAB HEMETOLOGY METHOD 08/01/2024 7:06 PM EST [facility] Basophils Absolute 0.05 0.00 - 0.20 K/[facility] LAB HEMETOLOGY METHOD 08/01/2024 7:06 PM [facility] Immature Granulocytes Absolute 0.02 0.00 - 0.03 K/[facility] LAB HEMETOLOGY METHOD 08/01/2024 7:06 PM EST [facility] Blood Venous blood specimen / Unknown Venipuncture / Unknown 08/01/2024 2:10 PM EST 08/01/2024 2:10 PM EST Isabella RODARTE LAB BLOOD ORDERABLES Fin al Result [facility] [address] [place] [address], [place] [phone] * Vitamin D 25 hydroxy (08/01/2024 2:10 PM EST) Vit D, 25-Hydroxy 41.7 30.0 - 80.0 ng/mL LAB CHEMISTRY METHOD 08/01/2024 6:56 PM [facility] Blood Venous blood specimen / Unknown Venipuncture / Unknown 08/01/2024 2:10 PM EST 08/01/2024 2:10 PM EST Isabella RODARTE LAB BLOOD ORDERABLES Fin al Result [facility] [address] [place] [address], [place] [phone] * Magnesium (08/01/2024 2:10 PM EST) Magnesium 2.6 1.9 - 2.6 mg/dL LAB CHEMISTRY METHOD 08/01/2024 6:43 PM EST [facility] Blood Venous blood specimen / Unknown Venipuncture / Unknown 08/01/2024 2:10 PM EST 08/01/2024 2:10 PM EST us Isabella RODARTE LAB BLOOD ORDERABLES Fin al Result Performing Organization Address [facility]/ZIP Co de Phone Number [facility] [address] [place] [address], [place] [phone] * Iron (08/01/2024 2:10 PM EST) Iron 93 40 - 150 mcg/dL LAB CHEMISTRY METHOD 08/01/2024 6:43 PM EST [facility] Blood Venous blood specimen / Unknown Venipuncture / Unknown 08/01/2024 2:10 PM EST 08/01/2024 2:10 PM EST Isabella RODARTE LAB BLOOD ORDERABLES Fin al Result Performing Organization Address [facility] de Phone Number [facility] [address] [place] [address], [place] [phone] * (ABNORMAL) Folate (08/01/2024 2:10 PM EST) Folate >20.0(H) 2.8 - 17.0 ng/ml LAB CHEMISTRY METHOD 08/01/2024 7:06 PM EST [facility] Blood Venous blood specimen / Unknown Venipuncture / Unknown 08/01/2024 2:10 PM EST 08/01/2024 2:10 PM EST us Isabella RODARTE LAB BLOOD ORDERABLES Fin al Result Performing Organization Address City/[facility]/ZIP Co de Phone Number [facility] [address] [place] [address], [place] [phone] * Ferritin (08/01/2024 2:10 PM EST) [facility] Ferritin 16 8 - 252 ng/mL LAB CHEMISTRY METHOD 08/01/2024 7:06 PM EST [facility] Blood Venous blood specimen / Unknown Venipuncture / Unknown 08/01/2024 2:10 PM EST 08/01/2024 2:10 PM EST Isabella RODARTE LAB BLOOD ORDERABLES Fin al Result Performing Organization Address [facility]/ZIP Co de Phone Number [facility] [address] [place] [address], [place] [phone] * (ABNORMAL) Vitamin B12 (08/01/2024 2:10 PM EST) [facility] Vitamin B-12 1,199(H) 250 - 900 pcg/mL LAB CHEMISTRY METHOD 08/01/2024 7:06 PM EST [facility] Blood Venous blood specimen / Unknown Venipuncture / Unknown 08/01/2024 2:10 PM EST 08/01/2024 2:10 PM EST Isabella RODARTE LAB BLOOD ORDERABLES Fin al Result Performing Organization Address [facility]/ZIP Co de Phone Number [facility] [address] [place] [address], [place] [phone] * (ABNORMAL) Comprehensive metabolic panel (08/01/2024 2:10 PM EST) [facility] Sodium 139 133 - 145 mmol/L LAB CHEMISTRY METHOD 08/01/2024 7:06 PM EST [facility] Potassium 5.0 3.5 - 5.5 mmol/L LAB CHEMISTRY METHOD 08/01/2024 7:06 PM EST [facility] Chloride 107 96 - 110 mmol/L LAB CHEMISTRY METHOD 08/01/2024 7:06 PM EST [facility] CO2 25 21 - 32 mmol/L LAB CHEMISTRY METHOD 08/01/2024 7:06 PM [facility] Anion Gap 7 3 - 11 LAB CHEMISTRY METHOD 08/01/2024 7:06 PM [facility] Glucose 95 70 - 100 mg/dL LAB CHEMISTRY METHOD 08/01/2024 7:06 PM [facility] BUN 25 5 - 25 mg/dL LAB CHEMISTRY METHOD 08/01/2024 7:06 PM [facility] Creatinine 1.50(H) 0.50 - 1.10 mg/dL LAB CHEMISTRY METHOD 08/01/2024 7:06 PM [facility] eGFR 35(L) >=60 mL/min/1. 73m2 LAB CHEMISTRY METHOD 08/01/2024 7:06 PM [facility] Comment:Calculation based on the??Chronic Kidney Disease Epidemiology Collaboration (CKD-EPI) equation refit??without adjustment for race. BUN/Creatinine Ratio 16.7 LAB CHEMISTRY METHOD 08/01/2024 7:06 PM [facility] Calcium 8.8 8.5 - 10.5 mg/dL LAB CHEMISTRY METHOD 08/01/2024 7:06 PM [facility] AST (SGOT) 19 10 - 42 unit/L LAB CHEMISTRY METHOD 08/01/2024 7:06 PM [facility] ALT (SGPT) 24 10 - 60 unit/L LAB CHEMISTRY METHOD 08/01/2024 7:06 PM [facility] Alkaline Phosphatase 82 42 - 121 unit/L LAB CHEMISTRY METHOD 08/01/2024 7:06 PM [facility] Total Protein 7.4 6.0 - 8.0 g/dL LAB CHEMISTRY METHOD 08/01/2024 7:06 PM [facility] Albumin 3.9 3.2 - 5.0 g/dL LAB CHEMISTRY METHOD 08/01/2024 7:06 PM [facility] Total Bilirubin 0.5 0.0 - 1.4 mg/dL LAB CHEMISTRY METHOD 08/01/2024 7:06 PM EST [facility] Blood Venous blood specimen / Unknown Venipuncture / Unknown 08/01/2024 2:10 PM EST 08/01/2024 2:10 PM EST Isabella RODARTE LAB BLOOD ORDERABLES Fin al Result [facility] ([facility]) [facility] [address] [place] [address], [place] [phone] * Lipid panel (09/09/2023) LDL/HDL Ratio 2 0 - 4 Triglycerides 115 0 - 150 mg/dL Cholesterol 127 0 - 200 mg/dL HDL 62 >=40 mg/dL LDL Cholesterol 42 0 - 100 mg/dL Blood Venous blood specimen / Unknown Historical Provider LAB BLOOD ORDERABLES Emerald l Result from Last 3 Months or Most Recently Relevant to Health Maintenance Insurance [employer] Advance Directives Documents on File Type Date Recorded 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
--- OUTSIDE RECORDS SUMMARY | 2024-10-16 12:22 | XMS_ITS | Encounter Summary ---
Author Organization [facility] Address [address] [place] [address] Care Team Providers Care Manager Of Warehouse Name Role Phone Isabella Miller Primary Care Provider + Reason for Visit * Reason Onset Date Comments Referral 09/14/2024 Encounter Details Date Type Department Care Team (Late Contact Info) Description 09/14/2024 Telephone Internal Medicine - [place] [address] [facility] 200 [place] [phone] Simona Yeboah MA Referral Social History Tobacco Use Types Packs/Day [...] 2:00 PM EST Office Visit Nephrology - [address] [phone] Jake Carr MD [address] [facility] 200 [place] [address] 10/31/2024 11:00 AM EDT Ancillary Procedure [facility] - [facility] [address] [place] [address] 01/10/2025 10:50 AM EDT Office Visit [facility] - [facility] [address] [place] [address] Javier Shelton MD [address] [place] [address] [address] [place] [address] 02/23/2025 11:15 AM EDT Office Visit Internal Medicine - [place] [address] [place] [address] Isabella Miller PA 175 [facility] 200 [place] [address] documented as of this encounter Visit Diagnoses Not on filedocumented in this encounter Care Teams Manager Of Warehouse Relationship Specialty Start Date End Date Isabella Miller PA 175 [facility] 200 [place] [address] PCP - General Primary Care 06/21/24 documented as of this encounter
--- OUTSIDE RECORDS SUMMARY | 2024-10-16 12:22 | XMS_ITS | Encounter Summary ---
Author Organization [facility] Address [address] [place] [address] Care Team Providers Care Freelance Recruiter Name Role Phone Isabella Miller Primary Care Provider + Reason for Visit * Reason Onset Date Comments Referral 10/06/2024 CARDIAC MRI - [facility] Encounter Details Date Type Department Care Team (Late st Contact Info) Description 10/06/2024 Telephone Internal Medicine - [place] [address] [facility] [address] [place] [phone] Isabella Miller PA [address] [facility] [address] [place] [address] Referral (CARDIAC MRI - [facility]) Social History Tobacco Use Types Packs/Day Years [...] as of this encounter Progress Notes * Tia Blanchard - 10/12/2024 3:32 PM EST This is for an insurance referral not authorization for the cardiac MRI being done @ [facility] I know this is confusing but they are 2 different things Caller: Fax Office: [facility] Specialty: cardiology Insurance: [facility] ID: [id number] Provider: [facility] DOS: TBD Visits: 6 Dx code: I25.10 Pls create an order with the above information so that I may process it through the pts insurance. Thank you IMPORTANT Pls copy and paste the above info into the order. Otherwise, it will not be processed as an ins referral * ASTER Matias - 10/11/2024 11:20 AM EST Okay I will forward this to my team to take care of it. * Claudia Doherty - 10/11/2024 10:43 AM EST The referral is for [facility] so that we can have the patient scheduled for the imaging test, not [facility]. The order is all set from Cardiology. We just need the insurance authorization and that has to be requested from the PCP office. ThanksKaren * ASTER Matias - 10/10/2024 9:11 AM EST You are looking for an ambulatory external referral to cardiology at [facility]? Maybe put in the referral and pend to me what is needed. Thank you. * Claudia Doherty - 10/10/2024 8:58 AM EST Good morning, What we are looking for is for an ambulatory referral to be created so that we ([facility]) may request the insurance referral from the department. The patient will be scheduled for the MRI at [facility] butthey need the authorization and it only can come from the PCP office. Thanks, Karen García * ASTER Matias - 10/09/2024 4:15 PM EST I thought she was seen by our cardiology department? Looks like there is an MRI cardiac referral ordered 08/23/2024 under imaging * Hilton Pagan MA - 10/09/2024 9:38 AM EST Please advise * Mar Mejia - 10/06/2024 9:05 AM EST Karen at [facility] [phone] Checking on a referral to [facility] for pt to do Cardiac MRIs for 12 visits. Dx: I50.22 Chronic Heart Failure I42.9 Cardiomyopathy There isn't a referral placed in our system, please advise? Pt needs this done BRENT TY documented in this encounter Plan of Treatment Upcoming Encounters Date Type Department Care Team (Late st Contact Info) Description 10/18/2024 2:00 PM EST Office Visit Nephrology [id number] [place] [address] Jake Carr MD [address] [place] [phone] 10/31/2024 11:00 AM EDT Ancillary Procedure [facility] [address] [place] [phone] 01/10/2025 10:50 AM EDT Office Visit [facility] [address] [facility] [address] [place] [phone] KarolynJavier Jaimes MD [address] [place] [address] [address] [place] [address] 02/23/2025 11:15 AM EDT Office Visit Internal Medicine - [place] [address] [address] Isabella Miller PA 175 [facility] 200 [place] [address] documented as of this encounter Visit Diagnoses Not on filedocumented in this encounter Care Teams Freelance Recruiter Relationship Specialty Start Date End Date Isabella Miller PA [address] [address] PCP - General Primary Care 06/21/24 documented as of this encounter
== END 2024-10-16 11:01 | disposition home or self-care (01) ==
PROVIDERS: PCP Internal Medicine; Visit Provider Nurse Practitioner Family
DX: G62.0 Drug-induced polyneuropathy (principal); T45.1X5A Adverse effect of antineoplastic and immunosuppressive drugs, initial encounter; G89.4 Chronic pain syndrome; Z79.891 Long term (current) use of opiate analgesic; G62.9 Polyneuropathy, unspecified; M17.0 Bilateral primary osteoarthritis of knee; M47.817 Spondylosis without myelopathy or radiculopathy, lumbosacral region; M25.561 Pain in right knee; M25.562 Pain in left knee
CPT/HCPCS: 99214; G2211

== ENCOUNTER → 2024-10-16 10:35 | Outpatient (BNVA) | payer MEDICARE, SELFPAY | PROVIDERS: PCP Internal Medicine; Visit Provider Nurse Practitioner Family | DX: Z51.81 Encounter for therapeutic drug level monitoring (principal); F11.20 Opioid dependence, uncomplicated; G62.0 Drug-induced polyneuropathy; T45.1X5A Adverse effect of antineoplastic and immunosuppressive drugs, initial encounter; M17.0 Bilateral primary osteoarthritis of knee; M47.817 Spondylosis without myelopathy or radiculopathy, lumbosacral region; M25.561 Pain in right knee; M25.562 Pain in left knee; G89.4 Chronic pain syndrome | CPT/HCPCS: 99212 ==

== ENCOUNTER 2024-11-20 10:10 | Outpatient (AMB) | payer MEDICARE, SELFPAY ==
--- NOTE | 2024-11-20 10:21 | MHC.OFFVIS ---
Vital Signs 11/20/24 10:31 Height 5 ft 3 in Weight 143 lb BMI 25.3 BP 131/63 Blood Pressure Location Lt brachial Position Sitting Pulse 78 Pulse Source Pulse Oximeter Pulse Oximetry (%) 98 Oxygen Delivery Method Room Air Intake Visit Reasons: Pill Count Intake Note: Darlene comes in today for a pill count to morphine, patient should have 10 tablets and presents with 22 tablets which she last took today 11/20/24 5:30am. 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 She is supposed to have #10 pills in her possession and has #22 pills. This demonstrates a responsible attitude in regards to the medication regiment. In managing her existing chronic pain from bilateral knee and lumbar osteoarthritis and chemotherapy-induced peripheral neuropathy, the patient uses morphine at 15 mg extended-release tablets, demonstrating controlled use as evident from her pill count. She expresses a goal of decreased reliance on opioids post-steroid injection for the knees, scheduled and approved for 11/29. Her daily activities, such as extended sitting or climbing stairs, consistently influence her pain levels. The patient also highlighted temporary exacerbations of pain with cold or rainy weather, despite maintaining general mobility. Patient is currently at physical therapy at [facility] for bilateral knee pain related to OA. She reports difficulty participating in PT and HEP due to increased pain with exercises. Current pain levels are noted to be minimal due to gum sprayer dosing with morphine. She rates her pain at 1/10. Patient reportedly sustained a fall the last Wednesday, landing face-first on concrete, resulting in significant facial and right orbital bruising and potential risk of internal bleeding due to concurrent Eliquis use. The fall did not involve knee injury or other immediate apparent physical traumas. However, she experiences intermittent headache and tenderness in her facial and nose area, particularly the right eyebrow area, along with significant bruising and mild swelling. She has been applying ice packs and is scheduled to see her PCP today. I have encouraged patient to directly to ER for further evaluation with CT scan, patient declined and requests xrays orders to be sent to [facility] so she can complete them prior to her visit with PCP today. Denies loss of consciousness last Wednesday during the fall, but reports nausea with vomiting episode on Wednesday due to overeating at restaurant. Patient denies any cough, cold, infection, fever or any other significant changes in medical history since last office visit. - Affect: While maintaining current analgesic regimen, emotional wellbeing appears stable. - Analgesia: Managed with morphine 15 mg extended release, resulting in minimal pain at the time of examination. - Adverse Effects: No current adverse effects from medication reported. - Activities of Daily Living: Functional capacity partially impacted by weather, prolonged sitting, and stairs but overall retains mobility. - Aberrant Drug Related Behaviors: No evidence of misuse, as seen in controlled pill count and infrequent opioid use. PRIOR: Darlene is a pleasant 76 year old female who has previously been evaluated in this office by Dr. Monroy for bilateral leg pain which she attributes to her chemotherapy s/p breast cancer years ago. She was previously under the care of [facility], who was managing her with medication and she reports overall improvements with morphine 15 mg BID. She was evaluated by Dr. Monroy, who agreed to continue her regimen through this office. She is accompanied by her daughter. Today she is here for a pill count, which was concordant. This demonstrates a responsible attitude in regards to the opioid regimen. She reports improved function and decrease in pain, with no noted side effects. Denies any sedation, nausea or urinary retention. She was recently discharged with a small bowel obstruction which was thought to be related to adhesions from a hysterectomy >25 years ago. She has previously been instructed to use a daily stool softener as well as miralax and she has not been adhering to this regimen. She states some weeks she will have a bowel movement every 5 days and other weeks she will have one every other day without the need for medication. She has a follow up with her PCP next week as well as cardiology this week to review her new blood pressure medications. She did note dizziness upon standing and has been taking her blood pressure at home. She was instructed to contact her PCP regarding her low bp today. She also has CHF and although she states she has good fluid intake, she was instructed to decrease by cardiology. Of note, patient recently had a [employer]tr[employer] pacer placed 01/2021. PRIOR: Darlene is very pleasant 76 years old female who presents in my office with complains on pain in bilateral lower extremities below the level of the knees. She reports this pain is spreading all the way down to her toes. History of present illness she was subject of treatment of peripheral polyneuropathy of bilateral lower extremities after 18 years ago she was treated for breast cancer with physical therapy. She was under care of [facility]. She reports that she can not sleep normally do activities of daily living she can take care of herself and she can not function normally. She is retired individual. In terms of tissue damage the she reports her pain as pulsing, throbbing, pounding, dull, serve, hurting, aching, heavy, hot burning, skull doing, fearful. She reports multiple evaluation of her pain with [facility] and [facility]. Her past medical history significant for atrial fibrillation and pacemaker. She denies smoking cigarettes drinking alcohol using recreational drugs. She has a pacemaker. [facility] Medical History Thyroid cancer Chronic pain syndrome Peripheral polyneuropathy Surgical History Status post ablation of incompetent vein using laser (09/11/22) Social History Patient Tobacco Use Status: Never used Tobacco Current occupational status: retired Review of Systems Const Details: - Neurological: Reports headache and tenderness specifically around the right eyebrow. - Gastrointestinal: Reports nausea and emesis on one occasion post-fall, related to overeating rather than head injury. All systems reviewed & are unremarkable except as noted in HPI and below Physical Exam Vital Signs: Last Vital Signs Pulse 78 11/20/24 10:31 BP 131/63 11/20/24 10:31 Pulse Ox 98 11/20/24 10:31 Oxygen Delivery Method Room Air 11/20/24 10:31 BMI result Body Mass Index 25.3 General: Appears afebrile. Alert and oriented. Mood and affect appropriate. Follows and participates in conversation appropriately. Respiratory effort is unlabored. No cough. Able to transition from sit to stand unassisted. Ambulates with bilaterally normal heel strike and toe off. HEENT Head: Yes No palpable skull fracture present, Yes normocephalic, No laceration, No occipital foramen tenderness, Yes raccoon eyes (right), No scalp tenderness, No Temporal artery tenderness present, Yes periorbital ecchymosis (right ) and Yes other (nose with mild swelling and redness, TTP to area above right eyebrow) Ears: hearing grossly normal bilaterally General nose exam: No nasal discharge present Face and sinus: Yes Facial tenderness on exam of face and sinuses (right upper side including nose and right eye) Extrem General: Yes capillary refill normal, Yes no clubbing, cyanosis or edema and Yes no calf tenderness Right lower extremity: knee (Limited ROM due to pain.) Details: normal to inspection, tenderness Location: of the patella, of the popliteal fossa, of the medial joint line and of the lateral joint line and crepitus; no swelling, no ecchymosis and no unusual warmth Left lower extremity: knee (Limited ROM due to pain.) Details: normal to inspection, tenderness Location: of the patella, of the popliteal fossa, of the medial joint line and of the lateral joint line and crepitus; no swelling, no ecchymosis and no unusual warmth Psych Appearance: grossly normal and well kempt Mental Status: mental status grossly normal Speech and movement: Normal speech and movement present and Clear speech present Affect: normal affect Attitude: cooperative Thought process: Normal thought process present Thought content: Normal thought content present, suicidality (none), no hallucinations and No Depressive thoughts present Insight: Good insight present (Psych) Judgement: Good judgement present (Psych) Results Reviewed Results Reviewed: XR KNEE AP STANDING 03/16/24 CLINICAL INFORMATION: Pain in right knee. COMPARISON: 10/01/2023. TECHNIQUE: AP bilateral standing view of the knees was obtained. FINDINGS: Bones are diffusely demineralized. Mild narrowing of the medial and lateral compartments. IMPRESSION: Mild narrowing of the medial and lateral compartments. Assessment & Plan Assessment & Plan (1) Chronic, continuous use of opioids: Code(s): F11.90 - Opioid use, unspecified, uncomplicated Category: Medical (2) Chronic pain syndrome: Code(s): G89.4 - Chronic pain syndrome Category: Medical (3) Chemotherapy-induced peripheral neuropathy: Code(s): G62.0 - Drug-induced polyneuropathy; T45.1X5A - Adverse effect of antineoplastic and immunosuppressive drugs, initial encounter Category: Medical (4) Bilateral primary osteoarthritis of knee: Code(s): M17.0 - Bilateral primary osteoarthritis of knee Category: Medical (5) Lumbosacral spondylosis: Code(s): M47.817 - Spondylosis without myelopathy or radiculopathy, lumbosacral region Category: Medical (6) Bilateral knee pain: Code(s): M25.561 - Pain in right knee; M25.562 - Pain in left knee Category: Medical (7) Periorbital ecchymosis of right eye: Code(s): S00.11XA - Contusion of right eyelid and periocular area, initial encounter Category: Medical (8) Status post fall: Code(s): Z91.81 - History of falling Category: Medical (9) Current use of anticoagulant therapy: Code(s): Z79.01 - [facility] (current) use of anticoagulants Category: Medical (10) Nasal pain: Code(s): J34.89 - Other specified disorders of nose and nasal sinuses Category: Medical (11) Periorbital ecchymosis of right eye: Code(s): S00.11XA - Contusion of right eyelid and periocular area, initial encounter Category: Medical (12) Current use of anticoagulant therapy: Code(s): 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 There is no evidence of misuse, abuse or diversion at this time. MassPAT reviewed. Recent random UDS was concordant. Script for Morphine 15 mg BID prn with refill date of 11/29/24. Patient has Narcan at home. Continue to monitor for any adverse effects. Patient takes Colace and Miralax prn for constipation with mild relief. We also reviewed her current management plan for bilateral knee osteoarthritis, including the upcoming steroids injections and anticipated benefits in reducing opioid consumption. Proceed with bilateral knee intra-articular steroid injections with local and fluoroscopy as planned for 11/29/24. Expectations, risks and benefits were reviewed again with patient. Patient will stop Eliquis for 3 days prior to injections, per clearance from prescribing physician Dr. Javier [facility]. I discussed with the patient the significance of the facial and right orbital bruising and the potential risks of internal bleeding, particularly given her anticoagulation therapy with Eliquis. I advised seeking immediate evaluation at the emergency department to obtain a CT scan of the head/face, emphasizing the urgency and possible consequences of not addressing potential intracranial complications. I reinforced the importance of adherence to her scheduled PCP visit. Should instability or new symptoms develop, she is to seek timely medical evaluation. All questions were answered and patient is in agreement of plan. Follow up in 4-5 weeks for a pill count or sooner if needed. Patient was informed and verbally consented to the use of an ambient scribe for clinic note documentation during this visit. 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 15 mg PO BID 30 days PRN 60 tabs 0RF severe pain (scale score 7-10) F11.90 - Opioid use, unspecified, uncomplicated, G62.0 - Drug-induced polyneuropathy, M17.0 - Bilateral primary osteoarthritis of knee, T45.1X5A - Adverse effect of antineoplastic and immunosuppressive drugs, initial encounter Coding Level of Care Code Est Pt Level 4 (54479) Complex EM visit Add On G2211 Diagnoses Chronic, continuous use of opioids F11.90 Chronic pain syndrome G89.4 Chemotherapy-induced peripheral neuropathy G62.0; T45.1X5A Bilateral primary osteoarthritis of knee M17.0 Lumbosacral spondylosis M47.817 Bilateral knee pain M25.561; M25.562 Periorbital ecchymosis of right eye S00.11XA Status post fall Z91.81 Current use of anticoagulant therapy Z79.01 Nasal pain J34.89
[2024-11-20 10:31] VITALS: BP 131/63; PULSE 78; O2SAT 98; BMI 25.3
--- OUTSIDE RECORDS SUMMARY | 2024-11-20 11:50 | XMS_ITS | Encounter Summary ---
Author Organization [facility] [place] [address] Care Team Providers Care Pickle Cutter Name Role Phone Isabella Miller Primary Care Provider + Encounter Details Date Type Department Care Team (Late st Contact Info) Description 11/17/2024 9:15 PM EDT Ancillary Procedure [facility]iology [facility] - [facility] [address] [facility] [address] [place] [address] Arrived Social History Tobacco Use Types Packs/Day Years [...] Department Care Team (Late Contact Info) Description 01/10/2025 10:50 AM EDT Office Visit [facility] [address] [place] [phone] Javier Shelton MD [address] [place] [address] [address] [place] [address] 02/23/2025 11:15 AM EDT Office Visit Internal Medicine - [place] [address] [facility] [address] [place] [phone] Isabella Miller PA [address] [facility] [address] [place] [address] 06/20/2025 4:00 PM EST Office Visit Nephrology - [place] [id number] [place] [address] Jake Carr MD [address] [facility] [address] [place] [address] 11/01/2025 11:00 AM EDT Ancillary Procedure [facility] - [facility] [address] [facility] [address] [place] [address] documented as of this encounter Procedures Procedure Name Priority Date/Time Associated Diagnosis Comments CARDIAC DEVICE CHECK- REMOTE- MURJ Routine 11/17/2024 9:14 PM EDT documented in this encounter Results * Cardiac device check - Remote- MURJ (11/17/2024 9:14 PM EDT) Date Time Interrogation Session [id number] CV DEVICE CHECK Type Interrogation Session Remote CV DEVICE CHECK Implantable Pulse Generator Automotive Engineering Teacher MDT CV DEVICE CHECK Implantable Pulse Generator Type SCIENTIFIC ADVISOR-P CV DEVICE CHECK Implantable Pulse Generator Model Percepta Quad SCIENTIFIC ADVISOR-P [id number] CV DEVICE CHECK Implantable Pulse Generator Serial Number [id number] CV DEVICE CHECK Implantable Pulse Generator Implant Date 20210131 CV DEVICE CHECK Battery Remaining Longevity 64.0 CV DEVICE CHECK Battery Voltage 2.960 CV D EVICE CHECK Battery SUPPORT MANAGER Trigger 2.595 CV DEVICE CHECK Battery Status Middle of Service CV DEVICE CHECK Chinmay Statistic RA Percent Paced 100.00 CV DEVICE CHECK Chinmay Statistic RV Percent Paced 99.82 CV DEVICE CHECK SCIENTIFIC ADVISOR Statistic LV Percent Paced 99.79 CV DEVICE CHECK SCIENTIFIC ADVISOR Statistic SCIENTIFIC ADVISOR Percent Paced 99.79 CV DEVICE CHECK Atrial Tachy Statistic AT/AF Spencer Percent 0.00 CV DEVICE CHECK Lead Channel [...] CHECK Lead Channel RV Pacing Threshold Date 2024-04-13 CV DEVICE CHECK Lead Channel Setting Pacing Amplitude 2.000 CV DEVICE CHECK Lead Channel Setting Pacing Pulse Width 0.4 CV DEVICE CHECK Lead Channel Impedance Value 912 CV DEVICE CHECK Lead Channel Pacing Threshold Amplitude 1.125 CV DEVICE CHECK Lead Channel Pacing Threshold Pulse Width 0.4 CV DEVICE CHECK Lead Channel Pacing Threshold Date 2024-04-13 CV DEVICE CHECK Lead Channel Setting Pacing Amplitude 1.750 CV DEVICE CHECK Lead Channel Setting Pacing Pulse Width 0.4 CV DEVICE CHECK Chinmay Setting Mode (NBG Code) DDDR CV DEVICE CHECK Ventricular chambers paced during SCIENTIFIC ADVISOR pacing. BiV CV DEVICE CHECK Chinmay Setting Lower Rate Limit 75 CV DEVICE CHECK Chinmay Setting AT Mode Switch Rate 171 CV DEVICE CHECK Chinmay Setting Maximum Tracking Rate 110 CV DEVICE CHECK Chinmay Setting Maximum Sensor Rate 120 CV DEVICE CHECK Chinmay Setting PAV Delay 150 CV DEVICE CHECK Chinmay Setting EDITH Delay 130 CV DEVICE CHECK SCIENTIFIC ADVISOR LV-RV Delay 30 CV D EVICE CHECK [...] 6 CV DEVICE CHECK Date of Service 2024-05-23 CV DEVICE CHECK Anatomical Region Laterality Modality Device Interroga tion 04/13/2024 6:11 AM EDT Impressions 04/24/2024 1:14 PM EDT Heart Failure Diagnostic: Stable * Heart failure diagnostics assessed through the device * Status: Stable * No overt HF present Narrative Procedure Note Efren Caban MD - 11/17/2024 IMPRESSION: Heart Failure Diagnostic: Stable * Heart failure diagnostics assessed through the device * Status: Stable * No overt HF present us Efren Caban MD CV IMPLANTABLE CARDIAC DEVICE PROCEDURES Final Result documented in this encounter Visit Diagnoses Not on filedocumented in this encounter Care Teams Pickle Cutter Relationship Specialty Start Date End Date Isabella Miller PA 175 [facility] 200 [place] [address] PCP - General Primary Care 06/21/24 documented as of this encounter
--- OUTSIDE RECORDS SUMMARY | 2024-11-20 11:50 | XMS_ITS | Encounter Summary ---
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 Social History Tobacco Use Types Packs/Day Years [...] Care Team (Late st Contact Info) Description 01/10/2025 10:50 AM EDT Office Visit [facility] [address] [place] [address] Javier Shelton MD [address] [place] [address] [place] [address] 02/23/2025 11:15 AM EDT Office Visit Internal Medicine - [place] 175 [facility] 200 [place] [address] Isabella Miller PA [address] [address] 06/20/2025 4:00 PM EST Office Visit Nephrology - [place] [address] [place] [address] Jake Carr MD [address] [address] 11/01/2025 11:00 AM EDT Ancillary Procedure [facility] - [facility] [address] [facility] [address] [place] [phone] Pending Results Name Type Priority Associated Diagnoses Date /Time XR Nasal Bones Imaging Routine Contusion of right eyelid and periocular area, initial encounter 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 11/20/2024 11:44 AM EDT Scheduled Orders Name Type Priority Associated Diagnoses Orde r Schedule XR Nasal Bones Imaging Routine Contusion of right eyelid and periocular area, initial encounter 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
--- OUTSIDE RECORDS SUMMARY | 2024-11-20 11:50 | XMS_ITS | Clinical Summary ---
Author Organization [address] [place] [address] [place] [phone] Phone Care Team Providers Care Kitchen Assistant Name Role Phone Isabella Miller Primary Care Provider + Allergies No known active allergies Medications amitriptyline HCl (AMITRIPTYLINE ORAL) Take 20 mg by mouth at bedtime. Active vitamin B complex (VITAMINS B COMPLEX ORAL) 1 (one) time each day. Active cholecalciferol (VITAMIN D-3) 50 mcg (2,000 unit) capsule Take 1 capsule by mouth daily. 1 Active cyanocobalamin (VITAMIN B-12) 1,000 mcg tablet Take 1 tablet by mouth daily. 9 Active dapagliflozin propanediol (Farxiga) 10 mg tablet TAKE 1 TABLET BY MOUTH EVERY DAY 4 Active lidocaine 5 % cream Apply 1 g topically daily. Active morphine (MS CONTIN) 15 mg 12 hr tablet TAKE 1 TABLET BY MOUTH TWICE DAILY NEEDED FOR SEVERE PAIN (SCALE SCORE 7-10) FOR 30 DAYS. 3 Active omega-3 acid ethyl esters (LOVAZA) 1 gram capsule 1,000 mg daily. 4 Active L.acid/L.casei/ B.bif/B.brendan/FOS (PROBIOTIC BLEND ORAL) Take by mouth. Active rosuvastatin (CRESTOR) 5 mg tablet TAKE 1 TABLET BY MOUTH EVERY DAY 4 Active gabapentin (NEURONTIN) 300 mg capsuleIndicati ons:Acute bilateral thoracic back pain Take 1 cap in the morning and 2 caps every evening 90 capsule 3 4 Active apixaban (Eliquis) 2.5 mg tabletIndicatio ns:Atrial fibrillation, unspecified type (CMS/HCC) Take 1 tablet (2.5 mg total) by mouth 2 (two) times a day. 90 tablet 2 5 Active spironolactone (ALDACTONE) 25 mg tabletIndicatio ns:Chronic systolic (congestive) heart failure Take 0.5 tablets (12.5 mg total) by mouth every other day. 90 tablet 2 5 Active amiodarone (PACERONE) 200 mg tablet TAKE 1 TABLET BY MOUTH EVERY DAY 90 tablet 1 5 Active carvediloL (COREG) 3.125 mg tablet TAKE 1 TABLET BY MOUTH TWICE DAILY WITH FOOD. 180 tablet 2 5 Active furosemide (LASIX) 20 mg tabletIndicatio ns:Chronic HFrEF (heart failure with reduced ejection fraction) (CMS/HCC) Take 1 tablet (20 mg total) by mouth if needed (PRN for HF symptoms). 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 CMP and TSH up-to-date. Chest x-ray from October 2024. Assessment & Plan (08/23/2024 4:16 PM EST): [...] continue her current therapy. Assessment & Plan (11/08/2024 4:11 PM EDT): Last LDL cholesterol at goal. She will continue her current statin therapy as prescribed. Assessment & Plan (08/23/2024 4:16 PM EST): [...] and beta jordan. Will continue current therapy. Assessment & Plan (11/08/2024 4:11 PM EDT): Patient has a history of nonobstructive coronary artery disease. Currently, denies any exertional or anginal symptoms or episodes of chest pain. She continues on medical therapy with statin and beta-jordan. She is also on Eliquis as an antithrombotic. Will continue current therapies. Cholelithiasis 02/12/2021 Chronic HFrEF (heart failure with [...] orally daily ?? Candidate for ICD or DIE CUTTING MACHINE OPERATOR: DIE CUTTING MACHINE OPERATOR-P in place ?? Assessment and plan: The [...] continued use of spironolactone. Assessment & Plan (11/08/2024 4:11 PM EDT): HFrEF-EF 30-35%. Etiology: Nonischemic Last echocardiogram 06/2024. Last ischemic evaluation: Left heart catheterization in 2020. GDMT Betablocker: Carvedilol 3.125 mg twice daily. WALDO Inhibitor-BELLA/ARB/ARNI: Patient unable to tolerate low-dose Entresto in the past due to low blood pressures Diuretic: Will initiate PRN furosemide 20 mg Aldosterone antagonist: Spironolactone 12.5 mg every other day. SGLT2 inhibitors: Dapagliflozin 10 mg daily. Patient had cardiac MRI yesterday 11/07/24 pending results. ICD: DIE CUTTING MACHINE OPERATOR-P in place, with reassessment of EF and pending cardiac MRI results may consider upgrading device to add a defibrillator, will refer to EP if indicated. Plan: Continue current GDMT given limitations due to kidney disease and blood pressures Will initiate PRN furosemide 20 mg, we discussed indications for taking the diuretic She will continue to monitor her symptoms and notify us of any changes, she appears euvolemic on physical exam today without clinical signs of acute heart failure. I will notify her of the results of the cardiac MRI to determine next steps I've asked the patient to call if they develop worsening symptoms of heart failure such as increased shortness of breath, new or worsening cough, increased swelling in the legs or ankles, or weight gain of more than 2 pounds in one day or 4 pounds in one week. Orders: furosemide (LASIX) 20 mg tablet; Take 1 tablet (20 mg total) by mouth if needed (PRN for HF symptoms). Assessment & Plan (08/23/2024 4:16 PM EST): [...] SGLT2 inhibitors: Dapagliflozin 10 mg daily. ICD: DIE CUTTING MACHINE OPERATOR-P in place, with reassessment of EF and [...] with Coreg. Also, the patient has a [id number] score of 5 (age, gender, heart failure, CAD). She continues on anticoagulation therapy with Eliquis 5 mg orally twice daily. She denies any abnormal bleeding. Will continue her current therapy. Assessment & Plan (11/08/2024 4:11 PM EDT): Patient has a history of paroxysmal atrial fibrillation and continues on rhythm control with amiodarone and rate control therapy with carvedilol. She continues on anticoagulation with Eliquis 2.5 mg orally twice daily based on her age and kidney functions. She denies any abnormal bleeding or bruising. Will continue current therapies. Her heart rate is well-controlled today. Will continue to monitor on device checks as well. The patient is going to have bilateral knee injections in December. We discussed she may hold her Eliquis for 2 to 3 days if required and resume as soon as possible under the discretion of the orthopedic provider. Orders: ECG 12 lead Assessment & Plan (08/23/2024 4:16 PM EST): Patient has history of paroxysmal atrial fibrillation, [id number] score of 5. She continues on rhythm [...] chemotherapy and surgery), who was [facility]21 with weakness x [address] Caban consulted on the patient due to her bradycardia which appeared multifactorial from electrolyte disturbances in the setting of renal dysfunction and due to amiodarone. She had a pacemaker with DIE CUTTING MACHINE OPERATOR implanted during the hospitalization. She does not [...] B12 deficiency 09/06/2015 Hypertension Overview (08/24/2024): DX:Hypertension Assessment & Plan (11/08/2024 4:11 PM EDT): Patient's blood pressure is well-controlled today. She will continue her current antihypertensive medication regimen as prescribed. Encounters Date Type Department Care Team Description 11/20/2024 11:44 AM EDT [place] [address] Contusion of right eyelid and periocular area, initial encounter; History of falling; senior care (current) use of anticoagulants 11/20/2024 10:30 AM EDT Hospital Encounter [facility] [place] [phone] Contusion of right eyelid and periocular area, initial encounter; History of falling; intermediate card tender (current) use of anticoagulants 11/20/2024 10:20 AM EDT [place] [address] Contusion of right eyelid and periocular area, initial encounter; History of falling; intermediate card tender (current) use of anticoagulants 11/17/2024 9:15 PM EDT Ancillary Procedure [facility] Cardiology [facility] [address] [place] [address] Arrived 11/15/2024 9:30 AM EDT Ancillary Procedure [facility] [address] [place] [address] 11/14/2024 9:55 AM EDT Ancillary Procedure [facility] [address] [place] [address] 11/14/2024 Telephone [facility] Cardiology [facility] - [facility] [address] [place] [address] Claudia Roes NP procedure 11/14/2024 Telephone [facility] - [address] [place] [phone] Angelica Rowe PA 11/08/2024 3:10 PM EDT Office Visit [facility] [address] [place] [address] Claudia Rose NP Atrial fibrillation, unspecified type (CMS/HCC) (Primary Dx); Chronic HFrEF (heart failure with reduced ejection fraction) (CMS/HCC); senior care current use of amiodarone; Coronary artery disease involving [place] coronary artery of [place] heart without angina pectoris; Primary hypertension; Hyperlipidemia, unspecified hyperlipidemia type 11/06/2024 Telephone Internal Medicine - [place] [address] [place] [phone] Jocelyne Doherty MA faxed form (ATI) 11/02/2024 12:30 PM EDT - 11/02/2024 11:59 PM EDT Hospital Encounter XRAY - [place] [address] [place] [address] Discharge Disposition: Home or Self Care 11/02/2024 Telephone [facility] [address] [place] [phone] Elly Jaeger NP Other (CXR) 11/01/2024 Telephone [facility] [address] [place] [phone] Claudia Rose NP knee injection (Knee injection ) 10/31/2024 11:00 AM EDT Ancillary Procedure [facility] [address] [place] [phone] Encounter for adjustment or management of cardiac device 10/31/2024 Telephone [facility] [address] [place] [address] Mumtaz Rahman RN 10/30/2024 10:20 AM EDT Ancillary Procedure [facility] [address] [place] [phone] 10/26/2024 11:40 AM EDT Lab Draw Station - [place] [address] [place] [address] Chronic HFrEF (heart failure with reduced ejection fraction) ([facility]/HCC); Cardiomyopathy, unspecified type (CMS/HCC) 10/18/2024 2:00 PM EST Office Visit Nephrology - [place] [address] [place] [address] Jake Carr MD CKD stage 3b, GFR 30-44 ml/min ([facility]) (Primary Dx); Primary hypertension 10/18/2024 Telephone [facility] Cardiology [facility] - [address] [place] [phone] Elly Jaeger NP Appointment (Cardiac MRI) 10/06/2024 Telephone Internal Medicine [facility] [address] [facility] [address] [place] [phone] Isabella Miller PA Referral (CARDIAC MRI - [facility]) 10/04/2024 Telephone Internal Medicine [facility] [address] [facility] [address] [place] [phone] Jocelyne Doherty MA faxed form (ATI) 09/28/2024 Telephone Internal Medicine [facility] [address] [facility] [address] [place] [phone] Isabella Miller PA Referral 09/19/2024 11:40 AM EST Ancillary Procedure [facility] Cardiology [facility] [address] [place] [address] 09/18/2024 Telephone [facility] Cardiology [facility] [address] [place] [address] Efren Caban MD 09/14/2024 Telephone Internal Medicine [facility] [address] [facility] [address] [place] [phone] Simona Yeboah MA Referral 08/31/2024 Telephone Internal Medicine [facility] [address] [facility] [address] [place] [address] Isabella Miller PA Referral ([facility] derm) 08/31/2024 Telephone [facility] Cardiology [facility] [address] [place] [address] Elly Jaeger NP Testing (Auth Cardiac MRI) 08/24/2024 10:30 AM EST Office Visit Internal Medicine - [place] [address] [facility] [address] [place] [phone] Isabella Miller PA Primary hypertension (Primary Dx); Paroxysmal atrial fibrillation (CMS/HCC); Chronic HFrEF (heart failure with reduced ejection fraction) (CMS/HCC); 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; 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); Acute URI 08/23/2024 11:10 AM EST Office Visit [facility] Cardiology [facility] [address] [place] [address] Claudia Rose NP Chronic HFrEF (heart failure with reduced ejection fraction) (CMS/HCC) (Primary Dx); Atrial fibrillation, unspecified type (CMS/HCC); Cardiomyopathy, unspecified type (CMS/HCC); Hyperlipidemia, unspecified hyperlipidemia type; intermediate card tender current use of amiodarone; Chronic systolic (congestive) heart failure (CMS/HCC) 08/23/2024 Telephone [facility] Cardiology [facility] [address] [place] [address] Claudia Rose NP medication question from Last 3 Months Immunizations Name Administration [...] CHOLECYSTECTOMY PROCEDURE: LAPAROSCOPY, CHOLECYSTECTOMY; COMMENT: 07/2023 in [place] due to cholelithiasis Medical History Medical History Date Comments Aortic atherosclerosis (CMS/HCC) 10/02/2015 DX:Aortic atherosclerosis (HCC); COMMENT: Comments: CXR 11/29/14 Atherosclerotic aorta Atrial fibrillation (CMS/HCC) 05/19/2018 DX :Atrial fibrillation (HCC) Cardiomyopathy 09/06/2015 DX:Cardiomyopath y (HCC) Chronic constipation 04/15/2017 DX:Chronic constipation Diverticulosis [...] DX:Hyperlipidemi a Cholelithiasis DX:Cholelithiasi s Breast cancer 2003 DX:Breast cancer (HCC); COMMENT: Chemo &Rad Tx Family history of coronary a rtery disease DX:Family history of coronar y artery disease H/O hypercholesterolemia Rosacea Chronic kidney disease (CKD) , stage III (moderate) (CMS/HCC) Family History Medical History Relation Name Comments [...] Sign Reading Time Taken Comments Blood Pressure 118/60 11/08/2024 2:43 PM EDT Pulse 78 11/08/2024 2:43 PM EDT Temperature 36.6 ??C (97.9 ??F) 08/24/2024 10:[address] Respiratory Rate - - Oxygen Saturation 96% 11/08/2024 2:43 PM EDT Inhaled Oxygen Concentration - - Weight 65.6 kg (144 lb 9.6 oz) 11/08/2024 2:43 P M EDT Height 157.5 cm (5' 2 ) 11/08/2024 2:43 PM EDT Body Mass Index 26.45 11/08/2024 2:43 PM EDT Plan of Treatment Upcoming Encounters Date Type Department Care Team (Late st Contact Info) Description 01/10/2025 10:50 AM EDT Office Visit [facility] [address] [place] [address] Ethel Shelton MD [address] [place] [address] [address] [place] [address] 02/23/2025 11:15 AM EDT Office Visit Internal Medicine - [place] [address] [facility] [address] [place] [phone] Isabella Miller PA [address] [facility] [address] [place] [address] 06/20/2025 4:00 PM EST Office Visit Nephrology [address] [address] Jake Carr MD [address] [facility] [address] [place] [phone] 11/01/2025 11:00 AM EDT Ancillary Procedure [facility] Cardiology [facility] - [facility] [address] [facility] [address] [place] [phone] Health Maintenance Due Date Last Done Comments RSV Immunization Adult Patients (1 - 1-dose 75+ series) 2018 Depression Screening 07/25/2022 Falls Risk Assessment 07/25/2022 Medicare Annual Wellness Visit 07/25/2022 Osteoporosis Screening (Bone Density Screening) 07/25/2022 Social Influencers of Health Screening 07/25/2022 COVID-19 Vaccine ( season) 2024 06/12/2022, 06/23/2021, 10/15/2020, Additional history exists Hypertension/CHF/CAD Annual BMP Blood Test 10/26/2025 10/26/2024, 08/21/2024, 08/01/2024, Additional history exists Cholesterol Screening (Lipid Panel) [...] this topic Medical Devices Implanted Type Area Program Director Scouting Device Identifier Shelf Expiration Date Model / Serial / Lot Medt-Card Percepta Quad Game Programer-P [id number] Implanted: by Efren Caban MD (Quantity not on file) Cardiac DIE CUTTING MACHINE OPERATOR-P Left: Chest [employer] - CARDIAC RHYTH-CRDM PERCEPTA QUAD DIE CUTTING MACHINE OPERATOR-P [id number] / [id number] / Procedures Procedure Name Priority Date/Time Associated Diagnosis Comments CARDIAC DEVICE CHECK- REMOTE- MURJ Routine 11/17/2024 9:14 PM EDT CARDIAC DEVICE CHECK- REMOTE- MURJ Routine 11/15/2024 9:29 AM EDT CARDIAC DEVICE CHECK- REMOTE- MURJ Routine 11/14/2024 9:53 AM EDT ECG 12-LEAD Routine 11/08/2024 3:07 PM EDT Atrial fibrillation, unspecified type (CMS/HCC) XR CHEST 2 VIEWS Routine 11/02/2024 12:3 8 PM EDT Chronic HFrEF (heart failure with reduced ejection fraction) (CMS/HCC) CARDIAC DEVICE CHECK- IN CLINIC- MURJ Routine 10/31/2024 11:15 AM EDT Encounter for adjustment or management of cardiac device CARDIAC DEVICE CHECK- REMOTE- MURJ Routine 10/30/2024 10:18 AM EDT BASIC METABOLIC PANEL Routine 10/26/2024 12:02 PM EDT Chronic HFrEF (heart failure with reduced ejection fraction) (CMS/HCC) Cardiomyopathy, unspecified type (CMS/HCC) CARDIAC DEVICE CHECK- REMOTE- MURJ Routine 09/19/2024 11:37 AM EST THYROID STIMULATING HORMONE Routine 08/24/2024 11:36 AM EST intermediate card tender current use of amiodarone LIPID PANEL Routine 09/09/2023 from Last 3 Months or Most Recently Relevant to Health Maintenance Results * Cardiac device check - Remote- MURJ (11/17/2024 9:14 PM EDT) Only the most recent of5 resultswithin the time period is included. Date Time Interrogation Session [id number] CV DEVICE CHECK Type Interrogation Session Remote CV DEVICE CHECK Implantable Pulse Generator Program Director Scouting MDT CV DEVICE CHECK Implantable Pulse Generator Type DIE CUTTING MACHINE OPERATOR-P CV DEVICE CHECK Implantable Pulse Generator Model Percepta Quad DIE CUTTING MACHINE OPERATOR-P [id number] CV DEVICE CHECK Implantable Pulse Generator Serial Number [id number] CV DEVICE CHECK Implantable Pulse Generator Implant Date 20210131 CV DEVICE CHECK Battery Remaining Longevity 64.0 CV DEVICE CHECK Battery Voltage 2.960 CV D EVICE CHECK Battery BLEACH PACKER Trigger 2.595 CV DEVICE CHECK Battery Status Middle of Service CV DEVICE CHECK Chinmay Statistic RA Percent Paced 100.00 CV DEVICE CHECK Chinmay Statistic RV Percent Paced 99.82 CV DEVICE CHECK DIE CUTTING MACHINE OPERATOR Statistic LV Percent Paced 99.79 CV DEVICE CHECK DIE CUTTING MACHINE OPERATOR Statistic DIE CUTTING MACHINE OPERATOR Percent Paced 99.79 CV DEVICE CHECK Atrial Tachy Statistic AT/AF Cook Percent 0.00 CV DEVICE CHECK Lead Channel [...] CV DEVICE CHECK Ventricular chambers paced during DIE CUTTING MACHINE OPERATOR pacing. BiV CV DEVICE CHECK Chinmay Setting Lower Rate Limit 75 CV DEVICE CHECK Chinmay Setting AT Mode Switch Rate 171 CV DEVICE CHECK Chinmay Setting Maximum Tracking Rate 110 CV DEVICE CHECK Chinmay Setting Maximum Sensor Rate 120 CV DEVICE CHECK Chinmay Setting PAV Delay 150 CV DEVICE CHECK Chinmay Setting EDITH Delay 130 CV DEVICE CHECK DIE CUTTING MACHINE OPERATOR LV-RV Delay 30 CV D EVICE CHECK [...] Status: Stable * No overt HF present Efren Caban MD CV IMPLANTABLE CARDIAC DEVICE PROCEDURES Final Result * ECG 12 lead (11/08/2024 3:07 PM EDT) Ventricular Rate ECG 78 BPM GEMUSE Atrial Rate 78 BPM GEMUSE P-R Interval 146 ms GEMUSE QRS Duration 172 ms GEMUSE Q-T Interval 484 ms GEMUSE QTc 551 ms GEMUSE P Wave Holly 21 degrees GEMUSE R Holly -178 degrees GEMUSE T Holly 43 degrees GEMUSE ECG Interpretation AV dual-paced rhythm Abnormal ECG When compared with ECG of 29-JUL-2022 22:50, Vent. rate has decreased BY ?? 2 BPM Confirmed by ETHEL SHELTON ([id number]) on 11/08/2024 3:21:03 PM GEMUSE 11/08/2024 3:07 PM EDT 11/08/2024 3:21 PM EDT us Ethel Shelton MD ECG ORDERABLES Final Result GEMUSE * XR Chest 2 Views (11/02/2024 12:38 PM EDT) Anatomical Region Laterality Modality Body Radiographic Karina ging 11/02/2024 3:52 PM EDT Impressions 11/02/2024 4:03 PM EDT Pacemaker with the distal leads overlying the right atrium and right ventricle. ??A left ventricular lead is also present. ??No fracture -------- FINAL REPORT -------- Dictated By: Gwyn Eldridge Dictated Date: 11/02/2024 15:52 ET Assigned Physician: Gwyn Eldridge Reviewed and Electronically Signed By: Gwyn Eldridge Signed Date: 11/02/2024 16:03 ET Workstation ID: [id number] Transcribed By: Self Edit Transcribed Date: 11/02/2024 15:52 ET Narrative 11/02/2024 4:03 PM EDT HISTORY: Device Check TECHNIQUE: PA and lateral radiographs of the chest COMPARISON: None FINDINGS: There is a normal cardiomediastinal silhouette. ??Mild atherosclerosis of the thoracic aorta. ??The lungs are clear. ??Mild degenerative changes of the thoracic spine. ??Left-sided cardiac pacemaker with distal leads overlying the right atrium and right ventricle. ??A left ventricular lead is also present. ??No fractures of the leads. ??Moderate narrowing of the right acromioclavicular joint. Procedure Note Gwyn Eldridge MD - 11/02/2024 HISTORY: Device Check TECHNIQUE: PA and lateral radiographs of the chest COMPARISON: None FINDINGS: There is a normal cardiomediastinal silhouette. Mild atherosclerosis ofthe thoracic aorta. The lungs are clear. Mild degenerative changes ofthe thoracic spine. Left-sided cardiac pacemaker with distal leadsoverlying the right atrium and right ventricle. A left ventricular leadis also present. No fractures of the leads. Moderate narrowing of theright acromioclavicular joint. IMPRESSION: Pacemaker with the distal leads overlying the right atrium and rightventricle. A left ventricular lead is also present. No fracture -------- FINAL REPORT -------- Dictated By: Gwyn Eldridge Dictated Date: 11/02/2024 15:52 ET Assigned Physician: Gwyn Eldridge Reviewed and Electronically Signed By: Gwyn Eldridge Signed Date: 11/02/2024 16:03 ET Workstation ID: [id number] Transcribed By: Self Edit Transcribed Date: 11/02/2024 15:52 ET us Elly Jaeger GLAZE MAKER IMG XR PROCEDURES Final Result * CARDIAC DEVICE CHECK- IN CLINIC- MUR (10/31/2024 11:15 AM EDT) Date Time Interrogation Session [id number] CV DEVICE CHECK Implantable Pulse Generator Program Director Scouting MDT CV DEVICE CHECK Implantable Pulse Generator Type DIE CUTTING MACHINE OPERATOR-P CV DEVICE CHECK Implantable Pulse Generator Model Percepta Quad DIE CUTTING MACHINE OPERATOR-P [id number] CV DEVICE CHECK Implantable Pulse Generator Serial Number [id number] CV DEVICE CHECK Implantable Pulse Generator Implant Date 20210131 CV DEVICE CHECK Battery Status Middle of Service CV DEVICE CHECK Chinmay Statistic RA Percent Paced 99.50 CV DEVICE CHECK Chinmay Statistic RV Percent Paced 99.70 CV DEVICE CHECK DIE CUTTING MACHINE OPERATOR Statistic LV Percent Paced 99.40 CV DEVICE CHECK DIE CUTTING MACHINE OPERATOR Statistic DIE CUTTING MACHINE OPERATOR Percent Paced 99.40 CV DEVICE CHECK Atrial Tachy Statistic AT/AF Cook Percent 0.30 CV DEVICE CHECK Lead Channel Setting Sensing Sensitivity 0.30 CV DEVICE CHECK Lead Channel Impedance Value 456 CV DEVICE CHECK Lead Channel Pacing Threshold Amplitude 1.250 CV DEVICE CHECK Lead Channel Pacing Threshold Pulse Width 0.4 CV DEVICE CHECK Lead Channel RA Pacing Threshold Date 2023-02-03 CV DEVICE CHECK Lead Channel Setting Pacing Amplitude 2.750 CV DEVICE CHECK Lead Channel Setting Pacing Pulse Width 0.4 CV DEVICE CHECK Lead Channel Setting Sensing Sensitivity 0.90 CV DEVICE CHECK Lead Channel Impedance Value 589 CV DEVICE CHECK Lead Channel Pacing Threshold Amplitude 1.000 CV DEVICE CHECK Lead Channel Pacing Threshold Pulse Width 0.4 CV DEVICE CHECK Lead Channel RV Pacing Threshold Date 2024-10-31 CV DEVICE CHECK Lead Channel Setting Pacing Amplitude 2.000 CV DEVICE CHECK Lead Channel Setting Pacing Pulse Width 0.4 CV DEVICE CHECK Lead Channel Impedance Value 893 CV DEVICE CHECK Lead Channel Pacing Threshold Amplitude 1.250 CV DEVICE CHECK Lead Channel Pacing Threshold Pulse Width 0.4 CV DEVICE CHECK Lead Channel Pacing Threshold Date 2024-10-31 CV DEVICE CHECK Lead Channel Setting Pacing Amplitude 1.750 CV DEVICE CHECK Lead Channel Setting Pacing Pulse Width 0.4 CV DEVICE CHECK Chinmay Setting Mode (NBG Code) DDDR CV DEVICE CHECK Ventricular chambers paced during DIE CUTTING MACHINE OPERATOR pacing. LV->RV CV DEVICE CHECK Chinmay Setting Lower Rate Limit 75 CV DEVICE CHECK Chinmay Setting AT Mode Switch Rate 171 CV DEVICE CHECK Chinmay Setting Maximum Tracking Rate 110 CV DEVICE CHECK Chinmay Setting Maximum Sensor Rate 120 CV DEVICE CHECK Zone Setting Type Category AT/AF CV DEVICE CHECK Therapies All Rx Off CV DEVICE CHECK Zone Setting Status Monitor CV DEVICE CHECK Zone ID 2 CV DEVICE CHECK Zone Setting Type Category VT CV DEVICE CHECK Zone Setting Status Monitor CV DEVICE CHECK Zone ID 5 CV DEVICE CHECK Date of Service 2024-10-31 CV DEVICE CHECK Anatomical Region Laterality Modality Device Interroga tion 10/31/2024 Impressions 10/31/2024 3:04 PM EDT Normal In-Office: With Events * Normal Device Function * Events or Alerts: 3 AF events noted since last remote; EGM's available suggestive of AF- controlled lasting up to 3 minutes 57 seconds on 10.24.24 * Battery: MOS, 4.4 years * Sensing, impedance and thresholds reviewed and tested * Presenting Rhythm: AP - BP 70's * Underlying Rhythm: No consistent P or R waves today @ 30 bpm * Heart Rate Histograms reviewed * Pacing and Detection Parameters were evaluated Heart Failure Diagnostic: Elevated * Heart failure diagnostics assessed through the device * Status: Elevated * Pt states she has noticed slow wt increase and admits to abdominal distention at most times. Msg sent to [facility] to notify them of findings Narrative Procedure Note Efren Caban MD - 10/31/2024 IMPRESSION: Normal In-Office: With Events * Normal Device Function * Events or Alerts: 3 AF events noted since last remote; EGM's availablesuggestive of AF- controlled lasting up to 3 minutes 57 seconds on10.24.24 * Battery: MOS, 4.4 years * Sensing, impedance and thresholds reviewed and tested * Presenting Rhythm: AP - BP 70's * Underlying Rhythm: No consistent P or R waves today @ 30 bpm * Heart Rate Histograms reviewed * Pacing and Detection Parameters were evaluated Heart Failure Diagnostic: Elevated * Heart failure diagnostics assessed through the device * Status: Elevated * Pt states she has noticed slow wt increase and admits to abdominaldistention at most times. Msg sent to [facility] to notify them offindings us Order Referral Cardiovascular CV IMPLANTABLE CAR DIAC DEVICE PROCEDURES Final Result * (ABNORMAL) Basic metabolic panel (10/26/2024 12:02 PM EDT) Sodium 139 133 - 145 mmol/L LAB CHEMISTRY METHOD 10/26/2024 2:46 PM [facility] Potassium 4.7 3.5 - 5.5 mmol/L LAB CHEMISTRY METHOD 10/26/2024 2:46 PM [facility] Chloride 108 96 - 110 mmol/L LAB CHEMISTRY METHOD 10/26/2024 2:46 PM [facility] CO2 25 21 - 32 mmol/L LAB CHEMISTRY METHOD 10/26/2024 2:46 PM [facility] Anion Gap 6 3 - 11 LAB CHEMISTRY METHOD 10/26/2024 2:46 PM [facility] Glucose 100 70 - 100 mg/dL LAB CHEMISTRY METHOD 10/26/2024 2:46 PM [facility] BUN 18 5 - 25 mg/dL LAB CHEMISTRY METHOD 10/26/2024 2:46 PM [facility] Creatinine 1.33(H) 0.50 - 1.10 mg/dL LAB CHEMISTRY METHOD 10/26/2024 2:46 PM [facility] eGFR 40(L) >=60 mL/min/1. 73m2 LAB CHEMISTRY METHOD 10/26/2024 2:46 PM [facility] Comment:Calculation based on the??Chronic Kidney Disease Epidemiology Collaboration (CKD-EPI) equation refit??without adjustment for race. BUN/Creatinine Ratio 13.5 LAB CHEMISTRY METHOD 10/26/2024 2:46 PM EDT [facility] Calcium 8.8 8.5 - 10.5 mg/dL LAB CHEMISTRY METHOD 10/26/2024 2:46 PM EDT [facility] Blood Venous blood specimen / Unknown Venipuncture / Unknown 10/26/2024 12:02 PM EDT 10/26/2024 12:02 PM EDT Elly Jaeger NP LAB BLOOD ORDERABLES Final Res ult Performing Organization Address [facility]/ZIP Co de Phone Number [facility] [address] [place] [address], * (ABNORMAL) Thyroid stimulating hormone (08/24/2024 11:36 AM EST) TSH 0.07(L) 0.40 - 4.00 mcIU/mL LAB CHEMISTRY METHOD 08/24/2024 3:27 PM EST [facility] Blood Venous blood specimen / Unknown Venipuncture / Unknown 08/24/2024 11:36 AM EST 08/24/2024 11:36 AM EST Elly Jaeger NP LAB BLOOD ORDERABLES Final Res ult Performing Organization Address [facility]/ZIP Co de Phone Number [facility] [address] [place] [address], [place] [phone] * Lipid panel (09/09/2023) LDL/HDL Ratio 2 [...] Documents on File Type Date Recorded Patient Services Manager Expl anation Health Care Decision (hx) 01/16/2021 [...] (hx) 01/16/2021 AD MCLEOD DIRECTIVE Care Teams Kitchen Assistant Relationship Specialty Start Date End Date Isabella Miller PA [address] [address] PCP - General Primary Care 06/21/24
--- OUTSIDE RECORDS SUMMARY | 2024-11-20 11:50 | XMS_ITS | Encounter Summary ---
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 Social History Tobacco [...] Description 01/10/2025 10:50 AM EDT Office Visit [facility] [address] [place] [address] Javier Shelton MD [address] [place] [address] [place] [address] 02/23/2025 11:15 AM EDT Office Visit Internal Medicine - [place] 175 [facility] 200 [place] [address] Isabella Miller PA [address] [address] 06/20/2025 4:00 PM EST Office Visit Nephrology - [place] [address] [place] [address] Jake Carr MD [address] [address] 11/01/2025 11:00 AM EDT Ancillary Procedure [facility] - [facility] 154 300 [facility] [address] [place] [address] Pending Results Name Type Priority Associated Diagnoses Date /Time XR Orbits Complete 4+ Views Imaging Routine Contusion of right eyelid and periocular area, initial encounter History of falling 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 11/20/2024 11:44 AM EDT Scheduled Orders Name Type Priority Associated Diagnoses Orde r Schedule XR Orbits Complete 4+ Views Imaging Routine Contusion of right eyelid and periocular area, initial encounter History of falling 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
--- OUTSIDE RECORDS SUMMARY | 2024-11-20 11:50 | XMS_ITS | Clinical Summary ---
Author Organization [facility] Address [address] [place] [address] Care Team Providers Care Eight Arm Operator Name Role Phone Julio Brizuela MD Primary Care Provider Unavailab le Allergies Active Allergy Reactions Criticality Noted Date Comments Iodinated Contrast Media 01/24/2009 Oxycodone-Acetaminophen 11/09/2017 Medications Medication Sig Dispensed Refills Start Date End Date Status [place]-3 Fatty Acids (FISH OIL) 1000 MG CAPS [...] 0 05/24/2018 Active ergocalciferol (VITAMIN D2) capsule 61894 units TAKE ONE CAPSULE BY MOUTH ONE [...] age to complete this topic Care Teams Eight Arm Operator Relationship Specialty Start Date End Date Julio Brizuela MD PCP - General Internal Medicine 01/18/19
--- OUTSIDE RECORDS SUMMARY | 2024-11-20 11:51 | XMS_ITS | Encounter Summary ---
Author Organization [facility] [place] [address] Care Team Providers Care Cork Insulation Installer Name Role Phone Isabella Miller Primary Care Provider + Encounter Details Date Type Department Care Team (Late st Contact Info) Description 11/14/[address] [facility] - [facility] [address] [facility] 154 [place] [address] Angelica Rowe PA [address] [place], [place] [id number] Social History Tobacco Use Types Packs/Day Years [...] as of this encounter Progress Notes * Elly Jaeger NP - 11/14/2024 9:58 AM EDT FYI, you just saw her in the office * ASTER Gallegos - 11/14/2024 9:45 AM EDT See MURJ encounter titled Ancillary Procedure, report may be found under media, dated: November 08 rate controlled A-fib duration 5 hours-is on amiodarone for suppression anticoagulated forstroke reduction presenting EGM November 13 in sinus rhythm documented in this encounter Plan of Treatment Upcoming Encounters Date Type Department Care Team (Late st Contact Info) Description 01/10/2025 10:50 AM EDT Office Visit [facility] Cardiology [facility] [address] [place] [address] [address] [place] [address] Karolyn-Javier Alejandre MD [address] [place] [address] [address] [place] [address] 02/23/2025 11:15 AM EDT Office Visit Internal Medicine - [place] [address] [facility] [address] [place] [phone] Isabella Miller PA [address] [place] [address] 06/20/2025 4:00 PM EST Office Visit Nephrology [address] [address] Jake Carr MD [address] [facility] [address] [place] [address] 11/01/2025 11:00 AM EDT Ancillary Procedure [facility] Cardiology [facility] [address] [place] [phone] documented as of this encounter Visit Diagnoses Not on filedocumented in this encounter Care Teams Cork Insulation Installer Relationship Specialty Start Date End Date Isabella Miller PA [address] [facility] [address] [place] [address] PCP - General Primary Care 06/21/24 documented as of this encounter
--- OUTSIDE RECORDS SUMMARY | 2024-11-20 11:51 | XMS_ITS | Data Portability ---
Author Organization [place] - .[facility], [facility] Address [address] [place] [address] Care Team Providers Care Scene Shifter Name Role Phone ESHA HUBBARD Primary Care [...] was worked up a year prior in [place] where she lives with MRCP as well [...] kelsi cysti tis. - Kelsi lithi asis. [address] GROSS DESCR IPTIO N: The speci men [...] lidat ed Labor atortennille , [place] [facility], [place] Not Available [facility] (Lab Depart-Adult) [address], [place], [address], 08/19/2023 15:56:47 08/14/20 23 08/13/2023 ahs diagn ostic - US abdom en EXAMIN ATION: US ABDOME N INDICA TION: abdomi nal pain;. TECHNI QUE: Ultras ound of the abdome n was perfor med utiliz ing real-t arden graysc torey and color flow Dopple r imagin g. Digita l images were saved in the [facility] ent record . COMPAR MARELY: CT abdome [...] 2022 Kellylinda andria Name: JESSICA GOLDBERG MRN: [id number] Date of : Gender : F [address], [address] 08/27/2023 12:11:25 Result Notes None recorded. Procedures Surgical History Date Name Laterality Status Provider Name and Address Organization Details Recorded Time 08/16/19 24 Gall Bladder Surgery completed Brianna Greene [place] - .[facility] 08/26/2023 14:11:53 08/16/19 23 Colonoscopy completed Brianna Jc [place] - .[facility] 08/26/2023 14:11:53 08/16/19 23 Echocardiogram completed Brianna Greene [place] - .[facility] 08/26/2023 14:11:53 08/16/19 22 ERCP completed Brianna Jc [place] - .[facility] 08/26/2023 14:11:53 08/16/19 22 Pacemaker implant completed Brianna Jc [place] - .[facility] 08/26/2023 14:11:53 08/16/19 01 Breast Surgery completed Brianna Jc [place] - [facility] 08/26/2023 14:11:53 08/16/18 88 Hysterectomy completed Brianna Greene [place] - .[facility] 08/26/2023 14:11:53 08/16/18 67 Section completed Brianna Jc [place] - .[facility] 08/26/2023 14:11:53 Imaging Results Imaging Date Name Status LastModified by Organiz ation Details LastModified Time 08/13/2023 [facility] diagnostic - US abdomen completed [address], [address] 08/27/2023 12:11:25 Procedure Notes None recorded. Medical [...] Updated DateTime 08/26/2023 157.48 cm 25.6 kg/m2 59133.93 g 92 mm[Hg] 58 mm[Hg] Lea CROWE - .[facility] 14:22:15 Social History Question Answer Notes LastModified by [email or web address] ion Details LastModified Time Tobacco Smoking Status Never Smoker SEBASTIEN Olivier - .[facility] 08/26/2023 14:11:53 What Is Your Level Of Alcohol Consumption? None Information not available 08/26/2023 What Is Your Level Of Caffeine Consumption? None Information not available 08/26/2023 Do You Or Have You Ever Used E-cigarettes Or Vape? Never Used Electronic Cigarettes [facility] Information not available 08/26/2023 What Was The Date Of Your Most Recent Tobacco Screening? 08/26/2023 Information not available 08/26/2023 Do You Or Have You Ever Used Smokeless Tobacco? Never Used Smokeless Tobacco [facility] Information not available 08/26/2023 Do You Use Any Illicit Or Recreational Drugs? No Information not available 08/26/2023 How Many Years Have You Smoked Tobacco? 0 [facility] Information not available 08/26/2023 Do You Or Have You Ever Used Any Other Forms Of Tobacco Or Nicotine? No [facility] Information not available 08/26/2023 Sex: Unknown Functional Status None recorded. Mental Status None recorded. Family History Nothing Reported. Medical History No medical history recorded. Gynecological HistoryNo gynecological history recorded. Obstetrics History GPAL:G 0 P 0 0 0 0 Past Encounters Encounter ID Performer Location Encounter Start Date Encounter Closed Date Diagnosis/Indication Diagnosis SNOMED-CT Code Diagnosis ICD10 Code Diagnosis Note [id number] [facility] Tal[facility] [address] [place] [address] 08/26/2023 14:09:56 08/31/2023 08:44:46 Acute cholecystitis 88017723 K81.0 Health Concerns Section Related Observation LastModified by Organization Detai ls LastModified Time None Recorded Concern Status LastModified by Organization Details LastModified Time None Recorded Advance Directives Directive None Recorded Payers Encounter Date Sequence Insurance Name Policy Number Policy Almanzar Covered Member ID Almanzar Member ID Guarantor Name 08/26/2023 1 [facility] - MEDICARE PREFERRED (MEDICARE REPLACEMENT HMO) [facility] Darlene Alexander [id number] Darlene Alexander Notes Date Note Type [...] minimal abdominal pain. Mansoor Talley MD [address] [place], [address], [facility] - [facility] 08/26/2023 14:34:26 OBGyn Episode No OBEpisode recorded.
--- OUTSIDE RECORDS SUMMARY | 2024-11-20 11:51 | XMS_ITS | Encounter Summary ---
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 Social History Tobacco [...] Description 01/10/2025 10:50 AM EDT Office Visit [facility] [address] [place] [address] Javier Shelton MD [address] [place] [address] [place] [address] 02/23/2025 11:15 AM EDT Office Visit Internal Medicine - [place] 175 [facility] [address] [place] [address] Isabella Miller PA [address] [address] 06/20/2025 4:00 PM EST Office Visit Nephrology - [place] [address] [place] [address] Jake Carr MD [address] [address] 11/01/2025 11:00 AM EDT Ancillary Procedure [facility] - [facility] 154 300 [facility] 154 [place] [address] Pending Results Name Type Priority Associated Diagnoses Date /Time XR Facial Bones 3+ Views Imaging Routine Contusion of right eyelid and periocular area, initial encounter History of falling snf (current) use of anticoagulants 11/20/2024 11:44 AM EDT Scheduled Orders Name Type Priority Associated Diagnoses Orde r Schedule XR Facial Bones 3+ Views Imaging Routine Contusion of right eyelid and periocular area, initial encounter History of falling snf (current) use of anticoagulants Once for 1 Occurrences starting 11/20/2024 until 11/20/2024 documented as of this encounter Visit Diagnoses Diagnosis Contusion of right eyelid and periocular area, initial encounter History of falling bed bug exterminator (current) use of anticoagulants Long-term (current) use of anticoagulants Encounter for adjustment or management of cardiac device documented in this encounter Care Teams Regulatory Affairs Analyst Relationship Specialty Start Date End Date Isabella Miller PA [address] [address] PCP - General Primary Care 06/21/24 documented as of this encounter
--- OUTSIDE RECORDS SUMMARY | 2024-11-20 11:51 | XMS_ITS | Encounter Summary ---
Author Organization [facility] [place] [address] Care Team Providers Care Rolling Up Machine Operator Name Role Phone Isabella Miller Primary Care Provider + Reason for Visit * Reason Onset Date Comments procedure 11/14/2024 Encounter Details Date Type Department Care Team (Late st Contact Info) Description 11/14/2024 Telephone [facility] Associates [facility] [address] [place] [address] Claudia Rose NP [address] [place] [address] Dr [address] [place] [address] procedure Social History Tobacco Use Types Packs/Day Years [...] Progress Notes * Yesenia Dotson RN - 11/14/2024 3:14 PM EDT I spoke to Lucia and informed her of the below message. I faxed 11/08/24 note to her. Confirmation received. * Claudia Rose NP - 11/14/2024 3:07 PM EDT Okay to hold Eliquis 2 to 3 days prior to the injections if required and resume soon as possible under the discretion of the orthopedic provider. This is also mentioned in my note from 11/08/2024. thanks * Yesenia Dotson RN - 11/14/2024 3:03 PM EDT Darlene Alexander is a 79 y.o. female, followed by Dr. 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 May she hold Eliquis 2 days before bilateral knee injections? * Steven Lorenzo - 11/14/2024 2:33 PM EDT Lucia from [facility] called to ask if patient is able to stop Eliquis 2.5mg 2/day before a procedure. She is going to be getting bilateral knee injections with Dr Monroy date TBD. Lucia can be reached at [phone] and fax can be sent to [phone]. documented in this encounter Plan of Treatment Upcoming Encounters Date Type Department Care Team (Late st Contact Info) Description 01/10/2025 10:50 AM EDT Office Visit [facility] [address] [place] [address] Dr [address] [place] [address] Javier Shelton MD [address] [place] [address] Dr [address] [place] [address] 02/23/2025 11:15 AM EDT Office Visit Internal Medicine - [place] 175 [facility] 200 [place] [address] Isabella Miller PA 175 [facility] 200 [place] [address] 06/20/2025 4:00 PM EST Office Visit Nephrology - [address] [address] [facility] [address] [place] [address] 11/01/2025 11:00 AM EDT Ancillary Procedure [facility] - [facility] 154 300 [facility] 154 [place] [address] documented as of this encounter Visit Diagnoses Not on filedocumented in this encounter Care Teams Rolling Up Machine Operator Relationship Specialty Start Date End Date Isabella Miller PA 175 [facility] 200 [place] [address] PCP - General Primary Care 06/21/24 documented as of this encounter
--- OUTSIDE RECORDS SUMMARY | 2024-11-20 11:51 | XMS_ITS | Encounter Summary ---
Author Organization [facility] [place] [address] Care Team Providers Care Communications Agent Name Role Phone Isabella Miller Primary Care Provider + Encounter Details Date Type Department Care Team (Late st Contact Info) Description 11/15/2024 9:30 AM EDT Ancillary Procedure [facility] - [facility] [address] [facility] [address] [place] [address] Social History Tobacco Use Types [...] Description 01/10/2025 10:50 AM EDT Office Visit [facility] [address] [place] [phone] Javier Shelton MD [address] [place] [address] [address] [place] [address] 02/23/2025 11:15 AM EDT Office Visit Internal Medicine - [place] [address] [facility] [address] [place] [phone] Isabella Miller PA [address] [facility] [address] [place] [address] 06/20/2025 4:00 PM EST Office Visit Nephrology - [place] [address] [place] [address] Jake Carr MD [address] [facility] [address] [place] [address] 11/01/2025 11:00 AM EDT Ancillary Procedure [facility] - [facility] [address] [facility] [address] [place] [address] documented as of this encounter Procedures Procedure Name Priority Date/Time Associated Diagnosis Comments CARDIAC DEVICE CHECK- REMOTE- MURJ Routine 11/15/2024 9:29 AM EDT documented in this encounter Results * Cardiac device check - Remote- MURJ (11/15/2024 9:29 AM EDT) Date Time Interrogation Session [id number] CV DEVICE CHECK Type Interrogation Session Remote CV DEVICE CHECK Implantable Pulse Generator Steam Shovel Engineer MDT CV DEVICE CHECK Implantable Pulse Generator Type OPHTHALMIC MEDICAL TECHNICIAN-P CV DEVICE CHECK Implantable Pulse Generator Model Percepta Quad OPHTHALMIC MEDICAL TECHNICIAN-P [id number] CV DEVICE CHECK Implantable Pulse Generator Serial Number [id number] CV DEVICE CHECK Implantable Pulse Generator Implant Date 20210131 CV DEVICE CHECK Battery Remaining Longevity 51.0 CV DEVICE CHECK Battery Voltage 2.950 CV D EVICE CHECK Battery MOLD WASHER Trigger 2.595 CV DEVICE CHECK Battery Status Middle of Service CV DEVICE CHECK Chinmay Statistic RA Percent Paced 88.73 CV DEVICE CHECK Chinmay Statistic RV Percent Paced 98.44 CV DEVICE CHECK OPHTHALMIC MEDICAL TECHNICIAN Statistic LV Percent Paced 98.40 CV DEVICE CHECK OPHTHALMIC MEDICAL TECHNICIAN Statistic OPHTHALMIC MEDICAL TECHNICIAN Percent Paced 98.40 CV DEVICE CHECK Atrial Tachy Statistic AT/AF [place] Percent 11.60 CV DEVICE CHECK Lead Channel Sensing Intrinsic [...] DEVICE CHECK Lead Channel Sensing Intrinsic Amplitude 14.875 CV DEVICE CHECK Lead Channel Setting Sensing Sensitivity 0.90 CV DEVICE CHECK Lead Channel Impedance Value 532 CV DEVICE CHECK Lead Channel Pacing Threshold Amplitude 0.625 CV DEVICE CHECK Lead Channel Pacing Threshold Pulse Width 0.4 CV DEVICE CHECK Lead Channel RV Pacing Threshold Date 2024-11-10 CV DEVICE CHECK Lead Channel Setting Pacing Amplitude 2.000 CV DEVICE CHECK Lead Channel Setting Pacing Pulse Width 0.4 CV DEVICE CHECK Lead Channel Impedance Value 836 CV DEVICE CHECK Lead Channel Pacing Threshold Amplitude 1.250 CV DEVICE CHECK Lead Channel Pacing Threshold Pulse Width 0.4 CV DEVICE CHECK Lead Channel Pacing Threshold Date 2024-11-10 CV DEVICE CHECK Lead Channel Setting Pacing Amplitude 1.750 CV DEVICE CHECK Lead Channel Setting Pacing Pulse Width 0.4 CV DEVICE CHECK Chinmay Setting Mode (NBG Code) DDDR CV DEVICE CHECK Ventricular chambers paced during OPHTHALMIC MEDICAL TECHNICIAN pacing. BiV CV DEVICE CHECK Chinmay Setting Lower Rate Limit 75 CV DEVICE CHECK Chinmay Setting AT Mode Switch Rate 171 CV DEVICE CHECK Chinmay Setting Maximum Tracking Rate 110 CV DEVICE CHECK Chinmay Setting Maximum Sensor Rate 120 CV DEVICE CHECK Chinmay Setting PAV Delay 150 CV DEVICE CHECK Chinmay Setting EDITH Delay 130 CV DEVICE CHECK OPHTHALMIC MEDICAL TECHNICIAN LV-RV Delay 30 CV D EVICE CHECK [...] Anatomical Region Laterality Modality Device Interroga tion 11/10/2024 1:45 AM EDT Impressions 11/15/2024 9:26 AM EDT Atrial Flutter w/Controlled V Response * Stored EGMs are consistent with or suggestive of Atrial Flutter with Controlled Ventricular Response * AT/AF [place]: 11.6% AFL Recheck Narrative Procedure Note Angelica Rowe PA - 11/15/2024 IMPRESSION: Atrial Flutter w/Controlled V Response * Stored EGMs are consistent with or suggestive of Atrial Flutter withControlled Ventricular Response * AT/AF [place]: 11.6% AFL Recheck us Angelica RODARTE CV IMPLANTABLE CARDIAC DEVICE CO OCEDURES Final Result documented in this encounter Visit Diagnoses Not on filedocumented in this encounter Care Teams Communications Agent Relationship Specialty Start Date End Date Isabella Miller PA 175 [facility] [address] [place] [address] PCP - General Primary Care 06/21/24 documented as of this encounter
--- OUTSIDE RECORDS SUMMARY | 2024-11-20 11:51 | XMS_ITS ---
Author Organization [facility] Care Team Providers Care Metallic Yarn Slitting Machine Operator Name Role Phone Claudia Acosta Unavailable Unavailable Gen Childress Unavailable Unavailable Alyssa Maya Unavailable Unavailable Allergies and adverse reactions No Known Allergies Care Team Name Role Address Phone Organization Dates Gen Childress PCP [address] [facility] [address], [place], [address], [facility] (Office): [facility] 02/05/2021 - 02/06/2021 Claudia Acosta Attending Physician [address] [facility] [address], [place], [address], [facility] (Office): [facility] 02/05/2021 - 02/06/2021 Alyssa Maya Attending Physician [facility] [address], [place], [address], [facility] (Office): [facility] 02/05/2021 - 02/06/2021 Mental Status Section Date Assessment Total Score Description 02/06/2021 CAM 0 No delirium ind icated Problems Problem # Description Date of onset Resolved Date Code CodeSystem Concern Status 1 ACQUIRED ABSENCE OF UNSPECIFIED BREAST AND NIPPLE 02/05/[address] active 2 ACUTE KIDNEY FAILURE , UNSPECIFIED 02/05/[address] active 3 ATRIOVENTRICULAR BLOCK, COMPLETE 02/05/[address] active 4 AUTOIMMUNE THYROIDITIS 02/05/[address] active 5 ESSENTIAL (PRIMARY) HYPERTENSION 02/05/[address] active 6 HYPERKALEMIA 02/05/[address] activ e 7 HYPERLIPIDEMIA, UNSPECIFIED 02/05/[address] active 8 OTHER ABNORMALITIES OF GAIT AND MOBILITY 02/05/[address] active 9 OTHER PRIMARY THROMBOPHILIA 02/05/[address] active 10 PAROXYSMAL ATRIAL FIBRILLATION 02/05/[address] active 11 PERSONAL HISTORY OF MALIGNANT NEOPLASM OF BREAST 02/05/[address] active 12 PRIMARY PULMONARY HYPERTENSION 02/05/[address] active 13 UNSPECIFIED COMBINED SYSTOLIC (CONGESTIVE) AND DIASTOLIC (CONGESTIVE) HEART FAILURE 02/05/[address] active 14 UNSTEADINESS ON FEET 02/05/[address] active 15 WEAKNESS 02/05/[address] active Reason for Referral No Reasons for Referral Entered Social History Social History Observation Description Start Date End Date Code Code System Current Smoking Status Tobacco smoking consumption unknown 899646748 SNOMED CT Sex Assigned At Female 1945 54152-1 [facility] Vital Signs Code Code System Vitals Name Values and Units Timing Information 27683-6 [facility] Pain Level Value=0.0 02/06/2021 9279-1 [facility] Respiratory Rate Value=18.0 Units=/m in 02/06/2021 82275-0 [facility] O2 % BldC Oximetry Value=97.0 Units= % 02/06/2021 8867-4 [facility] Heart rate Value=73.0 Units=/min 8310-5 [facility] Body Temperature Value=98.4 Units=?? F 02/06/2021 8462-4 [facility] Blood Pressure-Diastolic Value=71 Un its=mmHg 02/06/2021 8480-6 [facility] Blood Pressure-Systolic Zhfgu=585 Un its=mmHg 02/06/2021 70572-4 [facility] Weight Dhmtg=561.2 Units=Lbs 8302-2 [facility] Height Value=67.0 Units=Inches 02/05/2021
== END 2024-11-20 10:54 | disposition home or self-care (01) ==
LOC: HO.PMC 10:10
PROVIDERS: PCP Internal Medicine; Visit Provider Nurse Practitioner Family
DX: G89.4 Chronic pain syndrome (principal); G62.0 Drug-induced polyneuropathy; T45.1X5A Adverse effect of antineoplastic and immunosuppressive drugs, initial encounter; Z79.891 Long term (current) use of opiate analgesic; M17.0 Bilateral primary osteoarthritis of knee; M47.817 Spondylosis without myelopathy or radiculopathy, lumbosacral region; M25.561 Pain in right knee; M25.562 Pain in left knee; S00.11XA Contusion of right eyelid and periocular area, initial encounter; Z91.81 History of falling; Z79.01 Long term (current) use of anticoagulants; J34.89 Other specified disorders of nose and nasal sinuses
CPT/HCPCS: 99214; G2211

== ENCOUNTER → 2024-11-20 10:10 | Outpatient (BNVA) | payer MEDICARE, SELFPAY | PROVIDERS: PCP Internal Medicine; Visit Provider Nurse Practitioner Family | DX: G89.4 Chronic pain syndrome (principal); G62.0 Drug-induced polyneuropathy; M17.0 Bilateral primary osteoarthritis of knee; M47.817 Spondylosis without myelopathy or radiculopathy, lumbosacral region; M25.561 Pain in right knee; M25.562 Pain in left knee; J34.89 Other specified disorders of nose and nasal sinuses; F11.90 Opioid use, unspecified, uncomplicated; S00.11XA Contusion of right eyelid and periocular area, initial encounter; T45.1X5A Adverse effect of antineoplastic and immunosuppressive drugs, initial encounter; X58.XXXA Exposure to other specified factors, initial encounter; Y93.9 Activity, unspecified; Y92.9 Unspecified place or not applicable; Y99.9 Unspecified external cause status; Z91.81 History of falling; Z79.01 Long term (current) use of anticoagulants | CPT/HCPCS: 99212 ==

== ENCOUNTER 2024-11-29 12:39 | Outpatient (AMB) | payer MEDICARE, SELFPAY ==
--- NOTE | 2024-11-29 12:43 | A.OFFVIS_ITS ---
Vital Signs 11/29/24 12:45 Height 5 ft 3 in Weight 143 lb BMI 25.3 BP 117/60 Blood Pressure Location Lt brachial Position Sitting Respiration 16 Pulse 81 Pulse Source Pulse Oximeter Intake Visit Reasons: BILATERAL INTRA-ARTICULAR KNEE INJECTIONS Armored Service Technician Required: No Cloth Finishing Range Tender: Cloth Finishing Range Tender Present Accompanied by: Mj Ni Allergies No Known Allergies Allergy (Verified 11/29/24 12:46) Medication List - Last Reconciled 11/29/24 by Jeannine Glez LPN amiodarone 200 mg PO DAILY amitriptyline 20 mg PO BEDTIME PRN apixaban (Eliquis) mg PO carvedilol 3.125 mg PO BID cholecalciferol (vitamin D3) 25 mcg PO DAILY dapagliflozin propanediol (Farxiga) 10 mg PO DAILY furosemide 20 mg PO DAILY gabapentin 300 mg PO TID 30 days levothyroxine 75 mcg PO DAILY mecobalamin (vitamin B12) 1,000 mcg PO DAILY morphine ER 15 mg PO BID PRN 30 days naloxone 4 mg/actuation (Narcan) 4 mg intranasal Q3M PRN omega 0-naa-dvl-fish oil 1,000 (120-180) mg (Fish Oil) 1 cap PO DAILY rosuvastatin 5 mg PO DAILY Saccharomyces boulardii (Daily Probiotic (S. boulardii)) 250 mg PO DAILY spironolactone 12.5 mg PO BID vitamin B complex 1 cap PO DAILY PFSH Medical History Thyroid cancer Chronic pain syndrome Peripheral polyneuropathy Surgical History Status post ablation of incompetent vein using laser (09/11/22) Social History Patient Tobacco Use Status: Never used Tobacco Current occupational status: retired Physical Exam Vital Signs: Last Vital Signs Pulse 81 11/29/24 12:45 Resp 16 11/29/24 12:45 BP 117/60 11/29/24 12:45 BMI result Body Mass Index 25.3 Office Procedures AMB Joint Injection/Aspiration Joint Injection/Aspiration Primary Site: right knee Secondary Site: left knee Injected: 80 mg of and Kenalog Approach Used: anterolateral Procedure: The patient tolerated the procedure well and there was some relief with the local anesthesia Coding 95842 - Large joint Procedure code (CPT) selection complete Office Meds Kenalog 40 mg/mL suspension for injection Performing Provider: Wayne Monroy MD Performing Location: [facility] Administered by: Wayne Monroy MD on 11/30/24 08:09 Dose Route Admin Location Dispensed Lot Number Expiration Date NDC Gas Collection System Operator 40 mg intra-articular 2 mL [id number] Assessment & Plan Assessment & Plan (1) Bilateral primary osteoarthritis of knee: Code(s): M17.0 - Bilateral primary osteoarthritis of knee Category: Medical Plan BILATERAL INTRA-ARTICULAR KNEE STEROID INJECTION. The patient came to the examination room with the intention to receive bilateral intra-articular knee steroid injection. Informed consent was obtained risks and benefits were fully explained to the patient. The patient was positioned sitting on the examination table. The anterior and lateral surfaces of the bilateral knees were prepped with ChloraPrep. 25 gauge needle was used to access retropatellar intra-articular space from anterior lateral into central medial direction. Aspiration was negative. Injection of the 40 mg of Kenalog mixed with ropivacaine 0.5 % 4 mL was injected into each of the joints. Total dose of Kenalog 80 mg. Patient tolerated the procedure well. The needle was withdrawn sterile Band-Aid was a pplied to each of the joint. Orders: Orders AMB Joint Injection/Aspiration 11/29/24 M17.0 - Bilateral primary osteoarthritis of knee Medications: New Kenalog (triamcinolone acetonide) 40 mg intra-articular ONCE 1 mL 0RF LUZ NS M17.0 - Bilateral primary osteoarthritis of knee Coding Level of Care Code Procedure Only Diagnoses Bilateral primary osteoarthritis of knee M17.0 CPT Codes Coding - 22838 Large joint: 13273 - Large joint ([id number])
[2024-11-29 12:45] VITALS: BP 117/60; PULSE 81; RESP 16; BMI 25.3
--- OUTSIDE RECORDS SUMMARY | 2024-11-29 14:58 | XMS_ITS | Data Portability ---
Author Organization [place] - .[facility], [facility] Address [address] [place] [address] Care Team Providers Care Patient Carrier Name Role Phone ESHA HUBBARD Primary Care [...] was worked up a year prior in [place] where she lives with MRCP as well [...] kelsi cysti tis. - Kelsi lith[place]is. [address] GROSS DESCR IPTIO N: The speci men [...] lidat ed Labor atortennille , [place] s [facility], [place] Not Available [facility] (Lab Depart-Adult) [address], [place], [address], 08/19/2023 15:56:47 08/14/20 23 08/13/2023 ahs diagn ostic - US abdom en EXAMIN ATION: US ABDOME N INDICA TION: abdomi nal pain;. TECHNI QUE: Ultras ound of the abdome n was perfor med utiliz ing real-t arden graysc torey and color flow Dopple r imagin g. Digita l images were saved in the [facility] ent record . COMPAR MARELY: CT [...] 2022 Kellylinda andria Name: JESSICA GOLDBERG MRN: [id number] Date of : Gender : F [address], [address] 08/27/2023 12:11:25 Result Notes None recorded. Procedures Surgical History Date Name Laterality Status Provider Name and Address Organization Details Recorded Time 08/16/19 24 Gall Bladder Surgery completed Brianna Greene [place] - .[facility] 08/26/2023 14:11:53 08/16/19 23 Colonoscopy completed Brianna Jc [place] - .[facility] 08/26/2023 14:11:53 08/16/19 23 Echocardiogram completed Brianna Greene [place] - .[facility] 08/26/2023 14:11:53 08/16/19 22 ERCP completed Brianna Jc [place] - .[facility] 08/26/2023 14:11:53 08/16/19 22 Pacemaker implant completed Brianna Jc [place] - [facility] 08/26/2023 14:11:53 08/16/19 01 Breast Surgery completed Brianna Jc [place] - [facility] 08/26/2023 14:11:53 08/16/18 88 Hysterectomy completed Brianna Greene [place] - .[facility] 08/26/2023 14:11:53 08/16/18 67 Section completed Brianna Jc [place] - .[facility] 08/26/2023 14:11:53 Imaging Results Imaging Date Name Status LastModified by Organiz ation Details LastModified Time 08/13/2023 ahs diagnostic - US abdomen completed [address], [address] 08/27/2023 12:11:25 Procedure Notes None recorded. Medical [...] Updated DateTime 08/26/2023 157.48 cm 25.6 kg/m2 23092.93 g 92 mm[Hg] 58 mm[Hg] Lea CROWE - .[facility] 14:22:15 Social History Question Answer Notes LastModified by [email or web address] ion Details LastModified Time Tobacco Smoking Status Never Smoker SEBASTIEN Olivier - .[facility] 08/26/2023 14:11:53 What Is Your Level Of Alcohol Consumption? None Information not available 08/26/2023 What Is Your Level Of Caffeine Consumption? None Information not available 08/26/2023 Do You Or Have You Ever Used E-cigarettes Or Vape? Never Used Electronic Cigarettes glenbeigh Information not available 08/26/2023 What Was The Date Of Your Most Recent Tobacco Screening? 08/26/2023 Information not available 08/26/2023 Do You Or Have You Ever Used Smokeless Tobacco? Never Used Smokeless Tobacco [facility] Information not available 08/26/2023 Do You Use Any Illicit Or Recreational Drugs? No Information not available 08/26/2023 How Many Years Have You Smoked Tobacco? 0 cher[place] Information not available 08/26/2023 Do You Or Have You Ever Used Any Other Forms Of Tobacco Or Nicotine? No glenbeigh Information not available 08/26/2023 Sex: Unknown Functional Status None recorded. Mental Status None recorded. Family History Nothing Reported. Medical History No medical history recorded. Gynecological HistoryNo gynecological history recorded. Obstetrics History GPAL:G 0 P 0 0 0 0 Past Encounters Encounter ID Performer Location Encounter Start Date Encounter Closed Date Diagnosis/Indication Diagnosis SNOMED-CT Code Diagnosis ICD10 Code Diagnosis Note [id number] Mansoor Talley MD [facility] [address] [place] [address] 08/26/2023 14:09:56 08/31/2023 08:44:46 Acute cholecystitis 36656359 K81.0 Health Concerns Section Related Observation LastModified by Organization Detai ls LastModified Time None Recorded Concern Status LastModified by Organization Details LastModified Time None Recorded Advance Directives Directive None Recorded Payers Encounter Date Sequence Insurance Name Policy Number Policy Almanzar Covered Member ID Almanzar Member ID Guarantor Name 08/26/2023 1 [facility] - MEDICARE PREFERRED (MEDICARE REPLACEMENT HMO) [facility] Darlene Alexander [id number] Darlene Alexander Notes Date Note Type [...] abdominal pain. Mansoor Talley MD [address] [place], [address], [facility] 08/26/2023 14:34:26 OBGyn Episode No OBEpisode recorded.
--- OUTSIDE RECORDS SUMMARY | 2024-11-29 14:58 | XMS_ITS | Clinical Summary ---
Author Organization [facility] Address [address] [place] [address] Care Team Providers Care It Instructor Name Role Phone Julio Brizuela MD Primary Care Provider Unavailab le Allergies Active Allergy Reactions Criticality Noted Date Comments Iodinated Contrast Media 01/24/2009 Oxycodone-Acetaminophen 11/09/2017 Medications Medication Sig Dispensed Refills Start Date End Date Status Gravelly-3 Fatty Acids (FISH OIL) 1000 MG CAPS [...] 0 05/24/2018 Active ergocalciferol (VITAMIN D2) capsule 88108 units TAKE ONE CAPSULE BY MOUTH ONE [...] age to complete this topic Care Teams It Instructor Relationship Specialty Start Date End Date Julio Brizuela MD PCP - General Internal Medicine 01/18/19
--- OUTSIDE RECORDS SUMMARY | 2024-11-29 14:59 | XMS_ITS | Encounter Summary ---
Author Organization [facility] [place] [address] Care Team Providers Care Carrier Packer Name Role Phone Isabella Miller Primary Care Provider + Reason for Visit * Reason Onset Date Comments faxed form 11/21/2024 [facility] Encounter Details Date Type Department Care Team ([facility] st Contact Info) Description 11/21/2024 Telephone Internal Medicine - [address] [place] [address] Jocelyne Doherty MA faxed form ([facility]) Social [...] Progress Notes * Jocelyne Doherty MA - 11/27/2024 9:55 AM EDT Faxed [phone] * Jocelyne Doherty MA - 11/21/2024 9:57 AM EDT [facility] Physical Therapy discharge summary 11/01/24 Placed in providers folder for signature. documented in this encounter Plan of Treatment Upcoming Encounters Date Type Department Care Team (Late st Contact Info) Description 12/11/2024 9:45 AM EDT Office Visit Internal Medicine - [place] [address] [place] [address] Isabella Miller PA [address] [place] [address] 01/10/2025 10:50 AM EDT Office Visit [facility] [address] [place] [phone] Javier Shelton MD [address] [place] [address] [address] [place] [address] 02/23/2025 11:15 AM EDT Office Visit Internal Medicine - [place] [address] [facility] [address] [place] [address] Isabella Miller PA 175 [facility] [address] [place] [address] 06/20/2025 4:00 PM EST Office Visit Nephrology [address] [address] Jake Carr MD [address] [facility] [address] [place] [address] 07/03/2025 7:40 AM EST Office Visit [facility] [address] [place] [address] Claudia Rose NP [address] [place] [address] [address] [place] [address] 11/01/2025 11:00 AM EDT Ancillary Procedure [facility] [address] [place] [address] documented as of this encounter Visit Diagnoses Not on filedocumented in this encounter Care Teams Carrier Packer Relationship Specialty Start Date End Date Isabella Miller PA [address] [facility] [address] [place] [address] PCP - General Primary Care 06/21/24 documented as of this encounter
--- OUTSIDE RECORDS SUMMARY | 2024-11-29 14:59 | XMS_ITS | Encounter Summary ---
Author Organization [facility] [place] [address] Care Team Providers Care Balance Wheel Facer Name Role Phone Isabella Miller Primary Care Provider + Reason for Visit * Reason Onset Date Comments MRI results 11/23/2024 Mini Stroke 11/23/2024 Encounter Details Date Type Department Care Team (Late st Contact Info) Description 11/23/2024 Telephone [facility] [address] [place] [address] Javier Shelton MD [address] [place] [address] [address] [place] [address] MRI results; Mini Stroke Social History Tobacco Use Types Packs/Day Years [...] Progress Notes * Yesenia Dotson RN - 11/23/2024 11:19 AM EDT Noted the below. Thank you. * Javier Shelton MD - 11/23/2024 11:18 AM EDT I spoke with Darlene. 1. We again reviewed the results of her recent head CT scan. 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 I explained to the patient that this likely represents the presence of small vessel disease. I also explained to the patient that based on the headCT scan report in is very difficult for us to establish when this happened. 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 I recommendedfor the patient to be evaluated by a neurologist. I also recommended for the patient to discuss this further with her primary care provider to determine if the patient should be referred for a neurology evaluation. In the meantime, she will continue her current medication regimen including the Eliquis. 2. The patient had previously undergone a cardiac MRI. We had sent a message with the results via [employer] which the patient now states was received by her daughter. She would like for us to go over the results with her. In summary, I explained to her that the cardiac MRI showed an LVEF of 42% whichrepresents an improvement of her cardiac function. Also, importantly, the cardiac MRI did not show any presence of an infiltrative cardiomyopathy. * Nikki Elizondo - 11/23/2024 9:52 AM EDT The patient called she would like to go over the results of her MRI from 11/07/24. Her daughter is the one who received the results via [employer], the patient does not access her profile. She also received a call yesterday from Dr. Parr explaining that she had a mini stroke awhile ago (referred toencounter from yesterday). She is asking when this would have occurred. Please call her back at [phone]. documented in this encounter Plan of Treatment Upcoming Encounters Date Type Department Care Team (Late st Contact Info) Description 12/11/2024 9:45 AM EDT Office Visit Internal Medicine - [place] [address] [place] [phone] Isabella Miller PA [address] [place] [address] 01/10/2025 10:50 AM EDT Office Visit [facility] Cardiology [facility] [address] [place] [address] Javier Shelton MD [address] [place] [address] [address] [place] [address] 02/23/2025 11:15 AM EDT Office Visit Internal Medicine - [place] [address] [place] [phone] Isabella Miller PA [address] [facility] [address] [facility] [address] [place] [address] 06/20/2025 4:00 PM EST Office Visit Nephrology - [address] [address] Jake Carr MD [address] [facility] [address] [place] [address] 07/03/2025 7:40 AM EST Office Visit [facility] Cardiology [facility] [address] [place] [address] Claudia Rose NP [address] [place] [address] [address] [place] [address] 11/01/2025 11:00 AM EDT Ancillary Procedure [facility] [address] [place] [id number] documented as of this encounter Visit Diagnoses Not on filedocumented in this encounter Care Teams Balance Wheel Facer Relationship Specialty Start Date End Date Isabella Miller PA [address] [place] [address] PCP - General Primary Care 06/21/24 documented as of this encounter
--- OUTSIDE RECORDS SUMMARY | 2024-11-29 14:59 | XMS_ITS | Encounter Summary ---
Author Organization [facility] Address [address] [place] [address] Care Team Providers Care Battery Plate Remover Name Role Phone Isabella Miller Primary Care Provider + Reason for Visit * Reason Onset Date Comments Angela: Referral Request Detail 11/24/2024 Encounter Details Date Type Department Care Team ([facility] st Contact Info) Description 11/24/2024 Telephone Internal Medicine - [place] [address] [place] [address] Isabella Miller PA [address] [place] [address] Angela: Referral Request Detail Social History Tobacco Use Types Packs/Day Years [...] as of this encounter Progress Notes * Gabriel Garcia MA - 11/27/2024 9:51 AM EDT Faxed * ASTER Matias - 11/24/2024 4:25 PM EDT Cardiology referral placed. * Gabriel Garcia MA - 11/24/2024 3:40 PM EDT Please advise . * Jennifer Smith - 11/24/2024 2:47 PM EDT Insurance Referral Request Received Through Fax *Engineering Technology Instructor Uploaded To Pt's Chart Referral Request: What insurance does the patient have today? [employer]vantage Referrals cannot be processed if the insurance is not accurate. If the insurance listed above in red is NO BILLING INFORMATION FOUND FOR THIS ENCOUTNER The patients correct insurance must be obtained and registered in [facility] or their referral can not be processed. Is this a retro request? YES If yes for what date of service do you need the retro referral? 10/31/2024 Who is calling to request this referral? [facility] If the caller is not the patient, what is their name? not applicable Ask the patient WHO referred them to this specialty: Baylee Young FIRST and LAST NAME of SPECIALIST PATIENT is seeing: Group/NPI# [id number] What specialty is this? Cardiology DIAGNOSIS Patient is being seen for (Not a body part or a procedure): I25.10 Have you seen this SPECIALIST for this PROBLEM/DX before? If YES, when? Have you checked REVIEW or the APPT DESK to see if this referral has already been done or has visits left? YES Is this visit: Follow Up Address of Specialist: [address] [place] [address], [address] [place] [address] (A) [address] [place] [address] (B) Phone # of Specialist: (A) [phone] (B) [phone] Fax #: (if applicable): (A) [phone] (B) [phone] Does patient have an appointment scheduled?: YES Date of appointment- (including a retro-request): 11/01/23 *Baylee Huangmons commented on additional upcoming appointment but did not specify date in message Is this appointment related to: Not MVA, worker compensation, or surgery related documented in this encounter Plan of Treatment Upcoming Encounters Date Type Department Care Team (Late st Contact Info) Description 12/11/2024 9:45 AM EDT Office Visit Internal Medicine - [place] [address] [facility] [address] [facility] [address] [place] [phone] Isabella Miller PA [address] [address] 01/10/2025 10:50 AM EDT Office Visit [facility] [address] [place] [address] Javier Shelton MD [address] [place] [address] [address] [place] [address] 02/23/2025 11:15 AM EDT Office Visit Internal Medicine - [place] [address] [facility] [address] [place] [address] Isabella Miller PA [address] [address] 06/20/2025 4:00 PM EST Office Visit Nephrology - [address] [address] Jake Carr MD [address] [facility] [address] [place] [address] 07/03/2025 7:40 AM EST Office Visit [facility] [address] [place] [address] Claudia Rose NP [address] [place] [address] [place] [address] 11/01/2025 11:00 AM EDT Ancillary Procedure [facility] - [address] [facility] [address] [place] [phone] documented as of this encounter Visit Diagnoses Not on filedocumented in this encounter Care Teams Battery Plate Remover Relationship Specialty Start Date End Date Isabella Miller PA [address] [facility] [address] [place] [address] PCP - General Primary Care 06/21/24 documented as of this encounter
--- OUTSIDE RECORDS SUMMARY | 2024-11-29 14:59 | XMS_ITS | Clinical Summary ---
Author Organization [address] [place] [address] [place] [phone] Phone Care Team Providers Care Insulation Cupola Charger Name Role Phone Isabella Miller Primary Care [...] BY MOUTH EVERY DAY 11/17/19 24 Active apixaban (Eliquis) 2.5 mg tabletIndicatio ns:Atrial fibrillation, unspecified type (CMS/HCC V24, CMS/HCC V28) Take 1 tablet (2.5 mg total) by mouth 2 (two) times a day. 90 tablet 2 08/23/19 25 Active spironolactone (ALDACTONE) 25 mg tabletIndicatio ns:Chronic systolic (congestive) heart failure (CMS/HCC V24, CMS/HCC V28) Take 0.5 tablets (12.5 mg total) by mouth every other day. 90 tablet 2 08/24/19 25 Active amiodarone (PACERONE) 200 mg tablet TAKE 1 TABLET BY MOUTH EVERY DAY 90 tablet 1 08/29/19 25 Active carvediloL (COREG) 3.125 mg tablet TAKE 1 TABLET BY MOUTH TWICE DAILY WITH FOOD. 180 tablet 2 09/29/19 25 Active furosemide (LASIX) 20 mg tabletIndicatio ns:Chronic HFrEF (heart failure with reduced ejection fraction) (CMS/HCC V24, CMS/HCC V28) Take 1 tablet (20 mg total) by mouth if needed (PRN for HF symptoms). 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 Take 1 tablet by mouth every morning 6 days/week and a half a tablet on the seventh day 90 tablet 1 11/21/19 25 Active gabapentin (NEURONTIN) 300 mg capsuleIndicati ons:Acute bilateral thoracic back pain TAKE 1 CAPSULE BY MOUTH IN THE MORNING AND 2 AT BEDTIME 90 capsule 3 11/22/19 25 Active gabapentin (NEURONTIN) 300 mg capsuleIndicati ons:Acute bilateral thoracic back pain Take 1 cap in the morning and 2 caps every evening 90 capsule 3 08/01/20 24 025 Discontinued levothyroxine (SYNTHROID, LEVOTHROID) 100 mcg tabletIndicatio ns: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 Take 1 tablet by mouth every morning 6 days/week and a half a tablet on the seventh day 08/25/19 25 025 Discontinued(Re order) Active Problems Problem Noted Date Diagnosed Date 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 Candidate for ICD or CAMP MANAGER: CAMP MANAGER-P in place ?? Assessment and plan: The [...] cardiac MRI yesterday 11/07/24 pending results. ICD: CAMP MANAGER-P in place, with reassessment of EF and [...] SGLT2 inhibitors: Dapagliflozin 10 mg daily. ICD: CAMP MANAGER-P in place, with reassessment of EF and [...] wo and w Contrast; Future Atrial fibrillation ([facility] V24, [facility] V28) 1 Overview (05/15/2024): Last Assessment & Plan: The patient has a history of paroxysmal atrial fibrillation. She is on rhythm control therapy with amiodarone and rate control therapy with Coreg. Also, the patient has a [id number] score of 5 (age, gender, heart failure, [...] Patient has history of paroxysmal atrial fibrillation, [id number] score of 5. 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 Caban consulted on the patient due to her bradycardia which appeared multifactorial from electrolyte disturbances in the setting of renal dysfunction and due to amiodarone. She had a pacemaker with CAMP MANAGER implanted during the hospitalization. She does not [...] Encounters Date Type Department Care Team Description 11/24/2024 Telephone Internal Medicine - [place] [address] [facility] [address] [place] [address] Isabella Miller PA [place]: Referral Request Detail 11/24/2024 Telephone [facility] Cardiology [facility] [address] [place] [address] Cardiology, [facility] Referral 11/24/2024 Telephone Internal Medicine - [place] [address] [facility] [address] [place] [address] Isabella Miller PA 11/23/2024 Telephone [facility] Cardiology [facility] [address] [place] [address] Ethel Shelton MD MRI results; Mini Stroke 11/22/2024 [address] [facility] [address] [place] [address] Ethel Shelton MD 11/21/2024 12:42 PM EDT - 11/21/2024 11:59 PM EDT Hospital Encounter CT Scan - [address], [place] [phone] Traumatic injury of head, initial encounter Discharge Disposition: Home or Self Care 11/21/2024 Telephone Internal Medicine - [place] [address] [facility] [address] [place] [address] Jocelyne Doherty [place] faxed form (ATI) 11/21/[address] [facility] [address] [place] [address] Ethel Shelton MD Appointment (CT Head) 11/20/2024 11:44 AM EDT - 11/20/2024 11:59 PM EDT Hospital Encounter [facility] [address] [place] [address] Contusion of right eyelid and periocular area, initial encounter; History of falling; long-term (current) use of anticoagulants Discharge Disposition: Home or Self Care 11/20/2024 10:30 AM EDT - 11/20/2024 11:59 PM EDT Hospital Encounter [facility] [address] [place] [address] Contusion of right eyelid and periocular area, initial encounter; History of falling; 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 Discharge Disposition: Home or Self Care 11/20/2024 10:20 AM EDT - 11/20/2024 11:59 PM EDT Hospital Encounter [facility] [address] [place] [address] Contusion of right eyelid and periocular area, initial encounter; History of falling; 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 [address] [place] [address] 11/15/2024 9:30 AM EDT Ancillary Procedure [facility] - [address] [place] [address] 11/14/2024 9:55 AM EDT Ancillary Procedure [facility] [address] [place] [address] 11/14/2024 Telephone [facility] [address] [place] [address] Claudia Rose NP procedure 11/14/2024 Telephone [facility] - [address] [place] [address] Angelica Rowe PA 11/08/2024 3:10 PM EDT Office Visit [facility] [address] [place] [address] Claudia Rose NP Atrial fibrillation, unspecified type (CMS/HCC V24, CMS/HCC V28) (Primary Dx); Chronic HFrEF (heart failure with reduced ejection fraction) (CMS/HCC V24, CMS/HCC V28); long-term current use of amiodarone; Coronary artery disease involving [place] coronary artery of [place] heart without angina pectoris; Primary hypertension; Hyperlipidemia, unspecified hyperlipidemia type 11/06/2024 Telephone Internal Medicine - [place] [address] [place] [phone] Jocelyne Doherty [place] faxed form (ATI) 11/02/2024 12:30 PM EDT - 11/02/2024 11:59 PM EDT Hospital Encounter [facility] - [place] [address] [place] [address] Discharge Disposition: Home or Self Care 11/02/[address] [facility] [address] [place] [address] Elly Jaeger NP Other (CXR) 11/01/2024 Telephone [facility] [address] [place] [address] Claudia Rose NP knee injection (Knee injection ) 10/31/2024 11:00 AM EDT Ancillary Procedure [facility] - [address] [place] [address] Encounter for adjustment or management of cardiac device; Atrial fibrillation, unspecified type (CMS/HCC V24, CMS/HCC V28) 10/31/2024 Telephone [facility] - [address] [place] [address] Mumtaz Rahman RN 10/30/2024 10:20 AM EDT Ancillary Procedure [facility] - [address] [place] [address] 10/26/2024 11:40 AM EDT Lab Draw Station - [address] Chronic HFrEF (heart failure with reduced ejection fraction) (CMS/HCC V24, CMS/HCC V28); Cardiomyopathy, unspecified type (CMS/HCC V24, CMS/HCC V28) 10/18/2024 2:00 PM EST Office Visit Nephrology - [address] [phone] Jake Carr MD CKD stage 3b, GFR 30-44 ml/min (CMS/HCC V24, CMS/HCC V28) (Primary Dx); Primary hypertension 10/18/2024 Telephone [facility] [address] [place] [address] Elly Jaeger NP Appointment (Cardiac MRI) 10/06/2024 Telephone Internal Medicine - [place] [address] [facility] [address] [place] [address] Isabella Miller PA Referral (CARDIAC MRI - [facility]) 10/04/2024 Telephone Internal Medicine - [place] [address] [place] [address] Jocelyne Doherty [place] faxed form (ATI) 09/28/2024 Telephone Internal Medicine - [place] [address] [place] [address] Isabella Miller PA Referral 09/19/2024 11:40 AM EST Ancillary Procedure [facility] [address] [place] [address] 09/18/2024 Telephone [facility] [address] [place] [address] Efren Caban MD 09/14/2024 Telephone Internal Medicine - [place] [address] [place] [address] Simona Yeboah MA Referral 08/31/2024 Telephone Internal Medicine - [place] [address] [facility] [address] [place] [phone] Isabella Miller PA Referral ([facility]) 08/31/2024 Telephone [facility] Cardiology [address] [place] [address] Elly Jaeger NP Testing (Auth Cardiac MRI) from Last 3 Months Immunizations Name Administration [...] CHOLECYSTECTOMY PROCEDURE: LAPAROSCOPY, CHOLECYSTECTOMY; COMMENT: 07/2023 in [place] due to cholelithiasis Medical History Medical History Date Comments Aortic atherosclerosis ([facility] V24) 10/02/2015 DX:Aortic atherosclerosis (HCC); COMMENT: Comments: CXR 11/29/14 Atherosclerotic aorta Atrial fibrillation ([facility] V24, [facility] V28) 05/19/2018 DX:Atrial fibrillation (HCC) Cardiomyopathy ([facility] V24, [facility] V28) 09/06/2015 DX:Cardiomyopathy (HCC) Chronic constipation 04/15/2017 DX:Chronic constipation Diverticulosis [...] DX:Hyperlipidemi a Cholelithiasis DX:Cholelithiasi s Breast cancer ([facility] V24, [facility] V28) 2003 DX:Breast cancer (HCC); COMMENT: Chemo &Rad Tx Family history of coronary a rtery disease DX:Family history of coronar y artery disease H/O hypercholesterolemia Rosacea Chronic kidney disease (CKD) , stage III (moderate) ([facility] V24, [facility] V28) Family History Medical History Relation Name Comments [...] 9:45 AM EDT Office Visit Internal Medicine [facility] [address] [phone] Isabella Miller PA [address] [address] 01/10/2025 10:50 AM EDT Office Visit [facility] [address] [place] [address] [address] [place] [address] Ethel Shelton MD [address] [place] [address] [address] [place] [address] 02/23/2025 11:15 AM EDT Office Visit Internal Medicine [facility] [address] [facility] [address] [place] [phone] Isabella Miller PA [address] [address] 06/20/2025 4:00 PM EST Office Visit Nephrology [address] [address] Jake Carr MD [address] [place] [address] 07/03/2025 7:40 AM EST Office Visit [facility] Cardiology [facility] [address] [place] [phone] Claudia Rose NP [address] [place] [address] [address] [place] [address] 11/01/2025 11:00 AM EDT Ancillary Procedure [facility] [address] [facility] [address] [place] [address] Health Maintenance Due Date Last Done Comments [...] age to complete this topic Meningococcal B Vaccine Aged Out No l onger eligible based on patient's age to complete this topic RSV Immunization Patients Under 20 months Aged Out No longer eligible based on patient's age to complete this topic Varicella Vaccines Aged Out No longer eligible based on patient's age to complete this topic Medical Devices Implanted Type Area Water Resource Agent Device Identifier Shelf Expiration Date Model / Serial / Lot Medt-Card Percepta Quad Quality Specialist-P [id number] Implanted: by Efren Caban MD (Quantity not on file) Cardiac CAMP MANAGER-P Left: Chest [employer] - CARDIAC RHYTH-CRDM PERCEPTA QUAD CAMP MANAGER-P [id number] / [id number] / Procedures Procedure Name Priority Date/Time Associated Diagnosis Comments CT HEAD WO CONTRAST STAT 11/21/2024 12:54 PM EDT Traumatic injury of head, initial encounter XR FACIAL BONES 3+ VIEWS Routine 11/20/2024 12:02 PM EDT Contusion of right eyelid and periocular area, initial encounter History of falling long-term (current) use of anticoagulants XR ORBITS COMPLETE 4+ VIEWS Routine 11/20/2024 12:01 PM EDT Contusion of right eyelid and periocular area, initial encounter History of falling long-term (current) use of anticoagulants XR NASAL BONES Routine 11/20/2024 11:57 AM EDT Contusion of right eyelid and periocular area, initial encounter History of falling 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 CARDIAC DEVICE CHECK- REMOTE- MURJ Routine 11/17/2024 9:14 PM EDT CARDIAC DEVICE CHECK- REMOTE- MURJ Routine 11/15/2024 9:29 AM EDT CARDIAC DEVICE CHECK- REMOTE- MURJ Routine 11/14/2024 9:53 AM EDT ECG 12-LEAD Routine 11/08/2024 3:07 PM EDT Atrial fibrillation, unspecified type (CMS/HCC V24, CMS/HCC V28) XR CHEST 2 VIEWS Routine 11/02/2024 12:3 8 PM EDT Chronic HFrEF (heart failure with reduced ejection fraction) (CMS/HCC V24, CMS/HCC V28) CARDIAC DEVICE CHECK- IN CLINIC- MURJ Routine 10/31/2024 11:15 AM EDT Encounter for adjustment or management of cardiac device CARDIAC DEVICE CHECK- REMOTE- MURJ Routine 10/30/2024 10:18 AM EDT BASIC METABOLIC PANEL Routine 10/26/2024 12:02 PM EDT Chronic HFrEF (heart failure with reduced ejection fraction) (CMS/HCC V24, CMS/HCC V28) Cardiomyopathy, unspecified type (CMS/HCC V24, CMS/HCC V28) CARDIAC DEVICE CHECK- REMOTE- MURJ Routine 09/19/2024 11:37 AM EST LIPID PANEL Routine 09/09/2023 from Last 3 Months or Most Recently Relevant to Health Maintenance Results * CT Head wo Contrast (11/21/2024 12:54 PM EDT) Anatomical Region Laterality Modality Head and Neck Computed Tomogra phy 11/21/2024 1:02 PM EDT Narrative 11/21/2024 1:[address] without intravenous contrast. History minor head trauma. Examination was performed on multidetector scanner without administration of intravenous contrast. No prior studies are available for comparison. There is no evidence of midline shift, extra or intra-axial blood fluid collections. There is no visible masses or mass effect in the brain and cerebellum. There is are small old lacunar infarction in the left. There are arm some atrophic changes in the cerebellum. Ventricular system is symmetric and normal in size. Fourth ventricle and basal cisterns are midline and patent. Bony structures revealed no evidence of fractures. Visualized paranasal sinuses are aerated. CONCLUSIONS: No evidence of intracranial hemorrhage. Small old lacunar infarction in the left thalamus. Mild atrophic changes in the cerebellum. If symptoms persist, consider MRI examination. -------- FINAL REPORT -------- Dictated By: Abbi Morocho Dictated Date: 11/21/2024 13:02 ET Assigned Physician: Abbi Morocho Reviewed and Electronically Signed By: Abbi Morocho Signed Date: 11/21/2024 13:12 ET Workstation ID: [id number] Transcribed By: Self Edit Transcribed Date: 11/21/2024 13:02 ET Procedure Note Abbi Morocho MD - 11/21/[address] without intravenous contrast. History minor head trauma. Examination was performed on multidetector scanner without administrationof intravenous contrast. No prior studies are available for comparison. There is no evidence of midline shift, extra or intra-axial blood fluidcollections. There is no visible masses or mass effect in the brain andcerebellum. There is are small old lacunar infarction in the left. Thereare arm some atrophic changes in the cerebellum. Ventricular system issymmetric and normal in size. Fourth ventricle and basal cisterns aremidline and patent. Bony structures revealed no evidence of fractures.Visualized paranasal sinuses are aerated. CONCLUSIONS: No evidence of intracranial hemorrhage. Small old lacunarinfarction in the left thalamus. Mild atrophic changes in the cerebellum.If symptoms persist, consider MRI examination. -------- FINAL REPORT -------- Dictated By: Abbi Morocho Dictated Date: 11/21/2024 13:02 ET Assigned Physician: Abbi Morocho Reviewed and Electronically Signed By: Abbi Morocho Signed Date: 11/21/2024 13:12 ET Workstation ID: [id number] Transcribed By: Self Edit Transcribed Date: 11/21/2024 13:02 ET us Ethel Shelton MD IMG CT PROCEDURES [facility] Result * XR Facial Bones 3+ Views (11/20/2024 12:02 PM EDT) Anatomical Region Laterality Modality Head and Neck Radiographic Karina ging 11/20/2024 12:2 3 PM EDT Impressions 11/20/2024 12:31 PM EDT Orbits: No displaced fracture. Nasal bones: No displaced fracture. Facial bones: No displaced fracture. ??Findings suggestive of left mastoid effusion. If clinical concern persists, recommend CT study without intravenous contrast. -------- FINAL REPORT -------- Dictated By: Misael Givens Dictated Date: 11/20/2024 12:23 ET Assigned Physician: Misael Givens Reviewed and Electronically Signed By: Misael Givens Signed Date: 11/20/2024 12:31 ET Workstation ID: [id number] Transcribed By: Self Edit Transcribed Date: 11/20/2024 12:23 ET Narrative 11/20/2024 12:31 PM EDT XR ORBITS COMPLETE 4+ VIEWS XR FACIAL BONES 3+ VIEWS XR NASAL BONES Reason: fall. ??Conclusion of right eyelid and periocular area. 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 Comparison: None FINDINGS: Orbits: No displaced fracture. ??No radiopaque foreign body. Nasal bones: No displaced fracture. Facial bones: No displaced fracture. ??Paranasal sinuses appear clear. ??Mild opacification of the left mastoid air cells could represent mastoid effusion. Procedure Note Misael Givens MD - 11/20/2024 XR ORBITS COMPLETE 4+ VIEWS XR FACIAL BONES 3+ VIEWS XR NASAL BONES Reason: fall. Conclusion of right eyelid and periocular area. long-term(current) use of anticoagulants. Comparison: None FINDINGS: Orbits: No displaced fracture. No radiopaque foreign body. Nasal bones: No displaced fracture. Facial bones: No displaced fracture. Paranasal sinuses appear clear.Mild opacification of the left mastoid air cells could represent mastoideffusion. IMPRESSION: Orbits: No displaced fracture. Nasal bones: No displaced fracture. Facial bones: No displaced fracture. Findings suggestive of left mastoideffusion. If clinical concern persists, recommend CT study without intravenouscontrast. -------- FINAL REPORT -------- Dictated By: Misael Givens Dictated Date: 11/20/2024 12:23 ET Assigned Physician: Misael Givens Reviewed and Electronically Signed By: Misael Givens Signed Date: 11/20/2024 12:31 ET Workstation ID: [id number] Transcribed By: Self Edit Transcribed Date: 11/20/2024 12:23 ET Ginna Levy IMG XR PROCEDURES Final Result * XR Orbits Complete 4+ Views (11/20/2024 12:01 PM EDT) Anatomical Region Laterality Modality Head and Neck Radiographic Karina ging 11/20/2024 12:2 3 PM EDT Impressions 11/20/2024 12:31 PM EDT Orbits: No displaced fracture. Nasal bones: No displaced fracture. Facial bones: No displaced fracture. ??Findings suggestive of left mastoid effusion. If clinical concern persists, recommend CT study without intravenous contrast. -------- FINAL REPORT -------- Dictated By: Misael Givens Dictated Date: 11/20/2024 12:23 ET Assigned Physician: Misael Givens Reviewed and Electronically Signed By: Misael Givens Signed Date: 11/20/2024 12:31 ET Workstation ID: [id number] Transcribed By: Self Edit Transcribed Date: 11/20/2024 12:23 ET Narrative 11/20/2024 12:31 PM EDT XR ORBITS COMPLETE 4+ VIEWS XR FACIAL BONES 3+ VIEWS XR NASAL BONES Reason: fall. ??Conclusion of right eyelid and periocular area. 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 Comparison: None FINDINGS: Orbits: No displaced fracture. ??No radiopaque foreign body. Nasal bones: No displaced fracture. Facial bones: No displaced fracture. ??Paranasal sinuses appear clear. ??Mild opacification of the left mastoid air cells could represent mastoid effusion. Procedure Note Misael Givens MD - 11/20/2024 XR ORBITS COMPLETE 4+ VIEWS XR FACIAL BONES 3+ VIEWS XR NASAL BONES Reason: fall. Conclusion of right eyelid and periocular area. long-term(current) use of anticoagulants. Comparison: None FINDINGS: Orbits: No displaced fracture. No radiopaque foreign body. Nasal bones: No displaced fracture. Facial bones: No displaced fracture. Paranasal sinuses appear clear.Mild opacification of the left mastoid air cells could represent mastoideffusion. IMPRESSION: Orbits: No displaced fracture. Nasal bones: No displaced fracture. Facial bones: No displaced fracture. Findings suggestive of left mastoideffusion. If clinical concern persists, recommend CT study without intravenouscontrast. -------- FINAL REPORT -------- Dictated By: Misael Givens Dictated Date: 11/20/2024 12:23 ET Assigned Physician: Misael Givens Reviewed and Electronically Signed By: Misael Givens Signed Date: 11/20/2024 12:31 ET Workstation ID: [id number] Transcribed By: Self Edit Transcribed Date: 11/20/2024 12:23 ET Ginna Levy IMG XR PROCEDURES Final Result * XR Nasal Bones (11/20/2024 11:57 AM EDT) Anatomical Region Laterality Modality Head and Neck Radiographic Karina ging 11/20/2024 12:2 3 PM EDT Impressions 11/20/2024 12:31 PM EDT Orbits: No displaced fracture. Nasal bones: No displaced fracture. Facial bones: No displaced fracture. ??Findings suggestive of left mastoid effusion. If clinical concern persists, recommend CT study without intravenous contrast. -------- FINAL REPORT -------- Dictated By: Misael Givens Dictated Date: 11/20/2024 12:23 ET Assigned Physician: Misael Givens Reviewed and Electronically Signed By: Misael Givens Signed Date: 11/20/2024 12:31 ET Workstation ID: [id number] Transcribed By: Self Edit Transcribed Date: 11/20/2024 12:23 ET Narrative 11/20/2024 12:31 PM EDT XR ORBITS COMPLETE 4+ VIEWS XR FACIAL BONES 3+ VIEWS XR NASAL BONES Reason: fall. ??Conclusion of right eyelid and periocular area. ??long-term (current) use of anticoagulants. Comparison: None FINDINGS: Orbits: No displaced fracture. ??No radiopaque foreign body. Nasal bones: No displaced fracture. Facial bones: No displaced fracture. ??Paranasal sinuses appear clear. ??Mild opacification of the left mastoid air cells could represent mastoid effusion. Procedure Note Misael Givens MD - 11/20/2024 XR ORBITS COMPLETE 4+ VIEWS XR FACIAL BONES 3+ VIEWS XR NASAL BONES Reason: fall. Conclusion of right eyelid and periocular area. long-term(current) use of anticoagulants. Comparison: None FINDINGS: Orbits: No displaced fracture. No radiopaque foreign body. Nasal bones: No displaced fracture. Facial bones: No displaced fracture. Paranasal sinuses appear clear.Mild opacification of the left mastoid air cells could represent mastoideffusion. IMPRESSION: Orbits: No displaced fracture. Nasal bones: No displaced fracture. Facial bones: No displaced fracture. Findings suggestive of left mastoideffusion. If clinical concern persists, recommend CT study without intravenouscontrast. -------- FINAL REPORT -------- Dictated By: Misael Givens Dictated Date: 11/20/2024 12:23 ET Assigned Physician: Misael Givens Reviewed and Electronically Signed By: Misael Givens Signed Date: 11/20/2024 12:31 ET Workstation ID: [id number] Transcribed By: Self Edit Transcribed Date: 11/20/2024 12:23 ET Ginna Levy IMG XR PROCEDURES Final Result * Cardiac device check - [place]- [facility]11/17/2024 9:14 PM EDT) Only the most recent of5 resultswithin the time period is included. Date Time Interrogation Session [id number] CV DEVICE CHECK Type Interrogation Session Remote CV DEVICE CHECK Implantable Pulse Generator Water Resource Agent MDT CV DEVICE CHECK Implantable Pulse Generator Type CAMP MANAGER-P CV DEVICE CHECK Implantable Pulse Generator Model Percepta Quad CAMP MANAGER-P [id number] CV DEVICE CHECK Implantable Pulse Generator Serial Number [id number] CV DEVICE CHECK Implantable Pulse Generator Implant Date 20210131 CV DEVICE CHECK Battery Remaining Longevity 64.0 CV DEVICE CHECK Battery Voltage 2.960 CV D EVICE CHECK Battery INSIDE HORTICULTURAL SPECIALTY GROWER Trigger 2.595 CV DEVICE CHECK Battery Status Middle of Service CV DEVICE CHECK Chinmay Statistic RA Percent Paced 100.00 CV DEVICE CHECK Chinmay Statistic RV Percent Paced 99.82 CV DEVICE CHECK CAMP MANAGER Statistic LV Percent Paced 99.79 CV DEVICE CHECK CAMP MANAGER Statistic CAMP MANAGER Percent Paced 99.79 CV DEVICE CHECK Atrial Tachy Statistic AT/AF [place] Percent 0.00 CV DEVICE CHECK Lead Channel [...] DEVICE CHECK Ventricular chambers paced during CAMP MANAGER pacing. BiV CV DEVICE CHECK Chinmay Setting Lower Rate Limit 75 CV DEVICE CHECK Chinmay Setting AT Mode Switch Rate 171 CV DEVICE CHECK Chinmay Setting Maximum Tracking Rate 110 CV DEVICE CHECK Chinmay Setting Maximum Sensor Rate 120 CV DEVICE CHECK Chinmay Setting PAV Delay 150 CV DEVICE CHECK Chinmay Setting EDITH Delay 130 CV DEVICE CHECK CAMP MANAGER LV-RV Delay 30 CV D EVICE CHECK [...] GEMUSE QTc 551 ms GEMUSE P Wave [place] 21 degrees GEMUSE R [place] -178 degrees GEMUSE T [place] 43 degrees GEMUSE ECG Interpretation AV dual-paced [...] Signed Date: 11/02/2024 16:03 ET Workstation ID: [id number] Transcribed By: Self Edit Transcribed Date: 11/02/2024 [...] Signed Date: 11/02/2024 16:03 ET Workstation ID: [id number] Transcribed By: Self Edit Transcribed Date: 11/02/2024 15:52 ET us Elly Jaeger HOSE TENDER IMG XR PROCEDURES Final Result * CARDIAC DEVICE CHECK- IN [facility]- [facility] (10/31/2024 11:15 AM EDT) Date Time Interrogation Session [id number] CV DEVICE CHECK Implantable Pulse Generator Water Resource Agent MDT CV DEVICE CHECK Implantable Pulse Generator Type CAMP MANAGER-P CV DEVICE CHECK Implantable Pulse Generator Model Percepta Quad CAMP MANAGER-P [id number] CV DEVICE CHECK Implantable Pulse Generator Serial Number [id number] CV DEVICE CHECK Implantable Pulse Generator Implant Date 20210131 CV DEVICE CHECK Battery Status Middle of Service CV DEVICE CHECK Chinmay Statistic RA Percent Paced 99.50 CV DEVICE CHECK Chinmay Statistic RV Percent Paced 99.70 CV DEVICE CHECK CAMP MANAGER Statistic LV Percent Paced 99.40 CV DEVICE CHECK CAMP MANAGER Statistic CAMP MANAGER Percent Paced 99.40 CV DEVICE CHECK Atrial Tachy Statistic AT/AF [place] Percent 0.30 CV DEVICE CHECK Lead Channel [...] DEVICE CHECK Ventricular chambers paced during CAMP MANAGER pacing. LV->RV CV DEVICE CHECK Chinmay Setting [...] notify them of findings Narrative Procedure Note Erfen Caban MD - 10/31/2024 IMPRESSION: Normal In-Office: [...] mmol/L LAB CHEMISTRY METHOD 10/26/2024 2:46 PM [facility] Potassium 4.7 3.5 - 5.5 mmol/L LAB CHEMISTRY METHOD 10/26/2024 2:46 PM [facility] Chloride 108 96 - 110 mmol/L LAB CHEMISTRY METHOD 10/26/2024 2:46 PM [facility] CO2 25 21 - 32 mmol/L LAB CHEMISTRY METHOD 10/26/2024 2:46 PM [facility] Anion Gap 6 3 - 11 LAB CHEMISTRY METHOD 10/26/2024 2:46 PM [facility] Glucose 100 70 - 100 mg/dL LAB CHEMISTRY METHOD 10/26/2024 2:46 PM [facility] BUN 18 5 - 25 mg/dL LAB CHEMISTRY METHOD 10/26/2024 2:46 PM [facility] Creatinine 1.33(H) 0.50 - 1.10 mg/dL LAB CHEMISTRY METHOD 10/26/2024 2:46 PM [facility] eGFR 40(L) >=60 mL/min/1. 73m2 LAB CHEMISTRY METHOD 10/26/2024 2:46 PM [facility] Comment:Calculation based on the??Chronic Kidney Disease Epidemiology Collaboration (CKD-EPI) equation refit??without adjustment for race. 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
--- OUTSIDE RECORDS SUMMARY | 2024-11-29 14:59 | XMS_ITS | Encounter Summary ---
Author Organization [facility] [place] [address] Care Team Providers Care Securities Broker Name Role Phone Isabella Miller Primary Care Provider + Reason for Referral * Consultation (Routine) - Authorized Specialty Diagnoses / Procedures Referred By Carrie t Referred To Contact Cardiology Diagnoses Atrial fibrillation, unspecified type (CMS/HCC V24, CMS/HCC V28) Isabella Miller PA [address] [facility] [address] [place] [address] Phone: tel: fax: [facility] Cardiology [facility] [address] [place] [address] Phone: tel: fax: Referral ID Status Reason Start Date Expiration Date Visits Requested Visits Authorized [id number] Authorized Specialty Services Required 10/31/2024 10/31/2025 6 6 Reason for Visit * Reason Onset Date Comments Ins Referral 11/24/2024 Encounter Details Date Type Department Care Team (Late st Contact Info) Description 11/24/2024 Telephone [facility] Cardiology [facility] [address] [facility] [address] [place] [address] Cardiology, [facility] Ins Referral Social History Tobacco Use Types Packs/Day [...] as of this encounter Progress Notes * Baylee Young - 11/27/2024 8:36 AM EDT Thank You. * ASTER Matias - 11/24/2024 4:24 PM EDT Cardiology referral placed. Thank you. * Baylee Young - 11/24/2024 12:47 PM EDT Chuyita RODATRE, My name is Baylee and I work in the Referrals/Prior Authorization Department for [facility]. The patient was previously seen in our office on 10.31.24 Our office is attempting to obtain an insurance referral however, the [place] referrals department is unable to submit the authorization request due to a no Ambulatory referral to Cardiology order in the patient's chart. I have faxed this request (3.6, 3.27,4.4) over three times now with no results Can you please assist with submitting this order so we may work on obtaining the insurance referralfor this upcoming visit? Thank you very much for your assistance and I apologize for any inconvenience. documented in this encounter Plan of Treatment Upcoming Encounters Date Type Department Care Team (Late st Contact Info) Description 12/11/2024 9:45 AM EDT Office Visit Internal Medicine - [place] [address] [place] [address] Isabella Miller PA 175 [facility] 200 [place] [address] 01/10/2025 10:50 AM EDT Office Visit [facility] Cardiology [facility] [address] [place] [phone] Javier Shelton MD [address] [place] [address] [address] [place] [address] 02/23/2025 11:15 AM EDT Office Visit Internal Medicine - [place] 175 [facility] 200 [place] [phone] Isabella Miller PA [address] [address] 06/20/2025 4:00 PM EST Office Visit Nephrology - [address] [address] Jake Carr MD [address] [facility] [address] [place] [address] 07/03/2025 7:40 AM EST Office Visit [facility] Cardiology [facility] [address] [place] [address] Claudia Rose NP [address] [place] [address] [address] [place] [address] 11/01/2025 11:00 AM EDT Ancillary Procedure [facility] Cardiology [facility] [address] [facility] 154 [place] [phone] Scheduled Referrals Name Type Priority Associated Diagnoses Order Schedule Ambulatory referral to Cardiology Outpatient Referral Routine Atrial fibrillation, unspecified type (CMS/HCC V24, CMS/HCC V28) 1 Occurrences starting 11/24/2024 until 11/24/2025 documented as of this encounter Visit Diagnoses Diagnosis Atrial fibrillation, unspecified type ([facility] V24, [facility] V28)- Primary Encounter for adjustment or management of cardiac device documented in this encounter Care Teams Securities Broker Relationship Specialty Start Date End Date Isabella Miller PA 175 [place] [address] PCP - General Primary Care 06/21/24 documented as of this encounter
--- OUTSIDE RECORDS SUMMARY | 2024-11-29 14:59 | XMS_ITS | Encounter Summary ---
Author Organization [facility] [place] [address] Care Team Providers Care Mold Changer Name Role Phone Isabella Miller Primary Care Provider + Encounter Details Date Type Department Care Team (Late st Contact Info) Description 11/14/2024 Telephone [facility] - [facility] [address] [facility] 154 [place] [address] Angelica Rowe PA [address] [place], [place] [phone] Social History Tobacco Use Types Packs/Day Years [...] AM EDT Office Visit Internal Medicine - [place] [address] [facility] [address] [place] [phone] Isabella Miller PA 175 [facility] 200 [place] [address] 01/10/2025 10:50 AM EDT Office Visit [facility] Cardiology [facility] [address] [address] [place] [phone] Javier Shelton MD [address] [place] [address] [address] [place] [address] 02/23/2025 11:15 AM EDT Office Visit Internal Medicine - [place] [address] [place] [phone] Isabella Miller PA [address] [address] 06/20/2025 4:00 PM EST Office Visit Nephrology - [address] [phone] Jake Carr MD [address] [facility] 200 [place] [phone] 07/03/2025 7:40 AM EST Office Visit [facility] Cardiology [facility] [address] [place] [phone] Claudia Rose BRENDA [address] [place] [address] [address] [place] [address] 11/01/2025 11:00 AM EDT Ancillary Procedure [facility] - [address] [facility] [address] [place] [address] documented as of this encounter Visit Diagnoses Not on filedocumented in this encounter Care Teams Mold Changer Relationship Specialty Start Date End Date Isabella Miller PA 175 [facility] 200 [place] [address] PCP - General Primary Care 06/21/24 documented as of this encounter
--- OUTSIDE RECORDS SUMMARY | 2024-11-29 14:59 | XMS_ITS | Encounter Summary ---
Author Organization [facility] Address [address] [place] [address] Care Team Providers Care Litigation Coordinator Name Role Phone Isabella Miller Primary Care Provider + Encounter Details Date Type Department Care Team (Late Contact Info) Description 11/24/2024 Telephone Internal Medicine - [place] [address] [address] Isabella Miller PA [address] [address] Social History Tobacco Use Types Packs/Day Years [...] Department Care Team (Late Contact Info) Description 12/11/2024 9:45 AM EDT Office Visit Internal Medicine [facility] [address] [phone] Isabella Miller PA [address] [phone] 01/10/2025 10:50 AM EDT Office Visit [facility] [address] [place] [address] Javier Shelton MD [address] [place] [address] [address] [place] [address] 02/23/2025 11:15 AM EDT Office Visit Internal Medicine - [place] [address] [place] [phone] Isabella Miller PA [address] [address] 06/20/2025 4:00 PM EST Office Visit Nephrology - [address] [phone] Jake Carr MD [address] [address] 07/03/2025 7:40 AM EST Office Visit [facility] [address] [place] [address] Claudia Rose NP [address] [place] [address] [address] [place] [address] 11/01/2025 11:00 AM EDT Ancillary Procedure [facility] [address] [place] [phone] documented as of this encounter Visit Diagnoses Not on filedocumented in this encounter Care Teams Litigation Coordinator Relationship Specialty Start Date End Date Isabella Miller PA 175 [facility] 200 [place] [address] PCP - General Primary Care 06/21/24 documented as of this encounter
== END 2024-11-29 13:06 | disposition home or self-care (01) ==
LOC: HO.PMC 12:40
PROVIDERS: PCP Internal Medicine; Visit Provider Anesthesiology
DX: M17.0 Bilateral primary osteoarthritis of knee (principal)
CPT/HCPCS: 20610

== ENCOUNTER → 2024-11-29 12:39 | Outpatient (BNVA) | payer MEDICARE, SELFPAY | PROVIDERS: PCP Internal Medicine; Visit Provider Anesthesiology | DX: M17.0 Bilateral primary osteoarthritis of knee (principal) | CPT/HCPCS: 20610; J3300 ==

== ENCOUNTER 2024-12-15 10:30 | Outpatient (AMB) | payer MEDICARE, SELFPAY ==
--- NOTE | 2024-12-15 10:39 | A.OFFVIS_ITS ---
Vital Signs 12/15/24 10:55 Height 5 ft 3 in Weight 139 lb 6 oz BMI 24.7 BP 138/70 Blood Pressure Location Rt brachial Position Sitting Pulse 76 Pulse Source Pulse Oximeter Pulse Oximetry (%) 98 Oxygen Delivery Method Room Air Intake Visit Reasons: Pill Count Intake Note: Darlene comes in today for a pill count to morphine, patient should have 50 tablets and presents with 54 tablets which she last took last night 12/14/24 at 10pm. Pain today 0/10 Ground Worker Required: No Accompanied by: Self / Same As Patient Allergies No Known Allergies Allergy (Verified 12/15/24 10:54) HPI Comments Details: The patient is an 79-year-old female presenting to the office for follow up, chronic opioid management. She had received bilateral knee injections 2 weeks ago that have provided significant improvement in her pain. The pain does worsen about an hour after bed, interfering with sleep despite the use of a muscle cream. Yard work exacerbates the discomfort, though the patient continues to maintain her activities. Patient is prescribed Morphine 15mg take 1 tablet twice daily. Patient arrived today with the expectation of having 50 pills, she presented 54 pills which were counted in the presence of two staff members and returned to the patient in the original prescription bottle. This demonstrates responsible attitude toward patient's opioid medications. Pain is reported today as 0/10 and last dose of pain medication was taken at 10pm last night. Patient denies side effects including somnolence, constipation, itching, dyspnea, rash, dizziness or weakness. The patient is on furosemide, prescribed by her rail car repair carman to manage periodic symptoms of fluid retention like feeling bloated and shortness of breath. She has begun using trazodone at night for sleep disturbances prescribed by her pcp. - Onset and Timing: Pain returns about an hour after lying down at night. - Quality and Character: Likely due to arthritis; descriptions include notable discomfort. - Location: Bilateral knees. - Exacerbating Factors: Nighttime immobility, physical activities like yard work. - Relieving Factors: Muscle cream applied topically provides some relief. - Daily Impact: Interferes with sleep, making daily activities challenging post- injection. - Affect: The pain impacts the patient?s ability to sleep and general comfort. - Analgesia: Knee injections and topical muscle cream; pain remains tolerable during the day. - Adverse Effects: None from mentioned treatments. - Activities of Daily Living: Pain limits mobility at night; daily life affected by sleep disturbances. - Aberrant Drug-Related Behaviors: None identified. [facility] Medical History Thyroid cancer Chronic pain syndrome Peripheral polyneuropathy Surgical History Status post ablation of incompetent vein using laser (09/11/22) Social History Patient Tobacco Use Status: Never used Tobacco Current occupational status: retired Review of Systems Const Details: - Musculoskeletal: Reports bilateral knee pain. - Cardiovascular: Reports fluid retention managed by furosemide; Denies significant changes or worsening symptoms. - Neurological: Denies ongoing issues. - General: Reports fatigue, particularly due to lack of sleep; Reports using trazodone for sleep management. Physical Exam Vital Signs: Last Vital Signs Pulse 76 12/15/24 10:55 BP 138/70 12/15/24 10:55 Pulse Ox 98 12/15/24 10:55 Oxygen Delivery Method Room Air 12/15/24 10:55 BMI result Body Mass Index 24.7 General: awake, alert, oriented. Answers questions appropriately. Fully engaged in examination. Skin: warm, dry, intact HEENT: Normocephalic. Hearing intact. Cardiac: External chest normal in appearance. Respiratory: No cough, audible wheezing or stridor. Abdomen: without gross distension. MS: No obvious swelling or deformities. Able to transition from sit to stand unassisted. Neurological: Oriented to person, place, time and situation. Thought process intact. Psychiatric: Appropriate mood and affect. Good judgment and insight. Results Reviewed Results Reviewed: XR KNEE AP STANDING 03/16/24 CLINICAL INFORMATION: Pain in right knee. COMPARISON: 10/01/2023. TECHNIQUE: AP bilateral standing view of the knees was obtained. FINDINGS: Bones are diffusely demineralized. Mild narrowing of the medial and lateral compartments. IMPRESSION: Mild narrowing of the medial and lateral compartments. Assessment & Plan Assessment & Plan (1) Chronic, continuous use of opioids: Code(s): F11.90 - Opioid use, unspecified, uncomplicated Category: Medical (2) Chronic pain syndrome: Code(s): G89.4 - Chronic pain syndrome Category: Medical (3) Chemotherapy-induced peripheral neuropathy: Code(s): G62.0 - Drug-induced polyneuropathy; T45.1X5A - Adverse effect of antineoplastic and immunosuppressive drugs, initial encounter Category: Medical (4) Bilateral primary osteoarthritis of knee: Code(s): M17.0 - Bilateral primary osteoarthritis of knee Category: Medical (5) Lumbosacral spondylosis: Code(s): M47.817 - Spondylosis without myelopathy or radiculopathy, lumbosacral region Category: Medical (6) Bilateral knee pain: Code(s): M25.561 - Pain in right knee; M25.562 - Pain in left knee Category: Medical (7) Current use of anticoagulant therapy: Code(s): Z79.01 - retirement (current) use of anticoagulants Category: Medical Plan [place] was reviewed and without concerns. No obvious signs of diversion, abuse or misuse of the opioid medications. Will send in prescription for Morphine 15mg po BID with an advanced date of 01/09/2025. Patient to follow-up in the office in 1 month, sooner if needed. All questions and concerns have been answered and patient agrees with the plan. Medications: Refilled morphine ER Partial Fill upon patient request. 15 mg PO BID 30 days PRN 60 tabs 0RF severe pain (scale score 7-10) F11.90 - Opioid use, unspecified, uncomplicated, G62.0 - Drug-induced polyneuropathy, M17.0 - Bilateral primary osteoarthritis of knee, T45.1X5A - Adverse effect of antineoplastic and immunosuppressive drugs, initial encounter Coding Level of Care Code Est Pt Level 3 (78885) Complex EM visit Add On G2211 Diagnoses Chronic, continuous use of opioids F11.90 Chronic pain syndrome G89.4 Chemotherapy-induced peripheral neuropathy G62.0; T45.1X5A Bilateral primary osteoarthritis of knee M17.0 Lumbosacral spondylosis M47.817 Bilateral knee pain M25.561; M25.562 Current use of anticoagulant therapy Z79.01
[2024-12-15 10:55] VITALS: BP 138/70; PULSE 76; O2SAT 98; BMI 24.7
--- OUTSIDE RECORDS SUMMARY | 2024-12-15 11:34 | XMS_ITS | Clinical Summary ---
Author Organization [facility] Address [address] [place] [address] Care Team Providers Care Power Transformer Inspector Name Role Phone Julio Brizuela MD Primary Care Provider Unavailab le Allergies Active Allergy Reactions Criticality Noted Date Comments Iodinated Contrast Media 01/24/2009 Oxycodone-Acetaminophen 11/09/2017 Medications Medication Sig Dispensed Refills Start Date End Date Status [place]-3 Fatty Acids (FISH OIL) 1000 MG CAPS [...] 0 05/24/2018 Active ergocalciferol (VITAMIN D2) capsule 70994 units TAKE ONE CAPSULE BY MOUTH ONE [...] age to complete this topic Care Teams Power Transformer Inspector Relationship Specialty Start Date End Date Julio Brizuela MD PCP - General Internal Medicine 01/18/19
--- OUTSIDE RECORDS SUMMARY | 2024-12-15 11:35 | XMS_ITS | Clinical Summary ---
Author Organization [address] [place] [address] [place] [phone] Phone Care Team Providers Care Environmental Control Administrator Name Role Phone Isabella Miller Primary Care [...] AND 2 AT BEDTIME 90 capsule 3 12/06/19 25 Active traZODone (DESYREL) 50 mg tabletIndicatio ns:Insomnia, unspecified type Take 1-2 tabs nightly 60 tablet 12/12/19 25 Active gabapentin (NEURONTIN) 300 mg capsuleIndicati ons:Acute bilateral thoracic back pain Take 1 cap in the morning and 2 caps every evening 90 capsule 3 08/01/20 24 025 Discontinued levothyroxine (SYNTHROID, LEVOTHROID) 100 mcg tabletIndicatio ns: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 Take 1 tablet by mouth every morning 6 days/week and a half a tablet on the seventh day 08/25/19 025 Discontinued(Re order) gabapentin (NEURONTIN) 300 mg capsuleIndicati ons:Acute bilateral thoracic back pain TAKE 1 CAPSULE BY MOUTH IN THE MORNING AND 2 AT BEDTIME 90 capsule 3 11/22/19 25 025 Discontinued(Re order) Active Problems Problem Noted Date Diagnosed Date Polyneuropathy due to other toxic agents ([facility] V24) 11/01/2024 CKD stage 3b, GFR 30-44 ml/min ([facility] V24, [facility] V28) 10/18/2024 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 Candidate for ICD or SUPERVISOR TICK[employer] SALES: SUPERVISOR TICKET SALES-P in place ?? Assessment and plan: The [...] cardiac MRI yesterday 11/07/24 pending results. ICD: SUPERVISOR TICK[employer] SALES-P in place, with reassessment of EF and [...] SGLT2 inhibitors: Dapagliflozin 10 mg daily. ICD: SUPERVISOR TICK[employer] SALES-P in place, with reassessment of EF and [...] wo and w Contrast; Future Atrial fibrillation ([facility] V24, CMS/[facility] V28) 1 Overview (05/15/2024): Last Assessment & Plan: The patient has a history of paroxysmal atrial fibrillation. She is on rhythm control therapy with amiodarone and rate control therapy with Coreg. Also, the patient has a NCK8IN9-PEHg score of 5 (age, gender, heart failure, [...] Patient has history of paroxysmal atrial fibrillation, AHN2RC2-RNCq score of 5. 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 01/31-02/05/21 with weakness x [address] Caban consulted on the patient due to her bradycardia which appeared multifactorial from electrolyte disturbances in the setting of renal dysfunction and due to amiodarone. She had a pacemaker with SU[employer]VISOR [employer] implanted during the hospitalization. She does not [...] Encounters Date Type Department Care Team Description 12/11/2024 9:45 AM EDT Office Visit Internal Medicine [address] [phone] Isabella Miller PA Insomnia, unspecified type (Primary Dx) 12/06/2024 Telephone Internal Medicine [address] [phone] Isabella Miller PA 11/24/2024 Telephone Internal Medicine [address] [phone] Isabella Miller PA [place]: Referral Request Detail 11/24/2024 Telephone [facility] - [facility] [address] [facility] [address] [place] [phone] Cardiology, [facility] Ins Referral 11/24/2024 Telephone Internal Medicine - [place] [address] [place] [phone] Isabella Miller PA Melonie - Medication 11/23/[address] [facility] [address] [place] [address] Ethel Shelton MD MRI results; Mini Stroke 11/22/[address] [facility] [address] [place] [address] Ethel Shelton MD 11/21/2024 12:42 PM EDT - 11/21/2024 11:59 PM EDT Hospital Encounter CT Scan - [place] [address] [place] [phone] Traumatic injury of head, initial encounter Discharge Disposition: Home or Self Care 11/21/2024 Telephone Internal Medicine - [place] [address] [place] [phone] Jocelyne Doherty [place] faxed form (ATI) 11/21/[address] [facility] [address] [place] [address] Ethel Shelton MD Appointment (CT Head) 11/20/2024 11:44 AM EDT - 11/20/2024 11:59 PM EDT Hospital Encounter XRAY - [place] [address] [place], [place] [phone] Contusion of right eyelid and periocular area, initial encounter; History of falling; terminal system operator (current) use of anticoagulants Discharge Disposition: Home or Self Care 11/20/2024 10:30 AM EDT - 11/20/2024 11:59 PM EDT Hospital Encounter XRAY - [place] [address] [place] [phone] Contusion of right eyelid and periocular area, initial encounter; History of falling; terminal system operator (current) use of anticoagulants Discharge Disposition: Home or Self Care 11/20/2024 10:20 AM EDT - 11/20/2024 11:59 PM EDT Hospital Encounter [facility] [place] [address] [place] [address] Contusion of right eyelid and periocular area, initial encounter; History of falling; halfway (current) use of anticoagulants Discharge Disposition: Home or Self Care 11/20/[address] [facility] [address] [place] [address] Ethel Shelton MD 11/20/[address] [facility] [address] [facility] [address] [place] [address] Ethel Shelton MD 11/17/2024 9:15 PM EDT Ancillary Procedure [facility] Cardiology [facility] [address] [place] [address] 11/15/2024 9:30 AM EDT Ancillary Procedure [facility] [address] [place] [address] 11/14/2024 9:55 AM EDT Ancillary Procedure [facility] [address] [place] [address] 11/14/[address] [facility] [address] [place] [address] Claudia Rose NP procedure 11/14/2024 Telephone [facility] [address] [place] [address] Angelica Rowe PA 11/08/2024 3:10 PM EDT Office Visit 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; Primary hypertension; Hyperlipidemia, unspecified hyperlipidemia type 11/06/2024 Telephone Internal Medicine - [place] [address] [facility] [address] [place] [phone] Jocelyne Doherty [place] faxed form (ATI) 11/02/2024 12:30 PM EDT - 11/02/2024 11:59 PM EDT Hospital Encounter XRAY - [address] [phone] Discharge Disposition: Home or Self Care 11/02/2024 Telephone [facility] [address] [facility] [address] [facility] [address] [place] [phone] Elly Jaeger NP Other (CXR) 11/01/2024 Telephone [facility] [address] [facility] [address] [place] [phone] Claudia Rose NP knee injection (Knee injection ) 10/31/2024 11:00 AM EDT Ancillary Procedure [facility] [address] [place] [address] Encounter for adjustment or management of cardiac device; Atrial fibrillation, unspecified type (CMS/HCC V24, CMS/HCC V28) 10/31/2024 Telephone [facility] [address] [place] [address] Mumtaz Rahman RN 10/30/2024 10:20 AM EDT Ancillary Procedure [facility] [address] [place] [address] 10/26/2024 11:40 AM EDT Lab Draw Station - [place] Chronic HFrEF (heart failure with reduced ejection fraction) ([facility] V24, [facility] V28); Cardiomyopathy, unspecified type ([facility] V24, [facility] V28) 10/18/2024 2:00 PM EST Office Visit Nephrology - [address] [phone] Jake Carr MD CKD stage 3b, GFR 30-44 ml/min ([facility] V24, [facility] V28) (Primary Dx); Primary hypertension 10/18/2024 Telephone [facility] - [facility] [address] [facility] [address] [place] [phone] Elly Jaeger NP Appointment (Cardiac MRI) 10/06/2024 Telephone Internal Medicine [facility] [address] [facility] [address] [place] [phone] Isabella Miller PA Referral (CARDIAC MRI - [facility]) 10/04/2024 Telephone Internal Medicine [facility] [address] [facility] [address] [place] [phone] Jocelyne Doherty [place] faxed form (ATI) 09/28/2024 Telephone Internal Medicine [facility] [address] [facility] [address] [place] [phone] Isabella Miller PA Referral 09/19/2024 11:40 AM EST Ancillary Procedure [facility]iology [facility] - [facility] [address] [facility] [address] [place] [phone] 09/18/2024 Telephone [facility] - [facility] [address] [facility] [address] [place] [phone] Efren Caban MD from Last 3 Months Immunizations Name [...] CHOLECYSTECTOMY PROCEDURE: LAPAROSCOPY, CHOLECYSTECTOMY; COMMENT: 07/2023 in [place] due to cholelithiasis Medical History Medical History Date Comments Aortic atherosclerosis ([facility] V24) 10/02/2015 DX:Aortic atherosclerosis (HCC); COMMENT: Comments: CXR 11/29/14 Atherosclerotic aorta Atrial fibrillation ([facility] V24, [facility] V28) 05/19/2018 DX:Atrial fibrillation (HCC) Cardiomyopathy ([facility] V24, [facility] V28) 09/06/2015 DX:Cardiomyopathy (HCC) Chronic constipation 04/15/2017 [...] DX:Hyperlipidemi a Cholelithiasis DX:Cholelithiasi s Breast cancer ([facility] V24, [facility] V28) 2003 DX:Breast cancer (HCC); COMMENT: Chemo &Rad Tx Family history of coronary a rtery disease DX:Family history of coronar y artery disease H/O hypercholesterolemia Rosacea Chronic kidney disease (CKD) , stage III (moderate) ([facility] V24, [facility] V28) Family History Medical History Relation Name [...] Sign Reading Time Taken Comments Blood Pressure 128/80 12/11/2024 9:40 AM EDT Pulse 89 12/11/2024 9:40 AM EDT Temperature 36.2 ??C (97.1 ??F) 12/11/2024 9:40 AM ED T Respiratory Rate - - Oxygen Saturation 97% 12/11/2024 9:40 AM EDT Inhaled Oxygen Concentration - - Weight 64.2 kg (141 lb 9.6 oz) 12/11/2024 9:40 A M EDT Height 157.5 cm (5' 2 ) 12/11/2024 9:40 AM EDT Body Mass Index 25.9 12/11/2024 9:40 AM EDT Plan of Treatment Upcoming Encounters Date Type Department Care Team (Late st Contact Info) Description 01/10/2025 10:50 AM EDT Office Visit [facility] [address] [place] [address] [address] [place] [phone] Ethel Shelton MD [address] [place] [address] [address] [place] [address] 02/23/2025 11:15 AM EDT Office Visit Internal Medicine - [place] [address] [facility] [address] [place] [phone] Isabella Miller PA [address] [facility] [address] [place] [address] 06/20/2025 4:00 PM EST Office Visit Nephrology [address] [phone] Jake Carr MD [address] [place] [address] 07/03/2025 7:40 AM EST Office Visit [facility] - [facility] [address] [place] [phone] Claudia Rose NP [address] [place] [address] [address] [place] [address] 11/01/2025 11:00 AM EDT Ancillary Procedure [facility] [address] [place] [address] Health Maintenance Due Date Last [...] this topic Medical Devices Implanted Type Area Tow Motor Mechanic Device Identifier Shelf Expiration Date Model / Serial / Lot Medt-Card Percepta Quad Otter Trawler Boatswain-P [id number] Implanted: by Efren Caban MD (Quantity not on file) Cardiac [employer]PER[employer]-P Left: Chest [employer] - CARDIAC RHYTH-CRDM PERCEPTA QUAD SUPERVISOR [employer]ICKET SALES-P [id number] / [id number] / Procedures Procedure Name Priority Date/Time Associated Diagnosis Comments CT HEAD WO CONTRAST STAT 11/21/2024 12:54 PM EDT Traumatic injury of head, initial encounter XR FACIAL BONES 3+ VIEWS Routine 11/20/2024 12:02 PM EDT Contusion of right eyelid and periocular area, initial encounter History of falling terminal system operator (current) use of anticoagulants XR ORBITS COMPLETE 4+ VIEWS Routine 11/20/2024 12:01 PM EDT Contusion of right eyelid and periocular area, initial encounter History of falling terminal system operator (current) use of anticoagulants XR NASAL BONES Routine 11/20/2024 11:57 AM EDT Contusion of right eyelid and periocular area, initial encounter History of falling halfway (current) use of anticoagulants CARDIAC DEVICE CHECK- [...] Head and Neck Computed Tomogra phy 11/21/2024 1:0 2 PM EDT Narrative 11/21/2024 1:12 PM EDT [...] Signed Date: 11/21/2024 13:12 ET Workstation ID: [id number] Transcribed By: Self Edit Transcribed Date: 11/21/2024 [...] Signed Date: 11/21/2024 13:12 ET Workstation ID: [id number] Transcribed By: Self Edit Transcribed Date: 11/21/2024 13:02 ET Ethel Shelton MD IMG CT PROCEDURES [facility] [...] Signed Date: 11/20/2024 12:31 ET Workstation ID: [id number] Transcribed By: Self Edit Transcribed Date: 11/20/2024 12:23 ET Narrative 11/20/2024 12:31 PM EDT XR ORBITS COMPLETE 4+ VIEWS XR FACIAL BONES 3+ VIEWS XR NASAL BONES Reason: fall. ??Conclusion of right eyelid and periocular area. ??terminal system operator (current) use of anticoagulants. Comparison: None FINDINGS: [...] Conclusion of right eyelid and periocular area. terminal system operator(current) use of anticoagulants. Comparison: None FINDINGS: Orbits: [...] Signed Date: 11/20/2024 12:31 ET Workstation ID: [id number] Transcribed By: Self Edit Transcribed Date: 11/20/2024 12:23 ET Ginna Ramirez Cam IMG XR PROCEDURES Final Result * XR [...] Signed Date: 11/20/2024 12:31 ET Workstation ID: [id number] Transcribed By: Self Edit Transcribed Date: 11/20/2024 12:23 ET Narrative 11/20/2024 12:31 PM EDT XR ORBITS COMPLETE 4+ VIEWS XR FACIAL BONES 3+ VIEWS XR NASAL BONES Reason: fall. ??Conclusion of right eyelid and periocular area. ??halfway (current) use of anticoagulants. Comparison: None FINDINGS: [...] Conclusion of right eyelid and periocular area. halfway(current) use of anticoagulants. Comparison: None FINDINGS: Orbits: [...] Signed Date: 11/20/2024 12:31 ET Workstation ID: [id number] Transcribed By: Self Edit Transcribed Date: 11/20/2024 [...] Signed Date: 11/20/2024 12:31 ET Workstation ID: [id number] Transcribed By: Self Edit Transcribed Date: 11/20/2024 12:23 ET Narrative 11/20/2024 12:31 PM EDT XR ORBITS COMPLETE 4+ VIEWS XR FACIAL BONES 3+ VIEWS XR NASAL BONES Reason: fall. ??Conclusion of right eyelid and periocular area. ??halfway (current) use of anticoagulants. Comparison: None FINDINGS: [...] Conclusion of right eyelid and periocular area. halfway(current) use of anticoagulants. Comparison: None FINDINGS: Orbits: [...] Signed Date: 11/20/2024 12:31 ET Workstation ID: [id number] Transcribed By: Self Edit Transcribed Date: 11/20/2024 12:23 ET Ginna Levy [facility] XR PROCEDURES Final Result * Cardiac device check - Remote- MURJ (11/17/2024 9:14 PM EDT) Only the most recent of5 resultswithin the time period is included. Pathologist [facility] Date Time Interrogation Session [id number] CV DEVICE CHECK Type Interrogation Session Remote CV DEVICE CHECK Implantable Pulse Generator Tow Motor Mechanic MDT CV DEVICE CHECK Implantable Pulse Generator Type SUPERVISOR [employer]ICK[employer] SALES-P CV DEVICE CHECK Implantable Pulse Generator Model Percepta Quad SUPERVISOR TICKET SALES-P [id number] CV DEVICE CHECK Implantable Pulse Generator Serial Number [id number] CV DEVICE CHECK Implantable Pulse Generator Implant Date 20210131 CV DEVICE CHECK Battery Remaining Longevity 64.0 CV DEVICE CHECK Battery Voltage 2.960 CV D EVICE CHECK Battery ELIGIBILITY SERVICES REPRESENTATIVE Trigger 2.595 CV DEVICE CHECK Battery Status Middle of Service CV DEVICE CHECK Chinmay Statistic RA Percent Paced 100.00 CV DEVICE CHECK Chinmay Statistic RV Percent Paced 99.82 CV DEVICE CHECK SUPERVISOR [employer]ICK[employer] SALES Statistic LV Percent Paced 99.79 CV DEVICE CHECK SUPERVISOR [employer] SAL[employer] Statistic SUPERVIS[employer] SAL[employer] Percent Paced 99.79 CV DEVICE CHECK Atrial Tachy Statistic AT/AF Milo Percent 0.00 CV DEVICE CHECK Lead Channel [...] CV DEVICE CHECK Ventricular chambers paced during SUPERVISOR [employer] SAL[employer] pacing. BiV CV DEVICE CHECK Chinmay Setting Lower Rate Limit 75 CV DEVICE CHECK Chinmay Setting AT Mode Switch Rate 171 CV DEVICE CHECK Chinmay Setting Maximum Tracking Rate 110 CV DEVICE CHECK Chinmay Setting Maximum Sensor Rate 120 CV DEVICE CHECK Chinmay Setting PAV Delay 150 CV DEVICE CHECK Chinmay Setting EDITH Delay 130 CV DEVICE CHECK SUPERVISOR [employer] SALES LV-RV Delay 30 CV D EVICE CHECK [...] GEMUSE QTc 551 ms GEMUSE P Wave [place] 21 degrees GEMUSE R [place] -178 degrees GEMUSE T [place] 43 degrees GEMUSE ECG Interpretation AV dual-paced [...] Signed Date: 11/02/2024 16:03 ET Workstation ID: [id number] Transcribed By: Self Edit Transcribed Date: 11/02/2024 [...] Signed Date: 11/02/2024 16:03 ET Workstation ID: [id number] Transcribed By: Self Edit Transcribed Date: 11/02/2024 15:52 ET us Elly Jaeger TRUSS DESIGNER IMG XR PROCEDURES Final Result * CARDIAC DEVICE CHECK- [facility] (10/31/2024 11:15 AM EDT) Date Time Interrogation Session [id number] CV DEVICE CHECK Implantable Pulse Generator Tow Motor Mechanic MDT CV DEVICE CHECK Implantable Pulse Generator Type SUPERVISOR TICKET SALES-P CV DEVICE CHECK Implantable Pulse Generator Model Percepta Quad SUPERVISOR TICKET SALES-P [id number] CV DEVICE CHECK Implantable Pulse Generator Serial Number [id number] CV DEVICE CHECK Implantable Pulse Generator Implant Date 20210131 CV DEVICE CHECK Battery Status Middle of Service CV DEVICE CHECK Chinmay Statistic RA Percent Paced 99.50 CV DEVICE CHECK Chinmay Statistic RV Percent Paced 99.70 CV DEVICE CHECK SUPERVISOR TICKET SALES Statistic LV Percent Paced 99.40 CV DEVICE CHECK SUPERVISOR TICKET SALES Statistic SUPERVISOR TICKET SALES Percent Paced 99.40 CV DEVICE CHECK Atrial Tachy Statistic AT/AF Milo Percent 0.30 CV DEVICE CHECK Lead Channel [...] CV DEVICE CHECK Ventricular chambers paced during SUPERVISOR TICKET SALES pacing. LV->RV CV DEVICE CHECK Chinmay Setting [...] mmol/L LAB CHEMISTRY METHOD 10/26/2024 2:46 PM [facility] Potassium 4.7 3.5 - 5.5 mmol/L LAB CHEMISTRY METHOD 10/26/2024 2:46 PM [facility] Chloride 108 96 - 110 mmol/L LAB CHEMISTRY METHOD 10/26/2024 2:46 PM [facility] CO2 25 21 - 32 mmol/L LAB CHEMISTRY METHOD 10/26/2024 2:46 PM [facility] Anion Gap 6 3 - 11 LAB CHEMISTRY METHOD 10/26/2024 2:46 PM [facility] Glucose 100 70 - 100 mg/dL LAB CHEMISTRY METHOD 10/26/2024 2:46 PM [facility] BUN 18 5 - 25 mg/dL LAB CHEMISTRY METHOD 10/26/2024 2:46 PM [facility] Creatinine 1.33(H) 0.50 - 1.10 mg/dL LAB CHEMISTRY METHOD 10/26/2024 2:46 PM [facility] eGFR 40(L) >=60 mL/min/1. 73m2 LAB CHEMISTRY METHOD 10/26/2024 2:46 PM [facility] Comment:Calculation based on the??Chronic Kidney Disease Epidemiology Collaboration (CKD-EPI) equation refit??without adjustment for race. BUN/Creatinine Ratio 13.5 LAB CHEMISTRY METHOD 10/26/2024 2:46 PM [facility] Calcium 8.8 8.5 - 10.5 mg/dL LAB CHEMISTRY METHOD 10/26/2024 2:46 PM [facility] Blood Venous blood specimen / Unknown Venipuncture / Unknown 10/26/2024 12:02 PM EDT 10/26/2024 12:02 PM EDT Elly Jaeger NP LAB BLOOD ORDERABLES Final Res ult [facility] [address] [place] [address], * Lipid panel (09/09/2023) LDL/HDL Ratio 2 [...] Documents on File Type Date Recorded Patient Automotive Quality Manager Expl anation Health Care Decision (hx) [...] (hx) 01/16/2021 AD MCLEOD DIRECTIVE Care Teams Environmental Control Administrator Relationship Specialty Start Date End Date Isabella Miller PA [address] [place] [id number] PCP - General Primary Care 06/21/24
--- OUTSIDE RECORDS SUMMARY | 2024-12-15 11:35 | XMS_ITS | Encounter Summary ---
Author Organization [facility] Address [address] [place] [address] Care Team Providers Care Heat Set Operator Name Role Phone Isabella Miller Primary Care Provider + Reason for Visit * Reason Comments Insomnia Encounter Details Date Type Department Care Team (Late st Contact Info) Description 12/11/2024 9:45 AM EDT Office Visit Internal Medicine - [place] [address] [place] [id number] Isabella Miller PA [address] [place] [address] Insomnia, unspecified type (Primary Dx) Social History Tobacco Use Types Packs/Day Years [...] Mass Index 25.9 12/11/2024 9:40 AM EDT documented in this encounter Ordered Prescriptions Prescription Sig Dispense Quantity Refills Last Filled Start Date End Date traZODone (DESYREL) 50 mg tabletIndications: Insomnia, unspecified type Take 1-2 tabs nightly 60 tablet 12/11/2024 documented in this encounter Progress Notes * ASTER Matias - 12/11/2024 9:45 AM EDT CHIEF COMPLAINT: Insomnia (/) IDENTIFIER: Darlene Alexander is a 79 y.o. old female. HPI: Sick visit with complaints of difficulty falling asleep and staying asleep for past couple months. She was last seen by me for follow-up 08/24/2024. Of note she did have a fall earlier this month for which she had facial x-rays that were negative 11/20/24, CT scan of the head was done 11/21/24 no evidence of intracranial hemorrhage. Her Eliquis was temporarily held. Thinks she fell because she has been so tired. Not napping during day. Has tried OTC sleep aid with no help. Getting max 4-5 hours sleep at most at night. Is on amitriptyline 20 mg nightly for pain in addition to gabapentin 300 mg, 1 morning 2 bedtime and morphine ER 15 mg bid prn. ROS: GENERAL: Negative for malaise, significant weight loss and fever RESPIRATORY: No cough, wheezing or shortness of breath CARDIOVASCULAR: No chest pain, leg swelling or palpitations SKIN: No lesions, rash or itching NEURO: No headaches or dizziness PAST MEDICAL HISTORY: Patient Active Problem List Diagnosis Date Noted Polyneuropathy due to other toxic agents ([facility] V24) 11/01/2024 CKD stage 3b, GFR 30-44 ml/min ([facility] V24, [facility] V28) 10/18/2024 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 08/23/2024 Hyperlipidemia 05/15/2024 Microscopic hematuria 05/15/2024 CAD (coronary artery disease) 06/25/2023 Cholelithiasis 02/12/2021 Chronic HFrEF (heart failure with reduced ejection fraction) ([facility] [place], [facility] V28) 01/30/2021 Atrial fibrillation ([facility] V24, [facility] V28) 05/19/2018 Hypothyroidism 05/19/2018 Vitamin D deficiency 05/19/2018 Chronic constipation 04/15/2017 Diverticulosis of colon 12/22/2016 Irritable bowel syndrome 12/22/2016 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 Peripheral neuropathy 10/02/2015 Cardiomyopathy ([facility] [place]24, [facility] V28) 09/06/2015 Vitamin B12 deficiency 09/06/2015 Past Surgical History: Procedure Laterality Date BREAST LUMPECTOMY Left -1999 PROCEDURE: HISTORICAL BREAST LUMPECTOMY; COMMENT: due breast cancer SECTION PROCEDURE: HISTORICAL CHOLECYSTECTOMY PROCEDURE: LAPAROSCOPY, CHOLECYSTECTOMY; COMMENT: 07/2023 in [place] due to cholelithiasis COLONOSCOPY PROCEDURE: HISTORICAL COLONOSCOPY [...] Neg Hx Strabismus Neg Hx MEDICATIONS DISCONTINUED/REORDERED: There are no discontinued medications. ACTIVE MEDICATIONS: No outpatient medications have been marked as taking for the 12/11/24 encounter (Office Visit) with ASTER Matias. ALLERGIES: No Known Allergies PHYSICAL EXAM: Visit Vitals BP 128/80 (BP Location: Right arm, Patient Position: Sitting, BP Cuff Size: Adult) Pulse 89 Temp 36.2 ??C (97.1 ??F) (Temporal) Ht 1.575 m (62 ) Wt 64.2 kg (141 lb 9.6 oz) SpO2 97% BMI 25.90 kg/m?? Smoking Status Never BSA 1.65 m?? APPEARANCE: Alert and in no acute distress EYES: Conjunctiva and sclera normal. HEART: RRR LUNG: clear to auscultation bilaterally EXTREMITIES: No edema NEURO: Awake, alert and oriented x 3 SKIN: Skin color normal. Warm and dry. LABS: Ancillary Procedure on 11/17/2024 Component Date Value Ref Range Status Date Time Interrogation Session 11/17/2024 [id number] Final Type Interrogation Session 11/17/2024 Remote Final Implantable Pulse Generator Manufa* 11/17/2024 MDT Final Implantable Pulse Generator Type 11/17/2024 DIPLOMA PHARMACY TECHNICIAN-P Final Implantable Pulse Generator Model 11/17/2024 Percepta Quad DIPLOMA PHARMACY TECHNICIAN-P [id number] Final Implantable Pulse Generator Serial* 11/17/2024 [id number] Final Implantable Pulse Generator Implan* 11/17/202448215691 Final Battery Remaining Longevity 11/17/2024 64.0 Final Battery Voltage 11/17/2024 2.960 Final Battery COMMERCIAL COUNSEL Trigger 11/17/2024 2.595 Final Battery Status 11/17/2024 Middle of Service Final Chinmay Statistic RA Percent Paced 11/17/2024 100.00 Final Chinmay Statistic RV Percent Paced 11/17/2024 99.82 Final DIPLOMA PHARMACY TECHNICIAN Statistic LV Percent Paced 11/17/2024 99.79 Final DIPLOMA PHARMACY TECHNICIAN Statistic DIPLOMA PHARMACY TECHNICIAN Percent Paced 11/17/2024 99.79 Final Atrial Tachy Statistic AT/AF Burde* 11/17/2024 0.00 Final Lead Channel Sensing Intrinsic Amp* 11/17/2024 0.875 Final Lead Channel Setting Sensing Sensi* 11/17/2024 0.30 Final Lead Channel Impedance Value 11/17/2024 399 Final Lead Channel Pacing Threshold Ampl* 11/17/2024 1.375 Final Lead Channel Pacing Threshold Puls* 11/17/2024 0.4 Final Lead Channel RA Pacing Threshold D* 11/17/2024 2023-02-03 Final Lead Channel Setting Pacing Amplit* 11/17/2024 2.750 Final Lead Channel Setting Pacing Pulse * 11/17/2024 0.4 Final Lead Channel Sensing Intrinsic Amp* 11/17/2024 16.000 Final Lead Channel Setting Sensing Sensi* 11/17/2024 0.90 Final Lead Channel Impedance Value 11/17/2024 570 Final Lead Channel Pacing Threshold Ampl* 11/17/2024 0.625 Final Lead Channel Pacing Threshold Puls* 11/17/2024 0.4 Final Lead Channel RV Pacing Threshold D* 11/17/2024 2024-04-13 Final Lead Channel Setting Pacing Amplit* 11/17/2024 2.000 Final Lead Channel Setting Pacing Pulse * 11/17/2024 0.4 Final Lead Channel Impedance Value 11/17/2024 912 Final Lead Channel Pacing Threshold Ampl* 11/17/2024 1.125 Final Lead Channel Pacing Threshold Puls* 11/17/2024 0.4 Final Lead Channel Pacing Threshold Date 11/17/2024 2024-04-13 Final Lead Channel Setting Pacing Amplit* 11/17/2024 1.750 Final Lead Channel Setting Pacing Pulse * 11/17/2024 0.4 Final Chinmay Setting Mode (NBG Code) 11/17/2024 DDDR Final Ventricular chambers paced during * 11/17/2024 BiV Final Chinmay Setting Lower Rate Limit 11/17/2024 75 Final Chinmay Setting AT Mode Switch Rate 11/17/2024 171 Final Chinmay Setting Maximum Tracking Rate 11/17/2024 110 Final Chinmay Setting Maximum Sensor Rate 11/17/2024 120 Final Chinmay Setting PAV Delay 11/17/2024 150 Final Chinmay Setting EDITH Delay 11/17/2024 130 Final DIPLOMA PHARMACY TECHNICIAN LV-RV Delay 11/17/2024 30 Final Zone Setting Type Category 11/17/2024 AT/AF Final Rate 11/17/2024 171 Final Therapies 11/17/2024 Some Rx Off Final Zone Setting Status 11/17/2024 Monitor Final Zone ID 11/17/2024 2 Final Zone Setting Type Category 11/17/2024 VT Final Rate 11/17/2024 150 Final Zone Setting Status 11/17/2024 ENABLED Final Zone ID 11/17/2024 6 Final Date of Service 11/17/2024 2024-05-23 Final Ancillary Procedure on 11/15/2024 Component Date Value Ref Range Status Date Time Interrogation Session 11/15/2024 [id number] Final Type Interrogation Session 11/15/2024 Remote Final Implantable Pulse Generator Manufa* 11/15/2024 MDT Final Implantable Pulse Generator Type 11/15/2024 DIPLOMA PHARMACY TECHNICIAN-P Final Implantable Pulse Generator Model 11/15/2024 Percepta Quad DIPLOMA PHARMACY TECHNICIAN-P [id number] Final Implantable Pulse Generator Serial* 11/15/2024 [id number] Final Implantable Pulse Generator Implan* 11/15/202458812854 Final Battery Remaining Longevity 11/15/2024 51.0 Final Battery Voltage 11/15/2024 2.950 Final Battery COMMERCIAL COUNSEL Trigger 11/15/2024 2.595 Final Battery Status 11/15/2024 Middle of Service Final Chinmay Statistic RA Percent Paced 11/15/2024 88.73 Final Chinmay Statistic RV Percent Paced 11/15/2024 98.44 Final DIPLOMA PHARMACY TECHNICIAN Statistic LV Percent Paced 11/15/2024 98.40 Final DIPLOMA PHARMACY TECHNICIAN Statistic DIPLOMA PHARMACY TECHNICIAN Percent Paced 11/15/2024 98.40 Final Atrial Tachy Statistic AT/AF Burde* 11/15/2024 11.60 Final Lead Channel Sensing Intrinsic Amp* 11/15/2024 0.875 Final Lead Channel Setting Sensing Sensi* 11/15/2024 0.30 Final Lead Channel Impedance Value 11/15/2024 399 Final Lead Channel Pacing Threshold Ampl* 11/15/2024 1.375 Final Lead Channel Pacing Threshold Puls* 11/15/2024 0.4 Final Lead Channel RA Pacing Threshold D* 11/15/2024 2023-02-03 Final Lead Channel Setting Pacing Amplit* 11/15/2024 2.750 Final Lead Channel Setting Pacing Pulse * 11/15/2024 0.4 Final Lead Channel Sensing Intrinsic Amp* 11/15/2024 14.875 Final Lead Channel Setting Sensing Sensi* 11/15/2024 0.90 Final Lead Channel Impedance Value 11/15/2024 532 Final Lead Channel Pacing Threshold Ampl* 11/15/2024 0.625 Final Lead Channel Pacing Threshold Puls* 11/15/2024 0.4 Final Lead Channel RV Pacing Threshold D* 11/15/2024 2024-11-10 Final Lead Channel Setting Pacing Amplit* 11/15/2024 2.000 Final Lead Channel Setting Pacing Pulse * 11/15/2024 0.4 Final Lead Channel Impedance Value 11/15/2024 836 Final Lead Channel Pacing Threshold Ampl* 11/15/2024 1.250 Final Lead Channel Pacing Threshold Puls* 11/15/2024 0.4 Final Lead Channel Pacing Threshold Date 11/15/2024 2024-11-10 Final Lead Channel Setting Pacing Amplit* 11/15/2024 1.750 Final Lead Channel Setting Pacing Pulse * 11/15/2024 0.4 Final Chinmay Setting Mode (NBG Code) 11/15/2024 DDDR Final Ventricular chambers paced during * 11/15/2024 BiV Final Chinmay Setting Lower Rate Limit 11/15/2024 75 Final Chinmay Setting AT Mode Switch Rate 11/15/2024 171 Final Chinmay Setting Maximum Tracking Rate 11/15/2024 110 Final Chinmay Setting Maximum Sensor Rate 11/15/2024 120 Final Chinmay Setting PAV Delay 11/15/2024 150 Final Chinmay Setting EDITH Delay 11/15/2024 130 Final DIPLOMA PHARMACY TECHNICIAN LV-RV Delay 11/15/2024 30 Final Zone Setting Type Category 11/15/2024 AT/AF Final Rate 11/15/2024 171 Final Therapies 11/15/2024 Some Rx Off Final Zone Setting Status 11/15/2024 Monitor Final Zone ID 11/15/2024 2 Final Zone Setting Type Category 11/15/2024 VT Final Rate 11/15/2024 150 Final Zone Setting Status 11/15/2024 ENABLED Final Zone ID 11/15/2024 6 Final Date of Service 11/15/2024 2024-11-21 Final Ancillary Procedure on 11/14/2024 Component Date Value Ref Range Status Date Time Interrogation Session 11/14/2024 [id number] Final Type Interrogation Session 11/14/2024 Remote Final Implantable Pulse Generator Manufa* 11/14/2024 MDT Final Implantable Pulse Generator Type 11/14/2024 DIPLOMA PHARMACY TECHNICIAN-P Final Implantable Pulse Generator Model 11/14/2024 Percepta Quad DIPLOMA PHARMACY TECHNICIAN-P [id number] Final Implantable Pulse Generator Serial* 11/14/2024 [id number] Final Implantable Pulse Generator Implan* 11/14/202464614500 Final Battery Remaining Longevity 11/14/2024 52.0 Final Battery Voltage 11/14/2024 2.950 Final Battery COMMERCIAL COUNSEL Trigger 11/14/2024 2.595 Final Battery Status 11/14/2024 Middle of Service Final Chinmay Statistic RA Percent Paced 11/14/2024 99.56 Final Chinmay Statistic RV Percent Paced 11/14/2024 99.69 Final DIPLOMA PHARMACY TECHNICIAN Statistic LV Percent Paced 11/14/2024 99.68 Final DIPLOMA PHARMACY TECHNICIAN Statistic DIPLOMA PHARMACY TECHNICIAN Percent Paced 11/14/2024 99.67 Final Atrial Tachy Statistic AT/AF Burde* 11/14/2024 0.30 Final Lead Channel Sensing Intrinsic Amp* 11/14/2024 0.875 Final Lead Channel Setting Sensing Sensi* 11/14/2024 0.30 Final Lead Channel Impedance Value 11/14/2024 399 Final Lead Channel Pacing Threshold Ampl* 11/14/2024 1.375 Final Lead Channel Pacing Threshold Puls* 11/14/2024 0.4 Final Lead Channel RA Pacing Threshold D* 11/14/2024 2023-02-03 Final Lead Channel Setting Pacing Amplit* 11/14/2024 2.750 Final Lead Channel Setting Pacing Pulse * 11/14/2024 0.4 Final Lead Channel Sensing Intrinsic Amp* 11/14/2024 15.250 Final Lead Channel Setting Sensing Sensi* 11/14/2024 0.90 Final Lead Channel Impedance Value 11/14/2024 532 Final Lead Channel Pacing Threshold Ampl* 11/14/2024 0.625 Final Lead Channel Pacing Threshold Puls* 11/14/2024 0.4 Final Lead Channel RV Pacing Threshold D* 11/14/2024 2024-11-08 Final Lead Channel Setting Pacing Amplit* 11/14/2024 2.000 Final Lead Channel Setting Pacing Pulse * 11/14/2024 0.4 Final Lead Channel Impedance Value 11/14/2024 817 Final Lead Channel Pacing Threshold Ampl* 11/14/2024 1.250 Final Lead Channel Pacing Threshold Puls* 11/14/2024 0.4 Final Lead Channel Pacing Threshold Date 11/14/2024 2024-11-08 Final Lead Channel Setting Pacing Amplit* 11/14/2024 1.750 Final Lead Channel Setting Pacing Pulse * 11/14/2024 0.4 Final Chinmay Setting Mode (NBG Code) 11/14/2024 DDDR Final Ventricular chambers paced during * 11/14/2024 BiV Final Chinmay Setting Lower Rate Limit 11/14/2024 75 Final Chinmay Setting AT Mode Switch Rate 11/14/2024 171 Final Chinmay Setting Maximum Tracking Rate 11/14/2024 110 Final Chinmay Setting Maximum Sensor Rate 11/14/2024 120 Final Chinmay Setting PAV Delay 11/14/2024 150 Final Chinmay Setting EDITH Delay 11/14/2024 130 Final DIPLOMA PHARMACY TECHNICIAN LV-RV Delay 11/14/2024 30 Final Zone Setting Type Category 11/14/2024 AT/AF Final Rate 11/14/2024 171 Final Therapies 11/14/2024 Some Rx Off Final Zone Setting Status 11/14/2024 Monitor Final Zone ID 11/14/2024 2 Final Zone Setting Type Category 11/14/2024 VT Final Rate 11/14/2024 150 Final Zone Setting Status 11/14/2024 ENABLED Final Zone ID 11/14/2024 6 Final Date of Service 11/14/2024 2024-11-21 Final Office Visit on 11/08/2024 Component Date Value Ref Range Status Ventricular Rate ECG 11/08/2024 78 BPM Final Atrial Rate 11/08/2024 78 BPM Final P-R Interval 11/08/2024 146 ms Final QRS Duration 11/08/2024 172 ms Final Q-T Interval 11/08/2024 484 ms Final QTc 11/08/2024 551 ms Final P Wave [place] 11/08/2024 21 degrees Final R [place] 11/08/2024 -178 degrees Final T [place] 11/08/2024 43 degrees Final ECG Interpretation 11/08/2024 Final Value:AV dual-paced rhythm Abnormal ECG When compared with ECG of 29-JUL-2022 22:50, Vent. rate has decreased BY 2 BPM Confirmed by ETHEL GAN ([id number]) on 11/08/2024 3:21:03 PM Ancillary Procedure on 10/31/2024 Component Date Value Ref Range Status Date Time Interrogation Session 10/31/2024 [id number] Final Implantable Pulse Generator Manufa* 10/31/2024 MDT Final Implantable Pulse Generator Type 10/31/2024 DIPLOMA PHARMACY TECHNICIAN-P Final Implantable Pulse Generator Model 10/31/2024 Percepta Quad DIPLOMA PHARMACY TECHNICIAN-P [id number] Final Implantable Pulse Generator Serial* 10/31/2024 [id number] Final Implantable Pulse Generator Implan* 10/31/202403259285 Final Battery Status 10/31/2024 Middle of Service Final Chinmay Statistic RA Percent Paced 10/31/2024 99.50 Final Chinmay Statistic RV Percent Paced 10/31/2024 99.70 Final DIPLOMA PHARMACY TECHNICIAN Statistic LV Percent Paced 10/31/2024 99.40 Final DIPLOMA PHARMACY TECHNICIAN Statistic DIPLOMA PHARMACY TECHNICIAN Percent Paced 10/31/2024 99.40 Final Atrial Tachy Statistic AT/AF Burde* 10/31/2024 0.30 Final Lead Channel Setting Sensing Sensi* 10/31/2024 0.30 Final Lead Channel Impedance Value 10/31/2024 456 Final Lead Channel Pacing Threshold Ampl* 10/31/2024 1.250 Final Lead Channel Pacing Threshold Puls* 10/31/2024 0.4 Final Lead Channel RA Pacing Threshold D* 10/31/2024 2023-02-03 Final Lead Channel Setting Pacing Amplit* 10/31/2024 2.750 Final Lead Channel Setting Pacing Pulse * 10/31/2024 0.4 Final Lead Channel Setting Sensing Sensi* 10/31/2024 0.90 Final Lead Channel Impedance Value 10/31/2024 589 Final Lead Channel Pacing Threshold Ampl* 10/31/2024 1.000 Final Lead Channel Pacing Threshold Puls* 10/31/2024 0.4 Final Lead Channel RV Pacing Threshold D* 10/31/2024 2024-10-31 Final Lead Channel Setting Pacing Amplit* 10/31/2024 2.000 Final Lead Channel Setting Pacing Pulse * 10/31/2024 0.4 Final Lead Channel Impedance Value 10/31/2024 893 Final Lead Channel Pacing Threshold Ampl* 10/31/2024 1.250 Final Lead Channel Pacing Threshold Puls* 10/31/2024 0.4 Final Lead Channel Pacing Threshold Date 10/31/2024 2024-10-31 Final Lead Channel Setting Pacing Amplit* 10/31/2024 1.750 Final Lead Channel Setting Pacing Pulse * 10/31/2024 0.4 Final Chinmay Setting Mode (NBG Code) 10/31/2024 DDDR Final Ventricular chambers paced during * 10/31/2024 LV->RV Final Chinmay Setting Lower Rate Limit 10/31/2024 75 Final Chinmay Setting AT Mode Switch Rate 10/31/2024 171 Final Chinmay Setting Maximum Tracking Rate 10/31/2024 110 Final Chinmay Setting Maximum Sensor Rate 10/31/2024 120 Final Zone Setting Type Category 10/31/2024 AT/AF Final Therapies 10/31/2024 All Rx Off Final Zone Setting Status 10/31/2024 Monitor Final Zone ID 10/31/2024 2 Final Zone Setting Type Category 10/31/2024 VT Final Zone Setting Status 10/31/2024 Monitor Final Zone ID 10/31/2024 5 Final Date of Service 10/31/2024 2024-10-31 Final Ancillary Procedure on 10/30/2024 Component Date Value Ref Range Status Date Time Interrogation Session 10/30/2024 [id number] Final Type Interrogation Session 10/30/2024 Remote Final Implantable Pulse Generator Manufa* 10/30/2024 MDT Final Implantable Pulse Generator Type 10/30/2024 DIPLOMA PHARMACY TECHNICIAN-P Final Implantable Pulse Generator Model 10/30/2024 Percepta Quad DIPLOMA PHARMACY TECHNICIAN-P [id number] Final Implantable Pulse Generator Serial* 10/30/2024 [id number] Final Implantable Pulse Generator Implan* 10/30/202489884094 Final Battery Remaining Longevity 10/30/2024 54.0 Final Battery Voltage 10/30/2024 2.950 Final Battery COMMERCIAL COUNSEL Trigger 10/30/2024 2.595 Final Battery Status 10/30/2024 Middle of Service Final Chinmay Statistic RA Percent Paced 10/30/2024 99.90 Final Chinmay Statistic RV Percent Paced 10/30/2024 99.86 Final DIPLOMA PHARMACY TECHNICIAN Statistic LV Percent Paced 10/30/2024 99.84 Final DIPLOMA PHARMACY TECHNICIAN Statistic DIPLOMA PHARMACY TECHNICIAN Percent Paced 10/30/2024 99.83 Final Atrial Tachy Statistic AT/AF Burde* 10/30/2024 0.10 Final Lead Channel Sensing Intrinsic Amp* 10/30/2024 0.750 Final Lead Channel Setting Sensing Sensi* 10/30/2024 0.30 Final Lead Channel Impedance Value 10/30/2024 399 Final Lead Channel Pacing Threshold Ampl* 10/30/2024 1.375 Final Lead Channel Pacing Threshold Puls* 10/30/2024 0.4 Final Lead Channel RA Pacing Threshold D* 10/30/2024 2023-02-03 Final Lead Channel Setting Pacing Amplit* 10/30/2024 2.750 Final Lead Channel Setting Pacing Pulse * 10/30/2024 0.4 Final Lead Channel Sensing Intrinsic Amp* 10/30/2024 16.000 Final Lead Channel Setting Sensing Sensi* 10/30/2024 0.90 Final Lead Channel Impedance Value 10/30/2024 570 Final Lead Channel Pacing Threshold Ampl* 10/30/2024 0.625 Final Lead Channel Pacing Threshold Puls* 10/30/2024 0.4 Final Lead Channel RV Pacing Threshold D* 10/30/202420242024-10-17 Final Lead Channel Setting Pacing Amplit* 10/30/2024 2.000 Final Lead Channel Setting Pacing Pulse * 10/30/2024 0.4 Final Lead Channel Impedance Value 10/30/2024 836 Final Lead Channel Pacing Threshold Ampl* 10/30/2024 1.125 Final Lead Channel Pacing Threshold Puls* 10/30/2024 0.4 Final Lead Channel Pacing Threshold Date 10/30/202420242024-10-17 Final Lead Channel Setting Pacing Amplit* 10/30/2024 1.750 Final Lead Channel Setting Pacing Pulse * 10/30/2024 0.4 Final Chinmay Setting Mode (NBG Code) 10/30/2024 DDDR Final Ventricular chambers paced during * 10/30/2024 BiV Final Chinmay Setting Lower Rate Limit 10/30/2024 75 Final Chinmay Setting AT Mode Switch Rate 10/30/2024 171 Final Chinmay Setting Maximum Tracking Rate 10/30/2024 110 Final Chinmay Setting Maximum Sensor Rate 10/30/2024 120 Final Chinmay Setting PAV Delay 10/30/2024 150 Final Chinmay Setting EDITH Delay 10/30/2024 130 Final DIPLOMA PHARMACY TECHNICIAN LV-RV Delay 10/30/2024 30 Final Zone Setting Type Category 10/30/2024 AT/AF Final Rate 10/30/2024 171 Final Therapies 10/30/2024 Some Rx Off Final Zone Setting Status 10/30/2024 Monitor Final Zone ID 10/30/2024 2 Final Zone Setting Type Category 10/30/2024 VT Final Rate 10/30/2024 150 Final Zone Setting Status 10/30/2024 ENABLED Final Zone ID 10/30/2024 6 Final Date of Service 10/30/202420242024-11-21 Final Lab on 10/26/2024 Component Date Value Ref Range Status Sodium 10/26/2024 139 133 - 145 mmol/L Final Potassium 10/26/2024 4.7 3.5 - 5.5 mmol/L Final Chloride 10/26/2024 108 96 - 110 mmol/L Final CO2 10/26/2024 25 21 - 32 mmol/L Final Anion Gap 10/26/2024 6 3 - 11 Final Glucose 10/26/2024 100 70 - 100 mg/dL Final BUN 10/26/2024 18 5 - 25 mg/dL Final Creatinine 10/26/2024 1.33 (H) 0.50 - 1.10 mg/dL Final eGFR 10/26/2024 40 (L) >=60 mL/min/1.73m2 Final Calculation based on the Chronic Kidney Disease Epidemiology Collaboration (CKD- EPI) equation refitwithout adjustment for race. BUN/Creatinine Ratio 10/26/2024 13.5 Final Calcium 10/26/2024 8.8 8.5 - 10.5 mg/dL Final Ancillary Procedure on 09/19/2024 Component Date Value Ref Range Status Date Time Interrogation Session 09/19/2024 [id number] Final Type Interrogation Session 09/19/2024 Remote Final Implantable Pulse Generator Manufa* 09/19/2024 MDT Final Implantable Pulse Generator Type 09/19/2024 DIPLOMA PHARMACY TECHNICIAN-P Final Implantable Pulse Generator Model 09/19/2024 Percepta Quad DIPLOMA PHARMACY TECHNICIAN-P [id number] Final Implantable Pulse Generator Serial* 09/19/2024 [id number] Final Implantable Pulse Generator Implan* 09/19/202421954949 Final Battery Remaining Longevity 09/19/2024 56.0 Final Battery Voltage 09/19/2024 2.950 Final Battery COMMERCIAL COUNSEL Trigger 09/19/2024 2.595 Final Battery Status 09/19/2024 Middle of Service Final Chinmay Statistic RA Percent Paced 09/19/2024 99.89 Final Chinmay Statistic RV Percent Paced 09/19/2024 99.92 Final DIPLOMA PHARMACY TECHNICIAN Statistic LV Percent Paced 09/19/2024 99.90 Final DIPLOMA PHARMACY TECHNICIAN Statistic DIPLOMA PHARMACY TECHNICIAN Percent Paced 09/19/2024 99.90 Final Atrial Tachy Statistic AT/AF Burde* 09/19/2024 0.10 Final Lead Channel Sensing Intrinsic Amp* 09/19/2024 0.875 Final Lead Channel Setting Sensing Sensi* 09/19/2024 0.30 Final Lead Channel Impedance Value 09/19/2024 399 Final Lead Channel Pacing Threshold Ampl* 09/19/2024 1.375 Final Lead Channel Pacing Threshold Puls* 09/19/2024 0.4 Final Lead Channel RA Pacing Threshold D* 09/19/2024 2023-02-03 Final Lead Channel Setting Pacing Amplit* 09/19/2024 2.750 Final Lead Channel Setting Pacing Pulse * 09/19/2024 0.4 Final Lead Channel Sensing Intrinsic Amp* 09/19/2024 14.000 Final Lead Channel Setting Sensing Sensi* 09/19/2024 0.90 Final Lead Channel Impedance Value 09/19/2024 551 Final Lead Channel Pacing Threshold Ampl* 09/19/2024 0.625 Final Lead Channel Pacing Threshold Puls* 09/19/2024 0.4 Final Lead Channel RV Pacing Threshold D* 09/19/202420242024-09-17 Final Lead Channel Setting Pacing Amplit* 09/19/2024 2.000 Final Lead Channel Setting Pacing Pulse * 09/19/2024 0.4 Final Lead Channel Impedance Value 09/19/2024 874 Final Lead Channel Pacing Threshold Ampl* 09/19/2024 1.000 Final Lead Channel Pacing Threshold Puls* 09/19/2024 0.4 Final Lead Channel Pacing Threshold Date 09/19/2024 2024-09-17 Final Lead Channel Setting Pacing Amplit* 09/19/2024 1.500 Final Lead Channel Setting Pacing Pulse * 09/19/2024 0.4 Final Chinmay Setting Mode (NBG Code) 09/19/2024 DDDR Final Ventricular chambers paced during * 09/19/2024 BiV Final Chinmay Setting Lower Rate Limit 09/19/2024 75 Final Chinmay Setting AT Mode Switch Rate 09/19/2024 171 Final Chinmay Setting Maximum Tracking Rate 09/19/2024 110 Final Chinmay Setting Maximum Sensor Rate 09/19/2024 120 Final Chinmay Setting PAV Delay 09/19/2024 150 Final Chinmay Setting EDITH Delay 09/19/2024 130 Final DIPLOMA PHARMACY TECHNICIAN LV-RV Delay 09/19/2024 30 Final Zone Setting Type Category 09/19/2024 AT/AF Final Rate 09/19/2024 171 Final Therapies 09/19/2024 Some Rx Off Final Zone Setting Status 09/19/2024 Monitor Final Zone ID 09/19/2024 2 Final Zone Setting Type Category 09/19/2024 VT Final Rate 09/19/2024 150 Final Zone Setting Status 09/19/2024 ENABLED Final Zone ID 09/19/2024 6 Final Date of Service 09/19/2024 2024-11-21 Final Appointment on 08/24/2024 Component Date Value Ref Range Status TSH 08/24/2024 0.07 (L) 0.40 - 4.00 mcIU/mL Final Appointment on 08/21/2024 Component Date Value Ref [...] 08/21/2024 8.5 8.5 - 10.5 mg/dL Final There may be more visits with results that are not included. Medication and lab orders: No orders of the defined types were placed in this encounter. Other orders: None IMAGING: IMPRESSION: 1. Insomnia, unspecified type PLAN: 1. Insomnia. Healthy sleep hygiene discussed. Adding trazodone 50 mg for which she will start with 1 tablet nightly and can increase to 2 tablets nightly and she is going to hold the amitriptyline atthis time due to risk of serotonin syndrome with both medications. Follow-up with me as scheduled. Call sooner if needed. ASTER Matias on 12/11/2024 at 2:22 PM EDT documented in this encounter Plan of Treatment Upcoming Encounters Date Type Department Care Team (Late st Contact Info) Description 01/10/2025 10:50 AM EDT Office Visit [facility] - [facility] [address] [place] [address] Ethel Gan MD [address] [place] [address] Dr [address] [place] [address] 02/23/2025 11:15 AM EDT Office Visit Internal Medicine - [place] [address] [place] [address] Isabella Miller PA 175 [facility] 200 [place] [address] 06/20/2025 4:00 PM EST Office Visit Nephrology - [address] [address] Jake Carr MD [address] [facility] 200 [place] [address] 07/03/2025 7:40 AM EST Office Visit [facility] Cardiology [facility] - [facility] [address] [place] [address] Claudia Rose NP [address] [place] [address] 410 [place] [address] 11/01/2025 11:00 AM EDT Ancillary Procedure [facility] - [facility] [address] 300 [facility] 154 [place] [address] documented as of this encounter Visit Diagnoses Diagnosis Insomnia, unspecified type- Primary Encounter for adjustment or management of cardiac device documented in this encounter Care Teams Heat Set Operator Relationship Specialty Start Date End Date Isabella Miller PA 175 [facility] 200 [place] [address] PCP - General Primary Care 06/21/24 documented as of this encounter
--- OUTSIDE RECORDS SUMMARY | 2024-12-15 11:35 | XMS_ITS | Encounter Summary ---
Author Organization [facility] [place] [address] Care Team Providers Care It Sales Executive Name Role Phone Isabella Miller Primary Care Provider + Encounter Details Date Type Department Care Team (Late st Contact Info) Description 11/14/2024 Telephone [facility] - [facility] [address] [facility] [address] [place] [address] Angelica Rowe PA [address] [place], [place] [id number] Social History Tobacco Use Types Packs/Day Years [...] Description 01/10/2025 10:50 AM EDT Office Visit [facility] [address] [place] [address] Javier Shelton MD [address] [place] [address] Dr [address] [place] [address] 02/23/2025 11:15 AM EDT Office Visit Internal Medicine - [place] [address] [facility] [address] [place] [address] Isabella Miller PA 175 [facility] [address] [place] [address] 06/20/2025 4:00 PM EST Office Visit Nephrology - [address] [address] Jake Carr MD [address] [facility] 200 [place] [address] 07/03/2025 7:40 AM EST Office Visit [facility] Cardiology [facility] [address] [place] [address] Claudia Rose NP [address] [place] [address] Dr [address] [place] [address] 11/01/2025 11:00 AM EDT Ancillary Procedure [facility] - [facility] [address] [facility] [address] [place] [address] documented as of this encounter Visit Diagnoses Not on filedocumented in this encounter Care Teams It Sales Executive Relationship Specialty Start Date End Date Isabella Miller PA [address] [address] PCP - General Primary Care 06/21/24 documented as of this encounter
--- OUTSIDE RECORDS SUMMARY | 2024-12-15 11:35 | XMS_ITS | Encounter Summary ---
Author Organization [facility] Address [address] [place] [address] Care Team Providers Care Production Recovery Operator Name Role Phone Isabella Miller Primary Care Provider + Reason for Visit * Reason Onset Date Comments Angela: Referral Request Detail 11/24/2024 Encounter Details Date Type Department Care Team ([facility] st Contact Info) Description 11/24/2024 Telephone Internal Medicine - [place] [address] [facility] [address] [place] [address] Isabella Miller PA [address] [facility] [address] [place] [address] Angela: Referral Request Detail Social History Tobacco [...] EDT Insurance Referral Request Received Through Fax *Weed Sprayer Uploaded To Pt's Chart Referral Request: What insurance does the patient have today? [facility] Medicare Advantage Referrals cannot be processed if the insurance is not accurate. If the insurance listed above in red is NO BILLING INFORMATION FOUND FOR THIS ENCOUTNER The patients correct insurance must be obtained and registered in [facility] or their referral can not be processed. Is this a retro request? YES If yes for what date of service do you need the retro referral? 10/31/2024 Who is calling to request this referral? [facility] If the caller is not the patient, what is their name? not applicable Ask the patient WHO referred them to this specialty: Baylee Young FIRST and LAST NAME of SPECIALIST PATIENT is seeing: Group/NPI# [id number] What specialty is this? Cardiology DIAGNOSIS Patient is being seen for (Not a body part or a procedure): I25.10 Have you seen this SPECIALIST for this PROBLEM/DX before? If YES, when? Have you checked REVIEW or the APPT DESK to see if this referral has already been done or has visits left? YES Is this visit: Follow Up Address of Specialist: [address] [place] [address], [address] [place] [address] (A) [address] [place] [address] (B) Phone # of Specialist: (A) [phone] (B) [phone] Fax #: (if applicable): (A) [phone] (B) [phone] Does patient have an appointment scheduled?: YES Date of appointment- (including a retro-request): 11/01/23 *Baylee Young commented on additional upcoming appointment but did not specify date in message Is this appointment related to: Not MVA, worker compensation, or surgery related documented in this encounter Plan of Treatment Upcoming Encounters Date Type Department Care Team (Late st Contact Info) Description 01/10/2025 10:50 AM EDT Office Visit [facility] [address] [facility] [address] [place] [phone] Javier Shelton MD [address] [place] [address] Dr [address] [place] [address] 02/23/2025 11:15 AM EDT Office Visit Internal Medicine - [place] [address] [place] [address] Isabella Miller PA 175 [facility] [address] [place] [address] 06/20/2025 4:00 PM EST Office Visit Nephrology [address] [address] Jake Carr MD [address] [facility] 200 [place] [address] 07/03/2025 7:40 AM EST Office Visit [facility] [address] [place] [address] Claudia Rose NP [address] [place] [address] Dr [address] [place] [address] 11/01/2025 11:00 AM EDT Ancillary Procedure [facility]iology [facility] [address] [place] [address] documented as of this encounter Visit Diagnoses Not on filedocumented in this encounter Care Teams Production Recovery Operator Relationship Specialty Start Date End Date Isabella Miller PA 175 [facility] 200 [place] [address] PCP - General Primary Care 06/21/24 documented as of this encounter
--- OUTSIDE RECORDS SUMMARY | 2024-12-15 11:35 | XMS_ITS | Encounter Summary ---
Author Organization [facility] [place] [address] Care Team Providers Care Naval Gunfire Spotter Name Role Phone Isabella Miller Primary Care Provider + Reason for Visit * Reason Onset Date Comments MRI results 11/23/2024 Mini Stroke 11/23/2024 Encounter Details Date Type Department Care Team (Late st Contact Info) Description 11/23/2024 Telephone [facility] [address] [place] [address] Jaiver Shelton MD [address] [place] [address] Dr [address] [place] [address] MRI results; Mini Stroke Social History Tobacco [...] sent a message with the results via [employer] which the patient now states was received by her daughter. She would like for us to go over the results with her. In summary, I explained to her that the cardiac MRI showed an LVEF of 42% whichrepresents an improvement of her cardiac function. Also, importantly, the cardiac MRI did not showany presence of an infiltrative cardiomyopathy. * Nikki Elizondo - 11/23/2024 9:52 AM EDT The patient called she would like to go over the results of her MRI from 11/07/24. Her daughter is the one who received the results via [employer], the patient does not access her profile. She also received a call yesterday from Dr. Parr explaining that she had a mini stroke awhile ago (referred toencounter from yesterday). She is asking when this would have occurred. Please call her back at [phone]. documented in this encounter Plan of Treatment Upcoming Encounters Date Type Department Care Team (Late st Contact Info) Description 01/10/2025 10:50 AM EDT Office Visit [facility] [address] [place] [address] Center [address] [place] [phone] Javier Shelton MD [address] [place] [address] Dr [address] [place] [address] 02/23/2025 11:15 AM EDT Office Visit Internal Medicine - [place] 175 [facility] [address] [place] [address] Isabella Miller PA [address] [address] 06/20/2025 4:00 PM EST Office Visit Nephrology [address] [address] Jake Carr MD [address] [address] 07/03/2025 7:40 AM EST Office Visit [facility] [address] [place] [address] Claudia Rose NP [address] [place] [address] Dr [address] [place] [address] 11/01/2025 11:00 AM EDT Ancillary Procedure [facility] - [facility] [address] [facility] 154 [place] [address] documented as of this encounter Visit Diagnoses Not on filedocumented in this encounter Care Teams Naval Gunfire Spotter Relationship Specialty Start Date End Date Isabella Miller PA 175 [facility] 200 [place] [address] PCP - General Primary Care 06/21/24 documented as of this encounter
--- OUTSIDE RECORDS SUMMARY | 2024-12-15 11:35 | XMS_ITS | Data Portability ---
Author Organization [place] - [facility], [facility] Address [address] [place] [address] Care Team Providers Care Research Statistician Name Role Phone ESHA HUBBARD Primary Care [...] was worked up a year prior in [place] where she lives with MRCP as well [...] kelsi cysti tis. - Kelsi lithi asis. [address] GROSS DESCR IPTIO N: The speci men [...] lidat ed Labor atortennille , [place] [facility], [place] Not Available [facility] (Lab Depart-Adult) [address], [place], [address], 08/19/2023 15:56:47 08/14/20 23 08/13/2023 ahs diagn ostic - US abdom en EXAMIN ATION: US ABDOME N INDICA TION: abdomi nal pain;. TECHNI QUE: Ultras ound of the abdome n was perfor med utiliz ing real-t arden graysc torey and color flow Dopple r imagin g. Digita l images were saved in the [facility] ent record . COMPAR MARELY: CT [...] 2022 Kellylinda andria Name: JESSICA GOLDBERG MRN: [id number] 1 Date of : Gender : F [address], [address] 08/27/2023 12:11:25 Result Notes None recorded. Procedures Surgical History Date Name Laterality Status Provider Name and Address Organization Details Recorded Time 08/16/19 24 Gall Bladder Surgery completed Brianna Greene [place] - [facility] 08/26/2023 14:11:53 08/16/19 23 Colonoscopy completed Brianna Jc [place] - [facility] 08/26/2023 14:11:53 08/16/19 23 Echocardiogram completed Brianna Greene [place] - [facility] 08/26/2023 14:11:53 08/16/19 22 ERCP completed Brianna Jc [place] - [facility] 08/26/2023 14:11:53 08/16/19 22 Pacemaker implant completed Brianna Jc [place] - [facility] 08/26/2023 14:11:53 08/16/19 01 Breast Surgery completed Brianna Jc [place] - [facility] 08/26/2023 14:11:53 08/16/18 88 Hysterectomy completed Brianna Greene [place] - [facility] 08/26/2023 14:11:53 08/16/18 67 Section completed Brianna Jc [place] - [facility] 08/26/2023 14:11:53 Imaging Results Imaging Date Name Status LastModified by Organiz ation Details LastModified Time 08/13/2023 a[facility] diagnostic - US abdomen completed [address], [address] 08/27/2023 12:11:25 Procedure Notes None recorded. Medical [...] Updated DateTime 08/26/2023 157.48 cm 25.6 kg/m2 28949.93 g 92 mm[Hg] 58 mm[Hg] Lea CROWE - [facility] 14:22:15 Social History Question Answer Notes LastModified by [employer] ion Details LastModified Time Tobacco Smoking Status Never Smoker SEBASTIEN Olivier - [facility] 08/26/2023 14:11:53 What Is Your Level Of Alcohol Consumption? None Information not available 08/26/2023 What Is Your Level Of Caffeine Consumption? None Information not available 08/26/2023 Do You Or Have You Ever Used E-cigarettes Or Vape? Never Used Electronic Cigarettes [facility] Information not available 08/26/2023 What Was The Date Of Your Most Recent Tobacco Screening? 08/26/2023 Information not available 08/26/2023 Do You Or Have You Ever Used Smokeless Tobacco? Never Used Smokeless Tobacco [facility] Information not available 08/26/2023 Do You Use Any Illicit Or Recreational Drugs? No Information not available 08/26/2023 How Many Years Have You Smoked Tobacco? 0 [facility] Information not available 08/26/2023 Do You Or Have You Ever Used Any Other Forms Of Tobacco Or Nicotine? No [facility] Information not available 08/26/2023 Sex: Unknown Functional Status None recorded. Mental Status None recorded. Family History Nothing Reported. Medical History No medical history recorded. Gynecological HistoryNo gynecological history recorded. Obstetrics History GPAL:G 0 P 0 0 0 0 Past Encounters Encounter ID Performer Location Encounter Start Date Encounter Closed Date Diagnosis/Indication Diagnosis SNOMED-CT Code Diagnosis ICD10 Code Diagnosis Note [id number] [facility] [address] [place] [address] 08/26/2023 14:09:56 08/31/2023 08:44:46 Acute cholecystitis 53823338 K81.0 Health Concerns Section Related Observation LastModified by Organization Detai ls LastModified Time None Recorded Concern Status LastModified by Organization Details LastModified Time None Recorded Advance Directives Directive None Recorded Payers Encounter Date Sequence Insurance Name Policy Number Policy Almanzar Covered Member ID Almanzar Member ID Guarantor Name 08/26/2023 1 [facility] - MEDICARE PREFERRED (MEDICARE REPLACEMENT HMO) [facility] Darlene Alexander [id number] Darlene Alexander Notes Date Note Type [...] minimal abdominal pain. Mansoor Talley MD [address] [place], [address], [facility] - [facility] 08/26/2023 14:34:26 OBGyn Episode No OBEpisode recorded.
== END 2024-12-15 11:13 | disposition home or self-care (01) ==
LOC: HO.PMC 10:30
PROVIDERS: PCP Internal Medicine; Visit Provider Registered Nurse Emergency
DX: G89.4 Chronic pain syndrome (principal); G62.0 Drug-induced polyneuropathy; T45.1X5A Adverse effect of antineoplastic and immunosuppressive drugs, initial encounter; Z79.891 Long term (current) use of opiate analgesic; M17.0 Bilateral primary osteoarthritis of knee; M47.817 Spondylosis without myelopathy or radiculopathy, lumbosacral region; M25.561 Pain in right knee; M25.562 Pain in left knee; Z79.01 Long term (current) use of anticoagulants
CPT/HCPCS: 99213; G2211

== ENCOUNTER → 2024-12-15 10:30 | Outpatient (BNVA) | payer MEDICARE, SELFPAY | PROVIDERS: PCP Internal Medicine; Visit Provider Registered Nurse Emergency | DX: Z51.81 Encounter for therapeutic drug level monitoring (principal); F11.20 Opioid dependence, uncomplicated; G62.0 Drug-induced polyneuropathy; M17.0 Bilateral primary osteoarthritis of knee; M47.817 Spondylosis without myelopathy or radiculopathy, lumbosacral region; M25.561 Pain in right knee; M25.562 Pain in left knee; G89.4 Chronic pain syndrome; T45.1X5A Adverse effect of antineoplastic and immunosuppressive drugs, initial encounter | CPT/HCPCS: 99212 ==

== ENCOUNTER 2025-01-23 10:37 | Outpatient (AMB) | payer MEDICARE, SELFPAY ==
--- NOTE | 2025-01-23 10:42 | MHC.OFFVIS ---
Vital Signs 01/23/25 10:53 Height 5 ft 3 in Weight 146 lb 3 oz BMI 25.9 BP 119/58 L Blood Pressure Location Rt brachial Position Sitting Pulse 84 Pulse Source Pulse Oximeter Pulse Oximetry (%) 98 Oxygen Delivery Method Room Air Intake Visit Reasons: Pill count Intake Note: Darlene comes in today for a pill count to morphine, patient should have 0 tablets and presents with 8 tablets which she last took last night 01/22/25 at 10pm. Pain today 2/[address] Required: No Accompanied by: Self / Same As Patient Allergies No Known Allergies Allergy (Verified 01/23/25 10:54) HPI Comments Details: Patient presents today a pill count. She is supposed to have #0 pills in her possession and has #8 pills. This demonstrates a responsible attitude in regards to the medication regiment. Patient reports adequate analgesia on current regime without any side effects except constipation for which she utilizes Colace or Miralax. Patient reports 2/10 pain today. She also has medical marijuana card and has been taking cannabis edibles and Tylenol as needed. Patient denies any cough, cold, infection, fever or any other significant changes in medical history since last office visit. PRIOR China Swift CUSTODIAL OFFICER: The patient is an 79-year-old female presenting to the office for follow up, chronic opioid management. She had received bilateral knee injections 2 weeks ago that have provided significant improvement in her pain. The pain does worsen about an hour after bed, interfering with sleep despite the use of a muscle cream. Yard work exacerbates the discomfort, though the patient continues to maintain her activities. Patient is prescribed Morphine 15mg take 1 tablet twice daily. Patient arrived today with the expectation of having 50 pills, she presented 54 pills which were counted in the presence of two staff members and returned to the patient in the original prescription bottle. This demonstrates responsible attitude toward patient's opioid medications. Pain is reported today as 0/10 and last dose of pain medication was taken at 10pm last night. Patient denies side effects including somnolence, constipation, itching, dyspnea, rash, dizziness or weakness. The patient is on furosemide, prescribed by her parts counter sales person to manage periodic symptoms of fluid retention like feeling bloated and shortness of breath. She has begun using trazodone at night for sleep disturbances prescribed by her pcp. - Onset and Timing: Pain returns about an hour after lying down at night. - Quality and Character: Likely due to arthritis; descriptions include notable discomfort. - Location: Bilateral knees. - Exacerbating Factors: Nighttime immobility, physical activities like yard work. - Relieving Factors: Muscle cream applied topically provides some relief. - Daily Impact: Interferes with sleep, making daily activities challenging post-injection. - Affect: The pain impacts the patient?s ability to sleep and general comfort. - Analgesia: Knee injections and topical muscle cream; pain remains tolerable during the day. - Adverse Effects: None from mentioned treatments. - Activities of Daily Living: Pain limits mobility at night; daily life affected by sleep disturbances. - Aberrant Drug-Related Behaviors: None identified. [facility] Medical History Thyroid cancer Chronic pain syndrome Peripheral polyneuropathy Surgical History Status post ablation of incompetent vein using laser (09/11/22) Social History Patient Tobacco Use Status: Never used Tobacco Current occupational status: retired Review of Systems Const All systems reviewed & are unremarkable except as noted in HPI and below Physical Exam Vital Signs: Last Vital Signs Pulse 84 01/23/25 10:53 BP 119/58 L 01/23/25 10:53 Pulse Ox 98 01/23/25 10:53 Oxygen Delivery Method Room Air 01/23/25 10:53 BMI result Body Mass Index 25.9 General: Appears afebrile. Alert and oriented. Mood and affect appropriate. Follows and participates in conversation appropriately. Respiratory effort is unlabored. No cough. Able to transition from sit to stand unassisted. Ambulates with bilaterally normal heel strike and toe off. Back/Spine/Pelvis Thoracic/Lumbar Spine: pain with thoraco-lumbar ROM, thoraco-lumbar ROM limited, No thoracic spinal tenderness and No lumbar spinal tenderness Extrem General: Yes capillary refill normal, Yes no clubbing, cyanosis or edema and Yes no calf tenderness Right lower extremity: knee (Limited ROM due to pain.) Details: normal to inspection, tenderness Location: of the patella, of the popliteal fossa, of the medial joint line and of the lateral joint line and crepitus; no swelling, no ecchymosis and no unusual warmth Left lower extremity: knee (Limited ROM due to pain.) Details: normal to inspection, tenderness Location: of the patella, of the popliteal fossa, of the medial joint line and of the lateral joint line and crepitus; no swelling, no ecchymosis and no unusual warmth Psych Appearance: grossly normal and well kempt Mental Status: mental status grossly normal Speech and movement: Normal speech and movement present and Clear speech present Affect: normal affect Attitude: cooperative Thought process: Normal thought process present Thought content: Normal thought content present, suicidality (none), no hallucinations and No Depressive thoughts present Insight: Good insight present (Psych) Judgement: Good judgement present (Psych) Results Reviewed Results Reviewed: XR KNEE AP STANDING 03/16/24 CLINICAL INFORMATION: Pain in right knee. COMPARISON: 10/01/2023. TECHNIQUE: AP bilateral standing view of the knees was obtained. FINDINGS: Bones are diffusely demineralized. Mild narrowing of the medial and lateral compartments. IMPRESSION: Mild narrowing of the medial and lateral compartments. Assessment & Plan Assessment & Plan (1) Chronic, continuous use of opioids: Code(s): F11.90 - Opioid use, unspecified, uncomplicated Category: Medical (2) Chronic pain syndrome: Code(s): G89.4 - Chronic pain syndrome Category: Medical (3) Chemotherapy-induced peripheral neuropathy: Code(s): G62.0 - Drug-induced polyneuropathy; T45.1X5A - Adverse effect of antineoplastic and immunosuppressive drugs, initial encounter Category: Medical (4) Bilateral primary osteoarthritis of knee: Code(s): M17.0 - Bilateral primary osteoarthritis of knee Category: Medical (5) Lumbosacral spondylosis: Code(s): M47.817 - Spondylosis without myelopathy or radiculopathy, lumbosacral region Category: Medical (6) Bilateral knee pain: Code(s): M25.561 - Pain in right knee; M25.562 - Pain in left knee Category: Medical (7) Current use of anticoagulant therapy: Code(s): Z79.01 - residential (current) use of anticoagulants Category: Medical Plan Masspat was reviewed and without concerns. No obvious signs of diversion, abuse or misuse of the opioid medications. Will send in prescription for Morphine 15mg po BID with an advanced date of 01/26/2025. Narcan script sent today. Patient to follow-up in the office in 1 month, sooner if needed. All questions and concerns have been answered and patient agrees with the plan. Medications: Refilled morphine ER Partial Fill upon patient request. 15 mg PO BID 30 days PRN 60 tabs 0RF severe pain (scale score 7-10) F11.90 - Opioid use, unspecified, uncomplicated, G62.0 - Drug-induced polyneuropathy, M17.0 - Bilateral primary osteoarthritis of knee, T45.1X5A - Adverse effect of antineoplastic and immunosuppressive drugs, initial encounter naloxone 4 mg/actuation (Narcan) spray 1 dose into ONE nostril; alternate nostrils w each dose until help arrives 4 mg intranasal Q3M PRN 2 ea 0RF opioid overdose Coding Level of Care Code Est Pt Level 4 (01491) Complex EM visit Add On G2211 Diagnoses Chronic, continuous use of opioids F11.90 Chronic pain syndrome G89.4 Chemotherapy-induced peripheral neuropathy G62.0; T45.1X5A Bilateral primary osteoarthritis of knee M17.0 Lumbosacral spondylosis M47.817 Bilateral knee pain M25.561; M25.562 Current use of anticoagulant therapy Z79.01
[2025-01-23 10:53] VITALS: BP 119/58; PULSE 84; O2SAT 98; BMI 25.9
--- OUTSIDE RECORDS SUMMARY | 2025-01-23 12:26 | XMS_ITS | Clinical Summary ---
Author Organization [facility] Address [address] [place] [address] Care Team Providers Care Telephone Messenger Name Role Phone Julio Brizuela MD Primary Care Provider Unavailab le Allergies Active Allergy Reactions Criticality Noted Date Comments Iodinated Contrast Media 01/24/2009 Oxycodone-Acetaminophen 11/09/2017 Medications Medication Sig Dispensed Refills Start Date End Date Status [place]-3 Fatty Acids (FISH OIL) 1000 MG CAPS [...] 0 05/24/2018 Active ergocalciferol (VITAMIN D2) capsule 72423 units TAKE ONE CAPSULE BY MOUTH ONE [...] - 1-dose 75+ series) 2018 Influenza Vaccine (Season Ended) 2025 Pneumococcal Vaccine Completed 01/02/2015, 07/03/2011 Hepatitis B Vaccines Aged Out No long er eligible based on patient's age to complete this topic RSV Ped < 20 months Aged Out No longe r eligible based on patient's age to complete this topic Care Teams Telephone Messenger Relationship Specialty Start Date End Date Julio Brizuela MD PCP - General Internal Medicine 01/18/19
== END 2025-01-23 11:16 | disposition home or self-care (01) ==
LOC: HO.PMC 10:37
PROVIDERS: PCP Internal Medicine; Visit Provider Nurse Practitioner Family
DX: G89.4 Chronic pain syndrome (principal); Z79.891 Long term (current) use of opiate analgesic; M17.0 Bilateral primary osteoarthritis of knee; M47.817 Spondylosis without myelopathy or radiculopathy, lumbosacral region; M25.561 Pain in right knee; M25.562 Pain in left knee; G62.0 Drug-induced polyneuropathy; Z79.01 Long term (current) use of anticoagulants
CPT/HCPCS: 99214; G2211

== ENCOUNTER → 2025-01-23 10:37 | Outpatient (BNVA) | payer MEDICARE, SELFPAY | PROVIDERS: PCP Internal Medicine; Visit Provider Nurse Practitioner Family | DX: G89.4 Chronic pain syndrome (principal); F11.90 Opioid use, unspecified, uncomplicated; G62.0 Drug-induced polyneuropathy; T45.1X5A Adverse effect of antineoplastic and immunosuppressive drugs, initial encounter; M17.0 Bilateral primary osteoarthritis of knee; M47.817 Spondylosis without myelopathy or radiculopathy, lumbosacral region; M25.561 Pain in right knee; M25.562 Pain in left knee; Z79.01 Long term (current) use of anticoagulants | CPT/HCPCS: 99212 ==

== ENCOUNTER → 2025-02-27 10:00 | Outpatient (BNVA) | payer MEDICARE, SELFPAY | PROVIDERS: PCP Internal Medicine | DX: Z79.891 Long term (current) use of opiate analgesic (principal) ==

== ENCOUNTER 2025-05-02 15:02 | Outpatient (AMB) | payer MEDICARE, SELFPAY ==
[2025-05-02 15:52] VITALS: BP 135/72; PULSE 79; RESP 18; O2SAT 97
--- NOTE | 2025-05-02 15:52 | MHC.OFFVIS ---
Vital Signs 05/02/25 15:52 Weight 146 lb BP 135/72 Blood Pressure Location Lt brachial Position Sitting Respiration 18 Pulse 79 Pulse Source Pulse Oximeter Pulse Oximetry (%) 97 Oxygen Delivery Method Room Air Intake Visit Reasons: Pill Count/Bilat Intra-Articular Knee Inj. Intake Note: pt states she last took her medication today at 11am 05/02/25. Apple says she should have 6 pills she presented with 20 Supervisor Specialty Plant Required: No Allergies No Known Allergies Allergy (Verified 05/02/25 15:53) HPI Comments Details: Darlene is in my office today for pill count and steroid injection into the knees procedure. She supposed to have 6 pills in her possession. She presented 20 pills in her possession. She reports that she takes morphine sulfate extended-release 60 pills a month. One tablet p.o. b.i.d.. She states that opioid medications do not help her back pain. Multiple procedures and injections for her back were offered to the patient. She adamantly refused, apparently her daughter who is medical researcher in [place] told her not to go for injections into the spine. We also performed today bilateral knee steroid injection. See description as below. She reported good mobility after the last time injection. She had 6 months she in her last steroid injection. 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 She had received bilateral knee injections 2 weeks ago that have provided significant improvement in her pain. The pain does worsen about an hour after bed, interfering with sleep despite the use of a muscle cream. Yard work exacerbates the discomfort, though the patient continues to maintain her activities. Patient is prescribed Morphine 15mg take 1 tablet twice daily. Patient arrived today with the expectation of having 50 pills, she presented 54 pills which were counted in the presence of two staff members and returned to the patient in the original prescription bottle. This demonstrates responsible attitude toward patient's opioid medications. Pain is reported today as 0/10 and last dose of pain medication was taken at 10pm last night. Patient denies side effects including somnolence, constipation, itching, dyspnea, rash, dizziness or weakness. 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 She has begun using trazodone at night for sleep disturbances prescribed by her pcp. - Onset and Timing: Pain returns about an hour after lying down at night. - Quality and Character: Likely due to arthritis; descriptions include notable discomfort. - Location: Bilateral knees. - Exacerbating Factors: Nighttime immobility, physical activities like yard work. - Relieving Factors: Muscle cream applied topically provides some relief. - Daily Impact: Interferes with sleep, making daily activities challenging post-injection. - Affect: The pain impacts the patient?s ability to sleep and general comfort. - Analgesia: Knee injections and topical muscle cream; pain remains tolerable during the day. - Adverse Effects: None from mentioned treatments. - Activities of Daily Living: Pain limits mobility at night; daily life affected by sleep disturbances. - Aberrant Drug-Related Behaviors: None identified. [facility] Medical History Thyroid cancer Chronic pain syndrome Peripheral polyneuropathy Surgical History Status post ablation of incompetent vein using laser (09/11/22) Social History Patient Tobacco Use Status: Never used Tobacco Current occupational status: retired Review of Systems Const All systems reviewed & are unremarkable except as noted in HPI and below Physical Exam Vital Signs: Last Vital Signs Pulse 79 05/02/25 15:52 Resp 18 05/02/25 15:52 BP 135/72 05/02/25 15:52 Pulse Ox 97 05/02/25 15:52 Oxygen Delivery Method Room Air 05/02/25 15:52 General: Appears afebrile. Alert and oriented. Mood and affect appropriate. Follows and participates in conversation appropriately. Respiratory effort is unlabored. No cough. Able to transition from sit to stand unassisted. Ambulates with bilaterally normal heel strike and toe off. Back/Spine/Pelvis Thoracic/Lumbar Spine: pain with thoraco-lumbar ROM, thoraco-lumbar ROM limited, No thoracic spinal tenderness and No lumbar spinal tenderness Extrem General: Yes capillary refill normal, Yes no clubbing, cyanosis or edema and Yes no calf tenderness Right lower extremity: knee (Limited ROM due to pain.) Details: normal to inspection, tenderness Location: of the patella, of the popliteal fossa, of the medial joint line and of the lateral joint line and crepitus; no swelling, no ecchymosis and no unusual warmth Left lower extremity: knee (Limited ROM due to pain.) Details: normal to inspection, tenderness Location: of the patella, of the popliteal fossa, of the medial joint line and of the lateral joint line and crepitus; no swelling, no ecchymosis and no unusual warmth Psych Appearance: grossly normal and well kempt Mental Status: mental status grossly normal Speech and movement: Normal speech and movement present and Clear speech present Affect: normal affect Attitude: cooperative Thought process: Normal thought process present Thought content: Normal thought content present, suicidality (none), no hallucinations and No Depressive thoughts present Insight: Good insight present (Psych) Judgement: Good judgement present (Psych) Office Procedures AMB Joint Injection/Aspiration Joint Injection/Aspiration Primary Site: right knee Secondary Site: left knee Injected: 40 mg of and Kenalog Approach Used: anterolateral Procedure: The patient tolerated the procedure well Coding 55225 - Large joint Procedure code (CPT) selection complete Office Meds Kenalog 40 mg/mL suspension for injection Performing Provider: Wayne Monroy MD Performing Location: [facility] Administered by: Wayne Monroy MD on 05/02/25 15:57 Dose Route Admin Location Dispensed Lot Number Expiration Date [facility] Welfare Eligibility Worker 40 mg intra-articular 2 mL Total Dispensed Waste 2 mL 0 % Assessment & Plan Assessment & Plan (1) Chronic, continuous use of opioids: Code(s): F11.90 - Opioid use, unspecified, uncomplicated Category: Medical (2) Chronic pain syndrome: Code(s): G89.4 - Chronic pain syndrome Category: Medical (3) Chemotherapy-induced peripheral neuropathy: Code(s): G62.0 - Drug-induced polyneuropathy; T45.1X5A - Adverse effect of antineoplastic and immunosuppressive drugs, initial encounter Category: Medical (4) Bilateral primary osteoarthritis of knee: Code(s): M17.0 - Bilateral primary osteoarthritis of knee Category: Medical (5) Lumbosacral spondylosis: Code(s): M47.817 - Spondylosis without myelopathy or radiculopathy, lumbosacral region Category: Medical (6) Bilateral knee pain: Code(s): M25.561 - Pain in right knee; M25.562 - Pain in left knee Category: Medical (7) Current use of anticoagulant therapy: Code(s): Z79.01 - terminal operator (current) use of anticoagulants Category: Medical Plan: Pill count was performed today and it is correct. Patient has excess of the medications. Mass pat was checked and it is appropriate. No diversions suspected. The patient will be refilled her medication on 05/06/2025. Discussion about possible interventions for low back pain see as above. Next appointment in 1 month. Plan Procedure of the intra-articular bilateral knee steroid injection. The patient was positioned sitting on the examination bed. The sterilely obtained solution of bupivacaine 0.5% in 2 syringes manufactured by [employer] with lot number [id number] and expiration date 06/16/2025 as well as: For the right knee a triamcinolone acetonide need manufactured by [employer] with lot number [id number] and expiration date and for the right knee the same manufacture lot [id number] exploration 02/18/2020, those above medications were sterilely obtained in syringes. The anterior lateral surfaces of bilateral knees were prepped with ChloraPrep and injection of the above-mentioned medications was performed from anterior lateral to central medial direction. The patient tolerated the procedure well. The needles were withdrawn sterile Band-Aids were applied. Orders: Orders AMB Joint Injection/Aspiration Today M17.0 - Bilateral primary osteoarthritis of knee Medications: Refilled morphine ER Partial Fill upon patient request. 15 mg PO BID PRN 60 tabs 0RF severe pain (scale score 7-10) 30 days F11.90 - Opioid use, unspecified, uncomplicated, G62.0 - Drug-induced polyneuropathy, M17.0 - Bilateral primary osteoarthritis of knee, T45.1X5A - Adverse effect of antineoplastic and immunosuppressive drugs, initial encounter Coding Level of Care Code Est Pt Level 3 (79775) Procedure Only Diagnoses Chronic, continuous use of opioids F11.90 Chronic pain syndrome G89.4 Chemotherapy-induced peripheral neuropathy G62.0; T45.1X5A Bilateral primary osteoarthritis of knee M17.0 Lumbosacral spondylosis M47.817 Bilateral knee pain M25.561; M25.562 Current use of anticoagulant therapy Z79.01 CPT Codes Coding - 01477 Large joint: 28451 - Large joint ([id number])
--- OUTSIDE RECORDS SUMMARY | 2025-05-02 18:34 | XMS_ITS | Clinical Summary ---
Author Organization [address] [place] [address] Address [address] [place] [address] Phone Care Team Providers Care Information Security Manager Name Role Phone Isabella Miller Primary Care [...] 1 tablet by mouth daily. 9 Active morphine (MS CONTIN) 15 mg 12 hr tablet TAKE 1 TABLET BY MOUTH TWICE DAILY NEEDED FOR SEVERE PAIN (SCALE SCORE 7-10) FOR 30 DAYS. 3 Active L.acid/L.casei/B .bif/B.brendan/FOS (PROBIOTIC BLEND ORAL) Take by mouth. Active apixaban (Eliquis) 2.5 mg tabletIndication s:Atrial fibrillation, unspecified type (CMS/HCC V24, CMS/HCC V28) Take 1 tablet (2.5 mg total) by mouth 2 (two) times a day. 90 tablet 2 5 Active spironolactone (ALDACTONE) 25 mg tabletIndication s:Chronic systolic (congestive) heart failure (CMS/[facility] V24, CMS/HCC V28) Take 0.5 tablets (12.5 mg total) by mouth every other day. 90 tablet 2 5 Active carvediloL (COREG) 3.125 mg tablet TAKE 1 TABLET BY MOUTH TWICE DAILY WITH FOOD. 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 Take 1 tablet by mouth every morning 6 days/week and a half a tablet on the seventh day 90 tablet 1 5 Active gabapentin (NEURONTIN) 300 mg capsuleIndicatio ns:Acute bilateral thoracic back pain TAKE 1 CAPSULE BY MOUTH IN THE MORNING AND 2 AT BEDTIME 90 capsule 3 5 Active furosemide (LASIX) 20 mg tabletIndication s:Chronic HFrEF (heart failure with reduced ejection fraction) (CMS/[facility] V24, CMS/[facility] V28) TAKE 1 TABLET BY MOUTH NEEDED FOR HF SYMPTOMS 90 tablet 3 5 Active rosuvastatin (CRESTOR) 5 mg tablet TAKE 1 TABLET BY MOUTH EVERY DAY 90 tablet 2 5 Active amiodarone (PACERONE) 200 mg tablet Take 1 tablet (200 mg total) by mouth 1 (one) time each day. 90 tablet 1 5 Active dapagliflozin propanediol (Farxiga) 10 mg tablet Take 1 tablet (10 mg total) by mouth 1 (one) time each day. 90 tablet 2 5 Active lidocaine (XYLOCAINE) 5 % ointment APPLY PEA SIZE AMOUNT 4 TIMES A DAY NEEDED IN THE BURNING AREA IN THE LEFT THIGH 100 g 1 5 Active Active Problems Problem Noted Date Diagnosed Date Polyneuropathy due to other toxic agents ([facility]/HC C V24) 11/01/2024 CKD stage 3b, GFR 30-44 ml/min (CMS/HCC V24, CMS /[facility] V28) 10/18/2024 [facility] current use of amiodarone 08/23/2024 Assessment & Plan (01/10/2025 12:17 PM EDT): The patient is on long-term antiarrhythmic therapy with amiodarone 200 mg orally daily. The patient is aware about the potential side effects of the long-term use of amiodarone (lung side effects, liver side effects, thyroid side effects, eye side effects). The patient wishes to continue with the use of the amiodarone. Chest x-ray done on 11/02/2024 did not show any evidence of significant pulmonary parenchymal disease. At this point, we will order laboratory testing that would include a comprehensive metabolic panel to evaluate her LFTs and a TSH level to evaluate her thyroid function. Orders: Comprehensive metabolic panel; Future Thyroid stimulating hormone with reflex to free t4 and free t3; Future Assessment & Plan (11/08/2024 4:11 PM EDT): [...] continue her current therapy. Assessment & Plan (01/10/2025 12:17 PM EDT): The patient has a history of hyperlipidemia. The patient is currently on rosuvastatin 5 mg orally daily. We will order a new lipid panel to evaluate the patient's current lipid control and determine if any adjustment are needed in the lipid lowering therapy. Orders: Lipid panel with reflex to direct LDL; Future Assessment & Plan (11/08/2024 4:11 PM EDT): [...] Will continue current therapy. Assessment & Plan (01/10/2025 12:17 PM EDT): The patient has a history of coronary artery disease. Left heart catheterization from 2020 showed a 50% stenosis in the mid RCA. Currently, the patient denies any chest pain at rest or with exertion. The patient continues on secondary preventive therapy for CAD, including: aspirin, statin and beta jordan. Orders: Lipid panel with reflex to direct LDL; Future Assessment & Plan (11/08/2024 4:11 PM EDT): Patient has a history of nonobstructive coronary artery disease. Currently, denies any exertional or anginal symptoms or episodes of chest pain. She continues on medical therapy with statin and beta-jordan. She is also on Eliquis as an antithrombotic. Will continue current therapies. Cholelithiasis 02/12/2021 Chronic HFrEF (heart failure with reduced ejection fraction) ([facility] V24, CMS/HCC V28) 01/30/2021 Overview (05/15/2024): Last Assessment & Plan: The patient has heart failure with reduced ejection fraction. 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 Nonischemic cardiomyopathy evaluation: 1. Laboratory testing (March 2023): Normal serum immunofixation study. Normal serum kappa lambda ratio. Normal urine immunofixation study. 2. Cardiac PYP test (March 2023): Equivocal study Last documented LVEF: 30 to 35% by echocardiogram done in February 2023 Current symptom classification: NYHA class 2 Guideline directed medical therapy: 1. Beta-blockers: Carvedilol 3.125 mg orally twice a day 2. ARNI / BELLA inhibitor / ARB: The patient was able to tolerate low-dose Entresto in the past 3. MRA: Spironolactone 25 mg orally daily 4. SGL2 inhibitor: Dapagliflozin 10 mg orally daily Candidate for ICD or CERTIFIED PROFESSIONAL MIDWIFE: CERTIFIED PROFESSIONAL MIDWIFE-P in place Assessment and plan: The patient has a [...] continued use of spironolactone. Assessment & Plan (01/10/2025 12:17 PM EDT): The patient has heart failure with reduced ejection fraction. Etiology: Nonischemic (likely 1. Chemotherapy-induced cardiomyopathy) Last ischemic work-up: Left heart catheterization in June 2021 (study showed nonobstructive coronary artery disease). Nonischemic cardiomyopathy evaluation: 1. Laboratory testing (March 2023): Normal serum immunofixation study. Normal serum kappa lambda ratio. Normal urine immunofixation study. 2. Cardiac PYP test (March 2023): Equivocal study 3. Cardiac MRI in November 2024 did not show any specific finding to suggest the presence of an infiltrative cardiomyopathy Last documented LVEF: 42% by cardiac MRI done in November 2024 Current symptom classification: NYHA class 2 Guideline directed medical therapy: 1. Beta-blockers: Carvedilol 3.125 mg orally twice a day 2. ARNI / BELLA inhibitor / ARB: The patient was able to tolerate low-dose Entresto in the past 3. MRA: Spironolactone 12.5 mg orally every other day 4. SGL2 inhibitor: Dapagliflozin 10 mg orally daily Candidate for ICD or CERTIFIED PROFESSIONAL MIDWIFE: CERTIFIED PROFESSIONAL MIDWIFE-P in place Assessment and plan: 1. Continue current medication regimen Orders: Comprehensive metabolic panel; Future Assessment & Plan (11/08/2024 4:11 PM EDT): [...] cardiac MRI yesterday 11/07/24 pending results. ICD: CERTIFIED PROFESSIONAL MIDWIFE-P in place, with reassessment of EF and [...] SGLT2 inhibitors: Dapagliflozin 10 mg daily. ICD: CERTIFIED PROFESSIONAL MIDWIFE-P in place, with reassessment of EF and [...] wo and w Contrast; Future Atrial fibrillation ([facility] V24, [facility] V28) 1 Overview (05/15/2024): Last Assessment & Plan: The patient has a history of paroxysmal atrial fibrillation. She is on rhythm control therapy with amiodarone and rate control therapy with Coreg. Also, the patient has a [id number] score of 5 (age, gender, heart failure, CAD). She continues on anticoagulation therapy with Eliquis 5 mg orally twice daily. She denies any abnormal bleeding. Will continue her current therapy. Assessment & Plan (01/10/2025 12:17 PM EDT): The patient has a history of paroxysmal atrial fibrillation. She is on rhythm control therapy with amiodarone and rate control therapy with Coreg. Also, the patient has a [id number] score of 7 (age, gender, heart failure, CAD, past CVA). She continues on anticoagulation therapy with Eliquis 2.5 mg orally twice daily given her age (79), weight (63 kg) and history of CKD (usually her creatinine is around 1.5). At this point, we will order a chemistry panel to reevaluate her creatinine. If her creatinine is below 1.5 then we may need to consider switching her to Eliquis 5 mg orally twice a day. Orders: Thyroid stimulating hormone with reflex to free t4 and free t3; Future Assessment & Plan (11/08/2024 4:11 PM EDT): [...] Patient has history of paroxysmal atrial fibrillation, [id number] score of 5. 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 Caban consulted on the patient due to her bradycardia which appeared multifactorial from electrolyte disturbances in the setting of renal dysfunction and due to amiodarone. She had a pacemaker with CERTIFIED PROFESSIONAL MIDWIFE implanted during the hospitalization. She does not [...] Hypertension Overview (08/24/2024): DX:Hypertension Assessment & Plan (01/10/2025 12:17 PM EDT): The patient has a history of arterial hypertension. The patient's blood pressure today was noted to be well controlled. We'll continue the current antihypertensive medication regimen. Assessment & Plan (11/08/2024 4:11 PM EDT): Patient's blood pressure is well-controlled today. She will continue her current antihypertensive medication regimen as prescribed. Encounters Date Type Department Care Team Description 03/28/2025 2:35 PM EDT Ancillary Procedure [facility] [address] [place] [address] 03/06/2025 11:15 AM EDT Office Visit Internal Medicine - [employer] [address] [place] [phone] Julio Brizuela MD Ecchymoses, spontaneous (Primary Dx); Neuritis 02/20/2025 11:25 AM EDT Ancillary Procedure [facility] [address] [place] [address] 02/20/2025 Telephone [facility] [address] [place] [phone] Angelica Rowe PA 02/06/2025 Telephone [facility] - [address] [place] [phone] Javier Shelton MD from Last 3 Months [...] CHOLECYSTECTOMY PROCEDURE: LAPAROSCOPY, CHOLECYSTECTOMY; COMMENT: 07/2023 in [place] due to cholelithiasis Medical History Medical History Date Comments Aortic atherosclerosis (CMS/HCC V24) 10/02/2015 DX:Aortic atherosclerosis (HCC); COMMENT: Comments: CXR 11/29/14 Atherosclerotic aorta Atrial fibrillation (CMS/HCC V24, CMS/HCC V28) 05/19/2018 DX:Atrial fibrillation (HCC) Cardiomyopathy (CMS/HCC V24, CMS/HCC V28) 09/06/2015 DX:Cardiomyopathy (HCC) Chronic constipation 04/15/2017 [...] DX:Hyperlipidemi a Cholelithiasis DX:Cholelithiasi s Breast cancer ([facility] V24, [facility] V28) 2003 DX:Breast cancer ([facility]); COMMENT: Chemo &Rad Tx Family history of coronary a rtery disease DX:Family history of coronar y artery disease H/O hypercholesterolemia Rosacea Chronic kidney disease (CKD) , stage III (moderate) ([facility] V24, [facility] V28) Family History Medical [...] Sign Reading Time Taken Comments Blood Pressure 149/92 03/06/2025 11:20 AM EDT Pulse 78 03/06/2025 11:16 AM EDT Temperature 36.6 C (97.8 F) 03/06/2025 11:16 AM EDT Respiratory Rate - - Oxygen Saturation 98% 03/06/2025 11:16 AM EDT Inhaled Oxygen Concentration - - Weight 66 kg (145 lb 9.6 oz) 03/06/2025 11:16 AM EDT Height 157.5 cm (5' 2 ) 03/06/2025 11:16 AM EDT Body Mass Index 26.63 03/06/2025 11:16 AM EDT Plan of Treatment Upcoming Encounters Date Type Department Care Team (Late st Contact Info) Description 06/20/2025 4:00 PM EST Office Visit [facility] [address] [place] [address] Jake Carr MD [address] [facility] [address] [place] [address] 07/24/2025 11:15 AM EST Office Visit Internal Medicine - [employer] [address] [facility] [address] [place] [phone] Isabella Miller PA [address] [place] [address] 07/30/2025 10:40 AM EST Office Visit [facility] - [address] [place] [phone] Claudia Rose NP [address] [place] [address] [address] [place] [phone] 11/01/2025 11:00 AM EDT Ancillary Procedure [facility] - [facility] [address] [facility] [address] [place] [phone] Health Maintenance Due Date Last Done Comments RSV Immunization Adult Patients (1 - 1-dose 75+ series) 2018 Falls Risk Assessment 07/25/2022 Medicare Annual Wellness Visit 07/25/2022 Osteoporosis Screening (Bone Density Screening) 07/25/2022 Social Influencers of Health Screening 07/25/2022 Depression Screening 08/16/2024 COVID-19 Vaccine ( season) 2025 06/12/2022, 06/23/2021, 11/03/2020, Additional history exists Influenza Vaccine (#1) 2025 , 04/09/2023, 05/09/2022, Additional history exists Hypertension/CHF/CAD Annual BMP Blood Test 01/17/2026 01/17/2025, 10/26/2024, 08/21/2024, Additional history exists Cholesterol Screening (Lipid Panel) 01/17/2030 01/17/2025, 09/09/2023 DTaP,Tdap,and Td Vaccines (2 - Td or Tdap) 06/09/2031 06/09/2021 Zoster Vaccines Completed 06/09/2021, 09/17, 04/06/2012 Pneumococcal Vaccine: 50+ Years Completed 06/01/2023, 01/02/2015, 07/03/2011 HIB Vaccines Aged Out No longer eligi [...] this topic Medical Devices Implanted Type Area Education General Manager Device Identifier Shelf Expiration Date Model / Serial / Lot Medt-Card Percepta Quad Service Or Work Dispatcher-P [id number] Implanted: by Efren Caban MD (Quantity not on file) Cardiac CERTIFIED PROFESSIONAL MIDWIFE-P Left: Chest [employer] - CARDIAC RHYTH-CRDM PERCEPTA QUAD CERTIFIED PROFESSIONAL MIDWIFE-P [id number] / [id number] / Procedures Procedure Name Priority Date/Time Associated Diagnosis Comments CARDIAC DEVICE CHECK- REMOTE- MURJ Routine 03/28/2025 2:31 PM EDT CARDIAC DEVICE CHECK- REMOTE- MURJ Routine 02/20/2025 11:24 AM EDT COMPREHENSIVE METABOLIC PANEL Routine 01/17/2025 10:05 AM EDT Chronic HFrEF (heart failure with reduced ejection fraction) (CMS/HCC V24, CMS/HCC V28) 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 Date Time Interrogation Session [id number] CV DEVICE CHECK Type Interrogation Session Remote CV DEVICE CHECK Implantable Pulse Generator Education General Manager MDT CV DEVICE CHECK Implantable Pulse Generator Type CERTIFIED PROFESSIONAL MIDWIFE-P CV DEVICE CHECK Implantable Pulse Generator Model Percepta Quad CERTIFIED PROFESSIONAL MIDWIFE-P [id number] CV DEVICE CHECK Implantable Pulse Generator Serial Number [id number] CV DEVICE CHECK Implantable Pulse Generator Implant Date 20210131 CV DEVICE CHECK Battery Remaining Longevity 42.0 CV DEVICE CHECK Battery Voltage 2.940 CV D EVICE CHECK Battery LIQUIFIED NATURAL GAS SPECIALIST Trigger 2.595 CV DEVICE CHECK Battery Status Middle of Service CV DEVICE CHECK Chinmay Statistic RA Percent Paced 99.92 CV DEVICE CHECK Atrial Tachy Statistic AT/AF [place] Percent 0.00 CV DEVICE CHECK Lead Channel Sensing Intrinsic Amplitude 1.625 CV DEVICE CHECK Lead Channel Setting Sensing Sensitivity 0.30 CV DEVICE CHECK Lead Channel Impedance Value 418 CV DEVICE CHECK Lead Channel Pacing Threshold Amplitude 1.375 CV DEVICE CHECK Lead Channel Pacing Threshold Pulse Width 0.4 CV DEVICE CHECK Lead Channel RA Pacing Threshold Date 2023-02-03 CV DEVICE CHECK Lead Channel Setting Pacing Amplitude 2.750 CV DEVICE CHECK Lead Channel Setting Pacing Pulse Width 0.4 CV DEVICE CHECK Lead Channel Sensing Intrinsic Amplitude 14.500 CV DEVICE CHECK Lead Channel Setting Sensing Sensitivity 0.90 CV DEVICE CHECK Lead Channel Impedance Value 513 CV DEVICE CHECK Lead Channel Pacing Threshold Amplitude 0.625 CV DEVICE CHECK Lead Channel Pacing Threshold Pulse Width 0.4 CV DEVICE CHECK Lead Channel RV Pacing Threshold Date 2025-03-22 CV DEVICE CHECK Lead Channel Setting Pacing Amplitude 2.000 CV DEVICE CHECK Lead Channel Setting Pacing Pulse Width 0.4 CV DEVICE CHECK Lead Channel Impedance Value 836 CV DEVICE CHECK Lead Channel Pacing Threshold Amplitude 1.125 CV DEVICE CHECK Lead Channel Pacing Threshold Pulse Width 0.4 CV DEVICE CHECK Lead Channel Pacing Threshold Date 2025-03-22 CV DEVICE CHECK Lead Channel Setting Pacing Amplitude 1.750 CV DEVICE CHECK Lead Channel Setting Pacing Pulse Width 0.4 CV DEVICE CHECK Chinmay Setting Mode (NBG Code) DDDR CV DEVICE CHECK Ventricular chambers paced during CERTIFIED PROFESSIONAL MIDWIFE pacing. BiV CV DEVICE CHECK Chinmay Setting Lower Rate Limit 75 CV DEVICE CHECK Chinmay Setting AT Mode Switch Rate 171 CV DEVICE CHECK Chinmay Setting Maximum Tracking Rate 110 CV DEVICE CHECK Chinmay Setting Maximum Sensor Rate 120 CV DEVICE CHECK Chinmay Setting PAV Delay 150 CV DEVICE CHECK Chinmay Setting EDITH Delay 130 CV DEVICE CHECK CERTIFIED PROFESSIONAL MIDWIFE LV-RV Delay 30 CV D EVICE CHECK [...] 6 CV DEVICE CHECK Date of Service 2025-05-22 CV DEVICE CHECK Anatomical Region Laterality Modality Device Interroga tion 03/22/2025 11:3 0 AM EDT Impressions 03/28/2025 1:56 PM EDT Heart Failure Diagnostic: Stable * Heart failure diagnostics assessed through the device * Status: Stable * No overt HF present Narrative Procedure Note Efren Caban MD - 03/28/2025 IMPRESSION: Heart Failure Diagnostic: Stable * Heart failure diagnostics assessed through the device * Status: Stable * No overt HF present us Efren Caban MD CV IMPLANTABLE CARDIAC DEVICE PROCEDURES Final Result * Lipid panel with reflex to direct LDL (01/17/2025 10:05 AM EDT) Cholesterol 164 0 - 200 mg/dL LAB CHEMISTRY METHOD 01/17/2025 1:17 PM EDT [facility] Triglycerides 82 0 - 150 mg/dL LAB CHEMISTRY METHOD 01/17/2025 1:17 PM EDT [facility] HDL 78 >=40 mg/dL LAB CHEMISTRY METHOD 01/17/2025 1:17 PM EDT [facility] LDL Calculated 70 0 - 100 mg/dL LAB CHEMISTRY METHOD 01/17/2025 1:17 PM EDT [facility] VLDL Cholesterol Hernesto 16.4 mg/dL LAB CHEMISTRY METHOD 01/17/2025 1:17 PM EDT [facility] Non HDL Chol. (LDL+VLDL) 86 <145 mg/dL LAB CHEMISTRY METHOD 01/17/2025 1:17 PM EDT [facility] Chol/HDL Ratio 2.1 0.0 - 4.4 LAB CHEMISTRY METHOD 01/17/2025 1:17 PM [facility] Blood Venous blood specimen / Unknown Venipuncture / Unknown 01/17/2025 10:05 AM EDT 01/17/2025 10:05 AM EDT us Javier Shelton MD LAB BLOOD ORDERABLES F inal Result [facility] [address] [place] [address], * (ABNORMAL) Comprehensive metabolic panel (01/17/2025 10:05 AM EDT) Sodium 140 133 - 145 mmol/L LAB CHEMISTRY METHOD 01/17/2025 1:17 PM EDT [facility] Potassium 4.3 3.5 - 5.5 mmol/L LAB CHEMISTRY METHOD [facility]/17[facility]25 [facility] Chloride 108 96 - 110 mmol/L LAB CHEMISTRY METHOD 01/17/2025 1:17 PM [facility] CO2 25 21 - 32 mmol/L LAB CHEMISTRY METHOD 01/17/2025 1:17 PM [facility] Anion Gap 7 3 - 11 LAB CHEMISTRY METHOD 01/17/2025 1:17 PM [facility] Glucose 112(H) 70 - 100 mg/dL LAB CHEMISTRY METHOD 01/17/2025 1:17 PM [facility] BUN 23 5 - 25 mg/dL LAB CHEMISTRY METHOD 01/17/2025 1:17 PM [facility] Creatinine 1.22(H) 0.50 - 1.10 mg/dL LAB CHEMISTRY METHOD 01/17/2025 1:17 PM [facility] eGFR 45(L) >=60 mL/min/1. 73m2 LAB CHEMISTRY METHOD 01/17/2025 1:17 PM [facility] Comment:Calculation based on the Chronic Kidney Disease Epidemiology Collaboration (CKD-EPI) equation refit without adjustment for race. BUN/Creatinine Ratio 18.9 LAB CHEMISTRY METHOD 01/17/2025 1:17 PM [facility] Calcium 8.6 8.5 - 10.5 mg/dL LAB CHEMISTRY METHOD 01/17/2025 1:17 PM [facility] AST (SGOT) 22 10 - 42 unit/L LAB CHEMISTRY METHOD 01/17/2025 1:17 PM [facility] ALT (SGPT) 42 10 - 60 unit/L LAB CHEMISTRY METHOD 01/17/2025 1:17 PM [facility] Alkaline Phosphatase 70 42 - 121 unit/L LAB CHEMISTRY METHOD 01/17/2025 1:17 PM [facility] Total Protein 6.6 6.0 - 8.0 g/dL LAB CHEMISTRY METHOD 01/17/2025 1:17 PM [facility] Albumin 3.3 3.2 - 5.0 g/dL LAB CHEMISTRY METHOD 01/17/2025 1:17 PM [facility] Total Bilirubin 0.5 0.0 - 1.4 mg/dL LAB CHEMISTRY METHOD 01/17/2025 1:17 PM EDT [facility] Blood Venous blood specimen / Unknown Venipuncture / Unknown 01/17/2025 10:05 AM EDT 01/17/2025 10:05 AM EDT us Javier Shelton MD LAB BLOOD ORDERABLES F inal Result [facility] [address] [place] [address], from Last 3 Months or Most Recently Relevant to Health Maintenance Insurance [employer] Advance Directives Documents on File Type Date Recorded Patient Director Of Restaurant Expl anation Health Care Decision (hx) 01/16/2021 [...] (hx) 01/16/2021 AD MCLEOD DIRECTIVE Care Teams Information Security Manager Relationship Specialty Start Date End Date Isabella Miller PA [address] [place] [address] PCP - General Primary Care 06/21/24
--- OUTSIDE RECORDS SUMMARY | 2025-05-02 18:34 | XMS_ITS ---
Author Organization [facility] Care Team Providers Care Excellence Coach Name Role Phone Isiah Bradford Unavailable Unavailable Good Suresh Unavailable Unavailable Allergies and adverse reactions No Known Allergies Care Team Name Role Address Phone Organization Dates Isiah Bradford PCP [address] [place] [address], [address], [facility] (Office): [phone] (Fax): [phone] [facility] 08/05/2021 - 08/07/2021 Good Suresh [address] [place] [address], [address], [facility] (Office): [phone] (Fax): [phone] [facility] 08/05/2021 - 08/07/2021 Immunizations Immunization Status Vaccine Details Vaccine Code CodeSystem Date Notes SARS-COV-2 (COVID-19) completed SARS-COV-2 (COVID-19) vaccine, mRNA, spike protein, LNP, preservative free, 3 mcg/0.2mL dose, kiara-sucrose formulation Mfg: SkySQL COVID 19 Given intramuscularly Step 2 of Multi-step with next step required 219 CVX created date: 08/05/2021 administer ed date: 11/03/2020 SARS-COV-2 (COVID-19) completed SARS-COV-2 (COVID-19) vaccine, mRNA, spike protein, LNP, preservative free, 3 mcg/0.2mL dose, kiara-sucrose formulation Mfg: Pfizer COVID 19 Given intramuscularly Step 1 of Multi-step with next step required 219 CVX created date: 08/05/2021 administer ed date: 10/06/2020 COVID-19 Vaccine Single Dose completed unknown vaccine or immune globulin Mfg: moderna COVID 19 Given intramuscularly 999 CVX created date: 08/05/2021 administer ed date: 07/06/2021 booster Mental Status Section Date Assessment Total Score Description 08/07/2021 BIMS 15 cognitively int act CAM 0 No delirium ind icated PHQ-9 09 mild depression 08/07/2021 BIMS 15 cognitively int act CAM 0 No delirium ind icated PHQ-9 09 mild depression Problems Problem # Description Date of onset Resolved Date Code CodeSystem Concern Status 1 ATHEROSCLEROSIS OF AORTA 08/05/[address] active 2 AUTOIMMUNE THYROIDITIS 08/05/[address] active 3 CALCULUS OF GALLBLADDER WITH CHRONIC CHOLECYSTITIS WITHOUT OBSTRUCTION 08/05/[address] active [address]IOMYOPATHY, UNSPECIFIED 08/05/[address] active 5 CHRONIC ATRIAL FIBRILLATION, UNSPECIFIED 08/05/[address] active 6 CHRONIC DIASTOLIC (CONGESTIVE) HEART FAILURE 08/05/[address] active 7 CHRONIC IDIOPATHIC CONSTIPATION 08/05/[address] active 8 DIVERTICULOSIS OF INTESTINE, PART UNSPECIFIED, WITHOUT PERFORATION OR ABSCESS WITHOUT BLEEDING 08/05/[address] active 9 DRUG-INDUCED POLYNEUROPATHY 08/05/[address] active 10 ENCOUNTER FOR SURGICAL AFTERCARE FOLLOWING SURGERY ON THE DIGESTIVE SYSTEM 08/05/[address] active 11 ESSENTIAL (PRIMARY) HYPERTENSION 08/05/[address] active 12 HYPERLIPIDEMIA, UNSPECIFIED 08/05/[address] active 13 HYPOKALEMIA 08/05/[address] active 14 HYPOMAGNESEMIA 08/05/[address] ac tive 15 HYPOTHYROIDISM, UNSPECIFIED 08/05/[address] active 16 IRRITABLE BOWEL SYNDROME, UNSPECIFIED 08/05/[address] active 17 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 OF OPIATE ANALGESIC 08/05/[address] active 18 NONRHEUMATIC MITRAL (VALVE) INSUFFICIENCY 08/05/[address] active 19 PERITONEAL ADHESIONS (POSTPROCEDURAL) (POSTINFECTION) 08/05/[address] active 20 PERSONAL HISTORY OF ANTINEOPLASTIC CHEMOTHERAPY 08/05/[address] active 21 PERSONAL HISTORY OF MALIGNANT NEOPLASM OF BREAST 08/05/[address] active 22 PRESENCE OF CARDIAC PACEMAKER 08/05/[address] active 23 OTHER INTESTINAL OBSTRUCTION UNSPECIFIED TO PARTIAL VERSUS COMPLETE OBSTRUCTION 08/04/[address] active Reason for Referral No Reasons for Referral Entered Social History Social History Observation Description Start Date End Date Code Code System Current Smoking Status Tobacco smoking consumption unknown 587251772 SNOMED CT Sex Assigned At Female 1945 32673-9 [facility] Gender Identity Sexual Orientation Vital Signs Code Code System Vitals Name Values and Units Timing Information 8302-2 LOINC Height Value=65.0 Units=Inches 08/07/2021 58031-8 LOINC Weight Kzsph=344.0 Units=Lbs 53422-1 LOINC Pain Level Value=4.0 08/07/2021 9279-1 LOINC Respiratory Rate Value=18.0 Units=/m in 08/07/2021 8462-4 LOINC Blood Pressure-Diastolic Value=82 Un its=mmHg 08/07/2021 8480-6 LOINC Blood Pressure-Systolic Aitum=168 Un its=mmHg 08/07/2021 8310-5 LOINC Body Temperature Value=98.4 Units= F 08/07/2021 8867-4 LOINC Heart rate Value=76.0 Units=/min 42699-8 LOINC O2 % BldC Oximetry Value=97.0 Units= % 08/07/2021
--- OUTSIDE RECORDS SUMMARY | 2025-05-02 18:34 | XMS_ITS | Clinical Summary ---
Author Organization [facility] Address [address] [place] [address] Care Team Providers Care Lens Grinder And Polisher Name Role Phone Julio Brizuela MD Primary Care Provider Unavailab le Allergies Active Allergy Reactions Criticality Noted Date Comments Iodinated Contrast Media 01/24/2009 Oxycodone-Acetaminophen 11/09/2017 Medications Medication Sig Dispensed Refills Start Date End Date Status [place]-3 Fatty Acids (FISH OIL) 1000 MG CAPS [...] 0 05/24/2018 Active ergocalciferol (VITAMIN D2) capsule 23299 units TAKE ONE CAPSULE BY MOUTH ONE [...] 87 07/27/2019 11:34 AM EST Temperature 36.7 C (98.1 F) 07/27/2019 11:34 AM EST Respiratory Rate - - Oxygen Saturation - [...] 1-dose 75+ series) 2018 Influenza Vaccine (#1) 2025 Pneumococcal Vaccine Completed 01/02/2015, 07/03/2011 Hepatitis B Vaccines Aged Out No long er eligible based on patient's age to complete this topic RSV Ped < 20 months Aged Out No longe r eligible based on patient's age to complete this topic Care Teams Lens Grinder And Polisher Relationship Specialty Start Date End Date Julio Brizuela MD PCP - General Internal Medicine 01/18/19
--- OUTSIDE RECORDS SUMMARY | 2025-05-02 18:34 | XMS_ITS ---
Author Name [facility] Organization Unknown Care Team Organization Name Specialty Phone Email Start Date End Da te [facility] 04/04/2025 [facility] EFRA FOFANA Primary Care 06/23/2022 04/03/20 24
== END 2025-05-02 15:51 | disposition home or self-care (01) ==
LOC: HO.PMC 15:02
PROVIDERS: PCP Internal Medicine; Visit Provider Anesthesiology
DX: G89.4 Chronic pain syndrome (principal); G62.0 Drug-induced polyneuropathy; Z79.891 Long term (current) use of opiate analgesic; T45.1X5A Adverse effect of antineoplastic and immunosuppressive drugs, initial encounter; M17.0 Bilateral primary osteoarthritis of knee; M47.817 Spondylosis without myelopathy or radiculopathy, lumbosacral region; M25.561 Pain in right knee; M25.562 Pain in left knee; Z79.01 Long term (current) use of anticoagulants
CPT/HCPCS: 20610; 99213

== ENCOUNTER → 2025-05-02 15:02 | Outpatient (BNVA) | payer MEDICARE, SELFPAY | PROVIDERS: PCP Internal Medicine; Visit Provider Anesthesiology | DX: M17.0 Bilateral primary osteoarthritis of knee (principal); Z51.81 Encounter for therapeutic drug level monitoring; M25.561 Pain in right knee; M25.562 Pain in left knee; M47.817 Spondylosis without myelopathy or radiculopathy, lumbosacral region; G62.0 Drug-induced polyneuropathy; T45.1X5A Adverse effect of antineoplastic and immunosuppressive drugs, initial encounter; F11.20 Opioid dependence, uncomplicated; Z79.01 Long term (current) use of anticoagulants | CPT/HCPCS: 20610; 99212; J3301 ==

== ENCOUNTER 2025-05-09 15:27 | Outpatient (REF) | payer MEDICARE, SELFPAY ==
--- NOTE | ~2025-05-09 | MM_ITS ---
EXAMINATION: MM SCREENING DIGITAL BREAST TOMOSYNTHESIS, BILATERAL CLINICAL INFORMATION: Screening. Asymptomatic. History of left breast cancer 23 years ago status post lumpectomy. COMPARISON: Mammography: Comparison is made with available priors TECHNIQUE: Digital breast mammography with tomosynthesis is performed in both the craniocaudal and mediolateral oblique views along with computer-aided detection (CAD). FINDINGS: There are scattered areas of fibroglandular density. Left post lumpectomy changes are stable. Pacemaker overlies and obscures the superior posterior left breast on MLO view. There are no significant masses, abnormal calcifications, or other abnormalities. MM/MM tomosynthesis screening BI IMPRESSION: No mammographic evidence of malignancy. ASSESSMENT: BI-RADS Category 2: Benign RECOMMENDATION: Routine annual mammography screening. 1 year F/U This examination should not preclude the clinical evaluation of a suspicious palpable abnormality. This patient's information was entered into a reminder system with a target due date for their next mammogram. Electronically signed by: Prachi Kaur DO 05/09/2025 04:44 PM EDT
--- OUTSIDE RECORDS SUMMARY | 2025-05-09 17:50 | XMS_ITS | Clinical Summary ---
Author Organization [facility] Address [address] [place] [address] Phone Care Team Providers Care Windows Mobile Developer Name Role Phone Isabella Miller Primary Care [...] tablet by mouth daily. 09/23/19 19 Active morphine (MS CONTIN) 15 mg 12 hr tablet TAKE 1 TABLET BY MOUTH TWICE DAILY NEEDED FOR SEVERE PAIN (SCALE SCORE 7-10) FOR 30 DAYS. 04/03/20 23 Active L.acid/L.casei/ B.bif/B.brendan/FOS (PROBIOTIC BLEND ORAL) Take by mouth. Active spironolactone (ALDACTONE) 25 mg tabletIndicatio ns:Chronic systolic (congestive) heart failure (CMS/HCC V24, CMS/HCC V28) Take 0.5 tablets (12.5 mg total) by mouth every other day. 90 tablet 2 08/24/19 25 Active carvediloL (COREG) 3.125 mg tablet TAKE 1 TABLET BY MOUTH TWICE DAILY WITH FOOD. 180 tablet 2 09/29/19 25 Active gabapentin (NEURONTIN) 300 mg capsuleIndicati ons:Acute bilateral thoracic back pain TAKE 1 CAPSULE BY MOUTH IN THE MORNING AND 2 AT BEDTIME 90 capsule 3 12/06/19 25 Active furosemide (LASIX) 20 mg tabletIndicatio ns:Chronic HFrEF (heart failure with reduced ejection fraction) (CMS/HCC V24, CMS/HCC V28) TAKE 1 TABLET BY MOUTH NEEDED FOR HF SYMPTOMS 90 tablet 3 01/03/20 25 Active rosuvastatin (CRESTOR) 5 mg tablet TAKE 1 TABLET BY MOUTH EVERY DAY 90 tablet 2 01/06/20 25 Active amiodarone (PACERONE) 200 mg tablet Take 1 tablet (200 mg total) by mouth 1 (one) time each day. 90 tablet 1 01/17/20 25 Active dapagliflozin propanediol (Farxiga) 10 mg tablet Take 1 tablet (10 mg total) by mouth 1 (one) time each day. 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..] mg orally daily Candidate for ICD or ORGANIC LAB WORKER: ORGANIC LAB WORKER-P in place Assessment and plan: The patient [...] mg orally daily Candidate for ICD or ORGANIC LAB WORKER: ORGANIC LAB WORKER-P in place Assessment and plan: 1. Continue [...] cardiac MRI yesterday 11/07/24 pending results. ICD: ORGANIC LAB WORKER-P in place, with reassessment of EF and [...] SGLT2 inhibitors: Dapagliflozin 10 mg daily. ICD: ORGANIC LAB WORKER-P in place, with reassessment of EF and [...] wo and w Contrast; Future Atrial fibrillation (CMS/[facility] V24, CMS/HCC V28) 1 Overview (05/15/2024): Last Assessment & Plan: The patient has a history of paroxysmal atrial fibrillation. She is on rhythm control therapy with amiodarone and rate control therapy with Coreg. Also, the patient has a TPQ1EZ0-RKCh score of 5 (age, gender, heart failure, [...] with Coreg. Also, the patient has a KNY7BI2-LOLf score of 7 (age, gender, heart failure, [...] Patient has history of paroxysmal atrial fibrillation, SPZ6KY0-VUCb score of 5. She continues on rhythm [...] chemotherapy and surgery), who was admitted to [facility] 01/31-02/05/21 with weakness x [address] Caban consulted on the patient due to her bradycardia which appeared multifactorial from electrolyte disturbances in the setting of renal dysfunction and due to amiodarone. She had a pacemaker with ORGANIC LAB WORKER implanted during the hospitalization. She does not [...] Description 03/28/2025 2:35 PM EDT Ancillary Procedure [facility] [address] [place] [address] 03/06/2025 11:15 AM EDT Office Visit Internal Medicine - [place] [address] [facility] [address] [place] [address] Julio Brizuela MD Ecchymoses, spontaneous (Primary Dx); Neuritis 02/20/2025 11:25 AM EDT Ancillary Procedure [facility] - [address] [place] [address] 02/20/2025 Telephone [facility] - [facility] [address] [facility] [address] [place] [address] Angelica Rowe PA 02/06/[address] [place] [address] Javier Shelton MD from Last 3 Months [...] CHOLECYSTECTOMY PROCEDURE: LAPAROSCOPY, CHOLECYSTECTOMY; COMMENT: 07/2023 in [place] due to cholelithiasis Medical History Medical History Date Comments Aortic atherosclerosis ([facility] V24) 10/02/2015 DX:Aortic atherosclerosis (HCC); COMMENT: Comments: CXR 11/29/14 Atherosclerotic aorta Atrial fibrillation ([facility] V24, [facility] V28) 05/19/2018 DX:Atrial fibrillation (HCC) Cardiomyopathy ([facility] V24, [facility] V28) 09/06/2015 DX:Cardiomyopathy (HCC) Chronic constipation [...] DX:Hyperlipidemi a Cholelithiasis DX:Cholelithiasi s Breast cancer ([facility] V24, [facility] V28) 2003 DX:Breast cancer (HCC); COMMENT: Chemo &Rad Tx Family history of coronary a rtery disease DX:Family history of coronar y artery disease H/O hypercholesterolemia Rosacea Chronic kidney disease (CKD) , stage III (moderate) ([facility] V24, [facility] V28) Family History Medical History Relation [...] 06/20/2025 4:00 PM EST Office Visit Nephrology [id number] [place] [address] Jake Carr MD [address] [facility] [address] [place] [id number] 07/24/2025 11:15 AM EST Office Visit Internal Medicine - [place] [address] [facility] [address] [place] [phone] Iasbella Miller PA [address] [facility] [address] [place] [address] 07/30/2025 10:40 AM EST Office Visit [facility] [address] [place] [address] Claudia Rose NP [address] [place] [address] [address] [place] [phone] 11/01/2025 11:00 AM EDT Ancillary Procedure [facility] Cardiology [facility] - [facility] [address] [facility] [address] [place] [address] Health Maintenance Due Date Last [...] this topic Medical Devices Implanted Type Area Advanced Practice Nurse Psychotherapist Device Identifier Shelf Expiration Date Model / Serial / Lot Medt-Card Percepta Quad Flatwork Supervisor-P [id number] Implanted: by Efren Caban MD (Quantity not on file) Cardiac ORGANIC LAB WORKER-P Left: Chest [employer] - CARDIAC RHYTH-CRDM PERCEPTA QUAD ORGANIC LAB WORKER-P [id number] / [id number] / Procedures Procedure Name Priority Date/Time Associated Diagnosis Comments CARDIAC DEVICE CHECK- REMOTE- MURJ Routine 03/28/2025 2:31 PM EDT CARDIAC DEVICE CHECK- REMOTE- MURJ Routine 02/20/2025 11:24 AM EDT COMPREHENSIVE METABOLIC PANEL Routine 01/17/2025 10:05 AM EDT Chronic HFrEF (heart failure with reduced ejection fraction) (CMS/HCC V24, CMS/HCC V28) long term care pharmacist current use of amiodarone LIPID PANEL WITH REFLEX TO DIRECT LDL Routine 01/17/2025 10:05 AM EDT Coronary artery disease involving cantwell coronary artery of cantwell heart without angina pectoris Pure hypercholesterolemia from Last 3 Months or Most Recently Relevant to Health Maintenance Results * Cardiac device check - Remote- MURJ (03/28/2025 2:31 PM EDT) Only the most recent of2 resultswithin the time period is included. Date Time Interrogation Session [id number] CV DEVICE CHECK Type Interrogation Session Remote CV DEVICE CHECK Implantable Pulse Generator Advanced Practice Nurse Psychotherapist MDT CV DEVICE CHECK Implantable Pulse Generator Type ORGANIC LAB WORKER-P CV DEVICE CHECK Implantable Pulse Generator Model Percepta Quad ORGANIC LAB WORKER-P [id number] CV DEVICE CHECK Implantable Pulse Generator Serial Number [id number] CV DEVICE CHECK Implantable Pulse Generator Implant Date 20210131 CV DEVICE CHECK Battery Remaining Longevity 42.0 CV DEVICE CHECK Battery Voltage 2.940 CV D EVICE CHECK Battery WALLPAPER HANGER HELPER Trigger 2.595 CV DEVICE CHECK Battery Status Middle of Service CV DEVICE CHECK Chinmay Statistic RA Percent Paced 99.92 CV DEVICE CHECK Atrial Tachy Statistic AT/AF [place] Percent 0.00 CV DEVICE CHECK Lead Channel [...] CV DEVICE CHECK Ventricular chambers paced during ORGANIC LAB WORKER pacing. BiV CV DEVICE CHECK Chinmay Setting Lower Rate Limit 75 CV DEVICE CHECK Chinmay Setting AT Mode Switch Rate 171 CV DEVICE CHECK Chinmay Setting Maximum Tracking Rate 110 CV DEVICE CHECK Chinmay Setting Maximum Sensor Rate 120 CV DEVICE CHECK Chinmay Setting PAV Delay 150 CV DEVICE CHECK Chinmay Setting EDITH Delay 130 CV DEVICE CHECK ORGANIC LAB WORKER LV-RV Delay 30 CV D EVICE CHECK [...] LAB CHEMISTRY METHOD 01/17/2025 1:17 PM EDT [facility] Triglycerides 82 0 - 150 mg/dL LAB CHEMISTRY METHOD 01/17/2025 1:17 PM EDT [facility] HDL 78 >=40 mg/dL LAB CHEMISTRY METHOD 01/17/2025 1:17 PM EDT [facility] LDL Calculated 70 0 - 100 mg/dL LAB CHEMISTRY METHOD 01/17/2025 1:17 PM EDT [facility] VLDL Cholesterol Hern[place] 16.4 mg/dL LAB CHEMISTRY METHOD 01/17/2025 1:17 PM EDT [facility] Non HDL Chol. (LDL+VLDL) 86 <145 mg/dL LAB CHEMISTRY METHOD 01/17/2025 1:17 PM EDT [facility] Chol/HDL Ratio 2.1 0.0 - 4.4 LAB CHEMISTRY METHOD 01/17/2025 1:17 PM EDT [facility] Blood Venous blood specimen / Unknown Venipuncture / Unknown 01/17/2025 10:05 AM EDT 01/17/2025 10:05 AM EDT us Javier Shelton MD LAB BLOOD ORDERABLES F inal Result [facility] [address] [place] [address], [place] [phone] * (ABNORMAL) Comprehensive metabolic panel (01/17/2025 10:05 AM EDT) Sodium 140 133 - 145 mmol/L LAB CHEMISTRY METHOD 01/17/2025 1:17 PM [facility] Potassium 4.3 3.5 - 5.5 mmol/L LAB CHEMISTRY METHOD 01/17/2025 1:17 PM [facility] Chloride 108 96 - 110 mmol/L LAB CHEMISTRY METHOD 01/17/2025 1:17 PM [facility] CO2 25 21 - 32 mmol/L LAB CHEMISTRY METHOD 01/17/2025 1:17 PM [facility] Anion Gap 7 3 - 11 LAB CHEMISTRY METHOD 01/17/2025 1:17 PM [facility] Glucose 112(H) 70 - 100 mg/dL LAB CHEMISTRY METHOD 01/17/2025 1:17 PM [facility] BUN 23 5 - 25 mg/dL LAB CHEMISTRY METHOD 01/17/2025 1:17 PM [facility] Creatinine 1.22(H) 0.50 - 1.10 mg/dL LAB CHEMISTRY METHOD 01/17/2025 1:17 PM [facility] eGFR 45(L) >=60 mL/min/1. 73m2 LAB CHEMISTRY METHOD 01/17/2025 1:17 PM [facility] Comment:Calculation based on the Chronic Kidney Disease Epidemiology Collaboration (CKD-EPI) equation refit without adjustment for race. BUN/Creatinine Ratio 18.9 LAB CHEMISTRY METHOD 01/17/2025 1:17 PM [facility] Calcium 8.6 8.5 - 10.5 mg/dL LAB CHEMISTRY METHOD 01/17/2025 1:17 PM [facility] AST (SGOT) 22 10 - 42 unit/L LAB CHEMISTRY METHOD 01/17/2025 1:17 PM [facility] ALT (SGPT) 42 10 - 60 unit/L LAB CHEMISTRY METHOD 01/17/2025 1:17 PM [facility] Alkaline Phosphatase 70 42 - 121 unit/L LAB CHEMISTRY METHOD 01/17/2025 1:17 PM EDT [facility] Total Protein 6.6 6.0 - 8.0 g/dL LAB CHEMISTRY METHOD 01/17/2025 1:17 PM EDT [facility] Albumin 3.3 3.2 - 5.0 g/dL LAB CHEMISTRY METHOD 01/17/2025 1:17 PM EDT [facility] Total Bilirubin 0.5 0.0 - 1.4 mg/dL LAB CHEMISTRY METHOD 01/17/2025 1:17 PM EDT [facility] Blood Venous blood specimen / Unknown Venipuncture / Unknown 01/17/2025 10:05 AM EDT 01/17/2025 10:05 AM EDT Javier Shelton MD LAB BLOOD ORDERABLES F inal Result [facility] [address] [place] [address], from Last 3 Months or Most Recently Relevant to Health Maintenance Insurance [employer] Advance Directives Documents on File Type Date Recorded Patient Life Insurance Sales Agent Expl anation Health Care Decision (hx) 01/16/2021 [...] (hx) 01/16/2021 AD MCLEOD DIRECTIVE Care Teams Windows Mobile Developer Relationship Specialty Start Date End Date Isabella Miller PA [address] [place] [address] PCP - General Primary Care 06/21/24
--- OUTSIDE RECORDS SUMMARY | 2025-05-09 17:50 | XMS_ITS | Clinical Summary ---
Author Organization [facility] Address [address] [place] [address] Care Team Providers Care Talent Acquisition Manager Name Role Phone Julio Brizuela MD Primary Care Provider Unavailab le Allergies Active Allergy Reactions Criticality Noted Date Comments Iodinated Contrast Media 01/24/2009 Oxycodone-Acetaminophen 11/09/2017 Medications Medication Sig Dispensed Refills Start Date End Date Status [place]-3 Fatty Acids (FISH OIL) 1000 MG CAPS [...] 0 05/24/2018 Active ergocalciferol (VITAMIN D2) capsule 76462 units TAKE ONE CAPSULE BY MOUTH ONE [...] age to complete this topic Care Teams Talent Acquisition Manager Relationship Specialty Start Date End Date Julio Brizuela MD PCP - General Internal Medicine 01/18/19
== END 2025-05-09 15:28 | disposition home or self-care (01) ==
LOC: HO.MAMMO 15:27
PROVIDERS: PCP Physician Assistant; Visit Provider Internal Medicine
DX: Z12.31 Encounter for screening mammogram for malignant neoplasm of breast (principal)
CPT/HCPCS: 77063; 77067

== ENCOUNTER → 2025-05-09 16:00 | Outpatient (BNV) | payer MEDICARE, SELFPAY | PROVIDERS: PCP Physician Assistant; Visit Provider Internal Medicine | DX: Z12.31 Encounter for screening mammogram for malignant neoplasm of breast (principal) | CPT/HCPCS: 77063; 77067 ==

== ENCOUNTER 2025-06-06 10:12 | Outpatient (AMB) | payer MEDICARE, SELFPAY ==
[2025-06-06 10:15] VITALS: BP 109/59; PULSE 78; RESP 16; O2SAT 98; BMI 25.2
--- NOTE | 2025-06-06 10:15 | MHC.OFFVIS ---
Vital Signs 06/06/25 10:15 Height 5 ft 3 in Weight 142 lb BMI 25.2 BP 109/59 L Blood Pressure Location Rt brachial Position Sitting Respiration 16 Pulse 78 Pulse Source Pulse Oximeter Pulse Oximetry (%) 98 Oxygen Delivery Method Room Air Intake Visit Reasons: Pill Count/Random UDS Intake Note: Patient here for a pill count routine of Morphine. Per directions patient should have 14 pills. Patient presented 28 pills. Last took 10pm 06/05/25 Plant Associate Required: No Accompanied by: Self / Same As Patient Allergies No Known Allergies Allergy (Verified 06/06/25 10:15) HPI Comments Details: Darlene is in my office today for the pain medication refill. She supposed to have 14 pills in her possession. She presented with 28 pills in her possession. She reports today that she is planning to trip to her daughter in [place] and she is saving some medications. This demonstrates responsible attitude to were the opioid medications. I will prescribe her new batch of the medication on 06/13/2025. I will see this patient in 1 month. We also discussed today intrathecal pain pump to help the pain postlaminectomy syndrome. She was asking multiple questions about the procedure, she was asking about the trials, everything was explained to her to her satisfaction. [employer] pain pump brochure was given to the patient. Last time on month ago patient received injection into the left knee. She reports excellent pain relief about 90% improvement. Patient was explained that we can repeat this procedure in 3 months. I also explained to the patient that if procedures we stopped helping patient pain she would need to see an orthopedic surgeon. Patient also was given a random urine drug screen and she stated that she took her last morphine at 22:00 last night 06/05/2025 PRIOR: The patient is an 79-year-old female presenting to the office for follow up, chronic opioid management. She had received bilateral knee injections 2 weeks ago that have provided significant improvement in her pain. The pain does worsen about an hour after bed, interfering with sleep despite the use of a muscle cream. Yard work exacerbates the discomfort, though the patient continues to maintain her activities. Patient is prescribed Morphine 15mg take 1 tablet twice daily. Patient arrived today with the expectation of having 50 pills, she presented 54 pills which were counted in the presence of two staff members and returned to the patient in the original prescription bottle. This demonstrates responsible attitude toward patient's opioid medications. Pain is reported today as 0/10 and last dose of pain medication was taken at 10pm last night. Patient denies side effects including somnolence, constipation, itching, dyspnea, rash, dizziness or weakness. 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 She has begun using trazodone at night for sleep disturbances prescribed by her pcp. - Onset and Timing: Pain returns about an hour after lying down at night. - Quality and Character: Likely due to arthritis; descriptions include notable discomfort. - Location: Bilateral knees. - Exacerbating Factors: Nighttime immobility, physical activities like yard work. - Relieving Factors: Muscle cream applied topically provides some relief. - Daily Impact: Interferes with sleep, making daily activities challenging post-injection. - Affect: The pain impacts the patient?s ability to sleep and general comfort. - Analgesia: Knee injections and topical muscle cream; pain remains tolerable during the day. - Adverse Effects: None from mentioned treatments. - Activities of Daily Living: Pain limits mobility at night; daily life affected by sleep disturbances. - Aberrant Drug-Related Behaviors: None identified. [facility] Medical History Thyroid cancer Chronic pain syndrome Peripheral polyneuropathy Surgical History Status post ablation of incompetent vein using laser (09/11/22) Social History Patient Tobacco Use Status: Never used Tobacco Current occupational status: retired Review of Systems Const All systems reviewed & are unremarkable except as noted in HPI and below Physical Exam Vital Signs: Last Vital Signs Pulse 78 06/06/25 10:15 Resp 16 06/06/25 10:15 BP 109/59 L 06/06/25 10:15 Pulse Ox 98 06/06/25 10:15 Oxygen Delivery Method Room Air 06/06/25 10:15 BMI result Body Mass Index 25.2 General: Appears afebrile. Alert and oriented. Mood and affect appropriate. Follows and participates in conversation appropriately. Respiratory effort is unlabored. No cough. Able to transition from sit to stand unassisted. Ambulates with bilaterally normal heel strike and toe off. Back/Spine/Pelvis Thoracic/Lumbar Spine: pain with thoraco-lumbar ROM, thoraco-lumbar ROM limited, No thoracic spinal tenderness and No lumbar spinal tenderness Extrem General: Yes capillary refill normal, Yes no clubbing, cyanosis or edema and Yes no calf tenderness Right lower extremity: knee (Limited ROM due to pain.) Details: normal to inspection, tenderness Location: of the patella, of the popliteal fossa, of the medial joint line and of the lateral joint line and crepitus; no swelling, no ecchymosis and no unusual warmth Left lower extremity: knee (Limited ROM due to pain.) Details: normal to inspection, tenderness Location: of the patella, of the popliteal fossa, of the medial joint line and of the lateral joint line and crepitus; no swelling, no ecchymosis and no unusual warmth Psych Appearance: grossly normal and well kempt Mental Status: mental status grossly normal Speech and movement: Normal speech and movement present and Clear speech present Affect: normal affect Attitude: cooperative Thought process: Normal thought process present Thought content: Normal thought content present, suicidality (none), no hallucinations and No Depressive thoughts present Insight: Good insight present (Psych) Judgement: Good judgement present (Psych) Assessment & Plan Assessment & Plan (1) Chronic, continuous use of opioids: Code(s): F11.90 - Opioid use, unspecified, uncomplicated Category: Medical (2) Chronic pain syndrome: Code(s): G89.4 - Chronic pain syndrome Category: Medical (3) Chemotherapy-induced peripheral neuropathy: Code(s): G62.0 - Drug-induced polyneuropathy; T45.1X5A - Adverse effect of antineoplastic and immunosuppressive drugs, initial encounter Category: Medical (4) Bilateral primary osteoarthritis of knee: Code(s): M17.0 - Bilateral primary osteoarthritis of knee Category: Medical (5) Lumbosacral spondylosis: Code(s): M47.817 - Spondylosis without myelopathy or radiculopathy, lumbosacral region Category: Medical (6) Bilateral knee pain: Code(s): M25.561 - Pain in right knee; M25.562 - Pain in left knee Category: Medical (7) Current use of anticoagulant therapy: Code(s): Z79.01 - bed bug exterminator (current) use of anticoagulants Category: Medical Plan Discussion about intrathecal pain pump see as above. Patient received brochure. Her pill count is correct today. I will prescribe her her morphine 60 pills for a months 15 mg b.i.d. She was given today urine drug screen. Last time she took her medication was 22:00 06/05/2025. She received intra-articular left knee injection last time and she reports good pain relief. I explained to the patient everything about this pain relief. Medications: Refilled morphine ER Partial Fill upon patient request. 15 mg PO BID PRN 60 tabs 0RF severe pain (scale score 7-10) 30 days F11.90 - Opioid use, unspecified, uncomplicated, G62.0 - Drug-induced polyneuropathy, M17.0 - Bilateral primary osteoarthritis of knee, T45.1X5A - Adverse effect of antineoplastic and immunosuppressive drugs, initial encounter Patient Instructions: I here by testify that I spent 30 minutes in conversation with this patient as well as planning her care and organizing this note. Coding Level of Care Code Est Pt Level 4 (61447) Diagnoses Chronic, continuous use of opioids F11.90 Chronic pain syndrome G89.4 Chemotherapy-induced peripheral neuropathy G62.0; T45.1X5A Bilateral primary osteoarthritis of knee M17.0 Lumbosacral spondylosis M47.817 Bilateral knee pain M25.561; M25.562 Current use of anticoagulant therapy Z79.01
--- OUTSIDE RECORDS SUMMARY | 2025-06-06 12:29 | XMS_ITS | Clinical Summary ---
Author Organization [address] [place] [address] Address [address] [place] [address] Phone Care Team Providers Care Bicycle Racer Name Role Phone Isabella Miller Primary Care [...] by mouth. Active spironolactone (ALDACTONE) 25 mg tabletIndication s:Chronic systolic (congestive) heart failure (CMS/HCC V24, CMS/HCC V28) Take 0.5 tablets (12.5 mg total) by mouth every other day. 90 tablet 2 5 Active carvediloL (COREG) 3.125 mg tablet TAKE 1 TABLET BY MOUTH TWICE DAILY WITH FOOD. 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 TAKE 1 TABLET BY MOUTH EVERY MORNING 6 DAYS/WEEK AND A HALF A TABLET ON THE SEVENTH DAY 78 tablet 2 5 Active Eliquis 2.5 mg tabletIndication s:Atrial fibrillation, unspecified type (CMS/HCC V24, CMS/HCC V28) TAKE 1 TABLET BY MOUTH TWICE A DAY 90 tablet 2 5 Active Active Problems Problem Noted Date Diagnosed Date Polyneuropathy due to other toxic agents (CMS/HC C V24) 11/01/2024 CKD stage 3b, GFR 30-44 ml/min (CMS/HCC V24, CMS /HCC V28) 10/18/2024 intermission coordinator current use of amiodarone 08/23/2024 Assessment & [...] reduced ejection fraction) (CMS/HCC V24, CMS/HCC V28) 01/30/2021 Overview (05/15/2024): Last [...] mg orally daily Candidate for ICD or VOLLEYBALL ASSEMBLER: VOLLEYBALL ASSEMBLER-P in place Assessment and plan: The patient [...] mg orally daily Candidate for ICD or VOLLEYBALL ASSEMBLER: VOLLEYBALL ASSEMBLER-P in place Assessment and plan: 1. Continue [...] cardiac MRI yesterday 11/07/24 pending results. ICD: VOLLEYBALL ASSEMBLER-P in place, with reassessment of EF and [...] SGLT2 inhibitors: Dapagliflozin 10 mg daily. ICD: VOLLEYBALL ASSEMBLER-P in place, with reassessment of EF and [...] wo and w Contrast; Future Atrial fibrillation (CMS/HCC V24, CMS/HCC V28) 1 Overview (05/15/2024): Last Assessment & Plan: The patient has a history of paroxysmal atrial fibrillation. She is on rhythm control therapy with amiodarone and rate control therapy with Coreg. Also, the patient has a TGB1ZD7-WIAp score of 5 (age, gender, heart failure, [...] with Coreg. Also, the patient has a MWG5NA5-YDDb score of 7 (age, gender, heart failure, [...] Patient has history of paroxysmal atrial fibrillation, JCB4KD4-NFZm score of 5. 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 Caban consulted on the patient due to her bradycardia which appeared multifactorial from electrolyte disturbances in the setting of renal dysfunction and due to amiodarone. She had a pacemaker with VOLLEYBALL ASSEMBLER implanted during the hospitalization. She does not [...] Encounters Date Type Department Care Team Description 05/15/2025 7:30 PM EDT Ancillary Procedure [facility] [address] [place] [phone] 03/28/2025 2:35 PM EDT Ancillary Procedure [facility] - [address] [place] [phone] 03/06/2025 11:15 AM EDT Office Visit Internal Medicine - [place] [address] [facility] [address] [place] [phone] Julio Brizuela MD Ecchymoses, spontaneous (Primary Dx); Neuritis from Last 3 Months Immunizations Immunization Administration Dates Next Due Pneumococcal conjugate 13 [...] CHOLECYSTECTOMY PROCEDURE: LAPAROSCOPY, CHOLECYSTECTOMY; COMMENT: 07/2023 in [place] due to cholelithiasis Medical History Medical History [...] DX:Hyperlipidemi a Cholelithiasis DX:Cholelithiasi s Breast cancer ([facility] V24, [facility] V28) 2003 DX:Breast cancer (HCC); COMMENT: Chemo &Rad Tx Family history of coronary a rtery disease DX:Family history of coronar y artery disease H/O hypercholesterolemia Rosacea Chronic kidney disease (CKD) , stage III (moderate) ([facility] V24, [facility] V28) Family History Medical History [...] 06/20/2025 4:00 PM EST Office Visit Nephrology [address] [phone] Jake Carr MD [address] [facility] [address] [place] [phone] 07/24/2025 11:15 AM EST Office Visit Internal Medicine - [place] [address] [facility] [address] [place] [phone] Isabella Miller PA [address] [facility] [address] [place] [address] 07/30/2025 10:40 AM EST Office Visit [facility] [address] [place] [address] Claudia Rose NP [address] [place] [address] [address] [place] [phone] 11/01/2025 11:00 AM EDT Ancillary Procedure [facility] [address] [facility] [address] [place] [phone] Health Maintenance Due Date Last Done Comments [...] this topic Medical Devices Implanted Type Area Parking Manager Device Identifier Shelf Expiration Date Model / Serial / Lot Medt-Card Percepta Quad Bedspread Cutter-P [id number] Implanted: by Efren Caban MD (Quantity not on file) Cardiac VOLLEYBALL ASSEMBLER-P Left: Chest [employer] - CARDIAC RHYTH-CRDM PERCEPTA QUAD VOLLEYBALL ASSEMBLER-P [id number] / [id number] / Procedures Procedure Name Priority Date/Time Associated Diagnosis Comments CARDIAC DEVICE CHECK- REMOTE- MURJ Routine 05/15/2025 7:28 PM EDT CARDIAC DEVICE CHECK- REMOTE- MURJ Routine 03/28/2025 2:31 PM EDT COMPREHENSIVE METABOLIC PANEL Routine 01/17/2025 10:05 AM EDT Chronic HFrEF (heart failure with reduced ejection fraction) (CMS/HCC V24, CMS/HCC V28) [facility] current use of amiodarone LIPID PANEL WITH REFLEX TO DIRECT LDL Routine 01/17/2025 10:05 AM EDT Coronary artery disease involving [place] coronary artery of [place] heart without angina pectoris Pure hypercholesterolemia from Last 3 Months or Most Recently Relevant to Health Maintenance Results * Cardiac device check - Remote- MURJ (05/15/2025 7:28 PM EDT) Only the most recent of2 resultswithin the time period is included. Date Time Interrogation Session [id number] CV DEVICE CHECK Type Interrogation Session Remote CV DEVICE CHECK Implantable Pulse Generator Parking Manager MDT CV DEVICE CHECK Implantable Pulse Generator Type VOLLEYBALL ASSEMBLER-P CV DEVICE CHECK Implantable Pulse Generator Model Percepta Quad VOLLEYBALL ASSEMBLER-P [id number] CV DEVICE CHECK Implantable Pulse Generator Serial Number [id number] CV DEVICE CHECK Implantable Pulse Generator Implant Date 20210131 CV DEVICE CHECK Battery Remaining Longevity 39.0 CV DEVICE CHECK Battery Voltage 2.940 CV D EVICE CHECK Battery ASSISTANT UNIT FORESTER Trigger 2.595 CV DEVICE CHECK Battery Status Middle of Service CV DEVICE CHECK Chinmay Statistic RA Percent Paced 100.00 CV DEVICE CHECK Atrial Tachy Statistic AT/AF [place] Percent 0.00 CV DEVICE CHECK Lead Channel Sensing Intrinsic Amplitude 1.625 CV DEVICE CHECK Lead Channel Setting Sensing Sensitivity 0.30 CV DEVICE CHECK Lead Channel Impedance Value 380 CV DEVICE CHECK Lead Channel Pacing Threshold Amplitude 1.375 CV DEVICE CHECK Lead Channel Pacing Threshold Pulse Width 0.4 CV DEVICE CHECK Lead Channel RA Pacing Threshold Date 2023-02-03 CV DEVICE CHECK Lead Channel Setting Pacing Amplitude 2.750 CV DEVICE CHECK Lead Channel Setting Pacing Pulse Width 0.4 CV DEVICE CHECK Lead Channel Sensing Intrinsic Amplitude 14.125 CV DEVICE CHECK Lead Channel Setting Sensing Sensitivity 0.90 CV DEVICE CHECK Lead Channel Impedance Value 532 CV DEVICE CHECK Lead Channel Pacing Threshold Amplitude 0.625 CV DEVICE CHECK Lead Channel Pacing Threshold Pulse Width 0.4 CV DEVICE CHECK Lead Channel RV Pacing Threshold Date 2025-04-27 CV DEVICE CHECK Lead Channel Setting Pacing Amplitude 2.000 CV DEVICE CHECK Lead Channel Setting Pacing Pulse Width 0.4 CV DEVICE CHECK Lead Channel Impedance Value 855 CV DEVICE CHECK Lead Channel Pacing Threshold Amplitude 1.250 CV DEVICE CHECK Lead Channel Pacing Threshold Pulse Width 0.4 CV DEVICE CHECK Lead Channel Pacing Threshold Date 2025-04-27 CV DEVICE CHECK Lead Channel Setting Pacing Amplitude 1.750 CV DEVICE CHECK Lead Channel Setting Pacing Pulse Width 0.4 CV DEVICE CHECK Chinmay Setting Mode (NBG Code) DDDR CV DEVICE CHECK Ventricular chambers paced during VOLLEYBALL ASSEMBLER pacing. BiV CV DEVICE CHECK Chinmay Setting Lower Rate Limit 75 CV DEVICE CHECK Chinmay Setting AT Mode Switch Rate 171 CV DEVICE CHECK Chinmay Setting Maximum Tracking Rate 110 CV DEVICE CHECK Chinmay Setting Maximum Sensor Rate 120 CV DEVICE CHECK Chinmay Setting PAV Delay 150 CV DEVICE CHECK Chinmay Setting EDITH Delay 130 CV DEVICE CHECK VOLLEYBALL ASSEMBLER LV-RV Delay 30 CV D EVICE CHECK [...] Anatomical Region Laterality Modality Device Interroga tion 04/27/2025 12:5 4 PM EDT Impressions 05/15/2025 12:25 PM EDT Heart Failure Diagnostic: Stable * Heart failure diagnostics assessed through the device * Status: Stable * No overt HF present Narrative Procedure Note Efren Caban MD - 05/15/2025 IMPRESSION: Heart Failure Diagnostic: Stable * Heart failure diagnostics assessed through the device * Status: Stable * No overt HF present Efren Caban MD CV IMPLANTABLE CARDIAC DEVICE PROCEDURES Final Result * Lipid panel with reflex to direct LDL (01/17/2025 10:05 AM EDT) Cholesterol 164 0 - 200 mg/dL LAB CHEMISTRY METHOD 01/17/2025 1:17 PM EDT [facility] Triglycerides 82 0 - 150 mg/dL LAB CHEMISTRY METHOD 01/17/2025 1:17 PM EDT [facility] HDL 78 >=40 mg/dL LAB CHEMISTRY METHOD 01/17/2025 1:17 PM EDT [facility] LDL Calculated 70 0 - 100 mg/dL LAB CHEMISTRY METHOD 01/17/2025 1:17 PM EDT [facility] VLDL Cholesterol [place] 16.4 mg/dL LAB CHEMISTRY METHOD 01/17/2025 1:17 PM EDT [facility] Non HDL Chol. (LDL+VLDL) 86 <145 mg/dL LAB CHEMISTRY METHOD 01/17/2025 1:17 PM [facility] Chol/HDL Ratio 2.1 0.0 - 4.4 LAB CHEMISTRY METHOD 01/17/2025 1:17 PM [facility] Blood Venous blood specimen / Unknown Venipuncture / Unknown 01/17/2025 10:05 AM EDT 01/17/2025 10:05 AM EDT Javier Sehlton MD LAB BLOOD ORDERABLES F inal Result [facility] [address] [place] [address], [place] [phone] * (ABNORMAL) Comprehensive metabolic panel (01/17/2025 10:05 AM EDT) Sodium 140 133 - 145 mmol/L LAB CHEMISTRY METHOD 01/17/2025 1:17 PM [facility] Potassium 4.3 3.5 - 5.5 mmol/L LAB CHEMISTRY METHOD 01/17/2025 1:17 PM [facility] Chloride 108 96 - 110 mmol/L LAB CHEMISTRY METHOD 01/17/2025 1:17 PM [facility] CO2 25 21 - 32 mmol/L LAB CHEMISTRY METHOD 01/17/2025 1:17 PM [facility] Anion Gap 7 3 - 11 LAB CHEMISTRY METHOD 01/17/2025 1:17 PM [facility] Glucose 112(H) 70 - 100 mg/dL LAB CHEMISTRY METHOD 01/17/2025 1:17 PM [facility] BUN 23 5 - 25 mg/dL LAB CHEMISTRY METHOD 01/17/2025 1:17 PM [facility] Creatinine 1.22(H) 0.50 - 1.10 mg/dL LAB CHEMISTRY METHOD 01/17/2025 1:17 PM [facility] eGFR 45(L) >=60 mL/min/1. 73m2 LAB CHEMISTRY METHOD 01/17/2025 1:17 PM [facility] Comment:Calculation based on the Chronic Kidney Disease Epidemiology Collaboration (CKD-EPI) equation refit without adjustment for race. BUN/Creatinine Ratio 18.9 LAB CHEMISTRY METHOD 01/17/2025 1:17 PM T [facility] Calcium 8.6 8.5 - 10.5 mg/dL LAB CHEMISTRY METHOD 01/17/2025 1:17 PM [facility] AST (SGOT) 22 10 - 42 unit/L LAB CHEMISTRY METHOD 01/17/2025 1:17 PM [facility] ALT (SGPT) 42 10 - 60 unit/L LAB CHEMISTRY METHOD 01/17/2025 1:17 PM [facility] Alkaline Phosphatase 70 42 - 121 unit/L LAB CHEMISTRY METHOD 01/17/2025 1:17 PM [facility] Total Protein 6.6 6.0 - 8.0 g/dL LAB CHEMISTRY METHOD 01/17/2025 1:17 PM [facility] Albumin 3.3 3.2 - 5.0 g/dL LAB CHEMISTRY METHOD 01/17/2025 1:17 PM [facility] Total Bilirubin 0.5 0.0 - 1.4 mg/dL LAB CHEMISTRY METHOD 01/17/2025 1:17 PM [facility] Blood Venous blood specimen / Unknown Venipuncture / Unknown 01/17/2025 10:05 AM EDT 01/17/2025 10:05 AM EDT us Javier Shelton MD LAB BLOOD ORDERABLES F inal Result [facility] [place] [facility] [address] [place] [address], from Last 3 Months or Most Recently Relevant to Health Maintenance Insurance [employer] Advance Directives Documents on File Type Date Recorded Patient Industrial Methods Consultant Expl anation Health Care Decision (hx) 01/16/2021 [...] (hx) 01/16/2021 AD MCLEOD DIRECTIVE Care Teams Bicycle Racer Relationship Specialty Start Date End Date Isabella Miller PA [address] [address] PCP - General Primary Care 06/21/24
--- OUTSIDE RECORDS SUMMARY | 2025-06-06 12:29 | XMS_ITS | Clinical Summary ---
Author Organization [facility] Address [address] [place] [address] Care Team Providers Care Meter Tester Polyphase Name Role Phone Julio Brizuela MD Primary Care Provider Unavailab le Allergies Active Allergy Reactions Criticality Noted Date Comments Iodinated Contrast Media 01/24/2009 Oxycodone-Acetaminophen 11/09/2017 Medications Medication Sig Dispensed Refills Start Date End Date Status [place]-3 Fatty Acids (FISH OIL) 1000 MG CAPS [...] 0 05/24/2018 Active ergocalciferol (VITAMIN D2) capsule 78620 units TAKE ONE CAPSULE BY MOUTH ONE [...] age to complete this topic Care Teams Meter Tester Polyphase Relationship Specialty Start Date End Date Julio Brizuela MD PCP - General Internal Medicine 01/18/19
== END 2025-06-06 10:36 | disposition home or self-care (01) ==
LOC: HO.PMC 10:12
PROVIDERS: PCP Internal Medicine; Visit Provider Anesthesiology
DX: G89.4 Chronic pain syndrome (principal); Z79.891 Long term (current) use of opiate analgesic; G62.0 Drug-induced polyneuropathy; T45.1X5A Adverse effect of antineoplastic and immunosuppressive drugs, initial encounter; M17.0 Bilateral primary osteoarthritis of knee; M47.817 Spondylosis without myelopathy or radiculopathy, lumbosacral region; M25.561 Pain in right knee; M25.562 Pain in left knee; Z79.01 Long term (current) use of anticoagulants
CPT/HCPCS: 99214

== ENCOUNTER → 2025-06-06 10:12 | Outpatient (BNVA) | payer MEDICARE, SELFPAY | PROVIDERS: PCP Internal Medicine; Visit Provider Anesthesiology | DX: Z76.0 Encounter for issue of repeat prescription (principal); M96.1 Postlaminectomy syndrome, not elsewhere classified; G89.4 Chronic pain syndrome; G62.0 Drug-induced polyneuropathy; T45.1X5A Adverse effect of antineoplastic and immunosuppressive drugs, initial encounter; M17.0 Bilateral primary osteoarthritis of knee; M47.817 Spondylosis without myelopathy or radiculopathy, lumbosacral region; M25.561 Pain in right knee; M25.562 Pain in left knee; Z79.01 Long term (current) use of anticoagulants; Z79.891 Long term (current) use of opiate analgesic | CPT/HCPCS: 99212 ==

== ENCOUNTER 2025-06-14 13:24 | Outpatient (AMB) | payer MEDICARE, SELFPAY ==
--- NOTE | 2025-06-14 13:30 | A.OFFVIS_ITS ---
Intake Visit Reasons: neuritis Allergies No Known Allergies Allergy (Verified 06/06/25 10:15) Medication List - Last Reconciled 06/14/25 by Hugh Mcgill MD amiodarone 200 mg PO DAILY amitriptyline 20 mg (2 x 10 mg) PO BEDTIME 90 days apixaban (Eliquis) mg PO carvedilol 3.125 mg PO BID cholecalciferol (vitamin D3) 25 mcg PO DAILY dapagliflozin propanediol (Farxiga) 10 mg PO DAILY furosemide 20 mg PO DAILY gabapentin 300 mg PO TID 30 days levothyroxine mcg PO mecobalamin (vitamin B12) 1,000 mcg PO DAILY morphine ER 15 mg PO BID PRN 30 days naloxone 4 mg/actuation (Narcan) 4 mg intranasal Q3M PRN omega 8-vin-rrx-fish oil 1,000 (120-180) mg (Fish Oil) 1 cap PO DAILY rosuvastatin 5 mg PO DAILY Saccharomyces boulardii (Daily Probiotic (S. 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 She also has been taking amitriptyline for pain control. More recently, she was also complain of difficulty sleeping and was prescribed trazodone which she tried but it did not help much. Few weeks ago, she was outside when there were couple of soda canes on the ground. She kicked 1 without difficulty. And then she tried to kick the 2nd 1 but her toes stuck on something on the ground and she fell down. Her right side of the head hit the ground but she did not pass out. There were some people around and tried to help her and asked her if ambulance should be called but she said that she was fine and after a minute or so she got up and did not seek any immediate medical attention. There was no significant issues afterwards except that she complain of a burning sensation in the posterior part of left thigh. She was given lidocaine patch type of treatment, which was helping. Her main concern at this time was difficulty sleeping. I noted that she also had some hand tremor, which she stated appeared during last couple of months. She also has been hearing music that is not there during last couple of months. She said that her memory was okay. [facility] Medical History Thyroid cancer Chronic pain syndrome Peripheral polyneuropathy Surgical History Status post ablation of incompetent vein using laser (09/11/22) Social History Patient Tobacco Use Status: Never used Tobacco Current occupational status: retired Review of Systems Narrative Constitutional:?No fever, chills, fatigue, weight loss, or night sweats. HEENT:?No headache, vision changes, hearing loss, nasal congestion, sore throat. Cardiovascular:?No chest pain, palpitations, orthopnea, PND, or leg swelling. Respiratory:? Complain of shortness of breath and hoarseness. Gastrointestinal:? Complain of constipation. Genitourinary:? Complain of frequent urination. Musculoskeletal:? Complain of back pain. Neurological:?No dizziness, syncope, seizures, numbness, tingling, weakness, tremors, memory loss. Psychiatric:?No anxiety, depression, mood swings, sleep disturbance, or deepali lucinations. Endocrine:?No heat/cold intolerance, polydipsia, polyuria, or hair/skin changes. Hematologic/Lymphatic:?No easy bruising, bleeding, or lymphadenopathy. Integumentary (Skin):?No rash, lesions, itching, or color changes. Allergic/Immunologic:?No seasonal allergies, hives, or recurrent infections. Physical Exam Neuro Other: Mental Status: Alert and oriented to person, place, and time. Normal attention. Normal spontaneous speech, fluency, and comprehension. No obvious issues with mood and memory. Affect is appropriate. Cranial Nerves: CN II: Visual davis full to confrontation, visual acuity intact. CN III, IV, : Pupils equal, round, reactive to light and accommodation. Extraocular movements are normal. CN V: Facial sensation is normal. CN VII: Facial movements symmetrical. CN VIII: Hearing intact to bedside conversation is decreased. CN IX, X: Palate elevates symmetrically. CN XI: Shoulder shrug and head turn symmetrical. CN XII: Tongue midline without atrophy or fasciculations. Motor: Bulk and tone normal in all extremities. No significant muscle weakness in arms and legs. No drift. Reflexes: Deep tendon reflexes are 1+ with flexor plantars. Coordination: Cduibh-zv-pyqe with mild tremor. Gait and Station: Cautious. If pushed backwards she has difficulty keeping balance. Forward push was okay. Sensory: Intact to light touch, pinprick, and vibration. Romberg is negative. Extrapyramidal: Mild bilateral hand tremor. Mild right hand cogwheeling rigidity upon reinforcement. Speech: Normal; no dysarthria or tremor. 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 Code(s): G20 - Parkinson's disease Category: Medical Qualifiers: Parkinsonism type: unspecified Qualified Code(s): G20 - Parkinson's disease Plan 80 years old woman with chronic pain syndrome after exposure to chemotherapy being treated with amitriptyline and opiates for number of years, insomnia for no obvious reasons, and a mechanical fall not resulting in any significant injury few weeks ago. On examination, she has mild bilateral hand tremor, which she stated has appeared during last couple of months. She also complain of hearing music that has also appeared during last couple of months. Her examination also revealed imbalance if she was pushed backwards, or retropulsion. Mild cogwheeling was noted in right upper extremity upon reinforcement. Fine finger movements were bilaterally slow. According to CAT scan report from [facility], there was some cerebellar atrophy and some microvascular ischemic changes. At this time, I am not concerned about the fall or a possibility of concussion. There was no indication of seizure disorder. She has multiple other mild findings on examination that suggested an evolving neurological parkinsonian syndrome. Possibilities included Lewy body type of pathology. For now she was reassured and educated. I have requested a noncontrast brain MRI, which would put more light into her condition. No specific medicine was prescribed at this time. Orders: Orders MR head/brain wo con Today G20 - Parkinson's disease Coding Level of Care Code New Pt Level 5 (40669) Diagnoses Chronic pain syndrome G89.4 Parkinsonism, unspecified Parkinsonism type G20 Parkinsonism type: unspecified
--- OUTSIDE RECORDS SUMMARY | 2025-06-14 16:29 | XMS_ITS | Data Portability ---
Author Organization [place] - .[facility], [facility] Address [address] [place] [address] Care Team Providers Care Picture Booker Name Role Phone ESHA HUBBARD Primary Care [...] [id number] 006 PATIE NT: ELAIN E BENJAMIN DIAGN OSIS: Gallb ladde r, kelsi cyste ctomy : - Acute and chron ic kelsi cysti tis. - Kelsi lithi asis. [id number] GROSS DESCR IPTIO N: The speci men [...] osis perfo rmed by Sonam Hopkins MD. Calixto zamora lia d 024 15:26 Atlan tic Conso lidat ed Labor Carolina beltran s, [place] Not Available [facility] (Lab Depart-Adult) [address] [facility], [place], [address], 08/19/2023 15:56:47 08/14/20 23 08/13/2023 ahs diagn ostic - US abdom en EXAMIN ATION: US ABDOME N INDICA TION: abdomi nal pain;. TECHNI QUE: Ultras ound of the abdome n was perfor med utiliz ing real-t arden graysc torey and color flow Dopple r imagin g. Digita l images were saved in the perman ent record . COMPAR MARELY: CT abdome n pelvis 2022 FINDIN GS: Subopt imal exam due to excess ojsefa overly ing bowel gas. LIVER: Unrema rkable [...] ly signed by VINICIUS Olivarez on 2022 Maggi t Name: BENJAMIN GOLDBERG MRN: [id number] Date of : [id number] Gender : F [address], [address] 08/27/2023 12:11:25 Result Notes None recorded. Procedures Surgical History Date Name Laterality Status Provider Name and Address Organization Details Recorded Time 08/16/19 24 Gall Bladder Surgery completed Brianna Mohrhauser [place] - .[facility] 08/26/2023 14:11:53 08/16/19 23 Colonoscopy completed Brianna Mohrhauser [place] - .[facility] 08/26/2023 14:11:53 08/16/19 23 Echocardiogram completed Brianna Mohrhpiar [place] - .[facility] 08/26/2023 14:11:53 08/16/19 22 ERCP completed Brianna Mohrhpiar [place] - .[facility] 08/26/2023 14:11:53 08/16/19 22 Pacemaker implant completed Brianna Mohrhpiar [place] - .[facility] 08/26/2023 14:11:53 08/16/19 01 Breast Surgery completed Brianna Mohrhauser [place] - .[facility] 08/26/2023 14:11:53 08/16/18 88 Hysterectomy completed Brianna Mohrhpiar [place] - .[facility] 08/26/2023 14:11:53 08/16/18 67 Section completed Brianna Mohrhpiar [place] - [facility] 08/26/2023 14:11:53 Imaging Results None recorded. Procedure Notes None recorded. Medical Equipment None [...] Body mass index (BMI) Body weight Systolic And Diastolic Provider Name and Address Organization Details Last Updated DateTime 08/26/2023 157.48 cm 25.6 kg/m2 05169.93 g 92/58 mm[Hg] Lea CROWE - .[facility] 08/26/2023 14:22:15 Social History Question Answer Notes LastModified by [employer]ParaSh[employer] Details LastModified Time Tobacco Smoking Status Never Smoker SEBASTIEN Olivier - .[facility] 08/26/2023 14:11:53 What Is Your Level Of Caffeine Consumption? None Information not available 08/26/2023 What Was The Date Of Your Most Recent Tobacco Screening? 08/26/2023 Information not available 08/26/2023 How Many Years Have You Smoked Tobacco? 0 [facility] Information not available 08/26/2023 Sex: Unknown Functional Status Question Answer Note LastModified by [employer] Details LastModified Time Do you use any illicit or recreational drugs? No Information not available 08/26/2023 Do you or have you ever used any other forms of tobacco or nicotine? No [email or web address] Information not available 08/26/2023 What is your level of alcohol consumption? None Information not available 08/26/2023 Do you or have you ever used smokeless tobacco? Never used smokeless tobacco [facility] Information not available 08/26/2023 Do you or have you ever used e-cigarettes or vape? Never used electronic cigarettes [facility] Information not available 08/26/2023 Mental Status None recorded. Family History Nothing Reported. Medical History No medical history recorded. Gynecological HistoryNo gynecological history recorded. Obstetrics History GPAL:G 0 P 0 0 0 0 Past Encounters Encounter ID Performer Location Encounter Start Date Encounter Closed Date Diagnosis/Indication Diagnosis SNOMED-CT Code Diagnosis ICD10 Code Diagnosis IMO Codes Diagnosis Note [id number] Mansoor Walls_1 50Park_GE N SURG [address] [facility],[address] [place] [phone] 08/26/2023 14:09:56 08/31/2023 08:44:46 Acute cholecystitis 87630644 K81.0 Health Concerns Section Related Observation LastModified by Organization Detai ls LastModified Time None Recorded Concern Status LastModified by Organization Details LastModified Time None Recorded Advance Directives Directive None Recorded Payers Insurance Date Sequence Insurance Name Policy Number Policy Almanzar Covered Member ID Almanzar Member ID Guarantor Name 08/31/2023 1 [facility] - MEDICARE PREFERRED (MEDICARE REPLACEMENT HMO) MANSOOR Alexander [id number] 1 Darlene Bravod 08/26/2023 1 [place] Darlene Bravod [id number] Darlene Bravod Notes Date Note Type Note Provider Name [...] minimal abdominal pain. Mansoor Talley MD [address] [place], [address], [facility] - [facility] 08/26/2023 14:34:26 OBGyn Episode No OBEpisode recorded.
--- OUTSIDE RECORDS SUMMARY | 2025-06-14 16:29 | XMS_ITS | Clinical Summary ---
Author Organization [address] [place] [address] Address [address] [place] [address] Phone Care Team Providers Care Voice Network Administrator Name Role Phone Isabella Miller Primary [...] day. 90 tablet 2 08/24/19 25 Active gabapentin (NEURONTIN) 300 mg capsuleIndicati ons:Acute bilateral thoracic back pain TAKE 1 CAPSULE BY MOUTH IN THE MORNING AND 2 AT BEDTIME 90 capsule 3 12/06/19 25 Active furosemide (LASIX) 20 mg tabletIndicatio ns:Chronic HFrEF (heart failure with reduced ejection fraction) ([facility] V24, [facility] V28) TAKE 1 TABLET BY MOUTH NEEDED [...] 2.5 mg tabletIndicatio ns:Atrial fibrillation, unspecified type ([facility] V24, [facility] V28) TAKE 1 TABLET BY MOUTH TWICE A DAY 90 tablet 2 05/07/20 25 Active carvediloL (COREG) 3.125 mg tablet TAKE 1 TABLET BY MOUTH TWICE DAILY WITH FOOD. 180 tablet 2 06/11/20 25 Active carvediloL (COREG) 3.125 mg tablet TAKE 1 TABLET BY MOUTH TWICE DAILY WITH FOOD. 180 tablet 2 09/29/19 25 025 Discontinued Active Problems Problem Noted Date Diagnosed Date Polyneuropathy due to other toxic agents ([facility]/ [facility] V24) 11/01/2024 CKD stage 3b, GFR 30-44 ml/min ([facility] V24, [facility] V28) 10/18/2024 penitentiary current use of amiodarone 08/23/2024 Assessment & [...] (heart failure with reduced ejection fraction) ([facility] V24, [facility] V28) 01/30/2021 Overview (05/15/2024): Last Assessment [...] mg orally daily Candidate for ICD or PROPOSAL REP: PROPOSAL REP-P in place Assessment and plan: The patient [...] mg orally daily Candidate for ICD or PROPOSAL REP: PROPOSAL REP-P in place Assessment and plan: 1. Continue [...] cardiac MRI yesterday 11/07/24 pending results. ICD: PROPOSAL REP-P in place, with reassessment of EF and [...] SGLT2 inhibitors: Dapagliflozin 10 mg daily. ICD: PROPOSAL REP-P in place, with reassessment of EF and [...] wo and w Contrast; Future Atrial fibrillation ([facility] V24, [facility] V28) 1 Overview (05/15/2024): Last Assessment & Plan: The patient has a history of paroxysmal atrial fibrillation. She is on rhythm control therapy with amiodarone and rate control therapy with Coreg. Also, the patient has a MNR8FM4-BOJy score of 5 (age, gender, heart failure, [...] with Coreg. Also, the patient has a NBQ8CS8-PJHm score of 7 (age, gender, heart failure, [...] Patient has history of paroxysmal atrial fibrillation, TCA8YB0-CNQv score of 5. 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 01/31-02/05/21 with weakness x [address] Caban consulted on the patient due to her bradycardia which appeared multifactorial from electrolyte disturbances in the setting of renal dysfunction and due to amiodarone. She had a pacemaker with PROPOSAL REP implanted during the hospitalization. She does not [...] Description 05/15/2025 7:30 PM EDT Ancillary Procedure [facility] - [address] [place] [phone] 03/28/2025 2:35 PM EDT Ancillary Procedure [facility] - [address] [place] [address] from Last 3 Months Immunizations Immunization Administration [...] DX:Hyperlipidemi a Cholelithiasis DX:Cholelithiasi s Breast cancer ([facility] V24, [facility]) 2003 DX:Breast cancer (HCC); COMMENT: Chemo &Rad Tx Family history of coronary a rtery disease DX:Family history of coronar y artery disease H/O hypercholesterolemia Rosacea Chronic kidney disease (CKD) , stage III (moderate) ([facility] V24, [facility] V28) Family History Medical History Relation [...] 4:00 PM EST Office Visit Nephrology - [place] [address] [place] [address] Jake Carr MD [address] [place] [phone] 07/24/2025 11:15 AM EST Office Visit Internal Medicine - [place] [address] [place] [phone] Isabella Miller, PA [address] [facility] [place] [phone] 07/30/2025 10:40 AM EST Office Visit [facility] [address] [place] [phone] Claudia Rose NP [address] [place] [address] [address] [place] [address] 11/01/2025 11:00 AM EDT Ancillary Procedure [facility] - [facility] [address] [facility] [address] [place] [address] Health Maintenance Due Date Last [...] this topic Medical Devices Implanted Type Area Sugar Cane Grower Device Identifier Shelf Expiration Date Model / Serial / Lot Medt-Card Percepta Quad Food Service Employee-P [id number] Implanted: by Efren Caban MD (Quantity not on file) Cardiac PROPOSAL REP-P Left: Chest [employer] - CARDIAC RHYTH-CRDM PERCEPTA QUAD PROPOSAL REP-P [id number] / [id number] / Procedures Procedure Name Priority Date/Time Associated Diagnosis Comments CARDIAC DEVICE CHECK- REMOTE- MURJ Routine 05/15/2025 7:28 PM EDT CARDIAC DEVICE CHECK- REMOTE- MURJ Routine 03/28/2025 2:31 PM EDT COMPREHENSIVE METABOLIC PANEL Routine 01/17/2025 10:05 AM EDT Chronic HFrEF (heart failure with reduced ejection fraction) (CMS/HCC V24, CMS/HCC V28) 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 Date Time Interrogation Session [id number] CV DEVICE CHECK Type Interrogation Session Remote CV DEVICE CHECK Implantable Pulse Generator Sugar Cane Grower MDT CV DEVICE CHECK Implantable Pulse Generator Type PROPOSAL REP-P CV DEVICE CHECK Implantable Pulse Generator Model Percepta Quad PROPOSAL REP-P [id number] CV DEVICE CHECK Implantable Pulse Generator Serial Number [id number] CV DEVICE CHECK Implantable Pulse Generator Implant Date 20210131 CV DEVICE CHECK Battery Remaining Longevity 39.0 CV DEVICE CHECK Battery Voltage 2.940 CV D EVICE CHECK Battery BROTH MIXER Trigger 2.595 CV DEVICE CHECK Battery Status Middle of Service CV DEVICE CHECK Chinmay Statistic RA Percent Paced 100.00 CV DEVICE CHECK Atrial Tachy Statistic AT/AF [place] Percent 0.00 CV DEVICE CHECK Lead Channel [...] CV DEVICE CHECK Ventricular chambers paced during PROPOSAL REP pacing. BiV CV DEVICE CHECK Chinmay Setting Lower Rate Limit 75 CV DEVICE CHECK Chinmay Setting AT Mode Switch Rate 171 CV DEVICE CHECK Chinmay Setting Maximum Tracking Rate 110 CV DEVICE CHECK Chinmay Setting Maximum Sensor Rate 120 CV DEVICE CHECK Chinmay Setting PAV Delay 150 CV DEVICE CHECK Chinmay Setting EDITH Delay 130 CV DEVICE CHECK PROPOSAL REP LV-RV Delay 30 CV D EVICE CHECK [...] LAB CHEMISTRY METHOD 01/17/2025 1:17 PM EDT [facility] Triglycerides 82 0 - 150 mg/dL LAB CHEMISTRY METHOD 01/17/2025 1:17 PM EDT [facility] HDL 78 >=40 mg/dL LAB CHEMISTRY METHOD 01/17/2025 1:17 PM EDT [facility] LDL Calculated 70 0 - 100 mg/dL LAB CHEMISTRY METHOD 01/17/2025 1:17 PM T [facility] VLDL Cholesterol Hernesto 16.4 mg/dL LAB CHEMISTRY METHOD 01/17/2025 1:17 PM EDT [facility] Non HDL Chol. (LDL+VLDL) 86 <145 mg/dL LAB CHEMISTRY METHOD 01/17/2025 1:17 PM [facility] Chol/HDL Ratio 2.1 0.0 - 4.4 LAB CHEMISTRY METHOD 01/17/2025 1:17 PM [facility] Blood Venous blood specimen / Unknown Venipuncture / Unknown 01/17/2025 10:05 AM EDT 01/17/2025 10:05 AM EDT Javier Shelton MD LAB BLOOD ORDERABLES F inal Result [facility] [address] [place] [address], [place] [phone] * (ABNORMAL) Comprehensive metabolic panel (01/17/2025 10:05 AM EDT) Sodium 140 133 - 145 mmol/L LAB CHEMISTRY METHOD 01/17/2025 1:17 PM [facility] Potassium 4.3 3.5 - 5.5 mmol/L LAB CHEMISTRY METHOD 01/17/2025 1:17 PM [facility] Chloride 108 96 - 110 mmol/L LAB CHEMISTRY METHOD 01/17/2025 1:17 PM [facility] CO2 25 21 - 32 mmol/L LAB CHEMISTRY METHOD 01/17/2025 1:17 PM [facility] Anion Gap 7 3 - 11 LAB CHEMISTRY METHOD 01/17/2025 1:17 PM [facility] Glucose 112(H) 70 - 100 mg/dL LAB CHEMISTRY METHOD 01/17/2025 1:17 PM [facility] BUN 23 5 - 25 mg/dL LAB CHEMISTRY METHOD 01/17/2025 1:17 PM [facility] Creatinine 1.22(H) 0.50 - 1.10 mg/dL LAB CHEMISTRY METHOD 01/17/2025 1:17 [facility] eGFR 45(L) >=60 mL/min/1. 73m2 LAB CHEMISTRY METHOD 01/17/2025 1:17 PM [facility] Comment:Calculation based on the Chronic Kidney Disease Epidemiology Collaboration (CKD-EPI) equation refit without adjustment for race. BUN/Creatinine Ratio 18.9 LAB CHEMISTRY METHOD 01/17/2025 1:17 PM [facility] Calcium 8.6 8.5 - 10.5 mg/dL LAB CHEMISTRY METHOD 01/17/2025 1:17 PM [facility] AST (SGOT) 22 10 - 42 unit/L LAB CHEMISTRY METHOD 01/17/2025 1:17 PM [facility] ALT (SGPT) 42 10 - 60 unit/L LAB CHEMISTRY METHOD 01/17/2025 1:17 PM [facility] Alkaline Phosphatase 70 42 - 121 unit/L LAB CHEMISTRY METHOD 01/17/2025 1:17 PM [facility] Total Protein 6.6 6.0 - 8.0 g/dL LAB CHEMISTRY METHOD 01/17/2025 1:17 PM [facility] Albumin 3.3 3.2 - 5.0 g/dL LAB CHEMISTRY METHOD 01/17/2025 1:17 PM [facility] Total Bilirubin 0.5 0.0 - 1.4 mg/dL LAB CHEMISTRY METHOD 01/17/2025 1:17 PM [facility] Blood Venous blood specimen / Unknown Venipuncture / Unknown 01/17/2025 10:05 AM EDT 01/17/2025 10:05 AM EDT Javier Shelton MD LAB BLOOD ORDERABLES F inal Result [facility] [address] [place] [address], from Last 3 Months or Most Recently Relevant to Health Maintenance Insurance [employer] Advance Directives Documents on File Type Date Recorded Patient Assembler Wire Mesh Gate Expl anation Health Care Decision (hx) 01/16/2021 [...] (hx) 01/16/2021 AD MCLEOD DIRECTIVE Care Teams Voice Network Administrator Relationship Specialty Start Date End Date Isabella Miller PA [address] [facility] [address] [place] [address] PCP - General Primary Care 06/21/24
--- OUTSIDE RECORDS SUMMARY | 2025-06-14 16:29 | XMS_ITS | Clinical Summary ---
Author Organization [facility] Address [address] [place] [address] Care Team Providers Care Assistant Elementary Teacher Name Role Phone Julio Brizuela MD Primary Care Provider Unavailab le Allergies Active Allergy Reactions Criticality Noted Date Comments Iodinated Contrast Media 01/24/2009 Oxycodone-Acetaminophen 11/09/2017 Medications Medication Sig Dispensed Refills Start Date End Date Status [place]-3 Fatty Acids (FISH OIL) 1000 MG CAPS [...] 0 05/24/2018 Active ergocalciferol (VITAMIN D2) capsule 87958 units TAKE ONE CAPSULE BY MOUTH ONE [...] age to complete this topic Care Teams Assistant Elementary Teacher Relationship Specialty Start Date End Date Julio Brizuela MD PCP - General Internal Medicine 01/18/19
== END 2025-06-14 14:14 | disposition home or self-care (01) ==
LOC: HO.HSM 13:25
PROVIDERS: PCP Internal Medicine; Visit Provider Psychiatry & Neurology Neurology
DX: G89.4 Chronic pain syndrome (principal); G20.C Parkinsonism, unspecified
CPT/HCPCS: 99203

== ENCOUNTER → 2025-06-14 13:24 | Outpatient (BNVA) | payer MEDICARE, SELFPAY | PROVIDERS: PCP Internal Medicine; Visit Provider Psychiatry & Neurology Neurology | DX: G89.4 Chronic pain syndrome (principal); G20.C Parkinsonism, unspecified | CPT/HCPCS: 99202 ==

== ENCOUNTER 2025-06-22 09:44 | Outpatient (REF) | payer MEDICARE, SELFPAY ==
--- OUTSIDE RECORDS SUMMARY | 2025-06-20 16:00 | XMS_ITS | Encounter Summary ---
Author Organization [facility] Address [address] [place] [address] Care Team Providers Care Carton Catcher Name Role Phone Isabella Miller Primary Care Provider + Reason for Visit * Reason Comments Chronic Kidney Disease Encounter Details Date Type Department Care Team ([facility] Contact Info) Description 06/20/2025 4:00 PM EST Office Visit Nephrology - [address] [phone] Jake Carr MD 100 [facility] [address] [place] [address] CKD stage 3a, GFR 45-59 ml/min (CMS/HCC V24, CMS/HCC V28) (Primary Dx); Primary hypertension Social History Tobacco Use Types Packs/Day Years [...] Sign Reading Time Taken Comments Blood Pressure 117/63 06/20/2025 3:44 PM EST Pulse 81 06/20/2025 3:44 PM EST Temperature - - Respiratory Rate - - Oxygen Saturation - - Inhaled Oxygen Concentration - - Weight 64.9 kg (143 lb) 06/20/2025 3:44 PM EST Height - - Body Mass Index 26.16 03/06/2025 11:16 AM EDT documented in this encounter Progress Notes * Jake Carr MD - 06/20/2025 4:00 PM EST Renal follow up note : Darlene Alexander is a 80 y.o. year old female seen today for f/u HPI: Pleasant but anxious female who is in my office for follow-up regarding elevated creatinine level. Patient unfortunately did not go for repeat lab work ordered by me but she did have labs in January 2025 which were stable No chest pain or shortness of breath She has history of CHF but now volume status seems to be acceptable at She also has history of neuropathy She does have a pacemaker in place She has history of hypercholestremia History of left breast cancer in the past for which she had lumpectomy and chemo. 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 She has history of irritable bowel syndrome followed up by GI She denies any history of skin rash, photophobia Patient denies any history of NSAID use HOME MEDICATIONS: Home Medications amiodarone (PACERONE) 200 mg tablet TAKE 1 TABLET BY MOUTH EVERY DAY amitriptyline HCl (AMITRIPTYLINE ORAL) Take 20 mg by mouth at bedtime. apixaban (Eliquis) 2.5 mg tablet Take 1 tablet (2.5 mg total) by mouth 2 (two) times a day. carvediloL (COREG) 3.125 mg tablet TAKE 1 TABLET BY MOUTH TWICE DAILY WITH FOOD. cholecalciferol (VITAMIN D-3) 50 mcg (2,000 unit) capsule Take 1 capsule by mouth daily. cyanocobalamin (VITAMIN B-12) 1,000 mcg tablet Take 1 tablet by mouth daily. dapagliflozin propanediol (Farxiga) 10 mg tablet TAKE 1 TABLET BY MOUTH EVERY DAY gabapentin (NEURONTIN) 300 mg capsule Take 1 cap in the morning and 2 caps every evening L.acid/L.casei/B.bif/B.brendan/FOS (PROBIOTIC BLEND ORAL) Take by mouth. levothyroxine (SYNTHROID, LEVOTHROID) 100 mcg tablet Take 1 tablet by mouth every morning 6 days/week and a half a tablet on the seventh day lidocaine 5 % cream Apply 1 g topically daily. morphine (MS CONTIN) 15 mg 12 hr tablet TAKE 1 TABLET BY MOUTH TWICE DAILY NEEDED FOR SEVERE PAIN (SCALE SCORE 7-10) FOR 30 DAYS. omega-3 acid ethyl esters (LOVAZA) 1 gram capsule 1,000 mg daily. spironolactone (ALDACTONE) 25 mg tablet Take 0.5 tablets (12.5 mg total) by mouth every other day. vitamin B complex (VITAMINS B COMPLEX ORAL) 1 (one) time each day. rosuvastatin (CRESTOR) 5 mg tablet TAKE 1 TABLET BY MOUTH EVERY DAY ALLERGY: No Known Allergies PHYSICAL EXAM: Visit Vitals BP 117/63 Pulse 81 Wt 64.9 kg (143 lb) BMI 26.16 kg/m?? Smoking Status Never BSA 1.66 m?? APPEARANCE: Alert and in no acute distress par EYES: PERRLA, conjunctiva and sclera normal. EARS: External ears normal. Canals clear. NOSE/SINUS: Nares normal. Septum midline. Mucosa normal. No drainage or sinus tenderness. THROAT: no erythema or exudates NECK: Neck supple, no adenopathy, thyroid symmetric and of normal size HEART: RRR with normal S1 and S2 ,no murmurs, no gallops, no JVD appreciated LUNG: clear to auscultation ABDOMEN: Bowel sounds normoactive, no bruits, soft, non-tender, without organomegaly or palpable masses EXTREMITIES: Extremities warm and well perfused without clubbing, cyanosis, or edema NEURO: Awake, alert and oriented x 3, no focal neurological deficit, with symmetrical reflexes SKIN: Skin color, texture, turgor normal. No rashes or lesions. LABS: No results found for: PHOS , [id number] , PTH , PUR Iron Date Value Ref Range Status 08/01/2024 93 40 - 150 mcg/dL Final Ferritin Date Value Ref Range Status 08/01/2024 16 8 - 252 ng/mL Final Labs done on 01/17/2025 BUN 23 creatinine 1.22 estimate GFR 45 mL/min ASSESSMENT 1. CKD stage 3a, GFR 45-59 ml/min (CMS/HCC V24, CMS/HCC V28) 2. Primary hypertension PLAN: Chronic kidney disease: Stage IIIa at baseline in setting of hypertension and age. Renal function is fluctuant with GFR ranging anywhere around 45 mL/min Renal function is stable Hypertension: Patient has baseline essential hypertension with superimposed hypertension due to renal parenchymal disease. Patient blood pressure is well controlled CHF: She is compensated without any volume overload Hypercholestremia Vitamin D deficiency on vitamin D supplementation Continue a low-salt diet Patient has been advised to avoid using NSAIDs/Baker 2 inhibitors Has been off loop diuretic and has been stable Continue spironolactone 25 mg half tablet daily Continue Farxiga as ordered Work-up for secondary hyperparathyroidism including calcium, phosphorus and PTH- shows vitamin D level is acceptable in the past Patient has been advised to get labs before next visit Patient will be again seen in the office in 12 months for follow documented in this encounter Plan of Treatment Upcoming Encounters Date Type Department Care Team (Late st Contact Info) Description 07/24/2025 11:15 AM EST Office Visit Internal Medicine - [place] [address] [facility] 200 [place] [phone] Isabella Miller PA [address] [place] [address] 07/30/2025 10:40 AM EST Office Visit [facility] - [address] [place] [phone] Claudia Rose NP [address] [place] [address] Dr [facility] [address] [place] [phone] 11/01/2025 11:00 AM EDT Ancillary Procedure [facility] - [facility] [address] [facility] [address] [place] [address] 07/03/2026 4:00 PM EST Office Visit Nephrology - [address] [phone] Jake Carr MD [address] [facility] [address] [place] [phone] Scheduled Orders Name Type Priority Associated Diagnoses Orde r Schedule Creatinine Lab Routine Primary hypertension Expected: 12/14/2025, Expires: 06/20/2026 BUN Lab Routine Primary hypertension Expected: 12/14/2025, Expires: 06/20/2026 Electrolyte panel Lab Routine Primary hypertension Expected: 12/14/2025, Expires: 06/20/2026 Protein and creatinine with ratio, urine Lab Routine Primary hypertension Expected: 12/14/2025, Expires: 06/20/2026 documented as of this encounter Visit Diagnoses Diagnosis CKD stage 3a, GFR 45-59 ml/min (CMS/[facility] V24, [facility] V28)- Primary Primary hypertension Unspecified essential hypertension Encounter for adjustment or management of cardiac device documented in this encounter Care Teams Carton Catcher Relationship Specialty Start Date End Date Isabella Miller PA [address] [place] [address] PCP - General Primary Care 06/21/24 documented as of this encounter
--- NOTE | ~2025-06-22 | XR_ITS ---
EXAMINATION: XR KNEE AP STANDING CLINICAL INFORMATION: pain COMPARISON: March 16, 2024 TECHNIQUE: AP bilateral standing view of the knees was obtained. Lateral and sunrise views both knees. FINDINGS: Joint space narrowing involving mostly the medial and to a lesser extent lateral compartments. Mild sclerosis along the articular surface. No suprapatellar bursa joint effusion. No acute cortical disruption or malalignment. No lytic or blastic lesions. Vascular calcifications. Generalized decreased mineralization. 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 Electronically signed by: Anup Tamez MD 06/22/2025 10:27 AM BARB
--- OUTSIDE RECORDS SUMMARY | 2025-06-22 11:12 | XMS_ITS | Data Portability ---
Author Organization [place] - .[facility], [facility] Address [address] [place] [address] Care Team Providers Care Cobol Mainframe Developer Name Role Phone ESHA HUBBARD Primary Care [...] was worked up a year prior in [place] where she lives with MRCP as well [...] kelsi cysti tis. - [place]. [address] GROSS DESCR IPTIO N: The speci men [...] Labor Carolina beltran s, [place] Not Available [facility] (Lab Depart-Adult) [address] [facility], [place], [address], 08/19/2023 15:56:47 08/14/20 23 08/13/2023 ahs diagn [...] 2022 Maggi t Name: BENJAMIN GOLDBERG MRN: [id number] Date of : [id number] Gender : F [address], [address] 08/27/2023 12:11:25 Result Notes None recorded. Procedures Surgical History Date Name Laterality Status Provider Name and Address Organization Details Recorded Time 08/16/19 24 Gall Bladder Surgery completed Brianna Mohrhauser [place] - .[facility] 08/26/2023 14:11:53 08/16/19 23 Colonoscopy completed Brianna Mohrhauser [place] - .[facility] 08/26/2023 14:11:53 08/16/19 23 Echocardiogram completed Brianna Mohrhpiar [place] - .[facility] 08/26/2023 14:11:53 08/16/19 22 ERCP completed Brianna Mohrhpiar [place] - .[facility] 08/26/2023 14:11:53 08/16/19 22 Pacemaker implant completed Brianna Mohrhauser [place] - .[facility] 08/26/2023 14:11:53 08/16/19 01 Breast Surgery completed Brianna Mohrhauser [place] - .[facility] 08/26/2023 14:11:53 08/16/18 88 Hysterectomy completed Brianna Mohrhpiar [place] - .[facility] 08/26/2023 14:11:53 08/16/18 67 Section completed Brianna Mohrhpiar [place] - .[facility] 08/26/2023 14:11:53 Imaging Results None recorded. Procedure Notes None recorded. Medical Equipment None Reported. Allergies No known drug allergies Medications Name Sig Start Date Stop Date Status Note LastModified by Organization Details LastModified Time diclofenac 3% / baclofen 2% / gabapentin 6% / bupivacaine hcl 1% Apply 1-3 grams to the affected area 3-4 times daily (KNEES) active Not Available Not Available No t Available cap-2 k-5 pain formulation versatile Apply 1-3 [...] Updated DateTime 08/26/2023 157.48 cm 25.6 kg/m2 15382.93 g 92/58 mm[Hg] Lea CROWE - .[facility] 08/26/2023 14:22:15 Social History Question Answer Notes LastModified by [employer] Details LastModified Time Tobacco Smoking Status Never Smoker SEBASTIEN Olivier - .[facility] 08/26/2023 14:11:53 What Is Your Level Of Caffeine Consumption? None Information not available 08/26/2023 What Was The Date Of Your Most Recent Tobacco Screening? 08/26/2023 Information not available 08/26/2023 How Many Years Have You Smoked Tobacco? 0 [email or web address] Information not available 08/26/2023 Sex: Unknown Functional Status Question Answer Note LastModified by [facility] Details LastModified Time Do you use any illicit or recreational drugs? No Information not available 08/26/2023 Do you or have you ever used any other forms of tobacco or nicotine? No [email or web address] Information not available 08/26/2023 What is your level of alcohol consumption? None Information not available 08/26/2023 Do you or have you ever used smokeless tobacco? Never used smokeless tobacco [employer] Information not available 08/26/2023 Do you or have you ever used e-cigarettes or vape? Never used electronic cigarettes [employer] Information not available 08/26/2023 Mental Status None recorded. Family History Nothing Reported. Medical History No medical history recorded. Gynecological HistoryNo gynecological history recorded. Obstetrics History GPAL:G 0 P 0 0 0 0 Past Encounters Encounter ID Performer Location Encounter Start Date Encounter Closed Date Diagnosis/Indication Diagnosis SNOMED-CT Code Diagnosis ICD10 Code Diagnosis IMO Codes Diagnosis Note [id number] Mansoor Walls_1 [facility] SURG [address] [facility],[address] [place] [phone] 08/26/2023 14:09:56 08/31/2023 08:44:46 Acute cholecystitis 85534374 K81.0 Health Concerns Section Related Observation LastModified by Organization Detai ls LastModified Time None Recorded Concern Status LastModified by Organization Details LastModified Time None Recorded Advance Directives Directive None Recorded Payers Insurance Date Sequence Insurance Name Policy Number Policy Almanzar Covered Member ID Almanzar Member ID Guarantor Name 08/31/2023 1 [facility] - MEDICARE PREFERRED (MEDICARE REPLACEMENT HMO) MANSOOR Alexander [id number] Darlene Bravod 08/26/2023 1 [place] Darlene Bravod [id number] Darlene Bravod Notes Date Note Type [...] minimal abdominal pain. Mansoor Talley MD [address] [place], [address], [facility] - .[facility] 08/26/2023 14:34:26 OBGyn Episode No OBEpisode recorded.
--- OUTSIDE RECORDS SUMMARY | 2025-06-22 11:12 | XMS_ITS | Clinical Summary ---
Author Organization [facility] Address [address] [place] [address] Care Team Providers Care Pocket Maker Name Role Phone Julio Brizuela MD Primary Care Provider Unavailab le Allergies Active Allergy Reactions Criticality Noted Date Comments Iodinated Contrast Media 01/24/2009 Oxycodone-Acetaminophen 11/09/2017 Medications Medication Sig Dispensed Refills Start Date End Date Status [place]-3 Fatty Acids (FISH OIL) 1000 MG CAPS [...] 0 05/24/2018 Active ergocalciferol (VITAMIN D2) capsule 75839 units TAKE ONE CAPSULE BY MOUTH ONE [...] age to complete this topic Care Teams Pocket Maker Relationship Specialty Start Date End Date Julio Brizuela MD PCP - General Internal Medicine 01/18/19
--- OUTSIDE RECORDS SUMMARY | 2025-06-22 11:12 | XMS_ITS | Clinical Summary ---
Author Organization [address] [place] [address] Address [address] [place] [address] Phone Care Team Providers Care Hedis Manager Name Role Phone Isabella Miller Primary [...] HFrEF (heart failure with reduced ejection fraction) ([facility] V24, CMS/[facility] V28) TAKE 1 TABLET BY MOUTH NEEDED [...] 2.5 mg tabletIndicatio ns:Atrial fibrillation, unspecified type ([facility] V24, [facility] V28) TAKE 1 TABLET BY MOUTH TWICE [...] Date Polyneuropathy due to other toxic agents ([facility]/ [facility] V24) 11/01/2024 CKD stage 3b, GFR 30-44 ml/min ([facility] V24, CMS /[facility] V28) 10/18/2024 half-way current use of amiodarone 08/23/2024 Assessment & [...] HFrEF (heart failure with reduced ejection fraction) ([facility] V24, [facility] V28) 01/30/2021 Overview (05/15/2024): Last Assessment & [...] mg orally daily Candidate for ICD or SOILS TECHNICIAN: SOILS TECHNICIAN-P in place Assessment and plan: The patient [...] mg orally daily Candidate for ICD or SOILS TECHNICIAN: SOILS TECHNICIAN-P in place Assessment and plan: 1. Continue [...] cardiac MRI yesterday 11/07/24 pending results. ICD: SOILS TECHNICIAN-P in place, with reassessment of EF and [...] SGLT2 inhibitors: Dapagliflozin 10 mg daily. ICD: SOILS TECHNICIAN-P in place, with reassessment of EF and [...] wo and w Contrast; Future Atrial fibrillation ([facility] V24, [facility] V28) 1 Overview (05/15/2024): Last Assessment & Plan: The patient has a history of paroxysmal atrial fibrillation. She is on rhythm control therapy with amiodarone and rate control therapy with Coreg. Also, the patient has a [id number]-TQGt score of 5 (age, gender, heart failure, [...] with Coreg. Also, the patient has a IGO1HB8-DXFy score of 7 (age, gender, heart failure, [...] Patient has history of paroxysmal atrial fibrillation, DOE7HO4-ZBJc score of 5. 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 Caban consulted on the patient due to her bradycardia which appeared multifactorial from electrolyte disturbances in the setting of renal dysfunction and due to amiodarone. She had a pacemaker with SOILS TECHNICIAN implanted during the hospitalization. She does not [...] Encounters Date Type Department Care Team Description 06/20/2025 4:00 PM EST Office Visit Nephrology - [place] [id number] [place] [address] Jake Carr MD CKD stage 3a, GFR 45-59 ml/min (CMS/HCC V24, CMS/HCC V28) (Primary Dx); Primary hypertension 05/15/2025 7:30 PM EDT Ancillary Procedure [facility] [address] [facility] [address] [place] [phone] 03/28/2025 2:35 PM EDT Ancillary Procedure [facility] [address] [facility] [address] [place] [phone] from Last 3 Months Immunizations Immunization Administration [...] CHOLECYSTECTOMY PROCEDURE: LAPAROSCOPY, CHOLECYSTECTOMY; COMMENT: 07/2023 in [place] due to cholelithiasis Medical History Medical History [...] DX:Hyperlipidemi a Cholelithiasis DX:Cholelithiasi s Breast cancer ([facility] V24, [facility] V28) 2003 DX:Breast cancer ([facility]); COMMENT: Chemo &Rad Tx Family history of coronary a rtery disease DX:Family history of coronar y artery disease H/O hypercholesterolemia Rosacea Chronic kidney disease (CKD) , stage III (moderate) ([facility] V24, [facility] V28) Family History Medical History Relation Name [...] Pulse 81 06/20/2025 3:44 PM EST Temperature 36.6 C (97.8 F) 03/06/2025 11:16 AM EDT Respiratory Rate - - Oxygen Saturation 98% 03/06/2025 11:16 AM EDT Inhaled Oxygen Concentration - - Weight 64.9 kg (143 lb) 06/20/2025 3:44 PM EST Height 157.5 cm (5' 2 ) 03/06/2025 11:16 AM EDT Body Mass Index 26.16 03/06/2025 11:16 AM EDT Plan of Treatment Upcoming Encounters Date Type Department Care Team (Late st Contact Info) Description 07/24/2025 11:15 AM EST Office Visit Internal Medicine - [place] [address] [place] [phone] Isabella Miller PA [address] [facility] [place] [address] 07/30/2025 10:40 AM EST Office Visit [facility] [address] [place] [phone] Claudia Rose NP [address] [facility] [address] [place] [phone] 11/01/2025 11:00 AM EDT Ancillary Procedure [facility] - [address] [place] [phone] 07/03/2026 4:00 PM EST Office Visit Nephrology [place] [id number] [place] [address] Jake Carr MD [address] [facility] [address] [place] [phone] Health Maintenance Due Date Last Done Comments [...] this topic Medical Devices Implanted Type Area Towboat Pilot Device Identifier Shelf Expiration Date Model / Serial / Lot Medt-Card Percepta Quad Imaging Clerk-P [id number] Implanted: by Efren Caban MD (Quantity not on file) Cardiac SOILS TECHNICIAN-P Left: Chest [employer] - CARDIAC RHYTH-CRDM PERCEPTA QUAD SOILS TECHNICIAN-P [id number] / [id number] / Procedures Procedure Name Priority Date/Time Associated Diagnosis Comments CARDIAC DEVICE CHECK- REMOTE- MURJ Routine 05/15/2025 7:28 PM EDT CARDIAC DEVICE CHECK- REMOTE- MURJ Routine 03/28/2025 2:31 PM EDT COMPREHENSIVE METABOLIC PANEL Routine 01/17/2025 10:05 AM EDT Chronic HFrEF (heart failure with reduced ejection fraction) (CMS/HCC V24, CMS/HCC V28) application integration specialist current use of amiodarone LIPID PANEL WITH REFLEX TO DIRECT LDL Routine 01/17/2025 10:05 AM EDT 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 Date Time Interrogation Session [id number] CV DEVICE CHECK Type Interrogation Session Remote CV DEVICE CHECK Implantable Pulse Generator Towboat Pilot MDT CV DEVICE CHECK Implantable Pulse Generator Type SOILS TECHNICIAN-P CV DEVICE CHECK Implantable Pulse Generator Model Percepta Quad SOILS TECHNICIAN-P [id number] CV DEVICE CHECK Implantable Pulse Generator Serial Number [id number] CV DEVICE CHECK Implantable Pulse Generator Implant Date 20210131 CV DEVICE CHECK Battery Remaining Longevity 39.0 CV DEVICE CHECK Battery Voltage 2.940 CV D EVICE CHECK Battery AUTO TRANSMISSION SPECIALIST Trigger 2.595 CV DEVICE CHECK Battery Status Middle of Service CV DEVICE CHECK Chinmay Statistic RA Percent Paced 100.00 CV DEVICE CHECK Atrial Tachy Statistic AT/AF [place] Percent 0.00 CV DEVICE CHECK Lead Channel [...] CV DEVICE CHECK Ventricular chambers paced during SOILS TECHNICIAN pacing. BiV CV DEVICE CHECK Chinmay Setting Lower Rate Limit 75 CV DEVICE CHECK Chinmay Setting AT Mode Switch Rate 171 CV DEVICE CHECK Chinmay Setting Maximum Tracking Rate 110 CV DEVICE CHECK Chinmay Setting Maximum Sensor Rate 120 CV DEVICE CHECK Chinmay Setting PAV Delay 150 CV DEVICE CHECK Chinmay Setting EDITH Delay 130 CV DEVICE CHECK SOILS TECHNICIAN LV-RV Delay 30 CV D EVICE [...] LAB CHEMISTRY METHOD 01/17/2025 1:17 PM EDT [facility] Triglycerides 82 0 - 150 mg/dL LAB CHEMISTRY METHOD 01/17/2025 1:17 PM EDT [facility] HDL 78 >=40 mg/dL LAB CHEMISTRY METHOD 01/17/2025 1:17 PM EDT [facility] LDL Calculated 70 0 - 100 mg/dL LAB CHEMISTRY METHOD 01/17/2025 1:17 PM EDT [facility] VLDL Cholesterol Hernesto 16.4 mg/dL LAB CHEMISTRY METHOD 01/17/2025 1:17 PM EDT [facility] Non HDL Chol. (LDL+VLDL) 86 <145 mg/dL LAB CHEMISTRY METHOD 01/17/2025 1:17 PM EDT [facility] Chol/HDL Ratio 2.1 0.0 - 4.4 LAB CHEMISTRY METHOD 01/17/2025 1:17 PM EDT [facility] Blood Venous blood specimen / Unknown Venipuncture / Unknown 01/17/2025 10:05 AM EDT 01/17/2025 10:05 AM EDT Javier Shelton MD LAB BLOOD ORDERABLES F inal Result [facility] [address] [place] [address], * (ABNORMAL) Comprehensive metabolic panel (01/17/2025 10:05 AM EDT) Sodium 140 133 - 145 mmol/L LAB CHEMISTRY METHOD 01/17/2025 1:17 PM [facility] Potassium 4.3 3.5 - 5.5 mmol/L LAB CHEMISTRY METHOD 01/17/2025 1:17 PM [facility] Chloride 108 96 - 110 mmol/L LAB CHEMISTRY METHOD 01/17/2025 1:17 PM [facility] CO2 25 21 - 32 mmol/L LAB CHEMISTRY METHOD 01/17/2025 1:17 PM [facility] Anion Gap 7 3 - 11 LAB CHEMISTRY METHOD 01/17/2025 1:17 PM [facility] Glucose 112(H) 70 - 100 mg/dL LAB CHEMISTRY METHOD 01/17/2025 1:17 PM [facility] BUN 23 5 - 25 mg/dL LAB CHEMISTRY METHOD 01/17/2025 1:17 PM [facility] Creatinine 1.22(H) 0.50 - 1.10 mg/dL LAB CHEMISTRY METHOD 01/17/2025 1:17 PM [facility] eGFR 45(L) >=60 mL/min/1. 73m2 LAB CHEMISTRY METHOD 01/17/2025 1:17 PM [facility] Comment:Calculation based on the Chronic Kidney Disease Epidemiology Collaboration (CKD-EPI) equation refit without adjustment for race. BUN/Creatinine Ratio 18.9 LAB CHEMISTRY METHOD 01/17/2025 1:17 PM [facility] Calcium 8.6 8.5 - 10.5 mg/dL LAB CHEMISTRY METHOD 01/17/2025 1:17 PM [facility] AST (SGOT) 22 10 - 42 unit/L LAB CHEMISTRY METHOD 01/17/2025 1:17 PM [facility] ALT (SGPT) 42 10 - 60 unit/L LAB CHEMISTRY METHOD 01/17/2025 1:17 PM [facility] Alkaline Phosphatase 70 42 - 121 unit/L LAB CHEMISTRY METHOD 01/17/2025 1:17 PM [facility] Total Protein 6.6 6.0 - 8.0 g/dL LAB CHEMISTRY METHOD 01/17/2025 1:17 PM [facility] Albumin 3.3 3.2 - 5.0 g/dL LAB CHEMISTRY METHOD 01/17/2025 1:17 PM [facility] Total Bilirubin 0.5 0.0 - 1.4 mg/dL LAB CHEMISTRY METHOD 01/17/2025 1:17 PM [facility] Blood Venous blood specimen / Unknown Venipuncture / Unknown 01/17/2025 10:05 AM EDT 01/17/2025 10:05 AM EDT us Javier Shelton MD LAB BLOOD ORDERABLES F inal Result [facility] [address] [place] [address], from Last 3 Months or Most Recently Relevant to Health Maintenance Insurance [employer] Advance Directives Documents on File Type Date Recorded Patient Grant Administrator Expl anation Health Care Decision (hx) 01/16/2021 [...] (hx) 01/16/2021 AD MCLEOD DIRECTIVE Care Teams Hedis Manager Relationship Specialty Start Date End Date Isabella Miller PA [address] [address] PCP - General Primary Care 06/21/24
== END 2025-06-22 09:45 | disposition home or self-care (01) ==
LOC: HO.XRAY 09:44
PROVIDERS: Visit Provider Nurse Practitioner Family
DX: M17.0 Bilateral primary osteoarthritis of knee (principal)
CPT/HCPCS: 73562

== ENCOUNTER → 2025-06-22 09:50 | Outpatient (BNV) | payer MEDICARE, SELFPAY | PROVIDERS: Visit Provider Radiology Diagnostic Radiology | DX: M17.0 Bilateral primary osteoarthritis of knee (principal); I73.9 Peripheral vascular disease, unspecified | CPT/HCPCS: 73562 ==

== ENCOUNTER 2025-07-06 09:58 | Outpatient (AMB) | payer MEDICARE, SELFPAY ==
--- NOTE | 2025-07-06 10:01 | MHC.OFFVIS ---
Vital Signs 07/06/25 10:08 Height 5 ft 3 in Weight 145 lb BMI 25.7 BP 115/59 L Blood Pressure Location Rt brachial Position Sitting Pulse 85 Pulse Source Pulse Oximeter Pulse Oximetry (%) 99 Oxygen Delivery Method Room Air Intake Visit Reasons: Pill Count Intake Note: Darlene comes in today for a pill count to morphine, patient should have 20 tablets and presents with 34 tablets which she last took today 07/06/25 at 4am. Pain today 08/25./ Patient states that she will be out of town in [place] next week. Speech Lang Path Therapist Required: No Allergies No Known Allergies Allergy (Verified 07/06/25 10:09) HPI Comments Details: The patient is an 80 year old female presenting for a chronic pain management follow-up. The patient is on an opioid program, taking morphine 15 mg twice daily as needed and gabapentin. The patient denies experiencing constipation from the opioid medication. Denies any constipation, nausea, sedation, dizziness, or urinary retention. Approximately two weeks ago, the patient experienced a severe flare-up of knee pain in the posterior aspect of the legs, severe enough to cause crying and disrupt sleep, waking the patient every two hours. This episode prompted the patient to call for the knee X-rays. The pain is intermittent, can last for two to three days, and is exacerbated by sitting or lying down, as well as by cold and rainy weather. Walking and rubbing the legs with [id number]-[id number] arthritis creams provides temporary relief. Past interventions for knee pain include cortisone injections administered every six months. The patient has had them done twice, with the most recent injection on May 02, and reports that they do help. Recent bilateral knee X-rays revealed mild tricompartmental osteoarthritis and vascular calcifications, with no effusion or evidence of a Lopez's cyst, and no findings suggesting an immediate need for knee replacement. The patient considers herself active and is often on the go. - Analgesia: The patient takes morphine 15 mg twice daily as needed, reporting a current pain level of 1/10. - The patient also takes gabapentin, one in the morning, one in the afternoon, and two at night. - The patient has previously received cortisone injections every six months, which provided some help. - Activities of Daily Living: The patient is described as active and always on the go. - Pain is miserable during flare-ups but is manageable with walking. - Adverse Effects: The patient denies constipation. - Affect: A recent pain episode was severe enough to cause crying. - Aberrant Drug-Related Behaviors: Today's pill count showed a surplus of morphine (34 pills instead of an expected 20), indicating compliance with as-needed usage rather than qyxoha-jyq-tndep dosing. PRIOR: Darlene is in my office today for the pain medication refill. She supposed to have 14 pills in her possession. She presented with 28 pills in her possession. She reports today that she is planning to trip to her daughter in [place] and she is saving some medications. This demonstrates responsible attitude to were the opioid medications. I will prescribe her new batch of the medication on 06/13/2025. I will see this patient in 1 month. We also discussed today intrathecal pain pump to help the pain postlaminectomy syndrome. She was asking multiple questions about the procedure, she was asking about the trials, everything was explained to her to her satisfaction. [employer] pain pump brochure was given to the patient. Last time on month ago patient received injection into the left knee. She reports excellent pain relief about 90% improvement. Patient was explained that we can repeat this procedure in 3 months. I also explained to the patient that if procedures we stopped helping patient pain she would need to see an orthopedic surgeon. Patient also was given a random urine drug screen and she stated that she took her last morphine at 22:00 last night 06/05/2025 [facility] Medical History Thyroid cancer Chronic pain syndrome Peripheral polyneuropathy Surgical History Status post ablation of incompetent vein using laser (09/11/22) Social History Patient Tobacco Use Status: Never used Tobacco Current occupational status: retired Review of Systems Const All systems reviewed & are unremarkable except as noted in HPI and below Physical Exam Vital Signs: Last Vital Signs Pulse 85 07/06/25 10:08 BP 115/59 L 07/06/25 10:08 Pulse Ox 99 07/06/25 10:08 Oxygen Delivery Method Room Air 07/06/25 10:08 BMI result Body Mass Index 25.7 General: Appears afebrile. Alert and oriented. Mood and affect appropriate. Follows and participates in conversation appropriately. Respiratory effort is unlabored. No cough. Able to transition from sit to stand unassisted. Ambulates with bilaterally normal heel strike and toe off. Back/Spine/Pelvis Thoracic/Lumbar Spine: pain with thoraco-lumbar ROM, thoraco-lumbar ROM limited, No thoracic spinal tenderness and No lumbar spinal tenderness Extrem General: Yes capillary refill normal, Yes no clubbing, cyanosis or edema and Yes no calf tenderness Right lower extremity: knee (Limited ROM due to pain.) Details: normal to inspection, tenderness Location: of the patella, of the medial joint line and of the lateral joint line and crepitus; no swelling, no ecchymosis and no unusual warmth Left lower extremity: knee (Limited ROM due to pain.) Details: normal to inspection, tenderness Location: of the patella, of the popliteal fossa, of the medial joint line and of the lateral joint line and crepitus; no swelling, no ecchymosis and no unusual warmth Psych Appearance: grossly normal and well kempt Mental Status: mental status grossly normal Speech and movement: Normal speech and movement present and Clear speech present Affect: normal affect Attitude: cooperative Thought process: Normal thought process present Thought content: Normal thought content present, suicidality (none), no hallucinations and No Depressive thoughts present Insight: Good insight present (Psych) Judgement: Good judgement present (Psych) Results Reviewed Results Reviewed: XR KNEE AP STANDING 06/22/25 CLINICAL INFORMATION: pain COMPARISON: March 16, 2024 TECHNIQUE: AP bilateral standing view of the knees was obtained. Lateral and sunrise views both knees. FINDINGS: Joint space narrowing involving mostly the medial and to a lesser extent lateral compartments. Mild sclerosis along the articular surface. No suprapatellar bursa joint effusion. No acute cortical disruption or malalignment. No lytic or blastic lesions. Vascular calcifications. Generalized decreased mineralization. IMPRESSION: Mild tricompartmental osteoarthrosis/osteoarthritis. Atherosclerosis disease, peripheral. Assessment & Plan Assessment & Plan (1) Peripheral polyneuropathy: Code(s): G62.9 - Polyneuropathy, unspecified Category: Medical (2) Chronic, continuous use of opioids: Code(s): F11.90 - Opioid use, unspecified, uncomplicated Category: Medical (3) Bilateral knee pain: Code(s): M25.561 - Pain in right knee; M25.562 - Pain in left knee Category: Medical (4) Chemotherapy-induced peripheral neuropathy: Code(s): G62.0 - Drug-induced polyneuropathy; T45.1X5A - Adverse effect of antineoplastic and immunosuppressive drugs, initial encounter Category: Medical (5) Posterior left knee pain: Code(s): M25.562 - Pain in left knee Category: Medical (6) Lumbosacral spondylosis: Code(s): M47.817 - Spondylosis without myelopathy or radiculopathy, lumbosacral region Category: Medical (7) Osteoarthritis of knees, bilateral: Code(s): M17.0 - Bilateral primary osteoarthritis of knee Category: Medical (8) Chronic pain syndrome: Code(s): G89.4 - Chronic pain syndrome Category: Medical Plan The patient's bilateral knee X-ray results were reviewed, showing mild tricompartmental osteoarthritis without effusion. To manage the knee pain, the patient has agreed bilateral Synvisc One gel injections for chronic pain in both knees. Expectations, risks and benefits were reviewed. Patient is aware she will be contacted to schedule this procedure. Patient has shown accountability for her medication regimen and the pill count was accurate. There is no evidence of misuse, abuse or diversion at this time. MassPat reviewed. The patient will continue the current medication regimen, including morphine 15 mg twice daily as needed and gabapentin. The next morphine prescription will be sent to the pharmacy on 07/18/25. Patient has Narcan at home. All questions and concerns have been answered and patient agreed with the treatment plan. Follow up in 4-5 weeks for pill count and sooner as needed. Patient was informed and verbally consented to the use of an ambient scribe for clinic note documentation during this visit. Medications: Refilled morphine ER Partial Fill upon patient request. 15 mg PO BID PRN 60 tabs 0RF severe pain (scale score 7-10) 30 days F11.90 - Opioid use, unspecified, uncomplicated, G62.0 - Drug-induced polyneuropathy, M17.0 - Bilateral primary osteoarthritis of knee, T45.1X5A - Adverse effect of antineoplastic and immunosuppressive drugs, initial encounter Coding Level of Care Code Est Pt Level 4 (69022) Complex visit Add On G2211 Diagnoses Peripheral polyneuropathy G62.9 Chronic, continuous use of opioids F11.90 Bilateral knee pain M25.561; M25.562 Chemotherapy-induced peripheral neuropathy G62.0; T45.1X5A Posterior left knee pain M25.562 Lumbosacral spondylosis M47.817 Osteoarthritis of knees, bilateral M17.0 Chronic pain syndrome G89.4
[2025-07-06 10:08] VITALS: BP 115/59; PULSE 85; O2SAT 99; BMI 25.7
--- OUTSIDE RECORDS SUMMARY | 2025-07-06 10:38 | XMS_ITS | Clinical Summary ---
Author Organization [address] [place] [address] Address [address] [place] [address] Phone Care Team Providers Care Loss Prevention Operations Manager Name Role Phone Isabella Miller Primary [...] HFrEF (heart failure with reduced ejection fraction) ([facility] V24, [facility] V28) TAKE 1 TABLET BY [...] 2.5 mg tabletIndicatio ns:Atrial fibrillation, unspecified type ([facility] V24, [facility] V28) TAKE 1 TABLET BY MOUTH TWICE [...] Date Polyneuropathy due to other toxic agents ([facility] V24) 11/01/2024 CKD stage 3b, GFR 30-44 ml/min ([facility] V24, [facility] /[facility] V28) 10/18/2024 intermediate manager current use of amiodarone 08/23/2024 Assessment & [...] HFrEF (heart failure with reduced ejection fraction) ([facility] V24, [facility] V28) 01/30/2021 Overview (05/15/2024): Last [...] mg orally daily Candidate for ICD or BLUEPRINTING MACHINE OPERATOR: BLUEPRINTING MACHINE OPERATOR-P in place Assessment and plan: The patient [...] mg orally daily Candidate for ICD or BLUEPRINTING MACHINE OPERATOR: BLUEPRINTING MACHINE OPERATOR-P in place Assessment and plan: 1. Continue [...] cardiac MRI yesterday 11/07/24 pending results. ICD: BLUEPRINTING MACHINE OPERATOR-P in place, with reassessment of [...] SGLT2 inhibitors: Dapagliflozin 10 mg daily. ICD: BLUEPRINTING MACHINE OPERATOR-P in place, with reassessment of [...] wo and w Contrast; Future Atrial fibrillation ([facility] V24, [facility] V28) 1 Overview (05/15/2024): Last Assessment & Plan: The patient has a history of paroxysmal atrial fibrillation. She is on rhythm control therapy with amiodarone and rate control therapy with Coreg. Also, the patient has a XJJ1YO2-ONNk score of 5 (age, gender, heart failure, [...] with Coreg. Also, the patient has a DXN0ZR5-PKIl score of 7 (age, gender, heart failure, [...] Patient has history of paroxysmal atrial fibrillation, [id number]-GHWu score of 5. 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 01/31-02/05/21 with weakness x [address] Caban consulted on the patient due to her bradycardia which appeared multifactorial from electrolyte disturbances in the setting of renal dysfunction and due to amiodarone. She had a pacemaker with BLUEPRINTING MACHINE OPERATOR implanted during the hospitalization. She [...] 4:00 PM EST Office Visit Nephrology - [address] [place] [address] Jake Carr MD CKD stage 3a, GFR 45-59 ml/min ([facility] V24, [facility] V28) (Primary Dx); Primary hypertension 05/15/2025 7:30 PM EDT Ancillary Procedure [facility] [address] [facility] [address] [place] [phone] from Last 3 Months Immunizations Immunization Administration [...] CHOLECYSTECTOMY PROCEDURE: LAPAROSCOPY, CHOLECYSTECTOMY; COMMENT: 07/2023 in [place] due to cholelithiasis Medical History Medical History Date Comments Aortic atherosclerosis ([facility] V24) 10/02/2015 DX:Aortic atherosclerosis (HCC); [...] DX:Hyperlipidemi a Cholelithiasis DX:Cholelithiasi s Breast cancer ([facility], [facility] V28) 2003 DX:Breast cancer ([facility]); COMMENT: Chemo &Rad Tx Family history of coronary a rtery disease DX:Family history of coronar y artery disease H/O hypercholesterolemia Rosacea Chronic kidney disease (CKD) , stage III (moderate) ([facility] V[facility], [facility] V28) Family History Medical History Relation Name [...] AM EST Office Visit Internal Medicine - [address] [place] [phone] Isabella Miller PA [address] [facility] [place] [address] 07/30/2025 10:40 AM EST Office Visit [facility] [address] [place] [phone] Claudia Rose NP [address] [facility] [address] [place] [address] 11/01/2025 11:00 AM EDT Ancillary Procedure [facility] [address] [place] [address] 07/03/2026 4:00 PM EST Office Visit Nephrology - [place] [id number] [place] [address] Jake Carr MD [address] [facility] [address] [place] [phone] Health Maintenance Due Date Last Done Comments [...] this topic Medical Devices Implanted Type [employer] Registrar Device Identifier Shelf Expiration Date Model / Serial / Lot Medt-Card Percepta Quad Civil Service Worker-P [id number] Implanted: by Efren Caban MD (Quantity not on file) Cardiac BLUEPRINTING MACHINE OPERATOR-P Left: Chest [employer] - CARDIAC RHYTH-CRDM PERCEPTA QUAD BLUEPRINTING MACHINE OPERATOR-P [id number] / [id number] / Procedures Procedure Name Priority Date/Time Associated Diagnosis Comments CARDIAC DEVICE CHECK- REMOTE- MURJ Routine 05/15/2025 7:28 PM EDT COMPREHENSIVE METABOLIC PANEL Routine 01/17/2025 10:05 AM EDT Chronic HFrEF (heart failure with reduced ejection fraction) ([facility] V24, CMS/H[facility] V28) intermediate manager current use of amiodarone LIPID PANEL WITH REFLEX TO DIRECT LDL Routine 01/17/2025 10:05 AM EDT Coronary artery disease involving [place] coronary artery of k[place]ai heart without angina pectoris Pure hypercholesterolemia from Last 3 Months or Most Recently Relevant to Health Maintenance Results * Cardiac device check - Remote- MURJ (05/15/2025 7:28 PM EDT) Date Time Interrogation Session [id number] CV DEVICE CHECK Type Interrogation Session Remote CV DEVICE CHECK Implantable Pulse Generator [employer] Registrar MDT CV DEVICE CHECK Implantable Pulse Generator Type BLUEPRINTING MACHINE OPERATOR-P CV DEVICE CHECK Implantable Pulse Generator Model Percepta Quad BLUEPRINTING MACHINE OPERATOR-P [id number] CV DEVICE CHECK Implantable Pulse Generator Serial Number [id number] CV DEVICE CHECK Implantable Pulse Generator Implant Date 20210131 CV DEVICE CHECK Battery Remaining Longevity 39.0 CV DEVICE CHECK Battery Voltage 2.940 CV D EVICE CHECK Battery HEAD OF STORE OPERATIONS Trigger 2.595 CV DEVICE CHECK Battery Status Middle of Service CV DEVICE CHECK Chinmay Statistic RA Percent Paced 100.00 CV DEVICE CHECK Atrial Tachy Statistic AT/AF [place] Percent 0.00 CV DEVICE CHECK Lead Channel [...] CV DEVICE CHECK Ventricular chambers paced during BLUEPRINTING MACHINE OPERATOR pacing. BiV CV DEVICE CHECK Chinmay Setting Lower Rate Limit 75 CV DEVICE CHECK Chinmay Setting AT Mode Switch Rate 171 CV DEVICE CHECK Chinmay Setting Maximum Tracking Rate 110 CV DEVICE CHECK Chinmay Setting Maximum Sensor Rate 120 CV DEVICE CHECK Chinmay Setting PAV Delay 150 CV DEVICE CHECK Chinmay Setting EDITH Delay 130 CV DEVICE CHECK BLUEPRINTING MACHINE OPERATOR LV-RV Delay 30 CV D [...] LAB CHEMISTRY METHOD 01/17/2025 1:17 PM EDT [facility] Triglycerides 82 0 - 150 mg/dL LAB CHEMISTRY METHOD 01/17/2025 1:17 PM EDT [facility] HDL 78 >=40 mg/dL LAB CHEMISTRY METHOD 01/17/2025 1:17 PM EDT [facility] LDL Calculated 70 0 - 100 mg/dL LAB CHEMISTRY METHOD 01/17/2025 1:17 PM EDT [facility] VLDL Cholesterol Hernesto 16.4 mg/dL LAB CHEMISTRY METHOD 01/17/2025 1:17 PM EDT [facility] Non HDL Chol. (LDL+VLDL) 86 <145 mg/dL LAB CHEMISTRY METHOD 01/17/2025 1:17 PM EDT [facility] Chol/HDL Ratio 2.1 0.0 - 4.4 LAB CHEMISTRY METHOD 01/17/2025 1:17 PM T [facility] Blood Venous blood specimen / Unknown Venipuncture / Unknown 01/17/2025 10:05 AM EDT 01/17/2025 10:05 AM EDT Javier Shelton MD LAB BLOOD ORDERABLES F inal Result [facility] [address] [place] [address], * (ABNORMAL) Comprehensive metabolic panel (01/17/2025 10:05 AM EDT) Sodium 140 133 - 145 mmol/L LAB CHEMISTRY METHOD 01/17/2025 1:17 PM [facility] Potassium 4.3 3.5 - 5.5 mmol/L LAB CHEMISTRY METHOD 01/17/2025 1:17 PM [facility] Chloride 108 96 - 110 mmol/L LAB CHEMISTRY METHOD 01/17/2025 1:17 PM [facility] CO2 25 21 - 32 mmol/L LAB CHEMISTRY METHOD 01/17/2025 1:17 PM [facility] Anion Gap 7 3 - 11 LAB CHEMISTRY METHOD 01/17/2025 1:17 PM [facility] Glucose 112(H) 70 - 100 mg/dL LAB CHEMISTRY METHOD 01/17/2025 1:17 PM [facility] BUN 23 5 - 25 mg/dL LAB CHEMISTRY METHOD 01/17/2025 1:17 PM [facility] Creatinine 1.22(H) 0.50 - 1.10 mg/dL LAB CHEMISTRY METHOD 01/17/2025 1:17 PM [facility] eGFR 45(L) >=60 mL/min/1. 73m2 LAB CHEMISTRY METHOD 01/17/2025 1:17 PM T [facility] Comment:Calculation based on the Chronic Kidney Disease Epidemiology Collaboration (CKD-EPI) equation refit without adjustment for race. BUN/Creatinine Ratio 18.9 LAB CHEMISTRY METHOD 01/17/2025 1:17 PM [facility] Calcium 8.6 8.5 - 10.5 mg/dL LAB CHEMISTRY METHOD 01/17/2025 1:17 PM [facility] AST (SGOT) 22 10 - 42 unit/L LAB CHEMISTRY METHOD 01/17/2025 1:17 PM [facility] ALT (SGPT) 42 10 - 60 unit/L LAB CHEMISTRY METHOD 01/17/2025 1:17 PM [facility] Alkaline Phosphatase 70 42 - 121 unit/L LAB CHEMISTRY METHOD 01/17/2025 1:17 PM [facility] Total Protein 6.6 6.0 - 8.0 g/dL LAB CHEMISTRY METHOD 01/17/2025 1:17 PM [facility] Albumin 3.3 3.2 - 5.0 g/dL LAB CHEMISTRY METHOD 01/17/2025 1:17 PM [facility] Total Bilirubin 0.5 0.0 - 1.4 mg/dL LAB CHEMISTRY METHOD 01/17/2025 1:17 PM [facility] Blood Venous blood specimen / Unknown Venipuncture / Unknown 01/17/2025 10:05 AM EDT 01/17/2025 10:05 AM EDT Javier Shelton MD LAB BLOOD ORDERABLES F inal Result [facility] [address] [place] [address], from Last 3 Months or Most Recently Relevant to Health Maintenance Insurance [employer] Advance Directives Documents on File Type Date Recorded Patient Foreman Or Supervisor And Operator Expl anation Health Care Decision (hx) [...] (hx) 01/16/2021 AD MCLEOD DIRECTIVE Care Teams Loss Prevention Operations Manager Relationship Specialty Start Date End Date Isabella Miller PA [address] [place] [id number] PCP - General Primary Care 06/21/24
--- OUTSIDE RECORDS SUMMARY | 2025-07-06 10:38 | XMS_ITS | Clinical Summary ---
Author Organization [facility] Address [address] [place] [address] Care Team Providers Care State Appellate Clerk Name Role Phone Julio Brizuela MD Primary Care Provider Unavailab le Allergies Active Allergy Reactions Criticality Noted Date Comments Iodinated Contrast Media 01/24/2009 Oxycodone-Acetaminophen 11/09/2017 Medications Medication Sig Dispensed Refills Start Date End Date Status [place]-3 Fatty Acids (FISH OIL) 1000 MG CAPS [...] 0 05/24/2018 Active ergocalciferol (VITAMIN D2) capsule 64594 units TAKE ONE CAPSULE BY MOUTH ONE [...] age to complete this topic Care Teams State Appellate Clerk Relationship Specialty Start Date End Date Julio Brizuela MD PCP - General Internal Medicine 01/18/19
--- OUTSIDE RECORDS SUMMARY | 2025-07-06 10:38 | XMS_ITS | Data Portability ---
Author Organization [place] - .[facility], [facility] Address [address] [place] [address] Care Team Providers Care Substance Abuse Services Director Name Role Phone ESHA HUBBARD Primary Care [...] was worked up a year prior in [place] where she lives with MRCP as well [...] kelsi cysti tis. [place]. [id number] GROSS DESCR IPTIO N: The speci men [...] Labor Carolina beltran s, [place] Not Available [facility] (Lab Depart-Adult) [address] [facility], [place], [address], 08/19/2023 15:56:47 08/14/20 23 08/13/2023 ahs diagn [...] 2022 Maggi t Name: BENJAMIN GOLDBERG MRN: [id number] Date of : [id number] Gender : F [address], [address] 08/27/2023 12:11:25 Result Notes None recorded. Procedures Surgical History Date Name Laterality Status Provider Name and Address Organization Details Recorded Time 08/16/19 24 Gall Bladder Surgery completed Brianna Mohrhauser [place] - .[facility] 08/26/2023 14:11:53 08/16/19 23 Colonoscopy completed Brianna Mohrhauser [place] - .[facility] 08/26/2023 14:11:53 08/16/19 23 Echocardiogram completed Brianna Mohrhpiar [place] - .[facility] 08/26/2023 14:11:53 08/16/19 22 ERCP completed Brianna Mohrhpiar [place] - .[facility] 08/26/2023 14:11:53 08/16/19 22 Pacemaker implant completed Brianna Mohrhpiar [place] - .[facility] 08/26/2023 14:11:53 08/16/19 01 Breast Surgery completed Brianna Mohrhauser [place] - .[facility] 08/26/2023 14:11:53 08/16/18 88 Hysterectomy completed Brianna Mohrhpiar [place] - .[facility] 08/26/2023 14:11:53 08/16/18 67 Section completed Brianna Mohrhpiar [place] - .[facility] 08/26/2023 14:11:53 Imaging Results None [...] Updated DateTime 08/26/2023 157.48 cm 25.6 kg/m2 09608.93 g 92/58 mm[Hg] Lea CROWE - [facility] 08/26/2023 14:22:15 Social History Question Answer Notes LastModified by OrganEmitless Details LastModified Time Tobacco Smoking Status Never Smoker SEBASTIEN Olivier - .[facility] 08/26/2023 14:11:53 What Is Your Level Of Caffeine Consumption? None Information not available 08/26/2023 What Was The Date Of Your Most Recent Tobacco Screening? 08/26/2023 Information not available 08/26/2023 How Many Years Have You Smoked Tobacco? 0 [place] [facility] Information not available 08/26/2023 Sex: Unknown Functional Status Question Answer Note LastModified by [employer] Details LastModified Time Do you use any illicit or recreational drugs? No Information not available 08/26/2023 Do you or have you ever used any other forms of tobacco or nicotine? No [email or web address] Information not available 08/26/2023 What is your level of alcohol consumption? None Information not available 08/26/2023 Do you or have you ever used smokeless tobacco? Never used smokeless tobacco galion Information not available 08/26/2023 Do you or have you ever used e-cigarettes or vape? Never used electronic cigarettes galion Information not available 08/26/2023 Mental Status None recorded. Family History Nothing Reported. Medical History No medical history recorded. Gynecological HistoryNo gynecological history recorded. Obstetrics History GPAL:G 0 P 0 0 0 0 Past Encounters Encounter ID Performer Location Encounter Start Date Encounter Closed Date Diagnosis/Indication Diagnosis SNOMED-CT Code Diagnosis ICD10 Code Diagnosis IMO Codes Diagnosis Note [id number] Mansoor Walsl_1 50[address]_GE N SURG [address] [facility],[address] [place] [phone] 08/26/2023 14:09:56 08/31/2023 08:44:46 Acute cholecystitis 70296131 K81.0 Health Concerns Section Related Observation LastModified by Organization Detai ls LastModified Time None Recorded Concern Status LastModified by Organization Details LastModified Time None Recorded Advance Directives Directive None Recorded Payers Insurance Date Sequence Insurance Name Policy Number Policy Almanzar Covered Member ID Almanzar Member ID Guarantor Name 08/31/2023 1 [facility] - MEDICARE PREFERRED (MEDICARE REPLACEMENT HMO) MANSOOR Alexander [id number] Darlene Bravod 08/26/2023 1 [place] Darlene Bravod [id number] Darlene Bravod Notes Date Note Type [...] minimal abdominal pain. Mansoor Talley MD [address] [place], [address], [facility] - [facility] 08/26/2023 14:34:26 OBGyn Episode No OBEpisode recorded.
== END 2025-07-06 10:30 | disposition home or self-care (01) ==
LOC: HO.PMC 09:58
PROVIDERS: PCP Internal Medicine; Visit Provider Nurse Practitioner Family
DX: G62.9 Polyneuropathy, unspecified (principal); Z79.891 Long term (current) use of opiate analgesic; M25.561 Pain in right knee; M25.562 Pain in left knee; G62.0 Drug-induced polyneuropathy; T45.1X5A Adverse effect of antineoplastic and immunosuppressive drugs, initial encounter; M47.817 Spondylosis without myelopathy or radiculopathy, lumbosacral region; M17.0 Bilateral primary osteoarthritis of knee; G89.4 Chronic pain syndrome
CPT/HCPCS: 99214; G2211

== ENCOUNTER → 2025-07-06 09:58 | Outpatient (BNVA) | payer MEDICARE, SELFPAY | PROVIDERS: PCP Internal Medicine; Visit Provider Nurse Practitioner Family | DX: G89.4 Chronic pain syndrome (principal); G62.0 Drug-induced polyneuropathy; M25.561 Pain in right knee; M25.562 Pain in left knee; F11.90 Opioid use, unspecified, uncomplicated; G62.9 Polyneuropathy, unspecified; M47.817 Spondylosis without myelopathy or radiculopathy, lumbosacral region; M17.0 Bilateral primary osteoarthritis of knee | CPT/HCPCS: 99212 ==